=== PATIENT | male | born 1965 | race Caucasian/White ===

== ENCOUNTER 2024-02-23 05:35 | Emergency (ER) | payer BC, SELFPAY ==
[2024-02-23 05:39] VITALS: BP 126/89; PULSE 88; RESP 18; TEMP 36.3; O2SAT 97
[2024-02-23 05:46] VITALS: BP 126/89; PULSE 95; RESP 18; TEMP 36.8; O2SAT 96
[2024-02-23] MEDS: HYDROcodone/acetaminophen (*CRX) 7.5-325 MG TABLET 1 TAB PO (06:24)
--- NOTE | 2024-02-23 06:25 | ED.GENADULT ---
HPI - General Adult General Chief complaint: Extremity Injury, Lower Stated complaint: R knee and lutz pain Time Seen by Provider: 02/23/24 06:17 History of Present Illness HPI narrative: Patient is a 58-year-old male who presents the emergency department this morning complaining of right knee pain. Patient states that the pain has been bothered him for the past few weeks, and cannot remember any trauma or injuries to the right knee. Patient states that he has followed up with And has an outpatient MRI scheduled but not for a while. Patient states that he has been prescribed tramadol which has not touched his pain. He has had x-rays done which revealed no fractures. Patient was told that his x-rays are completely normal. He denies any additional symptoms or concerns at this time. Related Data Allergies Allergy/AdvReac Type Severity Reaction Status Date / Time No Known Allergies Allergy Verified 02/23/24 05:44 Review of Systems Review of Systems: All systems are reviewed and are negative unless stated otherwise in the HPI. Exam Narrative: General: Alert, awake, afebrile, in no acute distress. Cardiovascular: Regular rate and rhythm, no murmurs, rubs or gallops, no peripheral edema. Respiratory: Clear to auscultation bilaterally, no tachypnea, no wheezing, no rhonchi, no rubs, no respiratory distress. Abdomen: Soft, nontender, nondistended, no rebound, no guarding, no peritoneal signs. Musculoskeletal: No joint swelling or deformity, normal muscle tone, no right knee effusion, tenderness to palpation over the medial aspect of the right knee, intact right knee flexion and extension. Skin: No rashes or petechia, no signs of infection. Neurological: Alert and oriented to person, place, and time. Follows all commands. No focal deficits, speech is clear and fluent. Course Vital Signs Vital signs: Vital Signs Temperature 97.4 F L 02/23/24 05:39 Pulse Rate 88 02/23/24 05:39 Respiratory Rate 18 02/23/24 05:39 Blood Pressure 126/89 02/23/24 05:39 Pulse Oximetry 97 02/23/24 05:39 Oxygen Delivery Room Air 02/23/24 05:39 Temperature 98.2 F 02/23/24 05:46 Pulse Rate 86 02/23/24 06:31 Respiratory Rate 18 05/23/24 06:31 Blood Pressure 126/89 02/23/24 06:31 Pulse Oximetry 98 02/23/24 06:31 Oxygen Delivery Room Air 02/23/24 05:39 Medical Decision Making MDM Narrative Medical decision making narrative: The patient was evaluated by myself in the emergency department. History is obtained from patient who is an independent historian and physical exam was performed. External medical records were reviewed at this time. I did offer to obtain imaging, however, informed patient that I cannot obtain an MRI at this time which is what he wanted. Patient was administered 7.5-325 mg of oral [place] for pain and was informed that a script for a few [place] was will be sent to his pharmacy to use as needed for pain until he can follow-up with orthopedics and obtain his MRI and patient is agreeable. Differential diagnosis considerations include meniscal injury, ACL/PCL injury. Comorbidities impacting this visit include none. I have evaluated and discussed social determinants of health with the patient that could potentially impact subsequent diagnosis and treatment plans. On repeat assessment of the patient, reevaluation revealed that the patient is doing well and is in no acute distress. Patient symptoms have improved since he arrived to our emergency department. Repeat vital signs were all reviewed and noted to be stable. Differential diagnosis and treatment plan were discussed with the patient at bedside. Patient agrees with discussion and after shared medical decision making agrees with discharge. All questions were answered to the patient's satisfaction. Patient will follow up with Dr. Cabrera with orthopedics in 3-5 days. Patient was provided with strict return precautions and instructed
[2024-02-23 06:31] VITALS: BP 126/89; PULSE 86; RESP 18; O2SAT 98
== END 2024-02-23 06:30 | disposition home or self-care (01) ==
PROVIDERS: Emergency Provider Emergency Medicine; PCP Internal Medicine
DX: M23.91 Unspecified internal derangement of right knee (principal)
CPT/HCPCS: 99283; A9270

== ENCOUNTER 2024-03-02 16:09 | Outpatient (CLI) | payer BC, SELFPAY ==
--- NOTE | ~2024-03-02 | XR_ITS ---
EXAM: XR lumbar spine min 4V DATE: 03/02/2024 16:37 HISTORY: LUMBAR RADICULOPATHY, R LEG PAIN . COMPARISON: None available. FINDINGS: 5 nonrib-bearing lumbar-type vertebral bodies. Pedicles intact. Minimal retrolisthesis at L2-3 and L3-4 that remain stable in flexion and extension. Vertebral body heights preserved. Moderate disc space narrowing and marginal osteophytosis with vacuum phenomenon at L5-S1. Moderate lower lumb ar facet hypertrophy and sclerosis with interspinous narrowing. No fracture or dislocation. IMPRESSION: Stable grade 1 retrolisthesis at L2-3 and L3-4. Severe degenerative disc disease at L5-S1 . Moderate lower lumbar facet arthropathy Reviewed, dictated and finalized at location K. IMPRESSION: Stable grade 1 retrolisthesis at L2-3 and L3-4. Severe degenerative disc disease at L5-S1. Moderate lower lumbar facet arthropathy
--- NOTE | ~2024-03-02 | XR_ITS ---
EXAM: XR sacrum coccyx min 2V DATE: 03/02/2024 16:38 HISTORY: LUMBAR RADICULOPATHY, R LEG PAIN . COMPARISON: X-ray L-spine same date. FINDINGS: Lumbar degenerative disc disease. Normal SI joints. Mild degenerative change in the bilate ral hips. No fracture or dislocation. IMPRESSION: Unremarkable sacrum and coccyx radiograph findings. Reviewed, dictated and finalized at location K.
== END 2024-03-02 16:10 ==
PROVIDERS: PCP Internal Medicine; Visit Provider Nurse Practitioner
DX: M43.16 Spondylolisthesis, lumbar region (principal); M51.37 Other intervertebral disc degeneration, lumbosacral region; M47.896 Other spondylosis, lumbar region
CPT/HCPCS: 72110; 72220

== ENCOUNTER 2024-12-30 15:12 | Emergency (ER) | payer BC, SELFPAY ==
[2024-12-30] VITALS (7 sets, daily range): BP systolic 138–159; BP diastolic 85–91; PULSE 92–102; RESP 10–16; O2SAT 99
--- NOTE | ~2024-12-30 | XR_ITS ---
EXAMINATION: XR chest 2V Exam Date/Time: 12/30/2024 15:20 CDT HISTORY: dizziness Comparison: None. RESULT: Lines, tubes, and devices: None. Lungs and pleura: Likely pulmonary bullae in the left apex. Ill-defined patchy subsegmental airspace disease in the lung bases, greater on the right. Left hemidiaphragm elevation. Cardiomediastinal silhouette: Left hilar retraction, ill-defined left hilar opacities. Normal heart size. Other: Prominent gastric bubble. No acute osseous finding. IMPRESSION: Subsegmental bibasilar and left hilar atelectasis/consolidation. Left apical bullae, possible emphysematous change. Prominent gastric bubble with left hemidiaphragm elevation, may be secondary to gastric distention. C orrelate for symptoms of abdominal pain. Reviewed, dictated and finalized at location K. IMPRESSION: Subsegmental bibasilar and left hilar atelectasis/consolidation. Left apical bullae, possible emphysematous change. Prominent gastric bubble with left hemidiaphragm elevation, may be secondary to gastric distention. Correlate for symptoms of abdominal pain.
--- NOTE | ~2024-12-30 | CT_ITS ---
EXAMINATION: CT brain wo con DATE: 12/30/2024 15:35 INDICATION: fall, injury . TECHNIQUE: Computed tomography (CT) of the head was performed without intravenous contrast. The mA wa s adjusted according to patient size. Iterative reconstruction technique was employed. The dose-lengt h product was 605.33 mGy-cm. COMPARISON: None. FINDINGS: Small foci of acute hemorrhage in the right sylvian fissure and also inferior sulci in the right midd le cranial fossa. Small focus of extra-axial hyperdensity in the medial aspect of the right middle cr anial fossa, 3 mm thick, may represent subarachnoid or subdural blood. 4 mm peripheral hyperdense foc i in the inferior right frontal lobe (coronal images 22 and 21) may represent subarachnoid or intrapa renchymal blood. No hydrocephalus, mass, or herniation. No acute ischemic infarct. Unremarkable dural venous sinus attenuation. No acute osseous abnormality. Posterior scalp contusion near the vertex. The aerated spaces are clear. IMPRESSION: Subarachnoid hemorrhage noted primarily within the right sylvian fissure. Additional sites of hemorrhage are present in the middle cranial fossa and inferior right frontal lob e which may represent subarachnoid, subdural and/or intraparenchymal blood indicating the possibility of multicompartment hemorrhage. Posterior scalp contusion near the vertex, without underlying fracture. Results reported telephonically to Dr. Alex by Dr. Wild at 3:58 PM on 12/30/2024. Reviewed, dictated and finalized at location K. IMPRESSION: Subarachnoid hemorrhage noted primarily within the right sylvian fissure. Additional sites of hemorrhage are present in the middle cranial fossa and infe rior right frontal lobe which may represent subarachnoid, subdural and/or intra parenchymal blood indicating the possibility of multicompartment hemorrhage. Posterior scalp contusion near the vertex, without underlying fracture. Results reported telephonically to Dr. Alex by Dr. Wild at 3:58 PM on .
--- NOTE | ~2024-12-30 | CT_ITS ---
EXAMINATION: CT cervical spine wo con DATE: 12/30/2024 15:36 INDICATION: fall TECHNIQUE: Computed tomography (CT) of the cervical spine was performed without intravenous contrast. Automated exposure control and iterative reconstruction technique were employed. The dose-length pro duct was 367.44 mGy-cm. COMPARISON: None. FINDINGS: Vertebral Body Alignment: 2 mm anterolisthesis at C5-6, presumably secondary to degenerative changes. Craniocervical and atlantoaxial alignment: Moderate degenerative change. Alignment intact. Transverse ligament calcification. Osseous structures/fracture: No evidence of a lytic or blastic process in the visualized spine. No e vidence of acute fracture. Cervical soft tissues: The paraspinal soft tissues planes are maintained. Degenerative changes: Degenerative changes, without severe or central canal narrowing. Moderate-sever e bilateral neural foraminal narrowing at C6-7 secondary to degenerative changes. IMPRESSION: No acute fracture or traumatic malalignment in the cervical spine. Reviewed, dictated and finalized at location K.
--- NOTE | 2024-12-30 15:22 | ECG_ITS ---
Test Date: 2024-12-30 15:16:45 Measurements Intervals [place] Rate: 89 P: 72 NE: 146 QRS: 67 QRSD: 93 T: 64 QT: 355 QTc: 434 Interpretive Statements SINUS RHYTHM POSSIBLE LEFT ATRIAL ENLARGEMENT [-0.1mV P WAVE IN V1/V2] INCOMPLETE RIGHT BUNDLE BRANCH BLOCK [90+ ms QRS DURATION, TERMINAL R IN V1/V2, 40+ ms S IN I/aVL/V4/V5/V6] ABNORMAL ECG No previous ECG available for comparison Electronically Signed On 12-31-2024 06:47:35 CDT by Bonilla Pinzon M.D.
--- OUTSIDE RECORDS SUMMARY | 2024-12-30 15:45 | XMS_ITS | Encounter Summary ---
Author Organization [facility] Address [facility] [place] [address] Care Team Providers Care Director Behavioral Health Name Role Phone Winter Terry MD Primary Care Provider [phone] Chalino Palacios MD Unavailable Encounter Details Date Type Department Care Team (Latest Contact Info) Description 03/15/2024 WOWasht [facility] [place] - [place] [address] [address] [place] [address] Winter Terry MD [address] [place] [address] Oncology Referral Social History Tobacco Use Types Packs/Day Years Used Date Smoking Tobacco: Every Day Cigarettes 1 40 Passive Smoke Exposure: Past Smokeless Tobacco: Never Comments:Counseled by DR Stefany car. Alcohol Use Standard Drinks/Week Comments Yes 10 (1 standard drink = 0.6 oz pu re alcohol) PHQ-2 Answer Date Recorded Patient Health Questionnaire-2 Score 0 03/30/2023 Sex and Gender Information Value Date Recorded Sex Assigned at Not on file Legal Sex Male 10:24 AM CDT Gender Identity Not on file Sexual Orientation Not on file documented as of this encounter Plan of Treatment Upcoming Encounters Date Type Department Care Team (Late st Contact Info) Description 01/23/2025 8:40 AM CDT Office Visit [facility] [place] - [address] [place] [address] Winter Terry MD [address] [address] 04/09/2025 11:30 AM CDT Appointment [facility] Radiation Oncology [address] [place] [address] Chalino Palacios MD [address] [place] [address] [address] [place] [address] documented as of this encounter Visit Diagnoses Not on filedocumented in this encounter Additional Health Concerns Assessment Noted Time PHQ-9 Depression Total Score: 0 03/30/20 9:33 AM CDT documented as of this encounter Care Teams Director Behavioral Health Relationship Specialty Start Date End Date Winetr Terry MD [address] [address] PCP - General INTERNAL MEDICINE 03/07/23 Chalino Palacios MD [address] [address] Consulting Physician RADIATION ONCOLOGY 04/02/24 documented as of this encounter
--- OUTSIDE RECORDS SUMMARY | 2024-12-30 15:45 | XMS_ITS ---
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 04/03/2024 Current Treatment and Therapy Plans [facility]: Durvalumab - 14 Day Cycle - Non-Small Cell Lung* Plan Start Date:06/03/2024 Plan Provider:Johanna Roque, WASTEWATER TREATMENT SUPERVISOR, MEAT MARKET MANAGER Linked Problems Primary non-small cell carci noma of upper lobe of left lung (HCC) Treatment Medications Current Day (Day 1 , Cycle 15 - Planned for 01/02/2025) Next Day (Day 1, Cycle 16 - Planned for 01/16/2025) durvalumab (IMFINZI) chemo infusion durvalumab (IMFINZI) 620 mg in sodium chloride 0.9 % 250 mL chemo infusion durvalumab (IMFINZI) 620 mg in sodium chloride 0.9 % 250 mL chemo infusion Past Treatment and Therapy Plans ONCOLOGY TREATMENT Plan Name Start Date Discontinue Date Treatment Medications Discontinue Reason Plan Provider Cycles NON-SMALL CELL LUNG CA - CARBO/TAXO L WEEKLY with rt- [facility]I 04/16/2024 05/28/2024 CARBOplatin (PARAPLATIN) chemo infusion (by AUC)PACLitaxel (TAXOL) chemo infusion Plan Clean Up Pop Waller MD 1 of 1 cycle started Lifetime Dose Tracking * Chemical Lifetime Dose Automatic Entry Manual Entr y Carboplatin 994.514 mg/m2 (1,744 mg) 994.514 mg/m2 (1 ,744 mg) 0 mg/m2 (0 mg)
--- OUTSIDE RECORDS SUMMARY | 2024-12-30 15:45 | XMS_ITS | Encounter Summary ---
Author Organization [facility] Address [facility] [place] [address] Care Team Providers Care Inbound Sales Representative Name Role Phone Winter Terry MD Primary Care Provider [phone] Chalino Palacios MD Unavailable Encounter Details Date Type Department Care Team (Late Contact Info) Description 02/22/2024 [facility]Chart [facility] [address] Winter Terry MD [address] [place] [address] X-Ray Results Social History Tobacco Use Types Packs/Day Years [...] Description 01/23/2025 8:40 AM CDT Office Visit [facility]pecialty [address] [place] [address] Winter Terry MD [address] [address] 04/09/2025 11:30 AM CDT Appointment [facility] Radiation Oncology [address] [facility] [address] [place] [address] Chalino Palacios MD [address] [facility] [address] [place] [address] documented as of this encounter Visit Diagnoses Not on filedocumented in this encounter Additional Health Concerns Assessment Noted Time PHQ-9 Depression Total Score: 0 03/30/20 23 9:33 AM CDT documented as of this encounter Care Teams Inbound Sales Representative Relationship Specialty Start Date End Date Winter Terry MD [address] [address] PCP - General INTERNAL MEDICINE 03/07/23 Chalino Palacios MD [address] [address] Consulting Physician RADIATION ONCOLOGY 04/02/24 documented as of this encounter
--- OUTSIDE RECORDS SUMMARY | 2024-12-30 15:45 | XMS_ITS | Encounter Summary ---
Author Organization [facility] Address [facility] [place] [address] Care Team Providers Care Housekeeping Assistant Name Role Phone Winter Terry MD Primary Care Provider [phone] Chalino Palacios MD Unavailable Encounter Details Date Type Department Care Team (Latest Contact Info) Description 04/11/2024 Snoobet [facility] [address] [address] Winter Terry MD [address] [place] [address] Update for chemotherapy treatment Social History Tobacco Use Types Packs/Day Years Used Date Smoking Tobacco: Former Cigarettes 1 40 Passive Smoke Exposure: Past [...] Description 01/23/2025 8:40 AM CDT Office Visit [facility] Multispecialty [address] [place] [address] Winter Terry MD [address] [address] 04/09/2025 11:30 AM CDT Appointment [facility] Radiation Oncology [address] [place] [address] Chalino Palacios MD [address] [facility] [address] [place] [address] documented as of this encounter Visit Diagnoses Not on filedocumented in this encounter Additional Health Concerns Assessment Noted Time PHQ-9 Depression Total Score: 0 03/30/20 23 9:33 AM CDT documented as of this encounter Care Teams Housekeeping Assistant Relationship Specialty Start Date End Date Winter Terry MD [address] [address] PCP - General INTERNAL MEDICINE 03/07/23 Chalino Palacios MD [address] [address] Consulting Physician RADIATION ONCOLOGY 04/02/24 documented as of this encounter
--- OUTSIDE RECORDS SUMMARY | 2024-12-30 15:45 | XMS_ITS | Clinical Summary ---
Author Organization [facility] Address [facility] [place] [address] Care Team Providers Care Hat Trimmer Name Role Phone Winter Terry MD Primary Care Provider [phone] Chalino Palacios MD Unavailable Medications Lancets MiscIndications:U ncontrolled type 2 diabetes mellitus with hyperglycemia ([facility] HHS/HCC) 1 Device by Does not apply route 3 (three) times daily before meals. 100 each 2 3 Active Alcohol Swabs (ALCOHOL PREP) PadsIndications:U ncontrolled type 2 diabetes mellitus with hyperglycemia ([facility]/HCC HHS/HCC) 1 Bag by Does not apply route 3 (three) times daily before meals. 100 each 2 3 Active Blood Glucose Monitoring Suppl (FREESTYLE LITE) w/Device KitIndications:He moglobin A1C greater than 9%, indicating poor diabetic control,Uncontrol led type 2 diabetes mellitus with hyperglycemia ([facility]/HCC HHS/HCC) 1 each by Does not apply route 3 (three) times daily. 1 kit 3 Active Glucose Blood (FREESTYLE LITE) test stripIndications: Hemoglobin A1C greater than 9%, indicating poor diabetic control,Uncontrol led type 2 diabetes mellitus with hyperglycemia ([facility] HHS/HCC) Use 3 times daily before meals to check blood sugar 300 strip 3 Active Lancets (FREESTYLE) lancetsIndication s:Hemoglobin A1C greater than 9%, indicating poor diabetic control,Uncontrol led type 2 diabetes mellitus with hyperglycemia (CMS/HCC HHS/HCC) Use 3 times daily before meals to check blood sugar 300 each 3 Active buPROPion SR (WELLBUTRIN SR) 150 MG 12 hr tabletIndications :Smoker,Moderate episode of recurrent major depressive disorder ([facility]) Take 1 tablet (150 mg total) by mouth 2 (two) times daily. 180 tablet 3 Active varenicline, starter pack, (CHANTIX) 0.5 MG X 11 & 1 MG X 42 tabletIndications :Tobacco use disorder Take one 0.5 mg tab by mouth once a day for 3 days, then take one 0.5 mg tab twice a day for 4 days, then take one 1 mg tab twice a day. 53 each 4 Active Additional Information Patient not taking.Reported on 06/12/2024 traMADol (ULTRAM) 50 MG tabletIndications :Chronic Pain Take 1 tablet (50 mg total) by mouth nightly as needed for Pain. Indications: Chronic Pain 30 tablet 4 Active gabapentin (NEURONTIN) 300 MG capsuleIndication s:Lumbar radiculopathy,Rig ht leg pain TAKE 1 CAPSULE BY MOUTH AT BEDTIME FOR 3 DAYS, THEN INCREASE TO TWICE DAILY. MAY TAKE UP TO THREE TIMES DAILY NEEDED FOR PAIN. 90 capsule 2 4 Active celecoxib (CELEBREX) 200 MG capsuleIndication s:Chronic pain of right knee take 1 capsule by mouth twice a day 60 capsule 4 Active albuterol sulfate HFA 108 (90 Base) MCG/ACT inhalerIndication s:COVID-19 virus infection INHALE 2 PUFFS INTO THE LUNGS EVERY 6 HOURS NEEDED FOR WHEEZE 18 g 1 4 Active atorvastatin (LIPITOR) 10 MG tabletIndications :Type 2 diabetes mellitus with hyperglycemia, without long-term current use of insulin ([facility]),Dyslipid emia TAKE 1 TABLET BY MOUTH NIGHTLY AT BEDTIME 90 tablet 4 Active metFORMIN (GLUCOPHAGE) 500 MG tabletIndications :Type 2 diabetes mellitus with hyperglycemia, without long-term current use of insulin ([facility]) TAKE 2 TABLETS BY MOUTH TWICE A DAY WITH MEALS 360 tablet 4 Active Active Problems Problem Noted Date Diagnosed Date Adenocarcinoma, lung, left ([facility]) Chronic bilateral low back pain without sciatica 04/28/2024 Hyperlipidemia due to type 2 diabetes mellitus ([facility]) 04/28/2024 Left shoulder pain, unspecified chronicity 02/21 Right knee pain, unspecified chronicity 02/22/20 24 Moderate episode of recurrent major depressive d isorder 02/03/2023 Encounter for smoking cessation counseling 02/03 Smoker 02/03/2023 Callus of heel 02/03/2023 Mixed hyperlipidemia 02/03/2023 Hemoglobin A1C greater than 9%, indicating poor diabetic control 01/03/2023 Uncontrolled type 2 diabetes mellitus with hyperglycemia ([facility]) 01/03/2023 Encounters Date Type Department Care Team Description 12/20/2024 10:35 AM CDT - 12/20/2024 11:59 PM CDT Hospital Encounter [facility] Radiation Oncology [address] [facility] [address] [place] [address] Chalino Palacios MD Follow Up Discharge Disposition: Home or Self Care (Routine Discharge) 12/20/2024 Telephone [facility] Medical [facility] Multispecialty Care - [place] [address] [facility] [address] [place] [address] Winter Terry MD Referral 12/20/2024 Telephone [facility] Medical [facility] Care - [place] [address] [place] [address] Wniter Terry MD Follow Up Call 12/20/2024 Travel 12/19/2024 Scan [facility] Scanned, [facility] 12/05/2024 Scan [facility] Scanned, [facility] 11/21/2024 Scan [facility] Scanned, [facility] 11/07/2024 Scan [facility] Scanned, [facility] 10/24/2024 Scan [facility] Scanned, [facility] 10/10/2024 Scan [facility] Scanned, [facility] from Last 3 Months Immunizations Name Administration Dates Next Due Fluzone 6 Months+ Quad (0.5 mL Prefilled Syringe) 07/27/2023 Influenza Adult (Generic) 08/03/2022,07/21/2021, 08/21/2018 Pneumococcal (Pneumovax 23) 03/30/2023 Tdap (Generic) 08/21/2018 Family History Medical History Relation Comments COPD Father Heart Disease Father Cancer Mother Diabetes Mother Hyperlipidemia Mother Hypertension Mother Relation Status Comments Father Mother Social History Tobacco Use Types Packs/Day Years Used Date Smoking Tobacco: Former Cigarettes 1 40 Passive Smoke Exposure: Past Smokeless Tobacco: Never Tobacco Cessation:Counseling Given: Not Answered Comments:Counseled by DR Terry. Alcohol Use Standard Drinks/Week Comments Yes 10 (1 standard drink = 0.6 oz pu re alcohol) PHQ-2 Answer Date Recorded Patient Health Questionnaire-2 Score 0 03/30/2023 Sex and Gender Information Value Date Recorded Sex Assigned at Not on file Legal Sex Male 10:24 AM CDT Gender Identity Not on file Sexual Orientation Not on file Last Filed Vital Signs Vital Sign Reading Time Taken Comments Blood Pressure 122/78 12/20/2024 12:01 PM CDT Pulse 84 12/20/2024 12:01 PM CDT Temperature 36.1 C (97 F) 04/03/2024 8:20 AM CDT Respiratory Rate 20 04/03/2024 8:20 AM CDT Oxygen Saturation 100% 12/20/2024 12:01 PM CDT Inhaled Oxygen Concentration - - Weight 67 kg (147 lb 9.6 oz) 12/20/2024 12:01 PM CDT Height 170.2 cm (5' 7 ) 06/12/2024 2:30 PM CDT Body Mass Index 23.12 06/12/2024 2:30 PM CDT Plan of Treatment Upcoming Encounters Date Type Department Care Team (Late st Contact Info) Description 01/23/2025 8:40 AM CDT Office Visit [facility] Medical Group Multispecialty Care [place] [address] [address] [place] [address] [place] [address] [place] [address] [address] [place] [address] 04/09/2025 11:30 AM CDT Appointment [facility] Radiation Oncology [address] [place] [address] Dr Josef [place], [facility] Chalino Palacios MD [address] [facility] [address] [place] [address] Health Maintenance Due Date Last Done Comments Colorectal Cancer Screening Colonoscopy (10 Years) 1966 Kidney Health Evaluation 1966 Diabetes: Retinopathy Eye Exam 1984 Hepatitis B Vaccines (1 of 3 - 19+ 3-dose series) 1985 Zoster Vaccines (1 of 2) 2016 Hemoglobin A1C 10/07/2023 2023, 12/03, 12/31/2022 Annual Physical 03/30/2024 03/30/2023 Pneumococcal Vaccine: Pediatrics (0 to 5 Years) and At-Risk Patients (6 to 64 Years) (2 of 2 - PCV) 03/30/2024 03/30/2023 Lipid Panel 2024 2023, 12/31/2022 COVID-19 Vaccine ( - season) 2024 02/19/2022, 07/21/2021, 12/16/2020, Additional history exists PHQ-2 (Physician [place]) 10/03/2024 03/30/2023 DTaP, Tdap and Td Vaccines (2 - Td or Tdap) 08/21/2028 08/21/2018 Hepatitis C Completed 12/31/2022 Meningococcal B Vaccine Aged Out No l onger eligible based on patient's age to complete this topic Meningococcal Vaccine Aged Out No chacha jennifer eligible based on patient's age to complete this topic RSV Immunizations Under 20 Months Aged Out No longer eligible based on patient's age to complete this topic Procedures Procedure Name Priority Date/Time Associated Diagnosis Comments LIPID PANEL Routine 2023 8:40 AM CDT Annual physical exam Routine general medical examination at a health care facility Hyperlipidemia due to type 2 diabetes mellitus HEMOGLOBIN, GLYCOSYLATED Routine 2023 8:40 AM CDT Annual physical exam Routine general medical examination at a health care facility Uncontrolled type 2 diabetes mellitus with hyperglycemia HEPATITIS C ANTIBODY Routine 12/31/2022 9:56 AM CDT Unintentional weight loss from Last 3 Months or Most Recently Relevant to Health Maintenance Results * (ABNORMAL) HEMOGLOBIN, GLYCOSYLATED (2023 8:40 AM CDT) HGB A1C 6.5(H) 4.5 - 6.2 % 2023 4:07 PM CDT [facility] ESTIMATED AVG GLUCOSE 140(H) 74 - 106 MG/DL 2023 4:07 PM CDT [facility] 2023 8:40 AM CDT Winter Terry MD LABORATORY Final Result [facility] [address] [place] [address], * LIPID PANEL (2023 8:40 AM CDT) CHOLESTEROL 113 <200 MG/DL 2023 3:12 PM CDT [facility] TRIGLYCERIDES 30 <150 MG/DL 2023 3:12 PM CDT [facility] HDL 52 >40 MG/DL 2023 3:12 PM CDT [facility] LDL-C 55 <100 MG/DL 2023 3:12 PM CDT [facility] VLDL CALCULATION 6 5 - 28 MG/DL 2023 3:12 PM CDT [facility] CHOL/HDL RATIO 2.2 0.0 - 4.0 2023 3:12 PM CDT [facility] LDL/HDL 1.1 0.41 - 2.13 2023 3:12 PM CDT [facility] NON HDL CHOLESTEROL 61 <140 MG/DL 2023 3:12 PM CDT [facility] 2023 8:40 AM CDT Winter Terry MD LABORATORY Final Result Performing Organization Address City/[facility]/ZIP Co de Phone Number [facility] [address] [place] [address], * HEPATITIS C ANTIBODY (12/31/2022 9:56 AM CDT) HEPATITIS C AB NON-REACTI VE NON-REACT KURTIS 12/31/2022 7:56 PM CDT [facility] Comment: ANTIBODIES TO HCV NOT DETECTED. DOES NOT EXCLUDE THE POSSIBILITY OF EXPOSURE TO HCV. 12/31/2022 9:56 AM CDT Suresh Lynn MD LABORATORY Final Result Performing Organization Address City/[facility] Co de Phone Number [facility] [address] [place] [address], [place] [phone] from Last 3 Months or Most Recently Relevant to Health Maintenance Insurance [facility] Care Teams Hat Trimmer Relationship Specialty Start Date End Date Winter Terry MD [address] [address] PCP - General INTERNAL MEDICINE 03/07/23 Chalino Palacios MD [address] [address] Consulting Physician RADIATION ONCOLOGY 04/02/24
--- OUTSIDE RECORDS SUMMARY | 2024-12-30 15:45 | XMS_ITS | Encounter Summary ---
Author Organization [facility] Address [facility] [place] [address] Care Team Providers Care Rheumatologist Name Role Phone Winter Terry MD Primary Care Provider [phone] Chalino Palacios MD Unavailable Encounter Details Date Type Department Care Team (Late Contact Info) Description 02/29/2024 Analyze [facility] [place] [address] [place] [address] Radha Carroll, THERAPY ADMINISTRATIVE ASSISTANT [address] [place] [address] MRI Results Social History Tobacco Use Types Packs/Day [...] Description 01/23/2025 8:40 AM CDT Office Visit [facility] [place] [address] [place] [address] Winter Terry MD [address] [address] 04/09/2025 11:30 AM CDT Appointment [facility] Radiation Oncology [address] [facility] [address] [place] [address] Chalino Palacios MD [address] [facility] [address] [place] [address] documented as of this encounter Visit Diagnoses Not on filedocumented in this encounter Additional Health Concerns Assessment Noted Time PHQ-9 Depression Total Score: 0 03/30/20 23 9:33 AM CDT documented as of this encounter Care Teams Rheumatologist Relationship Specialty Start Date End Date Winter Terry MD [address] [place] [id number] PCP - General INTERNAL MEDICINE 03/07/23 Chalino Palacios MD [address] [address] Consulting Physician RADIATION ONCOLOGY 04/02/24 documented as of this encounter
--- OUTSIDE RECORDS SUMMARY | 2024-12-30 15:45 | XMS_ITS | Encounter Summary ---
Author Organization [facility] Address [facility] [place] [address] Care Team Providers Care Associate Professor Of Surgery Name Role Phone Suresh Lynn MD Primary Care Pr ovider Unavailable Winter Terry MD Primary Care Provider [phone] Chalino Palacios MD Unavailable Encounter Details Date Type Department Care Team (Late Contact Info) Description 12/31/2022 MyChart Message Enc [facility] [address] [place] [address] Suresh Lynn MD Lab results Social History Tobacco Use Types Packs/Day Years Used Date Smoking Tobacco: Every Day Cigarettes 1.5 40 Smokeless Tobacco: Never Alcohol Use Standard Drinks/Week Comments Yes 10 (1 standard drink = 0.6 oz pu re alcohol) PHQ-2 Answer Date Recorded Patient Health Questionnaire-2 Score 2 12/31/2022 Sex and Gender Information Value Date Recorded Sex Assigned at Not on file Legal Sex Male 10:24 AM CDT Gender Identity Not on file Sexual Orientation Not on file COVID-19 Exposure Response Date Recorded In the last 10 days, have yo u been in contact with someone who was confirmed or suspected to have Coronavirus/COVID-19? No / Unsure 12/31/2022 8:22 AM CDT documented as of this encounter Plan of Treatment Upcoming Encounters Date Type Department Care Team (Late st Contact Info) Description 01/23/2025 8:40 AM CDT Office Visit [facility] [place] [address] [address] [place] [address] Winter Terry MD [address] [place] [id number] 04/09/2025 11:30 AM CDT Appointment [facility] Radiation Oncology [address] [place] [address] [place] [address] Chalino Palacios MD [address] [facility] [address] [place] [address] documented as of this encounter Visit Diagnoses Not on filedocumented in this encounter Additional Health Concerns Assessment Noted Time PHQ-9 Depression Total Score: 12 023 5:43 PM CDT documented as of this encounter Care Teams Associate Professor Of Surgery Relationship Specialty Start Date End Date Suresh Lynn MD PCP - General FAMILY PRACTICE 12/31/22 03/06/23 Winter Terry MD [address] [place] [id number] PCP - General INTERNAL MEDICINE 03/07/23 Chalino Palacios MD [address] [place] [id number] Consulting Physician RADIATION ONCOLOGY 04/02/24 documented as of this encounter
--- OUTSIDE RECORDS SUMMARY | 2024-12-30 15:45 | XMS_ITS | Clinical Summary ---
Author Organization [facility] Address [address], [address] [place] [address] Phone Care Team Providers Care Property And Casualty Insurance Agent Name Role Phone Winter Terry MD Primary Care Provider [phone] Haroldo Burt MD Unavailable Unavailable Pop Waller MD Unavailable [phone] Allergies Active Allergy Reactions Criticality Noted Date Comments Iodinated Contrast Media Nausea,Vomiting High 2023 Immediate n/v upon admin of IVCM even with premedication. Medications celecoxib (CeleBREX) 200 MG Capsule Take 1 Capsule by mouth 2 times daily. 4 Active atorvastatin (LIPITOR) 10 MG Tablet Take 10 mg by mouth. 4 Active metFORMIN (GLUCOPHAGE) 500 MG Tablet Take 1,000 mg by mouth. 4 Active Blood Glucose Monitoring Suppl (FreeStyle Lite) w/Device Kit 1 Each by Does not apply route. 3 Active Glucose Blood (FREESTYLE LITE) Strip Use 3 times daily before meals to check blood sugar 3 Active FreeStyle Lancets Misc Use 3 times daily before meals to check blood sugar 3 Active ferrous sulfate 325 (65 Fe) MG Tablet Take 325 mg by mouth daily. Active magnesium oxide (MAG-OX) 400 MG Tablet Take 400 mg by mouth daily. Active gabapentin (NEURONTIN) 300 MG Capsule Take 1 capsule by mouth at bedtime x 3 days then increase to twice daily. May take up to three times daily as needed for pain. 4 12/06/19 25 Discontinu ed(Med List Clean Up) Active Problems Problem Noted Date Diagnosed Date Elevated blood pressure reading 08/29/2024 Primary non-small cell carcinoma of upper lobe o f left lung 04/03/2024 Encounters Date Type Department Care Team Description 12/20/2024 11:00 AM CDT Ancillary Procedure [facility] [address] [phone] 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); NSCLC of left lung (HCC) 12/20/2024 Telephone [facility] [address] [address] Chalino Palacios MD 12/19/2024 11:00 AM CDT Office Visit [facility] [address] [phone] Johanna Roque, RUG RECEIVING CLERK, [employer] [place] 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) (Primary Dx); Fatigue, unspecified type 12/19/2024 10:45 AM CDT Clinical Support [facility] [address] [phone] 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) (Primary Dx); Encounter for immunotherapy; Hypomagnesemia 12/19/2024 Travel 12/05/2024 10:30 AM NATUROPATHIC ONCOLOGY PROVIDER Office Visit [facility] [address] [phone] Shannon Seymour APRN, [employer] [place] 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) (Primary Dx); Encounter for immunotherapy; Hypomagnesemia 12/05/2024 10:15 AM NATUROPATHIC ONCOLOGY PROVIDER Clinical Support [facility] [address] [phone] 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) (Primary Dx); Encounter for immunotherapy; Hypomagnesemia 12/05/2024 Travel 11/21/2024 10:15 AM NATUROPATHIC ONCOLOGY PROVIDER Office Visit [facility] [address] [phone] Wen Alvarez APRN, [employer] [place] 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) (Primary Dx); Encounter for immunotherapy; Hypomagnesemia 11/21/2024 10:00 AM NATUROPATHIC ONCOLOGY PROVIDER Clinical Support [facility] [address] [phone] 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) (Primary Dx) 11/21/2024 Travel 11/07/2024 10:00 AM NATUROPATHIC ONCOLOGY PROVIDER Office Visit [facility] [address] [phone] Johanna Roque APRN, [employer] [place] 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) (Primary Dx) 11/07/2024 9:45 AM NATUROPATHIC ONCOLOGY PROVIDER Clinical Support [facility] [address] [phone] 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) (Primary Dx); Encounter for immunotherapy; Hypomagnesemia 11/07/2024 Travel 10/24/2024 10:00 AM NATUROPATHIC ONCOLOGY PROVIDER Office Visit [facility] [address] [phone] Shannon Seymour APRN, [employer] [place] 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) (Primary Dx); Encounter for immunotherapy; Hypomagnesemia 10/24/2024 9:45 AM NATUROPATHIC ONCOLOGY PROVIDER Clinical Support [facility] [address] [address] 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) (Primary Dx) 10/24/2024 Travel 10/10/2024 10:15 AM NATUROPATHIC ONCOLOGY PROVIDER Office Visit [facility] [address] [phone] Wen Alvarez APRN, [employer] [place] 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) (Primary Dx) 10/10/2024 10:00 AM NATUROPATHIC ONCOLOGY PROVIDER Clinical Support [facility] [address] [phone] 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) (Primary Dx); Elevated blood pressure reading 10/10/2024 Travel 10/01/2024 Telephone [facility] [address] [phone] Chalino Palacios MD from Last 3 Months Family History Medical History Relation Name Comments Congestive Heart Failure Father Congestive Heart Failure Mother Relation Name Status Comments Brother 1 Alive Brother 2 Alive Child 1 Alive Child 2 Alive Father Mother Social History Tobacco Use Types Packs/Day Years Used Date Smoking Tobacco: Former Cigarettes Smokeless Tobacco: Never Tobacco Cessation:Counseling Given: Not Answered Alcohol Use Standard Drinks/Week Comments Yes 6 (1 standard drink = 0.6 oz pur e alcohol) Sex and Gender Information Value Date Recorded Sex Assigned at Not on file Legal Sex Male 10:56 AM CDT Gender Identity Not on file Sexual Orientation Not on file Last Filed Vital Signs Vital Sign Reading Time Taken Comments Blood Pressure 112/74 12/19/2024 10:47 AM CDT Pulse 84 12/19/2024 10:47 AM CDT Temperature 36.9 C (98.4 F) 12/19/2024 10:47 AM CDT Respiratory Rate 18 12/19/2024 10:47 AM CDT Oxygen Saturation 96% 12/19/2024 10:47 AM CDT Inhaled Oxygen Concentration - - Weight 67.6 kg (149 lb 1.6 oz) 12/19/2024 10:47 AM CDT Height 170.2 cm (5' 7 ) 12/19/2024 10:47 AM CDT Body Mass Index 23.35 12/19/2024 10:47 AM CDT Plan of Treatment Upcoming Encounters Date Type Department Care Team (Late st Contact Info) Description 01/02/2025 10:45 AM CDT Clinical Support [facility] [address] [phone] 01/02/2025 11:00 AM CDT Office Visit [facility] [address] [phone] Pop Waller MD [address] [place] [address] 04/09/2025 10:30 AM CDT Ancillary Procedure [facility] [address] [phone] Health Maintenance Due Date Last Done Comments Hepatitis B Immunization (1 of 3 - 19+ 3-dose series) 1985 Zoster Immunization (1 of 2) 1985 Colonoscopy 2011 Colorectal Cancer Screening 2011 Cologuard 2016 Immunochemical Fecal Occult Blood 2016 PSA Discussion 2021 Pneumococcal Immunization (50+ years) (2 of 2 - PCV) 03/30/2024 03/30/2023 Influenza Immunization (#1) 06/03/202407/04, 08/03/2022, 07/21/2021, Additional history exists SARS-COV-2 Immunization ( season) 2024 02/19/2022, 07/21/2021, 12/16/2020, Additional history exists Respiratory Syncytial Virus (RSV) Immunization (Adult) (1 - 1-dose 75+ series) 2041 TdaP Immunization Completed 08/21/2018 Hepatitis C Virus (HCV) Screening Completed 12/31/2022 Pneumococcal Immunization Combined Discontinued 03/30/2023 Meningococcal Immunization (ACWY) Aged Out No longer eligible based on patient's age to complete this topic Rotavirus Immunization Aged Out No lo nger eligible based on patient's age to complete this topic Procedures Procedure Name Priority Date/Time Associated Diagnosis Comments CT CHEST W/O CONTRAST Routine 12/20/2024 10:49 AM CDT 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) NSCLC of left lung (HCC) CMP (COMPREHENSIVE METABOLIC PANEL) Routine 12/19/2024 10:32 AM CDT 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) Encounter for immunotherapy Hypomagnesemia COMPLETE BLOOD COUNT (CBC) WITH DIFF Routine 12/19/2024 10:32 AM CDT 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) Encounter for immunotherapy Hypomagnesemia LACTATE DEHYDROGENASE (LD) Routine 12/19/2024 10:32 AM CDT 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) Encounter for immunotherapy Hypomagnesemia MAGNESIUM (MG) Routine 12/19/2024 10:32 AM CDT 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) Encounter for immunotherapy Hypomagnesemia CBC WITH AUTO DIFF OH Routine 12/05/2024 10:03 AM NATUROPATHIC ONCOLOGY PROVIDER 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) CMP (COMPREHENSIVE METABOLIC PANEL) Routine 12/05/2024 10:03 AM NATUROPATHIC ONCOLOGY PROVIDER 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) Encounter for immunotherapy Hypomagnesemia LACTATE DEHYDROGENASE (LD) Routine 12/05/2024 10:03 AM NATUROPATHIC ONCOLOGY PROVIDER 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) Encounter for immunotherapy Hypomagnesemia MAGNESIUM (MG) Routine 12/05/2024 10:03 AM NATUROPATHIC ONCOLOGY PROVIDER 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) Encounter for immunotherapy Hypomagnesemia CBC WITH AUTO DIFF OH Routine 11/21/2024 9:37 AM NATUROPATHIC ONCOLOGY PROVIDER 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) CMP (COMPREHENSIVE METABOLIC PANEL) Routine 11/21/2024 9:37 AM NATUROPATHIC ONCOLOGY PROVIDER 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) LACTATE DEHYDROGENASE (LD) Routine 11/21/2024 9:37 AM NATUROPATHIC ONCOLOGY PROVIDER 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) MAGNESIUM (MG) Routine 11/21/2024 9:37 AM NATUROPATHIC ONCOLOGY PROVIDER 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) CBC WITH AUTO DIFF OH Routine 11/07/2024 9:43 AM NATUROPATHIC ONCOLOGY PROVIDER 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) CMP (COMPREHENSIVE METABOLIC PANEL) Routine 11/07/2024 9:43 AM NATUROPATHIC ONCOLOGY PROVIDER 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) Encounter for immunotherapy Hypomagnesemia THYROXINE (T4) FREE Routine 11/07/2024 9 :43 AM NATUROPATHIC ONCOLOGY PROVIDER 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) Encounter for immunotherapy Hypomagnesemia THYROID STIMULATING HORMONE (TSH) Routine 11/07/2024 9:43 AM NATUROPATHIC ONCOLOGY PROVIDER 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) Encounter for immunotherapy Hypomagnesemia MAGNESIUM (MG) Routine 11/07/2024 9:43 AM NATUROPATHIC ONCOLOGY PROVIDER 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) Encounter for immunotherapy Hypomagnesemia IRON W/ IRON BINDING CAPACITY OH Routine 11/07/2024 9:43 AM NATUROPATHIC ONCOLOGY PROVIDER 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) Encounter for immunotherapy Hypomagnesemia FERRITIN Routine 11/07/2024 9:43 AM NATUROPATHIC ONCOLOGY PROVIDER 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) Encounter for immunotherapy Hypomagnesemia MAGNESIUM (MG) Routine 10/24/2024 9:41 AM NATUROPATHIC ONCOLOGY PROVIDER 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) CBC WITH AUTO DIFF OH Routine 10/24/2024 9:41 AM NATUROPATHIC ONCOLOGY PROVIDER 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) CMP (COMPREHENSIVE METABOLIC PANEL) Routine 10/24/2024 9:41 AM NATUROPATHIC ONCOLOGY PROVIDER 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) LACTATE DEHYDROGENASE (LD) Routine 10/24/2024 9:41 AM NATUROPATHIC ONCOLOGY PROVIDER 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) CBC WITH AUTO DIFF OH Routine 10/10/2024 9:55 AM NATUROPATHIC ONCOLOGY PROVIDER 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) CMP (COMPREHENSIVE METABOLIC PANEL) Routine 10/10/2024 9:55 AM NATUROPATHIC ONCOLOGY PROVIDER 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) Elevated blood pressure reading LACTATE DEHYDROGENASE (LD) Routine 10/10/2024 9:55 AM NATUROPATHIC ONCOLOGY PROVIDER 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) Elevated blood pressure reading from Last 3 Months Results * CT CHEST W/O CONTRAST (12/20/2024 10:49 AM CDT) Anatomical Region Laterality Modality Chest N/A Computed Tomogra phy Narrative 12/20/2024 10:57 AM CDT EXAMINATION: CT CHEST W/O CONTRAST N/A HPI: 59-year-old male primary malignancy of the left upper lobe. 59-year-old male with left upper lobe lung carcinoma with mediastinal invasion. The patient is status post radiation therapy and chemotherapy. Follow-up COMPARISON: Pertinent prior examinations TECHNIQUE: Helical imaging of the chest obtained without the intravenous administration of contrast. A dose lowering technique was used for this procedure, which may include, but is not limited to, dose reduction technique(s), automated exposure control techniques, use of iterative reconstruction techniques, and ALARA (as low as reasonably achievable) or ALARA/IMAGE Gently techniques. FINDINGS: CARDIOVASCULAR: Cardia is unchanged in size. A trace of pericardial fluid is seen. The aorta is intact without aneurysm. Central pulmonary vasculature is intact Coronary calcification:Severe LYMPHATICS: Scattered small mediastinal nodes are demonstrated. No axillary or supraclavicular adenopathy is seen. PULMONARY:The treated primary malignancy of the medial aspect of the left upper lobe is again demonstrated. It has decreased in size. It is presently 3.6 x 1.4 cm. Previously 4.6 x 3.2 cm. Rachel tumoral cicatricial bronchiectasis and atelectasis is present compatible with developing pulmonary fibrosis. Atelectatic changes and scarring in the left upper lobe are demonstrated. No developing pulmonary nodules are appreciated. No pleural fluid is seen. No consolidation or collapse is appreciated MUSCULOSKELETAL: Degenerative changes of the spine are present. No lytic or blastic lesions are seen UPPER ABDOMEN: Intact IMPRESSION Primary malignancy of the left upper lobe with mediastinal invasion has decreased in size compatible with regression of disease. Post treatment changes are seen Electronically signed by: VÍCTOR CARRERO MD Date of Signature: 12/20/2024 10:57:32 Procedure Note Víctor Carrero MD - 12/20/2024 EXAMINATION: CT CHEST W/O CONTRAST N/A HPI: 59-year-old male primary malignancy of the left upper lobe. [id number] with left upper lobe lung carcinoma with mediastinal invasion. Thepatient is status post radiation therapy and chemotherapy. Follow-up COMPARISON: Pertinent prior examinations TECHNIQUE: Helical imaging of the chest obtained without the intravenousadministration of contrast. A dose lowering technique was used for this procedure, which may include,but is not limited to, dose reduction technique(s), automated exposurecontrol techniques, use of iterative reconstruction techniques, and ALARA(as low as reasonably achievable) or ALARA/IMAGE Gently techniques. FINDINGS: CARDIOVASCULAR: Cardia is unchanged in size. A trace of pericardial fluidis seen. The aorta is intact without aneurysm. Central pulmonaryvasculature is intact Coronary calcification:Severe LYMPHATICS: Scattered small mediastinal nodes are demonstrated. Noaxillary or supraclavicular adenopathy is seen. PULMONARY:The treated primary malignancy of the medial aspect of the leftupper lobe is again demonstrated. It has decreased in size. It ispresently 3.6 x 1.4 cm. Previously 4.6 x 3.2 cm. Rachel tumoralcicatricial bronchiectasis and atelectasis is present compatible withdeveloping pulmonary fibrosis. Atelectatic changes and scarring in theleft upper lobe are demonstrated. No developing pulmonary nodules are appreciated. No pleural fluid isseen. No consolidation or collapse is appreciated MUSCULOSKELETAL: Degenerative changes of the spine are present. No lyticor blastic lesions are seen UPPER ABDOMEN: Intact IMPRESSION Primary malignancy of the left upper lobe with mediastinal invasion hasdecreased in size compatible with regression of disease. Post treatmentchanges are seen Electronically signed by: VÍCTOR CARRERO MD Date of Signature: 12/20/2024 10:57:32 Chalino Palacios MD IMG CT ORDERABLES Final Result * (ABNORMAL) MAGNESIUM (MG) (12/19/2024 10:32 AM CDT) Only the most recent of5 resultswithin the time period is included. Magnesium 1.8(L) 1.9 - 2.7 mg/dL [facility] Blood 12/19/2024 10:3 2 AM CDT [facility] - 12/19/2024 11:17 AM CDT Release to patient->Immediate Shannon Seymour APRN, [employer] [place] CHEMISTRY ORDERABLES Final Result Performing Organization Address City/[facility] Co de Phone Number [facility] [place] [address], * (ABNORMAL) LACTATE DEHYDROGENASE (LD) (12/19/2024 10:32 AM CDT) Only the most recent of5 resultswithin the time period is included. LDH 82(L) 140 - 271 U/L [facility] Blood 12/19/2024 10:3 2 AM CDT [facility] - 12/19/2024 11:17 AM CDT Release to patient->Immediate Shannon Seymour APRN, [employer] [place] CHEMISTRY ORDERABLES Final Result Performing Organization Address City/[facility] Co de Phone Number [facility] [place] [address], * (ABNORMAL) CMP (COMPREHENSIVE METABOLIC PANEL) (12/19/2024 10:32 AM CDT) Only the most recent of6 resultswithin the time period is included. Glucose 108(H) 70 - 105 mg/dL [facility] Blood Urea Nitrogen 17 7 - 25 mg/dL [facility] Creatinine 0.6(L) 0.7 - 1.3 mg/dL [facility] Sodium 137 136 - 145 mEq/L [facility] Potassium 4.6 3.5 - 5.1 mEq/L [facility] Chloride 103 98 - 107 mEq/L [facility] Bicarbonate 24 21 - 31 mEq/L [facility] Total Bilirubin 0.5 0.3 - 1.0 mg/dL [facility] Alk. Phosphatase 60 34 - 104 U/L [facility] Aspartate Aminotransferase 13 13 - 39 U/L [facility] Alanine Aminotransferase 12 7 - 52 U/L [facility] Total Protein 6.8 6.4 - 8.9 g/dL [facility] Albumin 4.5 3.5 - 5.7 g/dL [facility] Calcium 9.8 8.6 - 10.3 mg/dL [facility] Anion Gap 14.6 7.0 - 15.0 mEq/L [facility] Globulin 2.3 2.0 - 3.5 g/dL [facility] EGFR 111 >60 ml/min/1. 73m2 [facility] Comment: This eGFR is calculated using 2020 CKD-EPI Creatinine equation without race modifier based on the NKF-ASN task force recommendations Equation: rRYW=915*min(SCr/k,1)a*max(SCr/k,1)-1.200*0.9938Age*1.012 (if female), where SCr is serum creatinine, k is 0.7 for females and 0.9 for males, and a is -0.241 for females and -0.302 for males Blood 12/19/2024 10:3 2 AM CDT Narrative [facility] - 12/19/2024 11:17 AM CDT Release to patient->Immediate IS THE PATIENT REQUIRED TO BE FASTING FOR 8 HOURS?->No Shannon Seymour RUG RECEIVING CLERK, [employer] [place] CHEMISTRY ORDERABLES Final Result [facility] [place] [address], * (ABNORMAL) COMPLETE BLOOD COUNT (CBC) WITH DIFF (12/19/2024 10:32 AM CDT) WBC 6.7 4.0 - 10.0 10*3/uL [facility] HGB 14.3 13.7 - 17.5 g/dL [facility] HCT 42.0 40.1 - 51.0 % [facility] PLT 221 163 - 369 10*3/uL [facility] MPV 9.6 9.4 - 12.4 fL [facility] RBC 4.48(L) 4.63 - 6.08 10*6/uL [facility] MCV 94 79 - 95 fL [facility] MCH 31.9 25.6 - 32.2 pg [facility] MCHC 34.0 32.2 - 36.5 g/dL [facility] RDW 12.5 11.6 - 14.4 % [facility] Absolute Neutrophil Count 5,128 cells/uL [facility] Absolute Seg Count 5,128 1,440 - 6,600 cells/uL [facility] Absolute Lymph Count 932 760 - 4,000 cells/uL [facility] Absolute [place] Count 599 160 - 1,200 cells/uL [facility] Segmented Neutrophils 77(H) 36 - 66 % [facility] Lymphocytes 14(L) 19 - 40 % [facility] Monocytes 9 4 - 12 % [facility] WBC Estimate Normal [facility] Platelet Estimate Normal [facility] RBC Morphology Normal CANCE R [facility] [facility] Blood 12/19/2024 10:3 2 AM CDT Narrative [facility] - 12/19/2024 11:24 AM CDT Release to patient->Immediate us Shannon Seymour RUG RECEIVING CLERK, [place] [place] HEMATOLOGY ORDERABLES Final Result [facility] [place] [address], [place] [phone] * (ABNORMAL) CBC WITH AUTO DIFF [place] (12/05/2024 10:03 AM NATUROPATHIC ONCOLOGY PROVIDER) Only the most recent of5 resultswithin the time period is included. WBC 5.5 4.0 - 10.0 10*3/uL [facility] HGB 14.1 13.7 - 17.5 g/dL [facility] HCT 41.8 40.1 - 51.0 % [facility] [facility] PLT 246 163 - 369 10*3/uL [facility] MPV 9.4 9.4 - 12.4 fL [facility] RBC 4.44(L) 4.63 - 6.08 10*6/uL [facility] MCV 94 79 - 95 fL [facility] MCH 31.8 25.6 - 32.2 pg [facility] MCHC 33.7 32.2 - 36.5 g/dL [facility] RDW 12.4 11.6 - 14.4 % [facility] Neutrophils % 69.4(H) 36.0 - 66.0 % [facility] Lymphocytes % 19.3 19.0 - 40.0 % [facility] Monocytes % 9.7 4.1 - 12.1 % [facility] Eosinophils % 0.7 0.0 - 3.5 % [facility] Basophils % 0.5 0.0 - 1.0 % [facility] Absolute Neutrophils 3.8 1.4 - 6.6 10*3/uL [facility] Absolute Lymphocytes 1.1 0.8 - 4.0 10*3/uL [facility] Absolute Monocytes 0.5 0.2 - 1.2 10*3/uL [facility] Absolute Eosinophils 0.0 0.0 - 0.4 10*3/uL [facility] [facility] Absolute Basophils 0.0 0.0 - 0.1 10*3/uL [facility] 12/05/2024 10:0 3 AM NATUROPATHIC ONCOLOGY PROVIDER Wen Alvarez APRN, WEATH[facility] SEND OUTS Fin al Result Performing Organization Address [facility]/ZIP Co de Phone Number [facility] [place] [address], * IRON W/ IRON BINDING CAPACITY [place] (11/07/2024 9:43 AM NATUROPATHIC ONCOLOGY PROVIDER) IRON 146 50 - 212 ug/dL [facility] UIBC 203 155 - 355 ug/dL [facility] TIBC 349 261 - 478 ug/dl [facility] % Saturation 42 20 - 50 % [facility] 11/07/2024 9:43 AM NATUROPATHIC ONCOLOGY PROVIDER Narrative [facility] - 11/07/2024 10:22 AM NATUROPATHIC ONCOLOGY PROVIDER Release to patient->Immediate Shannon Seymour APRN, WEATHER [facility] LAB SEND OUTS Final Result Performing Organization Address [facility] Co de Phone Number [facility] [place] [address], * THYROXINE (T4) FREE (11/07/2024 9:43 AM NATUROPATHIC ONCOLOGY PROVIDER) THYROXINE (T4), FREE, 0.92 0.61 - 1.12 ng/dL [facility] Comment: Specimens that contain high levels of Biotin >10 ng/mL may cause false high results for this method. Interpret results in light of the total clinical presentation of the patient. To minimize the interference of high levels of Biotin, it is recommended that patients discontinue taking Biotin 72 hours prior to testing. Blood 11/07/2024 9:43 AM NATUROPATHIC ONCOLOGY PROVIDER Narrative [facility] - 11/08/2024 2:47 PM NATUROPATHIC ONCOLOGY PROVIDER Is the patient taking Biotin supplement? Not sure Release to patient->Immediate Shannon Seymour RUG RECEIVING CLERK, WEATHER FORECASTER CHEMISTRY ORDERABLES Final Result [facility] [facility] [address] [place] [address], [place] [phone] * THYROID STIMULATING HORMONE (TSH) (11/07/2024 9:43 AM NATUROPATHIC ONCOLOGY PROVIDER) TSH 1.12 0.45 - 5.33 uIU/mL [facility] [employer] [facility] Blood 11/07/2024 9:43 AM NATUROPATHIC ONCOLOGY PROVIDER Narrative [facility] - 11/08/2024 2:47 PM NATUROPATHIC ONCOLOGY PROVIDER Release to patient->Immediate Shannon Seymour RUG RECEIVING CLERK, WEATHER FORECASTER CHEMISTRY ORDERABLES Final Result Performing Organization Address City/[facility]/ZIP Co de Phone Number CANCER AUTOMOT[employer]CH[facility] [address] [address], [place] [phone] * FERRITIN (11/07/2024 9:43 AM NATUROPATHIC ONCOLOGY PROVIDER) Ferritin 103 24 - 336 ng/mL [facility] Blood 11/07/2024 9:43 AM NATUROPATHIC ONCOLOGY PROVIDER Narrative [facility] - 11/08/2024 2:47 PM NATUROPATHIC ONCOLOGY PROVIDER Release to patient->Immediate Shannon Seymour RUG RECEIVING CLERK, WEATHER FORECASTER CHEMISTRY ORDERABLES Final Result Performing Organization Address City/[facility]/ZIP Co de Phone Number CANCER AUTOMOTIVE [employer]ASS MECHANIC [facility] [address] [place] [address], [place] [phone] from Last 3 Months Insurance [employer] Care Teams Property And Casualty Insurance Agent Relationship Specialty Start Date End Date Winter Terry MD [address] [address] PCP - General Internal Medicine 03/19/24 Haroldo Burt MD [address] [address] Internal Medicine 03/19/24 Pop Waller MD [address] [place] [phone] Consulting Physician Oncology 03/26/24
--- OUTSIDE RECORDS SUMMARY | 2024-12-30 15:45 | XMS_ITS | Continuity of Care Document ---
Author Name [facility] Organization [facility] Care Team Providers Care Trapeze Artist Name Role Phone [facility] Unavailable Unavailable Encounters Combined list of: 1) Encounters from Department of Veterans Affairs facilities going backup to the last 18 months, not all VA inpatient encounters are included; 2) Encounters from the Department of Defense facilities going backup to 280 months. Location Location Details Encounter Type Encounter Number Reason For Visit Attending Provider ADM Date DC Date Status Disposition Source [facility] Outpatient Encounter [id number] [facility]
--- OUTSIDE RECORDS SUMMARY | 2024-12-30 15:45 | XMS_ITS | Encounter Summary ---
Author Organization [facility] Address Critical access hospital[address] [place] [address] Care Team Providers Care Stationary Engineer Apprentice Name Role Phone Winter Terry MD Primary Care Provider [phone] Chalino Palacios MD Unavailable Encounter Details Date Type Department Care Team (Latest Contact Info) Description 03/02/2024 [employer] Message Enc [facility] Multispecialty Care - [address] [place] [address] [place] [address] [place] [address] [address] [place] [address] Knee and hip pain Social History Tobacco Use Types Packs/Day Years [...] on file documented as of this encounter Progress Notes * Michele Polanco - 03/02/2024 1:16 PM CDT Patient has appt on 03/02/24 at 3:00 pm. documented in this encounter Plan of Treatment Upcoming Encounters Date Type Department Care Team (Late st Contact Info) Description 01/23/2025 8:40 AM CDT Office Visit [facility] Mult[facility]pecialty Care - [address] [address] [address] [place] [address] Winter Terry MD [address] [place] [address] 04/09/2025 11:30 AM CDT Appointment [facility] Radiation Oncology [address] [place] [address] Chalino Palacios MD [address] [facility] [address] [place] [address] documented as of this encounter Visit Diagnoses Not on filedocumented in this encounter Additional Health Concerns Assessment Noted Time PHQ-9 Depression Total Score: 0 03/30/20 9:33 AM CDT documented as of this encounter Care Teams Stationary Engineer Apprentice Relationship Specialty Start Date End Date Winter Terry MD [address] [place] [address] PCP - General INTERNAL MEDICINE 03/07/23 Chalino Palacios MD [address] [place] [address] Consulting Physician RADIATION ONCOLOGY 04/02/24 documented as of this encounter
--- OUTSIDE RECORDS SUMMARY | 2024-12-30 15:45 | XMS_ITS | Encounter Summary ---
Author Organization [facility] Address [address] [place] [address] Phone Care Team Providers Care Cherry Sorter Name Role Phone Winter Terry MD Primary Care Provider Haroldo Burt MD Unavailable Unavailable Pop Waller MD Unavailable [phone] Encounter Details Date Type Department Care Team (Late st Contact Info) Description 06/12/2024 Telephone [facility] [address] [phone] Pop Waller MD [address] [place] [phone] Social History Tobacco Use Types Packs/Day Years Used Date Smoking Tobacco: Former Cigarettes Smokeless Tobacco: Never Alcohol Use Standard Drinks/Week Comments Yes 6 [...] AM CDT Clinical Support [facility] [address] [phone] 01/02/2025 11:00 AM CDT Office Visit [facility] [address] [phone] Pop Waller MD [address] [place] [phone] 04/09/2025 10:30 AM CDT Ancillary Procedure [facility] [address] [phone] documented as of this encounter Visit Diagnoses Not on filedocumented in this encounter Care Teams Cherry Sorter Relationship Specialty Start Date End Date Winter Terry MD [address] [address] PCP - General Internal Medicine 03/19/24 Haroldo Burt MD [address] [address] Internal Medicine 03/19/24 Pop Waller MD [address] [place] [phone] Consulting Physician Oncology 03/26/24 documented as of this encounter
--- OUTSIDE RECORDS SUMMARY | 2024-12-30 15:45 | XMS_ITS | Encounter Summary ---
Author Organization [facility] Address [facility] [place] [address] Care Team Providers Care Lump Room Supervisor Name Role Phone Winter Terry MD Primary Care Provider [phone] Chalino Palacios MD Unavailable Encounter Details Date Type Department Care Team (Late Contact Info) Description 03/19/2024 MyChart [facility] [place] [place] [phone] Winter Terry MD [address] [place] [address] Pain Management Social History Tobacco Use Types Packs/Day Years [...] Encounters Date Type Department Care Team (Late Contact Info) Description 01/23/2025 8:40 AM CDT Office Visit [facility] Multispecialty [facility] - [address] [place], [place] [phone] Winter Terry MD [address] [address] 04/09/2025 11:30 AM CDT Appointment [facility] Radiation Oncology [address] [facility] [place] [address] Chalino Palacios MD [address] [facility] [address] [place] [address] documented as of this encounter Visit Diagnoses Not on filedocumented in this encounter Additional Health Concerns Assessment Noted Time PHQ-9 Depression Total Score: 0 03/30/20 23 9:33 AM CDT documented as of this encounter Care Teams Lump Room Supervisor Relationship Specialty Start Date End Date Winter Terry MD [address] [address] PCP - General INTERNAL MEDICINE 03/07/23 Chalino Palacios MD [address] [address] Consulting Physician RADIATION ONCOLOGY 04/02/24 documented as of this encounter
--- OUTSIDE RECORDS SUMMARY | 2024-12-30 15:45 | XMS_ITS | Encounter Summary ---
Author Organization [facility] Address [facility] [place] [address] Care Team Providers Care Servicer Name Role Phone Suresh Lynn MD Primary Care Pr ovider Unavailable Winter Terry MD Primary Care Provider [phone] Chalino Palacios MD Unavailable Encounter Details Date Type Department Care Team (Late Contact Info) Description 12/31/2022 MyChart Message Enc [facility] [address] [address] [place] [address] Suresh Lynn MD Lab results [...] Visit [facility]pecialty Care - [place] [address] [address] [address] [place] [address] Winter Terry MD [address] [place] [address] 04/09/2025 11:30 AM CDT Appointment [facility] Radiation Oncology [address] [place] [address] [place] [address] Chalino Palacios MD [address] [facility] [address] [place] [address] documented as of this encounter Visit Diagnoses Not on filedocumented in this encounter Additional Health Concerns Assessment Noted Time PHQ-9 Depression Total Score: 12 023 5:43 PM CDT documented as of this encounter Care Teams Servicer Relationship Specialty Start Date End Date Suresh Lynn MD PCP - General FAMILY PRACTICE 12/31/22 03/06/23 Winter Terry MD [address] [place] [address] PCP - General INTERNAL MEDICINE 03/07/23 Chalino Palacios MD [address] [place] [address] Consulting Physician RADIATION ONCOLOGY 04/02/24 documented as of this encounter
--- OUTSIDE RECORDS SUMMARY | 2024-12-30 15:45 | XMS_ITS | Encounter Summary ---
Author Organization [facility] Address [facility] [place] [address] Care Team Providers Care Dicer Machine Operator Name Role Phone Winter Terry MD Primary Care Provider [phone] Chalino Palacios MD Unavailable Encounter Details Date Type Department Care Team (Latest Contact Info) Description 06/01/2024 [facility] [address] [address] Winter Terry MD [address] [place] [address] Overdue for physical Social History Tobacco Use Types Packs/Day Years [...] 8:40 AM CDT Office Visit [facility]ty [address] [place] [address] Winter Terry MD [address] [address] 04/09/2025 11:30 AM CDT Appointment [facility] Radiation Oncology [address] [facility] [place] [address] Chalino Palacios MD [address] [facility] [address] [place] [address] documented as of this encounter Visit Diagnoses Not on filedocumented in this encounter Additional Health Concerns Assessment Noted Time PHQ-9 Depression Total Score: 0 03/30/20 23 9:33 AM CDT documented as of this encounter Care Teams Dicer Machine Operator Relationship Specialty Start Date End Date Winter Terry MD [address] [address] PCP - General INTERNAL MEDICINE 03/07/23 Chalino Palacios MD [address] [address] Consulting Physician RADIATION ONCOLOGY 04/02/24 documented as of this encounter
--- OUTSIDE RECORDS SUMMARY | 2024-12-30 15:45 | XMS_ITS | Referral Summary ---
Author Organization [address] Address [address] [place] [address] Care Team Providers Care Infant Babysitter Name Role Phone No, Physician Primary Care Provider [phone] Allergies No known active allergies Medications No known medications Active Problems No known active problems Social History Tobacco Use Types Packs/Day Years Used Date Smoking Tobacco: Every Day Smokeless Tobacco: Never Tobacco Cessation:Ready to Q uit: Not Asked; Counseling Given: Not Answered Personal Safety Answer Date Recorded Getting School Help Needed Not on file 12/03 Sex and Gender Information Value Date Recorded Sex Assigned at Not on file Legal Sex Male 9:16 AM CDT Gender Identity Not on file Sexual Orientation Not on file Last Filed Vital Signs Vital Sign Reading Time Taken Comments Blood Pressure 112/70 12/30/2022 9:03 AM CDT Pulse 115 12/30/2022 9:03 AM CDT Temperature 37.2 C (99 F) 12/30/2022 9:03 AM CDT Respiratory Rate 18 12/30/2022 9:03 AM CDT Oxygen Saturation 98% 12/30/2022 9:03 AM CDT Inhaled Oxygen Concentration - - Weight 68.9 kg (152 lb) 12/30/2022 9:03 AM CDT Height 171.5 cm (5' 7.5 ) 12/30/2022 9:03 AM CDT Body Mass Index 23.46 12/30/2022 9:03 AM CDT Plan of Treatment Not on file Insurance [employer] Address: [facility] [id number] [place] [address] Care Teams Infant Babysitter Relationship Specialty Start Date End Date No, Physician PCP - General 05/02/22
--- OUTSIDE RECORDS SUMMARY | 2024-12-30 15:45 | XMS_ITS | Encounter Summary ---
Author Organization [facility] Address [facility] [place] [address] Care Team Providers Care Plasma Center Nurse Name Role Phone Winter Terry MD Primary Care Provider [phone] Chalino Palacios MD Unavailable Encounter Details Date Type Department Care Team (Latest Contact Info) Description 03/05/2024 Dan[place]ant Message Enc [facility] [address] [place] [address] Radha Carroll, PRODUCTION STATISTICAL CLERK [address] [place] [address] X ray results for hip, CT lung scan Social History Tobacco Use Types Packs/Day Years [...] 8:40 AM CDT [facility] [address] [place] [address] Winter Terry MD [address] [facility] [address] [place] [address] 04/09/2025 11:30 AM CDT Appointment [facility] Radiation Oncology [address] [facility] [place] [address] Chalino Palacios MD 210 [facility] [address] [place] [address] documented as of this encounter Visit Diagnoses Not on filedocumented in this encounter Additional Health Concerns Assessment Noted Time PHQ-9 Depression Total Score: 0 03/30/20 23 9:33 AM CDT documented as of this encounter Care Teams Plasma Center Nurse Relationship Specialty Start Date End Date Winter Terry MD [address] [address] PCP - General INTERNAL MEDICINE 03/07/23 Chalino Palacios MD [address] [facility] [address] [place] [address] Consulting Physician RADIATION ONCOLOGY 04/02/24 documented as of this encounter
--- OUTSIDE RECORDS SUMMARY | 2024-12-30 15:45 | XMS_ITS ---
Author Organization [facility] Address Formerly [facility] [place] [address] Care Team Providers Care Reducing Machine Operator Name Role Phone Winter Terry MD Primary Care Provider Chalino Palacios MD Unavailable Active Problems Problem Noted Date Diagnosed Date Adenocarcinoma, lung, left ([facility]) Chronic bilateral low back pain without sciatica 04/28/2024 Hyperlipidemia due to type 2 diabetes mellitus ([facility]) 04/28/2024 Left shoulder pain, unspecified chronicity 02/21 Right knee pain, unspecified chronicity 02/22/20 24 Moderate episode of recurrent major depressive d isorder 02/03/2023 Encounter for smoking cessation counseling 02/03 Smoker 02/03/2023 Callus of heel 02/03/2023 Mixed hyperlipidemia 02/03/2023 Hemoglobin A1C greater than 9%, indicating poor diabetic control 01/03/2023 Uncontrolled type 2 diabetes mellitus with hyperglycemia ([facility]) 01/03/2023 Current Oncology Plans No current plan information found. Past Plans No past plan information found. Radiation Treatments * Plan Last Treated On Elapsed Days Fractions Treated Prescribed Fraction Dose Prescribed Total Dose Replan_LUL 05/25/2024 10 of 10 Lung_LUL 05/11/2024 20 of 30 Reference Point Last Treated On Elapsed Days Session Dose Total Dose Replan_LUL 05/25/2024 20 Lung_LUL 05/11/2024 40 Treatment Summaries Adenocarcinoma, lung, left ([facility])* Images from the original note were not included. Survivorship Care Plan Patient Name Elvis Butcher Date of 1965 Plan Completed By CHIQUITA Nails on 06/21/24 Care Team Medical Oncologist Dr. Waller [phone] Burt [phone] Palacios [phone] Primary Care Physician WINTER TERRY MD [phone] Diagnosis Adenocarcinoma, lung, left (CMS/HCC HHS/HCC) Age at diagnosis 59-year-old Pertinent past medical history Past Medical History: Diagnosis Date Anxiety 1998 Arthritis Depression 1998 DM2 (diabetes mellitus, type 2) (CMS/HCC HHS/HCC) Right leg pain back, right hip and down right leg Tobacco use Diagnostic Procedures Lung Cancer Screening 02/29/2024 Pet 03/13/2024 Surgery Bronchoscopy/Endobronchial Ultrasound (EBUS) 03/16/2024 Family History Family History Problem Relation Name Age of Onset Cancer Mother Dannie Butcher Diabetes Mother Dannie Butcher Hypertension Mother Dannie Butcher Hyperlipidemia Mother Dannie Butcher COPD Father Jessica Butcher Heart Disease Father Jessica Butcher Genetic Testing 1. TMB 10 (87th percentile). 2. All actionable mutations wild type. 3. STK11 4. KEAP1 5. NF1 6. NF1 7. LRP1B 8. JUNIE Chemotherapy and Other Treatments Carboplatin, Taxol 04/16/2024 - 05/21/2024 Immunotherapy - Durvalumab (Imfinzi) - 06/20/2024 - 11/21/2024 Treatment on clinical trial? No Pre-operative chemotherapy administered? No Radiation Treatment Site: Left Upper Lobe Total Dose: 60 Gy in 30 Fractions Treatment Dates: 04/16/2024 - 05/25/2024 Ongoing Toxicities and Side Effects No radiation side effects reported Chemo - Nausea / Fatigue Follow-Up Care Non-small cell lung cancer For a period of time, continue all standard non-cancer related health care with your primary care provider. Your oncology team will monitor your cancer related health and needs even after you have completed treatment. Usually this is done with physical exams and imaging if appropriate. What happens after treatment for non-small cell lung cancer? For some people with lung cancer, treatment may remove or destroy the cancer. Completing treatment can be both stressful and exciting. You may be relieved to finish treatment, but find it hard not toworry about cancer growing or coming back. (When cancer comes back after treatment, it is called recurrence.) This is a very common concern in people who have had cancer. It may take a while before your fears lessen. But it may help to know that many cancer survivors have learned to live with this uncertainty and are living full lives. For some other people, the lung cancer may never go away completely. You may get regular treatments with chemotherapy, radiation therapy, or other therapies to help keep the cancer in check. Learning to live with cancer as more of achronic disease can be difficult and very stressful. It has its own type of uncertainty. Follow-Up Care If you have completed treatment, your doctors will still want to watch you closely. It is very important you go to all of your follow-up appointments. During these visits, your doctors will ask aboutany problems you may have, do physical exams, and may order blood tests or imaging tests such as CTscans or x-rays. In people with no signs of cancer remaining, many doctors recommend follow-up visits and CT scans about every 6 to 12 months for the first 2 years after treatment, and yearly visits and CT scans after this, although doctor visits might be more frequent at first. Follow-up is needed to look for signs of cancer recurrence or spread, as well as possible side effects of certain treatments. This is a good time for you to talk to your cancer care team about any changes or problems you notice and to discuss any questions or concerns you might have. Each type of treatment for lung cancer can have side effects. Some may last for a few weeks to several months, but others can last the rest of your life. Be sure to report any new symptoms right away, and tell your cancer care team about any symptoms or side effects that bother you so they can helpyou manage them. It is important to maintain your health insurance. Tests and doctor visits cost a lot, and even though no one wants to think of their cancer coming back, this could happen. If cancer does recur, treatment will depend on where the cancer is and what treatments you???ve hadbefore. Surgery, radiation therapy, chemotherapy, targeted therapy, or some combination of these might be options. Other types of treatment might also be used to help relieve any symptoms from the cancer. According to the [place] [employer], about 20 percent of cancer diagnoses are due to factors that are within your control such as nutrition, physical activity, smoking and alcohol use. We have made a commitment to your continued wellness as you transition into survivorship! Nutritional health and maintaining a healthy weight are a few of the many important parts of your recovery. You have already received tools to encourage healthy habits from our staff, and we want youto feel confident with your wellness decisions in the future. Body Mass Index or BMI is one way to determine if a person???s weight places them at risk for disease such as diabetes, heart disease and cancer. Below 18.5-underweight 18.5-24.9-normal or healthy weight 25-29.9-overweight 30-39.9-obese 40 and above-morbidly obese Your Body mass index is 22.55 kg/m??. Seeing a new doctor At some point after your cancer diagnosis and treatment, you may find yourself seeing a new doctor who does not know about your medical history. It is important that you be able to give your new doctor the details of your diagnosis and treatment. Gathering these details soon after treatment may be easier than trying to get them at some point in the future. Make sure you have the following information handy: A copy of your pathology report(s) from any biopsies or surgeries If you had surgery, a copy of your operative report(s) If you stayed in the hospital, a copy of the discharge summary that doctors prepare when patients are sent home If you had radiation therapy, a copy of the treatment summary If you had chemotherapy or targeted therapies, a list of the drugs, drug doses, and when you took them Copies of your x-rays, CT scans, and other imaging tests (these can often be stored digitally on a DVD, etc.) Last Medical Review: 07/28/2016 Last Revised: 07/27/2016 Summary of the [place] [employer] Guidelines on Nutrition and Physical Activity Achieve and maintain a healthy weight throughout life. Be as lean as possible throughout life without being underweight. Avoid excess weight gain at all ages. For those who are overweight or obese, losing even a small amount of weight has health benefits and is a good place to start. Get regular physical activity and limit intake of high-calorie foods and drinks as keys to help maintain a healthy weight. Be physically active. Get at least 150 minutes of moderate intensity or 75 minutes of vigorous intensity activity each week (or a combination of these), preferably spread throughout the week. Limit sedentary behavior such as sitting, lying down, watching TV, and other forms of screen-based entertainment. Doing some physical activity above usual activities, no matter what one???s level of activity, can have many health benefits. Eat a healthy diet, with an emphasis on plant foods. Choose foods and drinks in amounts that help you get to and maintain a healthy weight Limit how much processed meat and red meat you eat. Eat at least 2?? cups of vegetables and fruits each day. Choose whole grains instead of refined grain products. If you drink alcohol, limit your intake. Drink no more than 1 drink per day for women or 2 per day for men. Other concerns and resources If you have experienced issues with emotional or mental health, parenting, work/employment, financial issues, and/or insurance, there may be local and national resources available to assist you. Please discuss this with your oncology team and/or primary care provider for additional information. Below is a general list of resources: Other Concerns and Resources If you are experiencing issues with emotional or mental health, parenting, work/employment, finances, and/or insurance, there may be local and national resources available to assist you. Please discuss this with your oncology team and/or primary care provider for additional information. Below is a general list of resources: Cancer Support Resources at [facility] https://www.[facility]/Medical-Services/Cancer-Center [facility] offers services for lifestyle management for mind-body health. Services range from yoga, individual and group smoking cessation counseling to mind/body skills instruction and mindfulness classes. Call , ext. [phone] for more information. Clinical Trials are available for adults through [employer], a national cooperative group. Call for more information. Dietary Services are available from registered dietitians who can perform nutritional assessments and give advice on dietary problems. Call [phone], ext. [phone] for more information. Home Health Services are available after a hospital admission. These individuals can provide comfort in the home setting along with support and education. Call , ext. [phone] for more information. Inpatient State Game Warden & Case Management Services Inpatient oncology social workers can help with home services, placement of patients, transportation, crisis intervention and communityresources. Care coordination for patients is done through this service, especially in outlying areas. Call , ext [phone] for more information. Nurse Navigator This individual helps guide cancer patients during this challenging and difficult time. She identifies needs and coordinates services of care and designs individualized survivorship care plans after treatment is complete. Call for more information. Occupational, Speech and Physical Therapy Therapy services are helpful for cancer patients from theinitial diagnosis, through survivorship or the end stages of care. Cancer and its treatment sometimes improves physical abilities but not functional outcomes. Therapy interventions used are holistic and comprehensive. Varying services are offered at seven [facility] outpatient clinicsin [place]. [facility] and [place]. Call for more information. Palliative Care, Pain Management and Hospice Palliative Care can help patients and their significant others understand health care decisions to help guide a plan of care that is in line with their personal beliefs and values. The team also offers a comprehensive assessment of pain and other symptoms and can work with the patient's primary health care provider to improve quality of life. Call , ext. [phone] for more information. Spiritual Care Chaplains can provide spiritual comfort for the mind, body and spirit. Call , ext. [phone] for more information. Radiation Therapy [facility] Radiation Therapy offers state of the art radiation for cancer patients. [facility] offers an outpatient area for chemotherapy, blood infusions, dressing changes and antibiotics. Call or , ext. [phone] for more information. [facility] W[facility] The Wound Center heals chronic, non-healing wounds. Call for more information. Wound, Ostomy, Continence Services Services range from wound care, ostomy appliance teaching and continence service for any patient needing these services. Call , ext. [phone] for more information. Resources for Cancer Support [facility] provides care for those who cannot afford to pay through its Evita Care Program. More information is available at www.[facility].org/ ana/Evita-Care.aspx. [facility] provides financial assistance, to those who qualify, regardless of whether palomo is insured. More information is available at www. [facility].org/Public/FinancialAssistance.aspx. [place] Department of Public Health protects the state's residents and visitors through the prevention and control of disease and injury. Website: http://www.idph.[facility]. nv.us/home.htm. [place] [employer] is a national nonprofit organization with programs and services provided through local [employer] [place] offices, as well as its Clinical Navigation program based at [facility] Cancer [place] at [facility]. Websites: www.cancer.org and www.[facility]/cancer/navigator. html. Government Assistance Programs There are several federal and state programs that provide financial assistance to individuals and families. This assistance, known as entitlements, are primarily set up for low-income households, theelderly and the disabled. Each entitlement has eligibility requirements. There are also programs administered through state governments that can help with health-care related needs. Government Assistance Programs include: U.S. Department of Health & Human Services Information on public assistance and food stamps. Check phonebook for your local office. www.hhs.gov. U.S. Administration on Aging Benefits for older adults. 577.871.5665 www.eldercare.gov ([employer] Admin finds resources in your community). Social Security Administration 668-207-7284 www.ssa.gov Centers for Medicare & Medicaid Services 083-199-6256 www.cms.gov National Cancer [place] www.cancer.gov Pharmaceutical Patient Assistance Programs Programs and services offered differ among drug manufacturers but may include: Help with insurance reimbursement. Referrals to co pay relief programs Help with the application process Discounted or free medications for patients who do not qualify for other assistance Partnership for Prescription Assistance (PPA) 332-5-MLU-NOW (197-902-9777) www.pparx.org Insurance Coverage www.getcovered[place].org To see if the drug company that makes your medication has a patient assistance program, check its web site, ask your doctor or check with the PPA. [facility] has a list of pharmaceutical programs and other resources for financial assistance. People with cancer often need assistance with expenses like transportation, home care and director of child welfare services. A number of nonprofit organizations have useful programs or referral information that may be able to help. Cancer Organizations CancerCare 704-795-TXVN(4716) www.cancercare.org [place] [employer] 748-LOJ-3434 www.cancer.org Leukemia & Lymphoma Society 183-003-6575 www.lls.org Lung Cancer [place] www.lungcanceralliance.org Lymphoma Research Foundation 479-950-8473 www.lymphoma.org National Marrow Donor Program 108-482-2160 www.marrow.org National Ovarian Cancer Coalition www.ovarian.org Pancreatic Cancer Action Network www.pancan.org Patient Advocate Colorectal Careline 628-041-9785 www.colorectalcareline.org Sarcoma [place] 951-793-9855 www.sarcomaalliance.org General Organizations Rank & Style www.Vistaar.org Community Organizations Check phonebook under social service agencies Diandra-based Organizations Includes [employer], [employer], [employer] and others. Check phonebook for listings. Lazarex Cancer Foundation (Clinical Trial information and support) www.lazarex.org Leukemia Research Foundation www.leukemia-research.org Bladder Cancer Advocacy Network www.bcan.org Support for People with Oral Head and Neck Cancer (SPOHNC) www.spohnc.org [employer] Breast Cancer Organization 597-320-9172 5.komen.org/BreastCancer/1877GOKOMEN.html
--- OUTSIDE RECORDS SUMMARY | 2024-12-30 15:45 | XMS_ITS | Encounter Summary ---
Author Organization [facility] Address Pending sale to [facility] [place] [address] Care Team Providers Care Burner Technician Name Role Phone Winter Terry MD Primary Care Provider [phone] Chalino Palacios MD Unavailable Encounter Details Date Type Department Care Team (Late st Contact Info) Description 06/12/2024 RessQ Technologiest Message [facility] [place] [facility] [place] [address] [place] [address] Radha Carroll, UNDERWRITING CONSULTANT [address] [place] [address] Covid 19 Social History Tobacco Use Types Packs/Day Years [...] Description 01/23/2025 8:40 AM CDT Office Visit [facility] [place] [facility] [place] [address] [place] [address] Winter Terry MD [address] [address] 04/09/2025 11:30 AM CDT Appointment [facility] Radiation Oncology [address] [place] [address] Chalino Palacios MD [address] [facility] [address] [place] [address] documented as of this encounter Visit Diagnoses Not on filedocumented in this encounter Additional Health Concerns Assessment Noted Time PHQ-9 Depression Total Score: 0 03/30/20 23 9:33 AM CDT documented as of this encounter Care Teams Burner Technician Relationship Specialty Start Date End Date Winter Terry MD [address] [place] [id number] PCP - General INTERNAL MEDICINE 03/07/23 Chalino Palacios MD [address] [address] Consulting Physician RADIATION ONCOLOGY 04/02/24 documented as of this encounter
--- OUTSIDE RECORDS SUMMARY | 2024-12-30 15:45 | XMS_ITS | Clinical Summary ---
Author Organization [address] Address [address] [place] [id number] Care Team Providers Care Outsole Compressor Name Role Phone No, Physician Primary Care Provider [phone] Allergies No known active allergies Medications No [...] on file Sexual Orientation Not on file Obstetrics History Last Filed Vital Signs Vital Sign Reading [...] 12/30/2022 9:03 AM CDT Plan of Treatment Health Maintenance Due Date Last Done Comments Colon Cancer Screening-Colonoscopy 1965 Depression Screening 1965 Hepatitis C Screening 1966 Prostate Cancer Screening-PSA 1966 Hepatitis B Screening 1984 Regular Well Visit/Exam 18-64 1984 Pneumococcal vaccine <65 (1 of 2 - PCV) 1985 Zoster Vaccine (1 of 2) 2016 Covid-19 Vaccine (5 2023-2 5 season) 2024 02/19/2022, 07/21/2021, 12/16/2020, Additional history exists Influenza Vaccine (#1) 2024 07/21/2021, 2017 DTaP/Tdap/Td Vaccine (2 - Td or Tdap) 08/21/2028 08/21/2018 Insurance [employer] Address: [facility] [address] [place] [phone] Care Teams Outsole Compressor Relationship Specialty Start Date End Date No, Physician PCP - General 05/02/22
[2024-12-30 16:01] LABS: Basophils Percent Auto 0.3 % (0.2-1.2); Eosinophils Percent Auto 0.3 % (0-4.4); Hematocrit 40.8 % (42.0-52.0); Hemoglobin 13.9 g/dL (14.0-18.0); Immature Granulocyte Absolute 0.03 K/mm3 (0.00-0.031); Immature Granulocyte Percent A 0.3 % (0-0.5); Lymphocytes Absolute Auto 0.77 K/mm3 (0.9-3.2); Lymphocytes Percent Auto 8.1 % (18.3-44.2); Mean Corpuscular HGB Conc 34.1 g/dl (32-36); Mean Corpuscular Hemoglobin 31.7 pg (26-34); Mean Corpuscular Volume 93.2 fl (80-100); Mean Platelet Volume 9.7 fl (7.4-10.4); Monocytes Absolute Auto 0.6 K/mm3 (0.1-0.6); Monocytes Percent Auto 5.8 % (2.6-8.5); Neutrophils Absolute Auto 8.1 K/mm3 (1.3-6.7); Neutrophils Percent Auto 85.2 % (45.5-73.1); Platelet Count Result 183 k/mm3 (150-375); Red Blood Count 4.38 M/mm3 (4.6-6.20); White Blood Count 9.5 K/mm3 (4.5-10.0)
[2024-12-30 16:10] LABS: Alanine Aminotransferase 19 U/L (6-50); Albumin Level 4.6 g/dL (3.5-5.1); Alkaline Phosphatase 68 U/L (38-126); Anion Gap 8 mmol/L (4-12); Aspartate Amino Transferase 24 U/L (17-59); Bilirubin,Total 0.5 mg/dL (0.2-1.3); Blood Urea Nitrogen 19 mg/dL (9-20); Carbon Dioxide 29 mmol/L (22-30); Chloride 101 mmol/L (98-107); Estimated CRCL calculation 78 ml/min; Estimated Glomerular Filt Rate > 60; Glucose 173 mg/dL (65-110); Potassium 3.9 mmol/L (3.4-5.0); Sodium 138 mmol/L (137-145)
[2024-12-30] MEDS: HYDROmorphone HCL INJ (*CRX) 1 MG/ML SYR 0.5 MG IV PUSH (16:30)
[2024-12-30] MEDS: levETIRAcetam 500MG/NACL 100ML 500 MG/100 ML BAG 400 MG IVPB (16:30)
--- NOTE | 2024-12-30 18:25 | ED_ITS ---
HPI - Syncope General Chief Complaint: Dizziness Stated Complaint: dizzy, fall Time Seen by Provider: 12/30/24 15:34 History of Present Illness HPI narrative: 59-year-old male with a history of lung cancer and hypertension. He presents to the emergency department today after a episode of dizziness resulting and fall, posterior head trauma and syncope. Patient states he was otherwise in his normal state of health, felt dizzy at work out of no where and fell backwards striking his head. He woke up after a brief loss consciousness. Denies any nauseousness or vomiting. States he has a headache in the posterior occipital region where he struck the ground. Not on any anticoagulation such as aspirin, Eliquis, Plavix or clopidogrel. Does currently see an oncologist for his lung cancer at [facility]. Denies any prodromal symptoms aside from the dizziness. No chest pain, shortness a breath, abdominal pain, back pain, neuropathy, vision changes. Related Data Allergies Allergy/AdvReac Type Severity Reaction Status Date / Time No Known Allergies Allergy Verified 02/23/24 05:44 Review of Systems 2 Review of Systems: as reviewed above in HPI Exam 2 Narrative: GENERAL: [Well-appearing, well-nourished, and in no acute distress.] HEAD: normal cephalic, posterior scalp hematoma no active bleeding EYES: [PERRLA and EOMI.] ENT: Nares clear, no rhinorrhea or epistaxis. Mucous membranes moist. NECK: Supple. CHEST: [Clear to auscultation. No respiratory distress.] HEART: [Regular rate and rhythm]. No murmur heard. [Normal peripheral pulses.] ABDOMEN: [Soft, nondistended], [nontender], [No rigidity or guarding] EXTREMITIES: Normal range of motion. [No edema.] SKIN: Warm, dry, no rash. NEURO: [No focal deficits]. Alert and oriented [x3.] PSYCH: [Normal mood and affect.] Course Vital Signs Vital signs: Vital Signs Pulse Rate 93 12/30/24 15:12 Respiratory Rate 15 12/30/24 15:12 Blood Pressure 159/87 H 12/30/24 15:12 Pulse Oximetry 99 12/30/24 15:12 Oxygen Delivery Room Air 12/30/24 15:12 Pulse Rate 102 H 12/30/24 16:23 Respiratory Rate 16 12/30/24 16:23 Blood Pressure 138/91 H 12/30/24 16:23 Pulse Oximetry 99 12/30/24 16:23 Oxygen Delivery Room Air 12/30/24 15:12 MDM - Syncope MDM Narrative Medical decision making narrative: 59-year-old male with a history of lung cancer and hypertension. today patient presents to the emergency department for evaluation of a syncopal episode with head trauma. He is not on any anticoagulation medications. He does have evidence of recent trauma to his scalp with the posterior occipital hematoma with no active bleeding. He states he had prodromal symptoms including lightheadedness and dizziness and fell backwards at work. Did have a syncopal event. Reports no chest pain shortness a breath. No nausea vomiting, vision changes. No weakness or fatigue, no neurological complaints at this time aside from a headache. He does have some slight tachycardia but otherwise his vital signs are reassuring. No significant hypertension, low blood pressure, hypoxia or fever. He is not tachypneic. He has an NIH stroke scale 0, unremarkable neurological examination. Given his history and risk factors CT scan of the head was ordered addition to laboratory studies, chest x-ray and EKG. I was called by the sound technician supervisor that wall patient was getting his noncontrast CT the initial images appear to have a subarachnoid hemorrhage. I went and re- evaluated the patient who is complaining of a headache and provided Dilaudid at this time. Independent looked at the images and do appreciate subarachnoid hemorrhage with potential small foci of intraparenchymal bleeding. Called by the radiologist Dr. Wild confirms the patient has a subarachnoid hemorrhage of moderate size, intraparenchymal hemorrhage with foci of microhemorrhages potentially subdural as well. I discussed this with the patient at bedside. He has a GCS 15 and neurologically intact but does need to be transferred to higher level of care trauma center for further evaluation. Unclear if he has suffered a subarachnoid hemorrhage that led to his syncopal event and fall and then trauma or the other way around. patient's EKG shows no ectopy or ischemia. [facility] was contacted for transfer purposes. I was connected with the emergency department and connected with the ED attending Dr. Corley. We went over patient's clinical exam and imaging studies. She recommended I started him on empiric Keppra and maintain good blood pressure control. There is currently a significant delay in ground transfer at this time from our facility and given his significant traumatic injury with multifocal bleeding there is suspicion for prompt decompensation if not rapidly addressed and transferred to appropriate center. Air ambulance was arranged and patient was transferred within the next 10 minutes. Patient was made aware of this and agreeable to this transfer method. Patient remained hemodynamically stable. I gave report to the air paramedics and my blood pressure parameters of systolic under 160 with nicardipine as needed. Patient was stable for transfer at this time. Medical Records Attestation: I reviewed the patient's medical records. Lab Data Attestation: I reviewed the patient's lab results. 12/30/24 15:55 12/30/24 15:55 Labs: Lab Results 12/30/24 Range/Units 15:55 WBC 9.5 (4.5-10.0) K/mm3 RBC 4.38 L (4.6-6.20) M/mm3 Hgb 13.9 L (14.0-18.0) g/dL Hct 40.8 L (42.0-52.0) % MCV 93.2 (80-100) fl MCH 31.7 (26-34) pg MCHC 34.1 (32-36) g/dl RDW 12.0 (11.5-14.5) % Plt Count 183 (150-375) k/mm3 MPV 9.7 (7.4-10.4) fl Immature Gran % (Auto) 0.3 (0-0.5) % Neut % (Auto) 85.2 H (45.5-73.1) % Lymph % (Auto) 8.1 L (18.3-44.2) % [place] % (Auto) 5.8 (2.6-8.5) % Eos % (Auto) 0.3 (0-4.4) % Baso % (Auto) 0.3 (0.2-1.2) % Lymph # (Auto) 0.77 L (0.9-3.2) K/mm3 [place] # (Auto) 0.6 (0.1-0.6) K/mm3 Eos # (Auto) 0.0 (0-0.3) K/mm3 Baso # (Auto) 0.0 (0.0-0.1) K/mm3 Abs Immat Gran (auto) 0.03 (0.00-0.031) K/mm3 Absolute Neuts (auto) 8.1 H (1.3-6.7) K/mm3 Absolute Nucleated RBC 0.000 (0.0-0.012) K/mm3 Nucleated RBC % 0.0 (0.0-0.2) % Sodium 138 (137-145) mmol/L Potassium 3.9 (3.4-5.0) mmol/L Chloride 101 (98-107) mmol/L Carbon Dioxide 29 (22-30) mmol/L Anion Gap 8 (4-12) mmol/L BUN 19 (9-20) mg/dL Creatinine 0.87 (0.7-1.3) mg/dL Estim Creat Clear Calc 78 ml/min Estimated GFR > 60 (59 - ) Glucose 173 H (65-110) mg/dL Calcium 10.0 (8.4-10.2) mg/dL Total Bilirubin 0.5 (0.2-1.3) mg/dL AST 24 (17-59) U/L ALT 19 (6-50) U/L Alkaline Phosphatase 68 (38-126) U/L Total Protein 7.0 (6.3-8.2) g/dL Albumin 4.6 (3.5-5.1) g/dL Imaging Data Attestation: I personally reviewed and interpreted this imaging study as follows: My impression: Impressions Head CT 12/30/24 15:53 IMPRESSION: Subarachnoid hemorrhage noted primarily within the right sylvian fissure. Additional sites of hemorrhage are present in the middle cranial fossa and inferior right frontal lobe which may represent subarachnoid, subdural and/or intraparenchymal blood indicating the possibility of multicompartment hemorrhage. Posterior scalp contusion near the vertex, without underlying fracture. Results reported telephonically to Dr. Alex by Dr. Wild at 3:58 PM on 12/30/2024. Cervical Spine CT 12/30/24 16:06 IMPRESSION: No acute fracture or traumatic malalignment in the cervical spine. Chest X-Ray 12/30/24 16:18 IMPRESSION: Subsegmental bibasilar and left hilar atelectasis/consolidation. Left apical bullae, possible emphysematous change. Prominent gastric bubble with left hemidiaphragm elevation, may be secondary to gastric distention. Correlate for symptoms of abdominal pain. Critical Care Time Critical Care Time Critical Care Time: Yes Total Critical Care Time: 35 Discharge Plan Discharge Clinical Impression: Traumatic subarachnoid hemorrhage, Traumatic subdural hematoma (SDH), Traumatic intraparenchymal hemorrhage, Syncope and collapse Patient Disposition: Acute Care Hospital Condition: Guarded Prognosis Patient Language: Grenadian Prescriptions: No Action hydrocodone-acetaminophen 5-325 mg tablet 1 tablet PO Q8H PRN (Reason: pain) Qty: 12 0RF Follow-up/Referrals: Harrison,MD Winter [Primary Care Provider] - Time of Disposition: 16:45
== END 2024-12-30 16:50 | disposition short-term general hospital (02) ==
PROVIDERS: Emergency Provider Student in an Organized Health Care Education/Training Program; PCP Internal Medicine
DX: S06.6X1A Traumatic subarachnoid hemorrhage with loss of consciousness of 30 minutes or less, initial encounter (principal); S06.5X1A Traumatic subdural hemorrhage with loss of consciousness of 30 minutes or less, initial encounter; R55 Syncope and collapse; C34.90 Malignant neoplasm of unspecified part of unspecified bronchus or lung; I10 Essential (primary) hypertension; W18.39XA Other fall on same level, initial encounter
CPT/HCPCS: 36415; 70450; 71046; 72125; 80053; 85025; 93005; 96365; 96375; 99291; J1171; J1953

== ENCOUNTER 2025-01-04 10:48 | Emergency (ER) | payer BC, SELFPAY ==
[2025-01-04] VITALS (11 sets, daily range): BP systolic 132–153; BP diastolic 89–101; PULSE 82–105; RESP 12–20; TEMP 36.6; O2SAT 96–99
--- NOTE | ~2025-01-04 | CT_ITS ---
EXAMINATION: CT BRAIN W/O DATE: 01/04/2025 11:07 INDICATION: Worsening headache. Status post recent fall. Subarachnoid hemorrhage identified on CT edwin ed 12/30/2024 TECHNIQUE: Computed tomography (CT) of the head was performed without intravenous contrast. The dose- length product was 605.33 mGy-cm. COMPARISON: No prior studies for comparison. FINDINGS: Normal brain parenchymal volume for age. Normal davis-white differentiation. There is a smal l parenchymal hemorrhage in the right frontal lobe, axial image 17 and sagittal image 26. There is a second focus of parenchymal hemorrhage in the right frontal lobe inferiorly adjacent to the falx. No ventriculomegaly or midline shift. Midline sagittal images demonstrate a normal corpus callosum, c raniovertebral junction and sella turcica. Basilar cisterns are patent. Paranasal sinuses and mastoids are pneumatized. No depressed skull fractures. IMPRESSION: 1. Small residual right frontal parenchymal hemorrhage. There is an additional foci of parenchymal he morrhage in the right frontal lobe along the margin of the falx. Reviewed, dictated and finalized at location A. IMPRESSION: 1. Small residual right frontal parenchymal hemorrhage. There is an additional foci of parenchymal hemorrhage in the right frontal lobe along the margin of th e falx.
--- OUTSIDE RECORDS SUMMARY | 2025-01-04 11:29 | XMS_ITS | Encounter Summary ---
Author Organization [facility] Address [facility] [place] [address] Care Team Providers Care Bed Laster Name Role Phone Winter Terry MD Primary Care Provider [phone] Chalino Palacios MD Unavailable Encounter Details Date Type Department Care Team (Latest Contact Info) Description 03/05/2024 Topict Message Enc [facility] [address] [place] [address] Radha Carroll, LEADERSHIP PROGRAM ASSOCIATE [address] [place] [address] X ray results for hip, [...] Description 01/23/2025 8:40 AM CDT [facility] [address] [place] [address] Winter Terry MD [address] [facility] [address] [place] [address] 04/09/2025 11:30 AM CDT Appointment [facility] Radiation Oncology [address] [facility] [place] [address] Chalino Palacios MD [address] [facility] [address] [place] [address] documented as of this encounter Visit Diagnoses Not on filedocumented in this encounter Additional Health Concerns Assessment Noted Time PHQ-9 Depression Total Score: 0 03/30/20 23 9:33 AM CDT documented as of this encounter Care Teams Bed Laster Relationship Specialty Start Date End Date Winter Terry MD [address] [address] PCP - General INTERNAL MEDICINE 03/07/23 Chalino Palacios MD [address] [facility] [address] [place] [address] Consulting Physician RADIATION ONCOLOGY 04/02/24 documented as of this encounter
--- OUTSIDE RECORDS SUMMARY | 2025-01-04 11:29 | XMS_ITS | Encounter Summary ---
Author Organization [facility] Address [address] [place] [address] Care Team Providers Care Solid Glass Rod Dowel Machine Operator Name Role Phone Winter Terry MD Primary Care Provider [phone] Chalino Palacios MD Unavailable Reason for Visit * Reason Comments Lab (SCAN) CT (SCAN) Image (SCAN) Encounter Details Date Type Department Care Team (Late Contact Info) Description 12/30/2024 Scan HEALTH INFO SR[facility] Scanned, [facility] Lab (SCAN); CT (SCAN); Image (SCAN) Social History Tobacco Use Types Packs/Day Years [...] Description 01/23/2025 8:40 AM CDT Office Visit [facility] Multis[facility]ialty [facility] - [place] [address] [address] [place] [address] Winter Terry MD [address] [place] [address] [address] [place], [place] [id number] 04/09/2025 11:30 AM CDT Appointment [facility] Radiation Oncology [address] [place] [address] Chalino Palacios MD [address] [facility] [address] [place] [address] documented as of this encounter Procedures Procedure Name Priority Date/Time Associated Diagnosis Comments CT GENERIC 12/30/2024 CT GENERIC 12/30/2024 OUTSIDE LAB (SCAN ORDER) 12/30/2024 OUTSIDE LAB (SCAN ORDER) 12/30/2024 IMAGE GENERIC 12/30/2024 documented in this encounter Results * OUTSIDE LAB (SCAN ORDER) (12/30/2024) 12/30/2024 [facility] Scanned SCANNING Final Resu lt * OUTSIDE LAB (SCAN ORDER) (12/30/2024) 12/30/2024 [facility] Scanned SCANNING Final Resu lt * CT GENERIC (12/30/2024) Anatomical Region Laterality Modality Other 12/30/2024 [facility] Scanned SCANNING Final Resu lt * CT GENERIC (12/30/2024) Anatomical Region Laterality Modality Other 12/30/2024 [facility] Scanned SCANNING Final Resu lt * IMAGE GENERIC (12/30/2024) Anatomical Region Laterality Modality Other 12/30/2024 [facility] Scanned SCANNING Final Resu lt documented in this encounter Visit Diagnoses Not on filedocumented in this encounter Additional Health Concerns Assessment Noted Time PHQ-9 Depression Total Score: 0 03/30/20 23 9:33 AM CDT documented as of this encounter Care Teams Solid Glass Rod Dowel Machine Operator Relationship Specialty Start Date End Date Winter Terry MD [address] [address] PCP - General INTERNAL MEDICINE 03/07/23 Chalino Palacios MD [address] [address] Consulting Physician RADIATION ONCOLOGY 04/02/24 documented as of this encounter
--- OUTSIDE RECORDS SUMMARY | 2025-01-04 11:29 | XMS_ITS | Encounter Summary ---
Author Organization [facility] Address [facility] [place] [address] Care Team Providers Care Batching Operator Name Role Phone Suresh Lynn MD Primary Care Pr ovider Unavailable Winter Terry MD Primary Care Provider [phone] Chalino Palacios MD Unavailable Encounter Details Date Type Department Care Team (Late Contact Info) Description 12/31/2022 MyChart Message Enc [facility] [address] [facility] [address] [place] [address] Suresh Lynn MD Lab results [...] Visit [facility] - [place] [address] [address] [place] [address] Winter Terry MD [address] [place] [address] 04/09/2025 11:30 AM CDT Appointment [facility] Radiation Oncology [address] [place] [address] [place] [address] Chalino Palacios MD [address] [facility] [address] [place] [address] documented as of this encounter Visit Diagnoses Not on filedocumented in this encounter Additional Health Concerns Assessment Noted Time PHQ-9 Depression Total Score: 12 023 5:43 PM CDT documented as of this encounter Care Teams Batching Operator Relationship Specialty Start Date End Date Suresh Lynn MD PCP - General FAMILY PRACTICE 12/31/22 03/06/23 Winter Terry MD [address] [place] [address] PCP - General INTERNAL MEDICINE 03/07/23 Chalino Palacios MD [address] [place] [address] Consulting Physician RADIATION ONCOLOGY 04/02/24 documented as of this encounter
--- OUTSIDE RECORDS SUMMARY | 2025-01-04 11:29 | XMS_ITS | Encounter Summary ---
Author Organization [facility] Address [facility] [place] [address] Care Team Providers Care Clockmaker Name Role Phone Winter Terry MD Primary Care Provider [phone] Chalino Palacios MD Unavailable Reason for Visit * Reason Onset Date Comments Question 01/03/2025 Encounter Details Date Type Department Care Team (Late st Contact Info) Description 01/03/2025 Telephone [facility] Medical Group Mult[facility]pecialty Care - [place] [address] [place] [address] [address] [place] [address] Winter Terry MD 118[address] [facility] [address] [place] [address] Question Social History Tobacco Use Types Packs/Day Years [...] as of this encounter Progress Notes * Phoebe Alvarado - 01/04/2025 6:52 AM CDT Please see message below from Dr. Terry * Phoebe Alvarado - 01/03/2025 11:57 AM CDT Questions about CT scan results. Please return call when available. documented in this encounter Plan of Treatment Upcoming Encounters Date Type Department Care Team (Late st Contact Info) Description 01/23/2025 8:40 AM CDT Office Visit [facility] Mult[facility]pecialty Care - [place] [address] [address] [place] [address] Winter Terry MD [address] [place] [address] 04/09/2025 11:30 AM CDT Appointment [facility] Radiation Oncology [address] [place] [address] [place] [address] Chalino Palacios MD [address] [facility] [address] [place] [address] documented as of this encounter Visit Diagnoses Not on filedocumented in this encounter Additional Health Concerns Assessment Noted Time PHQ-9 Depression Total Score: 0 03/30/20 9:33 AM CDT documented as of this encounter Care Teams Clockmaker Relationship Specialty Start Date End Date Winter Terry MD [address] [place] [address] PCP - General INTERNAL MEDICINE 03/07/23 Chalino Palacios MD [address] [place] [id number] Consulting Physician RADIATION ONCOLOGY 04/02/24 documented as of this encounter
--- OUTSIDE RECORDS SUMMARY | 2025-01-04 11:29 | XMS_ITS | Encounter Summary ---
Author Organization [facility] Address [facility], [facility] [place] [address] Care Team Providers Care Early Childhood Educator Aide Name Role Phone Winter Terry MD Primary Care Provider [phone] Chalino Palacios MD Unavailable Encounter Details Date Type Department Care Team (Late st Contact Info) Description 06/12/2024 wishkickert Message [facility] [place] [address] [place] [address] Radha Carroll, INFORMATICS SPECIALIST [address] [place] [address] Covid 19 Social History Tobacco [...] Description 01/23/2025 8:40 AM CDT Office Visit [facility] Multispecialty [facility] - [place] [address] [place] [address] Winter Terry MD [address] [address] 04/09/2025 11:30 AM CDT Appointment [facility] Radiation Oncology [address] [address] [place] [address] Chalino Palacios MD [address] [facility] [address] [place] [address] documented as of this encounter Visit Diagnoses Not on filedocumented in this encounter Additional Health Concerns Assessment Noted Time PHQ-9 Depression Total Score: 0 03/30/20 23 9:33 AM CDT documented as of this encounter Care Teams Early Childhood Educator Aide Relationship Specialty Start Date End Date Winter Terry MD [address] [place] [address] PCP - General INTERNAL MEDICINE 03/07/23 Chalino Palacios MD [address] [address] Consulting Physician RADIATION ONCOLOGY 04/02/24 documented as of this encounter
--- OUTSIDE RECORDS SUMMARY | 2025-01-04 11:29 | XMS_ITS | Encounter Summary ---
Author Organization [facility] Address [facility] [place] [address] Care Team Providers Care Supervisor Blast Furnace Name Role Phone Suresh Lynn MD Primary Care Pr ovider Unavailable Winter Terry MD Primary Care Provider Chalino Palacios MD Unavailable Encounter Details Date Type Department Care Team (Late Contact Info) Description 12/31/2022 MyChart Message Enc [facility] [address] [address] [place] [address] Suresh Lynn MD Lab results [...] Visit [facility] [place] [address] [address] [place] [address] Winter Terry MD [address] [place] [address] 04/09/2025 11:30 AM CDT Appointment [facility] Radiation Oncology [address] [place] [address] [place] [address] Chalino Palacios MD [address] [facility] [address] [place] [address] documented as of this encounter Visit Diagnoses Not on filedocumented in this encounter Additional Health Concerns Assessment Noted Time PHQ-9 Depression Total Score: 12 023 5:43 PM CDT documented as of this encounter Care Teams Supervisor Blast Furnace Relationship Specialty Start Date End Date Suresh Lynn MD PCP - General FAMILY PRACTICE 12/31/22 03/06/23 Winter Terry MD [address] [place] [address] PCP - General INTERNAL MEDICINE 03/07/23 Chalino Palacios MD [address] [place] [address] Consulting Physician RADIATION ONCOLOGY 04/02/24 documented as of this encounter
--- OUTSIDE RECORDS SUMMARY | 2025-01-04 11:29 | XMS_ITS | Clinical Summary ---
Author Organization [facility] [place] [address] Address [address] [place] [id number] Care Team Providers Care Outbound Sales Agent Name Role Phone Winter Terry MD Primary Care Provider [phone] Allergies Active Allergy Reactions Criticality Noted Date Comments Iodinated Contrast Media Vomiting Low 12/30/2024 Pt et report N-V with CT contrast media, but state MRI contrast does not cause N-V Medications alcohol swabs (Alcohol Prep Pads) pads, medicated 1 Bag by Not Applicable route 3 times daily 01/05/20 23 Active buPROPion SR (WELLBUTRIN SR) 150 mg 12 hr tablet Take 1 tablet (150 mg total) by mouth 2 (two) times a day 07/28/20 23 Active magnesium oxide (MAG-OX) 400 mg (241.3 mg elemental magnesium) tablet Take 1 tablet (400 mg total) by mouth daily Active ferrous sulfate 325 mg (65 mg of elemental iron) tablet Take 1 tablet (325 mg total) by mouth daily Active varenicline tartrate (CHANTIX FEDERICO) 0.5 mg (11)- 1 mg (42) tablet Take one 0.5 mg tab by mouth once a day for 3 days, then take one 0.5 mg tab twice a day for 4 days, then take one 1 mg tab twice a day. 02/14/20 24 Active atorvastatin (LIPITOR) 10 mg tablet Take 1 tablet (10 mg total) by mouth 02/14/20 24 Active gabapentin (NEURONTIN) 300 mg capsule TAKE 1 CAPSULE BY MOUTH AT BEDTIME FOR 3 DAYS, THEN INCREASE TO TWICE DAILY. MAY TAKE UP TO THREE TIMES DAILY NEEDED FOR PAIN. 06/25/20 24 Active metFORMIN (GLUCOPHAGE) 500 mg tablet Take 2 tablets (1,000 mg total) by mouth 03/25/20 24 Active celecoxib (CeleBREX) 200 mg capsule Take 1 capsule (200 mg total) by mouth 2 (two) times a day 03/19/20 24 Active traMADoL (ULTRAM) 50 mg tablet Take 1 tablet (50 mg total) by mouth nightly as needed 02/21/20 24 Active acetaminophen 500 mg capsuleIndicat ions:Pain Take 2 capsules (1,000 mg total) by mouth every 6 (six) hours 30 tablet 01/03/20 25 Active levETIRAcetam (KEPPRA) 500 mg tablet Take 1 tablet (500 mg total) by mouth 2 (two) times a day for 9 doses 9 tablet 01/03/20 25 025 Active acetaminophen 500 mg capsuleIndicat ions:Pain Take 2 capsules (1,000 mg total) by mouth every 6 (six) hours 30 tablet 01/03/20 25 025 Discontinued levETIRAcetam (KEPPRA) 500 mg tablet Take 1 tablet (500 mg total) by mouth 2 (two) times a day for 9 doses 9 tablet 01/03/20 25 025 Discontinued Active Problems Problem Noted Date Diagnosed Date Syncopal episodes 01/02/2025 Assessment & Plan (01/02/2025 2:22 PM CDT): Resultant in fall, imaging noted right ICH see work up tab. Echocardiogram 01/02 noted below Normal left ventricular size based on volume index. The Ejection Fraction (Cedeno's) is measured at 53 %. Grade I diastolic dysfunction (normal LA pressure). The average global longitudinal strain is normal. 2. Normal right ventricular size. Normal right ventricular systolic function. 3. The left atrium is normal in size. 4. Mild mitral valve regurgitation. 5. No aortic valve stenosis. 6. Mild tricuspid regurgitation. The Estimated RVSP is : 30-35 mmHg. 7. Physiologic pericardial effusion. 8. Dilation of the aortic root when indexed. The ascending aorta is normal in size when indexed. Fall, initial encounter 12/31/2024 Assessment & Plan (12/31/2024 6:07 AM CDT): L2 presyncopal fall from standing. - syncopal work-up Subdural hematoma 12/31/2024 Assessment & Plan (01/02/2025 2:23 PM CDT): R temporal, bilateral frontal SDH and R frontal cerebral contusion. - NSGY c/s repeat CT 12/31: Stable multi-compartmental intracranial hemorrhage including subdural hematoma along the anterior falx and multifocal subarachnoid hemorrhage along the right and left insula, right and left frontal lobes, and right temporal horn. No midline shift. - Q4h NC - keppra 500mg BID x7 days - SBP <160 - Ok for DVT ppx, hold ASA 12/31 Neurosurgery s/o 01/02 MRI eval for cause of syncopal event noted IMPRESSION: 1. No intracranial metastatic disease. 2. Redemonstrated multi-compartmental hemorrhages appear grossly unchanged from comparison CT head. Scalp hematoma 12/31/2024 Assessment & Plan (12/31/2024 2:20 PM CDT): Cryotherapy Apap for pain Encounter for medication review 12/31/2024 Assessment & Plan (12/31/2024 3:24 PM CDT): [id number] [place], [place] - [address] AT [address] & [employer] [address] [facility] [phone] Patient will use [facility] at discharge. Acute pain 12/31/2024 Assessment & Plan (01/01/2025 10:25 AM CDT): Apap 100 mg Q 6 hrs scheduled Oxycodone 5 mg Q 4 hrs prn Bowel regimen Dulcolax supp prn Senna miralax DM (diabetes mellitus) 12/31/2024 Assessment & Plan (12/31/2024 3:32 PM CDT): Home Metformin 1000 mg bid POCT Glucose SSI low dose Adenocarcinoma, lung, left 04/28/2024 Assessment & Plan (01/01/2025 10:27 AM CDT): Last immune therapy 2 weeks ago next due this coming 01/02 Durvalumab States oncologist want to have MRI while admitted will discuss with team Dr. Waller oncologist [phone] 01/01 Ordered MRI with and without Brain while pt await for echocardiogram to be completed, Plan if not completed/scheduled with in time frame for ECHO will have to follow up out pt for MRI study Hyperlipidemia due to type 2 diabetes mellitus 0 04/28/2024 Assessment & Plan (01/01/2025 10:31 AM CDT): Atorvastatin 10 mg daily Mixed hyperlipidemia 02/03/2023 Assessment & Plan (12/31/2024 3:27 PM CDT): Atorvastatin 10 mg daily Moderate episode of recurrent major depressive d isorder 02/03/2023 Assessment & Plan (12/31/2024 3:27 PM CDT): Continue home Wellbutrin 150 mg bid Encounters Date Type Department Care Team Description 01/03/[address] [phone] Shyanne Silva 12/30/2024 5:10 PM CDT - 01/02/2025 3:45 PM CDT Hospital Encounter [address] [phone] Alex Mccullough MD Aubin, Chandra D., MD Odom, MD Nadege Daly, Flo Small MD SAH (subarachnoid hemorrhage) (HCC) (Primary Dx); Fall, initial encounter; Intraparenchymal hematoma of brain without loss of consciousness, unspecified laterality, initial encounter (HCC) Discharge Disposition: Discharge to home or self care from Last 3 Months Social History Tobacco Use Types Packs/Day Years Used Date Smoking Tobacco: Every Day Smokeless Tobacco: Never Tobacco Cessation:Ready to Q uit: Not Asked; Counseling Given: Not Answered Personal Safety Answer Date Recorded Have you ever been in or are you currently in a harmful physical or emotional relationship or is someone making you feel afraid or unsafe? Denies 12/31/2024 Sex and Gender Information Value Date Recorded Sex Assigned at Not on file Legal Sex Male 9:16 AM CDT Gender Identity Not on file Sexual Orientation Not on file Obstetrics History Last Filed Vital Signs Vital Sign Reading Time Taken Comments Blood Pressure 122/76 01/02/2025 12:02 PM CDT Pulse 73 01/02/2025 12:02 PM CDT Temperature 36.4 C (97.5 F) 01/02/2025 12:02 PM CDT Respiratory Rate 18 01/02/2025 12:0 2 PM CDT Oxygen Saturation 98% 01/02/2025 12: 02 PM CDT Inhaled Oxygen Concentration - - Weight 65.6 kg (144 lb 11.2 oz) 01/01/2025 6:05 PM CDT Height 170.2 cm (5' 7 ) 01/01/2025 6:05 PM CDT Body Mass Index 22.66 01/01/2025 6:05 PM CDT Plan of Treatment Health Maintenance Due Date Last Done Comments Albumin Creatinine Ratio, Urine 1965 Colon Cancer Screening-Colonoscopy 1965 Depression Screening 1965 Hemoglobin A1C 1966 Hepatitis C Screening 1966 Prostate Cancer Screening-PSA 1966 Dilated Eye Exam 1966 Foot Exam 1966 Hepatitis B Screening 1984 Regular Well Visit/Exam 18-64 1984 Zoster Vaccine (1 of 2) 2016 Pneumococcal vaccine <65 (2 of 2 - PCV) 03/30/2024 03/30/2023 Lipid Panel 2024 2023 Covid-19 Vaccine ( - 2023-2 5 season) 2024 02/19/2022, 07/21/2021, 12/16/2020, Additional history exists Influenza Vaccine (Season Ended) 2025 07/27/2023, 08/03/2022, 07/21/2021, Additional history exists eGFR 12/31/2025 12/31/2024, 12/30/2024 DTaP/Tdap/Td Vaccine (2 - Td or Tdap) 08/21/2028 08/21/2018 Procedures Procedure Name Priority Date/Time Associated Diagnosis Comments POCT GLUCOSE DEVICE Routine 01/02/2025 1 2:01 PM CDT TRANSTHORACIC ECHO (TTE) COMPLETE W DOPPLER/CF W CONTRAST Routine 01/02/2025 11:04 AM CDT POCT GLUCOSE DEVICE Routine 01/02/2025 8 :09 AM CDT MRI BRAIN W WO CONTRAST IP Routine 01/01/2025 9:17 PM CDT POCT GLUCOSE DEVICE Routine 01/01/2025 7 :47 PM CDT POCT GLUCOSE DEVICE Routine 01/01/2025 5 :04 PM CDT POCT GLUCOSE DEVICE Routine 01/01/2025 1 2:31 PM CDT POCT GLUCOSE DEVICE Routine 01/01/2025 8 :24 AM CDT EGFR Timed 12/31/2024 9:36 PM CDT BASIC METABOLIC PANEL Timed 12/31/2024 9:36 PM CDT CBC WITHOUT DIFFERENTIAL Timed 12/31/2024 9:36 PM CDT MAGNESIUM Timed 12/31/2024 9:36 PM CDT PHOSPHORUS Timed 12/31/2024 9:36 PM CDT POCT GLUCOSE DEVICE Routine 12/31/2024 9 :13 PM CDT POCT GLUCOSE DEVICE Routine 12/31/2024 4 :13 PM CDT POCT GLUCOSE DEVICE Routine 12/31/2024 2 :21 AM CDT CTA HEAD NECK W WO CONTRAST ED Urgent/IP Urgent 12/31/2024 12:41 AM CDT POCT GLUCOSE DEVICE Routine 12/30/2024 8 :43 PM CDT ME CRITICAL CARE ILL/INJURED PATIENT INIT 30-74 MIN Routine 12/30/2024 8:[address] HEAD WO CONTRAST Timed 12/30/2024 8 :34 PM CDT B CHECK SAMPLE STAT 12/30/2024 8:24 PM CDT TROPONIN I HIGH-SENSITIVITY 2-HOUR Timed 12/30/2024 8:[address] OUTSIDE CONSULT Routine 12/30/2024 6:[address] OUTSIDE CONSULT Routine 12/30/2024 6:52 PM CDT XR TRANSFER OF OUTSIDE FILMS Routine 12/30/2024 6:49 PM CDT XR PELVIS 1 OR 2 VIEWS ED 12/30/2024 6:15 PM CDT XR CHEST 1 VIEW ED 12/30/2024 6:15 PM CDT POCT GLUCOSE DEVICE Routine 12/30/2024 6 :03 PM CDT EGFR STAT 12/30/2024 5:50 PM CDT DIFFERENTIAL AUTO STAT 12/30/2024 5:5 0 PM CDT TROPONIN I HIGH-SENSITIVITY SERIES (BASELINE, 2HR, 4HR, 6HR) STAT 12/30/2024 5:50 PM CDT CBC WITH AUTO DIFFERENTIAL STAT 12/30/2024 5:50 PM CDT COMPREHENSIVE METABOLIC PANEL STAT 12/30/2024 5:50 PM CDT TYPE AND SCREEN STAT 12/30/2024 5:50 PM CDT PROTIME-INR STAT 12/30/2024 5:50 PM CDT APTT STAT 12/30/2024 5:50 PM CDT from Last 3 Months Results * POCT glucose (01/02/2025 12:01 PM CDT) [facility] Signature Glucose, POC 127 70 - 199 mg/dL Blood 01/02/2025 12:0 1 PM CDT 01/02/2025 12:01 PM CDT us Flo Light MD LAB POCT ORDERABLES - DEV ICE Final Result [facility] [place] [address] * TRANSTHORACIC ECHO (TTE) COMPLETE W DOPPLER/CF W CONTRAST (01/02/2025 11:04 AM CDT) Anatomical Region Laterality Modality Ultrasound 01/02/2025 10:1 7 AM CDT Narrative 01/02/2025 11:21 AM CDT [facility] [place] [address] Transthoracic Echocardiographic Report Patient Name: KEMAR RAIN WESLEY : 1965 (59y 8m) Gender: M Study Date: 01/02/2025 10:17:54 AM Ht(Inch): 67 Wt(Lb): 143.96 BSA: 1.76 Pump Service Supervisor: Chon Car RDCS Location: [id number] Order Provider: ADRIANA BARBA Heart Rate: 76 BMI: 22.54 BP: 117 / 89 Ref Provider: ADRIANA BARBA PROCEDURES: Echocardiographic Report: Transthoracic complete echo with strain imaging and contrast, 2D, spectral and tissue Doppler, color flow Doppler, M-mode. Additional Procedures: Myocardial strain imaging was performed. Contrast: Contrast Enhancement was Employed: After initial imaging due to sub- optimal quality related to co-morbidity defined by patient's body habitus. 0.8 ml Optison Administered, (2.2 ml wasted). INDICATIONS: Syncope. CONCLUSIONS: 1. Normal left ventricular size based on volume index. The Ejection Fraction (Cedeno's) is measured at 53 %. Grade I diastolic dysfunction (normal LA pressure). The average global longitudinal strain is normal. 2. Normal right ventricular size. Normal right ventricular systolic function. 3. The left atrium is normal in size. 4. Mild mitral valve regurgitation. 5. No aortic valve stenosis. 6. Mild tricuspid regurgitation. The Estimated RVSP is : 30-35 mmHg. 7. Physiologic pericardial effusion. 8. Dilation of the aortic root when indexed. The ascending aorta is normal in size when indexed. ATTESTATION: I have personally reviewed and interpreted this study without fellow or resident. - DISCLAIMER: The study images and the final report will be retained in the patient chart by the Echo Laboratory for the legally required time period. This chart constitutes the legal record of any testing performed. FINDINGS: Left Ventricle: Normal left ventricular size based on volume index. Normal LV wall thickness. Normal left ventricular systolic function. The Ejection Fraction (Cedeno's) is measured at 53 %. Grade I diastolic dysfunction (normal LA pressure). The average global longitudinal strain is normal. The LV global strain is: -21.1 %. Right Ventricle: Normal right ventricular size. Normal right ventricular systolic function. Left Atrium: The left atrium is normal in size. Right Atrium: The right atrium is normal in size. Mitral Valve: Mitral valve leaflets appear mildly thickened. Mild mitral valve regurgitation. Aortic Valve: Mildly thickened aortic valve leaflets. No aortic valve stenosis. The mean transaortic gradient is 2 mmHg. The aortic valve area by the continuity equation (using VTI) is 3.46 cm2. Aortic valve dimensionless index is 0.88. Tricuspid Valve: Normal tricuspid valve structure. Mild tricuspid regurgitation. The Estimated RVSP is : 30-35 mmHg. Pulmonic Valve: Mild pulmonic regurgitation. Pericardium: Physiologic pericardial effusion. Aorta: Normal aortic root size at sinuses of Valsalva. Dilation of the aortic root when indexed. The ascending aorta is normal in size when indexed. MEASUREMENTS: 2D/MM Value Range Doppler Value Range LVIDd 2D 4.74 cm [ 4.20 - 5.80 ] AV Peak Anshu 1.0 m/s [ 1.0 - 1.7 ] LVIDs 2D 3.02 cm [ 2.50 - 4.00 ] AV Peak PG 4.00 mmHg IVSd 2D 0.74 cm [ 0.60 - 1.00 ] AV Mean PG 2 mmHg LVPWd 2D 0.70 cm [ 0.60 - 1.00 ] AV VTI 16.6 cm LV Thickness Ratio 1.1 LVOT Peak Anshu 0.8 m/s [ 0.7 - 1.1 ] LV FS 2D 36.43 % [ 25.00 - 43.00 ] LVOT Peak PG 2.56 mmHg LV Mass 2D 111.78 g LVOT Mean PG 1 mmHg LV Mass Index 2D 63.51 g/m2 LVOT VTI 14.6 cm RWT 0.30 LVOT Diam 2.24 cm EDV Mod BP 91.20 ml [ 62.00 - 150.00 ] ELANA VTI 3.46 cm2 LV EDV Index 51.82 ml/m2 LVOT/AV VTI 0.88 - Dimensionless index (DVI) ESV Mod BP 42.79 ml [ 21.00 - 61.00 ] MV E Peak Anshu 0.4 m/s [ 0.6 - 1.3 ] EF Mod BP 53 % [ 52 - 72 ] MV A Peak Anshu 0.5 m/s [ 1.0 - 1.2 ] LV GLS -21.1 % [ -25.0 - -18.0 ] MV E/A 0.9 ratio [ 0.8 - 1.5 ] LA Length 4C 4.46 cm MV Decel Time 191.40 msec [ 104.00 - 258.00 ] LA Length 2C 4.57 cm Med E` Anshu 8.8 cm/sec [ 8.0 - 25.0 ] LA Volume BP 34.80 ml Lat E` Anshu 11.8 cm/sec [ 10.0 - 25.0 ] LA Volume Index 19.77 ml/m2 [ 16.00 - 34.00 ] Average E/E` 3.88 RV Base Dimen 2D 3.5 cm [ 2.5 - 4.2 ] RV S` 12.87 cm/sec TAPSE 1.65 cm [ 1.71 - 5.00 ] PV Peak Anshu 0.9 m/s [ 0.4 - 0.8 ] RA Volume 27.01 ml PV Peak PG 3.24 mmHg RA Volume Index 15.35 ml/m2 IVC Diam 1.13 cm AoR Diam 2D 3.67 cm [ 3.10 - 3.70 ] Ao Root Index 2.09 cm/m2 [ 1.00 - 2.00 ] Asc Ao Diam 2D 2.81 cm Asc Ao Index 1.60 cm/m2 Electronically Signed By: Manuel Lomax M.D. 01/02/2025 11:21:38 AM CDT Procedure Note Manuel Lomax MD PhD - 01/02/2025 [facility] [place] [address] Transthoracic Echocardiographic Report Patient Name: KEMAR RAIN WESLEY : 1965 (59y 8m) Gender: M Study Date: 01/02/2025 10:17:54 AM Ht(Inch): 67 Wt(Lb): 143.96 BSA: 1.76 Pump Service Supervisor: Chon Car RDCS Location: [id number] Order Provider: ADRIANA BARBA Heart Rate: 76 BMI: 22.54 BP: 117 / 89 Ref Provider:ADRIANA BARBA PROCEDURES: Echocardiographic Report: Transthoracic complete echo with strain imagingand contrast, 2D, spectral and tissue Doppler, color flow Doppler, M-mode. Additional Procedures: Myocardial strain imaging was performed. Contrast: Contrast Enhancement was Employed: After initial imaging due tosub- optimal quality related to co-morbidity defined by patient's body habitus. 0.8 mlOptison Administered, (2.2 ml wasted). INDICATIONS: Syncope. CONCLUSIONS: 1. Normal left ventricular size based on volume index. The EjectionFraction (Cedeno's) is measured at 53 %. Grade I diastolic dysfunction (normal LA pressure).The average global longitudinal strain is normal. 2. Normal right ventricular size. Normal right ventricular systolicfunction. 3. The left atrium is normal in size. 4. Mild mitral valve regurgitation. 5. No aortic valve stenosis. 6. Mild tricuspid regurgitation. The Estimated RVSP is : 30-35 mmHg. 7. Physiologic pericardial effusion. 8. Dilation of the aortic root when indexed. The ascending aorta is normalin size when indexed. ATTESTATION: I have personally reviewed and interpreted this study without fellow orresident. - DISCLAIMER: The study images and the final report will be retained in the patientchart by the Echo Laboratory for the legally required time period. This chart constitutesthe legal record of any testing performed. FINDINGS: Left Ventricle: Normal left ventricular size based on volume index. NormalLV wall thickness. Normal left ventricular systolic function. The EjectionFraction (Cedeno's) is measured at 53 %. Grade I diastolic dysfunction (normal LA pressure).The average global longitudinal strain is normal. The LV global strain is: -21.1 %. Right Ventricle: Normal right ventricular size. Normal right ventricularsystolic function. Left Atrium: The left atrium is normal in size. Right Atrium: The right atrium is normal in size. Mitral Valve: Mitral valve leaflets appear mildly thickened. Mild mitralvalve regurgitation. Aortic Valve: Mildly thickened aortic valve leaflets. No aortic valvestenosis. The mean transaortic gradient is 2 mmHg. The aortic valve area by the continuityequation (using VTI) is 3.46 cm2. Aortic valve dimensionless index is 0.88. Tricuspid Valve: Normal tricuspid valve structure. Mild tricuspidregurgitation. The Estimated RVSP is : 30-35 mmHg. Pulmonic Valve: Mild pulmonic regurgitation. Pericardium: Physiologic pericardial effusion. Aorta: Normal aortic root size at sinuses of Valsalva. Dilation of theaortic root when indexed. The ascending aorta is normal in size when indexed. MEASUREMENTS: 2D/MM Value Range DopplerValue Range LVIDd 2D 4.74 cm [ 4.20 - 5.80 ] AV Peak Vel1.0 m/s [ 1.0 - 1.7 ] LVIDs 2D 3.02 cm [ 2.50 - 4.00 ] AV Peak PG4.00 mmHg IVSd 2D 0.74 cm [ 0.60 - 1.00 ] AV Mean PG2 mmHg LVPWd 2D 0.70 cm [ 0.60 - 1.00 ] AV VTI16.6 cm LV Thickness Ratio 1.1 LVOT Peak Vel0.8 m/s [ 0.7 - 1.1 ] LV FS 2D 36.43 % [ 25.00 - 43.00 ] LVOT Peak PG2.56 mmHg LV Mass 2D 111.78 g LVOT Mean PG1 mmHg LV Mass Index 2D 63.51 g/m2 LVOT VTI14.6 cm RWT 0.30 LVOT Diam2.24 cm EDV Mod BP 91.20 ml [ 62.00 - 150.00 ] ELANA VTI3.46 cm2 LV EDV Index 51.82 ml/m2 LVOT/AV VTI0.88 - Dimensionless index (DVI) ESV Mod BP 42.79 ml [ 21.00 - 61.00 ] MV E Peak Vel0.4 m/s [ 0.6 - 1.3 ] EF Mod BP 53 % [ 52 - 72 ] MV A Peak Vel0.5 m/s [ 1.0 - 1.2 ] LV GLS -21.1 % [ -25.0 - -18.0 ] MV E/A0.9 ratio [ 0.8 - 1.5 ] LA Length 4C 4.46 cm MV Decel Vxgn729.40 msec [ 104.00 - 258.00 ] LA Length 2C 4.57 cm Med E` Vel8.8 cm/sec [ 8.0 - 25.0 ] LA Volume BP 34.80 ml Lat E` Vel11.8 cm/sec [ 10.0 - 25.0 ] LA Volume Index 19.77 ml/m2 [ 16.00 - 34.00 ] Average E/E`3.88 RV Base Dimen 2D 3.5 cm [ 2.5 - 4.2 ] RV S`12.87 cm/sec TAPSE 1.65 cm [ 1.71 - 5.00 ] PV Peak Vel0.9 m/s [ 0.4 - 0.8 ] RA Volume 27.01 ml PV Peak PG3.24 mmHg RA Volume Index15.35 ml/m2 IVC Diam1.13 cm AoR Diam 2D 3.67 cm [ 3.10 - 3.70 ] Ao Root Index 2.09 cm/m2 [ 1.00 - 2.00 ] Asc Ao Diam 2D2.81 cm Asc Ao Index1.60 cm/m2 Electronically Signed By: Manuel Lomax M.D. 01/02/2025 11:21:38 AM CDT Adriana Barba NP CV ECHO PROCEDURES F inal Result * POCT glucose (01/02/2025 8:09 AM CDT) Glucose, POC 135 70 - 199 mg/dL Blood 01/02/2025 8:09 AM CDT 01/02/2025 8:09 AM CDT us Flo Light MD LAB POCT ORDERABLES - DEV ICE Final Result [facility] [place] [address] * MRI Brain W WO Contrast (01/01/2025 9:17 PM CDT) Anatomical Region Laterality Modality Head and Neck N/A Magnetic Resonan ce 01/02/2025 11:2 6 AM CDT Impressions 01/02/2025 4:52 PM CDT 1. No evidence of intracranial metastatic disease. 2. Redemonstrated multi-compartmental hemorrhages appear grossly unchanged from comparison CT head. Dictated by: Mario Hirsch D.O. The radiology attending physician has personally reviewed this study, and had reviewed and/or edited this written report and agrees with it. Electronically signed by: Geovanny Salazar M.D. Narrative 01/02/2025 4:52 PM CDT EXAMINATION: Magnetic resonance imaging (MRI) of the brain and brainstem without and with contrast HISTORY: Non-small cell lung cancer. Metastatic disease evaluation. TECHNIQUE: Multiplanar multi-weighted MRI of the brain and brainstem was performed without and with intravenous contrast using the general brain protocol. Contrast information: 13 mL Gadoterate Meglumine IV COMPARISON: CT of the head 12/31/2024. FINDINGS: Redemonstrated multi-compartmental intracranial hemorrhage involving the bifrontal lobes with multifocal subarachnoid hemorrhage in the bilateral frontal, parietal, and temporal lobes appears similar to the prior CT. Thin bilateral subdural hematomas along the frontal convexities are unchanged. The scalp and calvarium are normal. The superior sagittal sinus demonstrates normal venous flow. The posterior fossa is unremarkable. The pituitary and sella are normal. The brainstem and craniocervical junction are unremarkable. Diffusion weighted images reveal no hyperintensities to suggest acute cerebral infarction. Susceptibility artifact corresponding to multifocal intraparenchymal hemorrhage. The ventricles are normal in size and position without evidence of hydrocephalus. Minimal scattered paranasal sinus mucous thickening. Small amount of right and trace left mastoid fluid. The orbits appear normal. Normal flow voids are demonstrated in the carotid arteries and basilar artery. There is no abnormal contrast enhancement. Procedure Note Geovanny Salazar MD - 01/02/2025 EXAMINATION: Magnetic resonance imaging (MRI) of the brain and brainstem without and with contrast HISTORY: Non-small cell lung cancer. Metastatic disease evaluation. TECHNIQUE: Multiplanar multi-weighted MRI of the brain and brainstem was performed without and with intravenous contrast using the general brain protocol. Contrast information: 13 mL Gadoterate Meglumine IV COMPARISON: CT of the head 12/31/2024. FINDINGS: Redemonstrated multi-compartmental intracranial hemorrhage involving the bifrontal lobes with multifocal subarachnoid hemorrhage in the bilateral frontal, parietal, and temporal lobes appears similar to the prior CT. Thin bilateral subdural hematomas along the frontal convexities are unchanged. The scalp and calvarium are normal. The superior sagittal sinus demonstrates normal venous flow. The posterior fossa is unremarkable. The pituitary and sella are normal. The brainstem and craniocervical junction are unremarkable. Diffusion weighted images reveal no hyperintensities to suggest acute cerebral infarction. Susceptibility artifact corresponding to multifocal intraparenchymal hemorrhage. The ventricles are normal in size and position without evidence of hydrocephalus. Minimal scattered paranasal sinus mucous thickening. Small amount of right and trace left mastoid fluid. The orbits appear normal. Normal flow voids are demonstrated in the carotid arteries and basilar artery. There is no abnormal contrast enhancement. IMPRESSION: 1. No evidence of intracranial metastatic disease. 2. Redemonstrated multi-compartmental hemorrhages appear grossly unchanged from comparison CT head. Dictated by: Mario Hirsch D.O. The radiology attending physician has personally reviewed this study, and had reviewed and/or edited this written report and agrees with it. Electronically signed by: Geovanny Salazar M.D. Adriana Barba TYPIST IMG MRI PROCEDURES F inal Result * (ABNORMAL) POCT glucose (01/01/2025 7:47 PM CDT) Glucose, POC 228(H) 70 - 199 mg/dL Blood 01/01/2025 7:47 PM CDT 01/01/2025 7:47 PM CDT Flo Light MD LAB POCT ORDERABLES - DEV ICE Final Result [facility] [place] [address] * POCT glucose (01/01/2025 5:04 PM CDT) Glucose, POC 142 70 - 199 mg/dL Blood 01/01/2025 5:04 PM CDT 01/01/2025 5:04 PM CDT Flo Light MD LAB POCT ORDERABLES - DEV ICE Final Result Performing Organization Address [facility] Co de Phone Number [facility] [place] [address] * (ABNORMAL) POCT glucose (01/01/2025 12:31 PM CDT) Glucose, POC 231(H) 70 - 199 mg/dL Blood 01/01/2025 12:3 1 PM CDT 01/01/2025 12:31 PM CDT Flo Light MD LAB POCT ORDERABLES - DEV ICE Final Result Performing Organization Address [facility] de Phone Number [facility] [place] [address] * POCT glucose (01/01/2025 8:24 AM CDT) Glucose, POC 134 70 - 199 mg/dL Blood 01/01/2025 8:24 AM CDT 01/01/2025 8:24 AM CDT Flo Light MD LAB POCT ORDERABLES - DEV ICE Final Result Performing Organization Address [facility] de Phone Number [facility] [place] [address] * eGFR (12/31/2024 9:36 PM CDT) eGFR >90 >=60 mL/min/1. 73 m2 Comment: Interpretive Data Reference Interval Normal >/= 90 mL/min/1.73m2 Mildly decreased* 60 - 89 mL/min/1.73m2 Mildly to moderately decreased 45 - 59 mL/min/1.73m2 Moderately to severely decreased 30 - 44 mL/min/1.73m2 Severely decreased 15 - 29 mL/min/1.73m2 Kidney Failure < 15 mL/min/1.73m2 *Relative to young adult level Estimated glomerular filtration rate is determined by the 2020 CKD-EPI equation recommended by the National Kidney [employer] (A Unifying Approach to GFR Estimation: Recommendations of the NKF-ASK Task Force on Reassessing the Inclusion of Race in Diagnosing Kidney Disease, JASN 2020). The CKD-EPI equation should not be used for patients with unstable renal function and has not been validated in children and those over 70. Current interpretive data was last reviewed 2021. Blood 12/31/2024 9:36 PM CDT 12/31/2024 10:20 PM CDT Flo Light MD LAB BLOOD ORDERABLES Layla aldana Result [facility] [place] [address] * CBC without differential (12/31/2024 9:36 PM CDT) WBC 6.3 3.8 - 9.9 K/cumm Hgb 13.9 13.0 - 17.5 g/dL [facility] Hct 40.2 38.9 - 50.3 % [facility] Plt 194 150 - 400 K/cumm [facility] MPV 10.2 9.1 - 12.3 fL [facility] RBC 4.41 4.30 - 5.80 M/cumm [facility] MCV 91.2 81.3 - 96.4 fL [facility] MCH 31.5 27.1 - 33.3 pg [facility] MCHC 34.6 32.3 - 35.7 g/dL [facility] RDW CV 12.4 11.1 - 14.9 % [facility] RDW SD 41.6 35.7 - 48.1 fL [facility] NRBC abs 0.00 0.00 - 0.01 K/cumm [facility] Blood 12/31/2024 9:36 PM CDT 12/31/2024 10:23 PM CDT Flo Light MD LAB BLOOD ORDERABLES Layla l Result Performing Organization Address City/[facility]/ZIP Co de Phone Number [facility] [place] [address] * Phosphorus (12/31/2024 9:36 PM CDT) Pathologist [facility] Phosphorus, pl 3.4 2.3 - 4.5 mg/dL Blood 12/31/2024 9:36 PM CDT 12/31/2024 10:20 PM CDT Flo Light MD LAB BLOOD ORDERABLES Layla l Result Performing Organization Address [facility] Co de Phone Number [facility] [place] [address] * Magnesium (12/31/2024 9:36 PM CDT) [facility] Magnesium 2.0 1.4 - 2.5 mg/dL Blood 12/31/2024 9:36 PM CDT 12/31/2024 10:20 PM CDT Flo Light MD LAB BLOOD ORDERABLES Layla l Result [facility] [place] [address] * Basic metabolic panel (12/31/2024 9:36 PM CDT) Pathologist [facility] Sodium 137 135 - 145 mmol/L Potassium, pl 4.3 3.3 - 4.9 mmol/L [facility] Chloride 98 97 - 110 mmol/L [facility] CO2 29 22 - 32 mmol/L [facility] Anion gap 10 2 - 15 mmol/L [facility] BUN 13 6 - 25 mg/dL [facility] Creatinine 0.93 0.80 - 1.30 mg/dL [facility] Glucose 197 70 - 199 mg/dL [facility] Comment: Interpretive Data Fasting glucose >/= 126 mg/dl is diagnostic for diabetes. Fasting is defined as no caloric intake for at least 8 hours. Fasting glucose between 100 mg/dl to 125 mg/dl is diagnostic of prediabetes. In a patient with classic symptoms of hyperglycemia or hyperglycemic crisis, a random glucose >/= 200 mg/dl is diagnostic for diabetes. In the absence of unequivocal hyperglycemia, results should be confirmed by repeat testing. The classification and Diagnosis of Diabetes Diabetes Care 2021; 46: S19-S40. Current interpretive data was last revised 2022. Calcium 10.0 8.5 - 10.3 mg/dL [facility] Blood 12/31/2024 9:36 PM CDT 12/31/2024 10:20 PM CDT Flo Light MD LAB BLOOD ORDERABLES Layla l Result Performing Organization Address City/[facility]/ZIP Co de Phone Number [facility] [place] [address] * POCT glucose (12/31/2024 9:13 PM CDT) Glucose, POC 182 70 - 199 mg/dL Blood 12/31/2024 9:13 PM CDT 12/31/2024 9:13 PM CDT Fol Light MD LAB POCT ORDERABLES - DEV ICE Final Result Performing Organization Address [facility]/ZIP Co de Phone Number [facility] [place] [address] * POCT glucose (12/31/2024 4:13 PM CDT) Glucose, POC 141 70 - 199 mg/dL Blood 12/31/2024 4:13 PM CDT 12/31/2024 4:13 PM CDT Flo Light MD LAB POCT ORDERABLES - DEV ICE Final Result Performing Organization Address [facility] Co de Phone Number [facility] [place] [address] * POCT glucose (12/31/2024 2:21 AM CDT) Glucose, POC 188 70 - 199 mg/dL Blood 12/31/2024 2:21 AM CDT 12/31/2024 2:21 AM CDT Flo Light MD LAB POCT ORDERABLES - DEV ICE Final Result Performing Organization Address [facility] de Phone Number [facility] [place] [address] * CTA Head Neck W WO Contrast (12/31/2024 12:41 AM CDT) Anatomical Region Laterality Modality Head and Neck N/A Computed Tomogra phy 12/31/2024 1:28 AM CDT Impressions 12/31/2024 8:37 AM CDT 1. Stable multi-compartmental intracranial hemorrhage including subdural hematoma along the anterior falx and multifocal subarachnoid hemorrhage along the right and left insula, right and left frontal lobes, and right temporal horn. No midline shift. 2. No evidence of aneurysm or vascular formation identified. 3. Left upper lobe atelectasis and/or scarring with severe emphysematous changes. Dictated by: Adolfo Urena MD The radiology attending physician has personally reviewed this study, and had reviewed and/or edited this written report and agrees with it. Electronically signed by: Meron Snyder M.D. Narrative 12/31/2024 8:37 AM CDT EXAMINATION: 1. Computed tomography angiography (CTA) of the head without and with contrast 2. Computed tomography angiography (CTA) of the neck with contrast HISTORY: Lung adenocarcinoma presenting after syncopal fall at work TECHNIQUE: CT of the head was performed with images acquired from skull base to vertex without intravenous contrast. Computed tomographic angiography was obtained from the aortic arch to the vertex following the uneventful administration of intravenous contrast. 3D images of the CTA were generated on a dedicated workstation/sql server bi developer. Contrast information: 75 mL Optiray-350 IV COMPARISON: CT head 12/30/2024 at 8:28 PM 3:33 PM.. FINDINGS: HEAD: Posterior scalp hematoma. No significant change in size of subdural hemorrhage along the anterior falx (series 6, image 13). No significant change in subarachnoid hemorrhage along the right insula, right and left frontal lobes, and right temporal horn. There is posterior scalp hematoma, similar to prior. Ventricles are of normal size and morphology. No mass effect or midline shift is present. The davis-white matter differentiation is normal. The visualized portions of the orbits are normal. Trace fluid in the mastoids. The visualized portions of the paranasal sinuses are normal. No fractures are identified. NECK: Scattered subcentimeter lymph nodes are seen in the neck. None are pathologically enlarged. The muscles of the neck are normal. Fascial planes are preserved and the deep spaces of the neck are normal. The visualized airway is widely patent. The base of the skull and the temporal bones are normal. The spinal canal is normal in caliber. Intervertebral disk heights are normal. No high-grade neuroforaminal stenosis Limited examination of the superior thorax shows left upper lobe atelectasis and/or scarring with severe emphysematous changes. CTA: The visualized aortic arch appears normal with normal configuration of the great vessels. The innominate artery and both subclavian arteries are normal in course and caliber. The common carotid arteries are normal in course and caliber with normal carotid bifurcations bilaterally. The course and caliber of the internal carotid arteries in the neck are normal. No areas of atherosclerotic narrowing or filling defects are identified. The visualized course and caliber of the internal carotid arteries in the head are normal. Mild atherosclerosis of the intracranial internal carotid arteries. No filling defects identified.. The [id number] is complete. The anterior and middle cerebral arteries are normal. The left vertebral arteries dominant The basilar artery is normal. The posterior cerebral arteries are normal. There is no aneurysm or vascular malformation identified. Procedure Note Meron Snyder MD - 12/31/2024 EXAMINATION: 1. Computed tomography angiography (CTA) of the head without and with contrast 2. Computed tomography angiography (CTA) of the neck with contrast HISTORY: Lung adenocarcinoma presenting after syncopal fall at work TECHNIQUE: CT of the head was performed with images acquired from skull base to vertex without intravenous contrast. Computed tomographic angiography was obtained from the aortic arch to the vertex following the uneventful administration of intravenous contrast. 3D images of the CTA were generated on a dedicated workstation/sql server bi developer. Contrast information: 75 mL Optiray-350 IV COMPARISON: CT head 12/30/2024 at 8:28 PM 3:33 PM.. FINDINGS: HEAD: Posterior scalp hematoma. No significant change in size of subdural hemorrhage along the anterior falx (series 6, image 13). No significant change in subarachnoid hemorrhage along the right insula, right and left frontal lobes, and right temporal horn. There is posterior scalp hematoma, similar to prior. Ventricles are of normal size and morphology. No mass effect or midline shift is present. The davis-white matter differentiation is normal. The visualized portions of the orbits are normal. Trace fluid in the mastoids. The visualized portions of the paranasal sinuses are normal. No fractures are identified. NECK: Scattered subcentimeter lymph nodes are seen in the neck. None are pathologically enlarged. The muscles of the neck are normal. Fascial planes are preserved and the deep spaces of the neck are normal. The visualized airway is widely patent. The base of the skull and the temporal bones are normal. The spinal canal is normal in caliber. Intervertebral disk heights are normal. No high-grade neuroforaminal stenosis Limited examination of the superior thorax shows left upper lobe atelectasis and/or scarring with severe emphysematous changes. CTA: The visualized aortic arch appears normal with normal configuration of the great vessels. The innominate artery and both subclavian arteries are normal in course and caliber. The common carotid arteries are normal in course and caliber with normal carotid bifurcations bilaterally. The course and caliber of the internal carotid arteries in the neck are normal. No areas of atherosclerotic narrowing or filling defects are identified. The visualized course and caliber of the internal carotid arteries in the head are normal. Mild atherosclerosis of the intracranial internal carotid arteries. No filling defects identified.. The [id number] is complete. The anterior and middle cerebral arteries are normal. The left vertebral arteries dominant The basilar artery is normal. The posterior cerebral arteries are normal. There is no aneurysm or vascular malformation identified. IMPRESSION: 1. Stable multi-compartmental intracranial hemorrhage including subdural hematoma along the anterior falx and multifocal subarachnoid hemorrhage along the right and left insula, right and left frontal lobes, and right temporal horn. No midline shift. 2. No evidence of aneurysm or vascular formation identified. 3. Left upper lobe atelectasis and/or scarring with severe emphysematous changes. Dictated by: Adolfo Urena MD The radiology attending physician has personally reviewed this study, and had reviewed and/or edited this written report and agrees with it. Electronically signed by: Meron Snyder M.D. Mike Zarco MD IMG CT PROCEDURES F inal Result * POCT glucose (12/30/2024 8:43 PM CDT) [facility] Signature Glucose, POC 155 70 - 199 mg/dL Blood 12/30/2024 8:43 PM CDT 12/30/2024 8:43 PM CDT Darin Moran MD LAB POCT ORDERABLES - DEVICE Final Result Performing Organization Address City/State/[facility] Co de Phone Number [facility] [place] [address] * ME CRITICAL CARE ILL/INJURED PATIENT INIT 30-74 MIN (12/30/2024 8:40 PM CDT) Narrative Darin Moran MD - 12/30/2024 8:40 PM CDT Darin Moran MD 12/30/2024 8:41 PM Critical Care Performed by: Darin Moran MD Authorized by: Darin Moran MD Critical care provider statement: As reflected in the history, physical exam, orders, notes, and/or MDM, I was personally present while the patient was critically ill and provided critical care services for 35 minutes, excluding time involved in separately billable procedures. Critical care was necessary to treat or prevent imminent or life-threatening deterioration of the following condition(s): acute intracranial hemorrhage Traumatic SAH, IPH, after syncope/fall Critical care was time spent by me providing the following: continuous telemetry, continuous pulse oximetry and continuous capnography frequent neurologic exams and initiation of anti-epileptic therapy I provided emergent necessary critical care medicine services to this patient. I ordered and reviewed test results and/or imaging studies. I spent time discussing the management of this critically ill patient with consultants and the medical staff. I spent time discussing the management and therapeutic options for this critically ill patient with the patient themselves or with the appropriate designated surrogate decision-maker. I spent time documenting in the medical record. I admitted this patient to an Intensive Care unit (ICU) and discussed management with the admitting team. us Darin Moran MD IN CLINIC/BEDSIDE ORDERABLES Final Result * CT Head WO Contrast (12/30/2024 8:34 PM CDT) Anatomical Region Laterality Modality Head and Neck N/A Computed Tomogra phy 12/30/2024 8:48 PM CDT Impressions 12/30/2024 11:02 PM CDT 1. Multifocal subdural and subarachnoid hemorrhage with possible right frontal lobe contusion described above. There is now subarachnoid hemorrhage seen along the left insula and temporal lobe with slightly more focal hemorrhage along the anterior falx that could represent redistribution or minimally increased hemorrhage. 2. Mildly increased size of parieto-occipital scalp hematoma. Dictated by: Deann Marroquin MD The radiology attending physician has personally reviewed this study, and had reviewed and/or edited this written report and agrees with it. Electronically signed by: Geovanny Salazar M.D. Narrative 12/30/2024 11:02 PM CDT EXAMINATION: CT head without contrast HISTORY: 59-year-old man with fall and subarachnoid hemorrhage, follow-up. TECHNIQUE: CT of the head was performed with images acquired from skull base to vertex without intravenous contrast. COMPARISON: Head CT 12/30/2024 3:25 PM FINDINGS: No significant change in the scattered areas of subdural and subarachnoid hemorrhage along the right insula, right temporal horn and bilateral anterior frontal lobes with possible small cerebral contusion in the anterior right frontal lobe. There is now subarachnoid hemorrhage seen along the left insula and temporal lobe with slightly more focal hemorrhage along the anterior falx. Midline posterior parieto-occipital scalp hematoma has mildly increased in size. Ventricles are of normal size and morphology. No mass effect or midline shift is present. The davis-white matter differentiation is normal. The visualized portions of the orbits are normal. Trace bilateral mastoid air cell fluid. The visualized portions of the paranasal sinuses are normal. No acute fractures are identified. Procedure Note Geovanny Salazar MD - 12/30/2024 EXAMINATION: CT head without contrast HISTORY: 59-year-old man with fall and subarachnoid hemorrhage, follow-up. TECHNIQUE: CT of the head was performed with images acquired from skull base to vertex without intravenous contrast. COMPARISON: Head CT 12/30/2024 3:25 PM FINDINGS: No significant change in the scattered areas of subdural and subarachnoid hemorrhage along the right insula, right temporal horn and bilateral anterior frontal lobes with possible small cerebral contusion in the anterior right frontal lobe. There is now subarachnoid hemorrhage seen along the left insula and temporal lobe with slightly more focal hemorrhage along the anterior falx. Midline posterior parieto-occipital scalp hematoma has mildly increased in size. Ventricles are of normal size and morphology. No mass effect or midline shift is present. The davis-white matter differentiation is normal. The visualized portions of the orbits are normal. Trace bilateral mastoid air cell fluid. The visualized portions of the paranasal sinuses are normal. No acute fractures are identified. IMPRESSION: 1. Multifocal subdural and subarachnoid hemorrhage with possible right frontal lobe contusion described above. There is now subarachnoid hemorrhage seen along the left insula and temporal lobe with slightly more focal hemorrhage along the anterior falx that could represent redistribution or minimally increased hemorrhage. 2. Mildly increased size of parieto-occipital scalp hematoma. Dictated by: Deann Marroquin MD The radiology attending physician has personally reviewed this study, and had reviewed and/or edited this written report and agrees with it. Electronically signed by: Geovanny Salazar M.D. Leno Vargas MD IM CT PROCEDURES Final Result * Troponin I high-sensitivity 2-hour (12/30/2024 8:24 PM CDT) Trop I hs <4 <=35 ng/L Comment: Interpretive Data For further hscTnI resources including the diagnostic algorithm and an aid in interpretation, copy and paste this link: [email or web address].testcatalog.org/show/[email or web address] Current Interpretive Data last revised 2020. Trop I hs delta 0 ng/L [facility] Trop I hs interp Insignificant [facility] Blood 12/30/2024 8:24 PM CDT 12/30/2024 8:31 PM CDT us Leno Vargas MD LAB BLOOD ORDERABLES Fin al Result Performing Organization Address City/[facility]/ZIP Co de Phone Number [facility] [place] [address] * Check Sample (12/30/2024 8:24 PM CDT) Pathologist [facility] ABO Rh O Positive [facility] OTHER 12/30/2024 8:24 PM CDT 12/30/2024 8:33 PM CDT Darin Moran MD LAB BLOOD ORDERABLES Final R esult Performing Organization Address [facility] Co de Phone Number [facility] [place] [address] [facility] * Neuro CT Outside Consult (12/30/2024 6:52 PM CDT) Anatomical Region Laterality Modality N/A Computed Tomogra phy 12/30/2024 8:33 PM CDT Impressions 12/30/2024 10:48 PM CDT 1. Multifocal acute subdural and subarachnoid hemorrhage described above. 2. Parieto-occipital scalp hematoma without underlying fracture. 3. No evidence of acute fracture in the cervical spine. The findings, conclusions and recommendations within this report do not replace the initial findings, conclusions and recommendations made at the facility where the study was performed based upon the imaging and clinical condition at that time. Comparison with the prior report and clinical history is necessary. The provided images may or may not represent the [place] source data set and thus may contain changes that may lower the accuracy of this second-opinion interpretation. Dictated by: Deann Marroquin MD The radiology attending physician has personally reviewed this study, and had reviewed and/or edited this written report and agrees with it. Electronically signed by: Geovanny Salazar M.D. Narrative 12/30/2024 10:48 PM CDT EXAMINATION: RADIOLOGY CONSULTATION ON OUTSIDE IMAGING STUDY STUDY INITIALLY PERFORMED: 12/30/2024 at [facility]. TYPE OF STUDY: Multiple CT images of the head and cervical spine without contrast are provided at the time of this interpretation. CONTRAST ROUTE: No contrast was administered. The protocol was adequate to address the clinical question. The outside final report was not available at the time of this second opinion interpretation. TYPE OF CONSULTATION: Consult on outside imaging study with images submitted through [employer] DATE OF CONSULTATION: 12/30/2024 8:15 PM HISTORY: 59-year-old man with lung cancer status post radiation therapy and immunotherapy presenting with fall and posterior head trauma. COMPARISON: None available. FINDINGS: HEAD: Scattered acute subdural and subarachnoid hemorrhage along the right insula, right temporal horn and bilateral anterior frontal lobes with possible subtle focus of low attenuation in the anterior right frontal lobe that could represent a contusion. The right temporal subdural hemorrhage measures up to 3 mm in width. Midline posterior parieto-occipital scalp hematoma. Ventricles are of normal size and morphology. No mass effect or midline shift is present. The davis-white matter differentiation is normal. The visualized portions of the orbits are normal. Trace bilateral mastoid air cell fluid. The visualized portions of the paranasal sinuses are normal. No acute fractures are identified. CERVICAL SPINE: Levocurvature straightening of the cervical lordosis and mild anterolisthesis of C5 on C6. Trace anterolisthesis of C4 on C5 and trace retrolisthesis of C3 on C4. No acute fracture identified. There is a small focus of ossification along the anterior superior C6 vertebral body that appears well-corticated and is favored to be chronic. Vertebral bodies are normal in height without compression fractures. Multilevel degenerative disc disease and facet arthropathy, greatest and moderate at C6-C7. Degenerative changes of the craniocervical junction. Severe apical emphysema with partially imaged medial left upper lobe soft tissue thickening and volume loss favoring scarring but incompletely evaluated on this study. Procedure Note Geovanny Salazar MD - 12/30/2024 EXAMINATION: RADIOLOGY CONSULTATION ON OUTSIDE IMAGING STUDY STUDY INITIALLY PERFORMED: 12/30/2024 at [facility]. TYPE OF STUDY: Multiple CT images of the head and cervical spine without contrast are provided at the time of this interpretation. CONTRAST ROUTE: No contrast was administered. The protocol was adequate to address the clinical question. The outside final report was not available at the time of this second opinion interpretation. TYPE OF CONSULTATION: Consult on outside imaging study with images submitted through Outside Image Sharing Service DATE OF CONSULTATION: 12/30/2024 8:15 PM HISTORY: 59-year-old man with lung cancer status post radiation therapy and immunotherapy presenting with fall and posterior head trauma. COMPARISON: None available. FINDINGS: HEAD: Scattered acute subdural and subarachnoid hemorrhage along the right insula, right temporal horn and bilateral anterior frontal lobes with possible subtle focus of low attenuation in the anterior right frontal lobe that could represent a contusion. The right temporal subdural hemorrhage measures up to 3 mm in width. Midline posterior parieto-occipital scalp hematoma. Ventricles are of normal size and morphology. No mass effect or midline shift is present. The davis-white matter differentiation is normal. The visualized portions of the orbits are normal. Trace bilateral mastoid air cell fluid. The visualized portions of the paranasal sinuses are normal. No acute fractures are identified. CERVICAL SPINE: Levocurvature straightening of the cervical lordosis and mild anterolisthesis of C5 on C6. Trace anterolisthesis of C4 on C5 and trace retrolisthesis of C3 on C4. No acute fracture identified. There is a small focus of ossification along the anterior superior C6 vertebral body that appears well-corticated and is favored to be chronic. Vertebral bodies are normal in height without compression fractures. Multilevel degenerative disc disease and facet arthropathy, greatest and moderate at C6-C7. Degenerative changes of the craniocervical junction. Severe apical emphysema with partially imaged medial left upper lobe soft tissue thickening and volume loss favoring scarring but incompletely evaluated on this study. IMPRESSION: 1. Multifocal acute subdural and subarachnoid hemorrhage described above. 2. Parieto-occipital scalp hematoma without underlying fracture. 3. No evidence of acute fracture in the cervical spine. The findings, conclusions and recommendations within this report do not replace the initial findings, conclusions and recommendations made at the facility where the study was performed based upon the imaging and clinical condition at that time. Comparison with the prior report and clinical history is necessary. The provided images may or may not represent the [place] source data set and thus may contain changes that may lower the accuracy of this second-opinion interpretation. Dictated by: Deann Marroquin MD The radiology attending physician has personally reviewed this study, and had reviewed and/or edited this written report and agrees with it. Electronically signed by: Geovanny Salazar M.D. Leno Vargas MD IMG CT PROCEDURES Final Result * Neuro CT Outside Consult (12/30/2024 6:52 PM CDT) Anatomical Region Laterality Modality N/A Computed Tomogra phy 12/30/2024 8:33 PM CDT Impressions 12/30/2024 10:48 PM CDT 1. Multifocal acute subdural and subarachnoid hemorrhage described above. 2. Parieto-occipital scalp hematoma without underlying fracture. 3. No evidence of acute fracture in the cervical spine. The findings, conclusions and recommendations within this report do not replace the initial findings, conclusions and recommendations made at the facility where the study was performed based upon the imaging and clinical condition at that time. Comparison with the prior report and clinical history is necessary. The provided images may or may not represent the [place] source data set and thus may contain changes that may lower the accuracy of this second-opinion interpretation. Dictated by: Deann Marroquin MD The radiology attending physician has personally reviewed this study, and had reviewed and/or edited this written report and agrees with it. Electronically signed by: Geovanny Salazar M.D. Narrative 12/30/2024 10:48 PM CDT EXAMINATION: RADIOLOGY CONSULTATION ON OUTSIDE IMAGING STUDY STUDY INITIALLY PERFORMED: 12/30/2024 at [facility]. TYPE OF STUDY: Multiple CT images of the head and cervical spine without contrast are provided at the time of this interpretation. CONTRAST ROUTE: No contrast was administered. The protocol was adequate to address the clinical question. The outside final report was not available at the time of this second opinion interpretation. TYPE OF CONSULTATION: Consult on outside imaging study with images submitted through Outside Image Sharing Service DATE OF CONSULTATION: 12/30/2024 8:15 PM HISTORY: 59-year-old man with lung cancer status post radiation therapy and immunotherapy presenting with fall and posterior head trauma. COMPARISON: None available. FINDINGS: HEAD: Scattered acute subdural and subarachnoid hemorrhage along the right insula, right temporal horn and bilateral anterior frontal lobes with possible subtle focus of low attenuation in the anterior right frontal lobe that could represent a contusion. The right temporal subdural hemorrhage measures up to 3 mm in width. Midline posterior parieto-occipital scalp hematoma. Ventricles are of normal size and morphology. No mass effect or midline shift is present. The davis-white matter differentiation is normal. The visualized portions of the orbits are normal. Trace bilateral mastoid air cell fluid. The visualized portions of the paranasal sinuses are normal. No acute fractures are identified. CERVICAL SPINE: Levocurvature straightening of the cervical lordosis and mild anterolisthesis of C5 on C6. Trace anterolisthesis of C4 on C5 and trace retrolisthesis of C3 on C4. No acute fracture identified. There is a small focus of ossification along the anterior superior C6 vertebral body that appears well-corticated and is favored to be chronic. Vertebral bodies are normal in height without compression fractures. Multilevel degenerative disc disease and facet arthropathy, greatest and moderate at C6-C7. Degenerative changes of the craniocervical junction. Severe apical emphysema with partially imaged medial left upper lobe soft tissue thickening and volume loss favoring scarring but incompletely evaluated on this study. Procedure Note Geovanny Salazar MD - 12/30/2024 EXAMINATION: RADIOLOGY CONSULTATION ON OUTSIDE IMAGING STUDY STUDY INITIALLY PERFORMED: 12/30/2024 at [facility]. TYPE OF STUDY: Multiple CT images of the head and cervical spine without contrast are provided at the time of this interpretation. CONTRAST ROUTE: No contrast was administered. The protocol was adequate to address the clinical question. The outside final report was not available at the time of this second opinion interpretation. TYPE OF CONSULTATION: Consult on outside imaging study with images submitted through Outside Image Sharing Service DATE OF CONSULTATION: 12/30/2024 8:15 PM HISTORY: 59-year-old man with lung cancer status post radiation therapy and immunotherapy presenting with fall and posterior head trauma. COMPARISON: None available. FINDINGS: HEAD: Scattered acute subdural and subarachnoid hemorrhage along the right insula, right temporal horn and bilateral anterior frontal lobes with possible subtle focus of low attenuation in the anterior right frontal lobe that could represent a contusion. The right temporal subdural hemorrhage measures up to 3 mm in width. Midline posterior parieto-occipital scalp hematoma. Ventricles are of normal size and morphology. No mass effect or midline shift is present. The davis-white matter differentiation is normal. The visualized portions of the orbits are normal. Trace bilateral mastoid air cell fluid. The visualized portions of the paranasal sinuses are normal. No acute fractures are identified. CERVICAL SPINE: Levocurvature straightening of the cervical lordosis and mild anterolisthesis of C5 on C6. Trace anterolisthesis of C4 on C5 and trace retrolisthesis of C3 on C4. No acute fracture identified. There is a small focus of ossification along the anterior superior C6 vertebral body that appears well-corticated and is favored to be chronic. Vertebral bodies are normal in height without compression fractures. Multilevel degenerative disc disease and facet arthropathy, greatest and moderate at C6-C7. Degenerative changes of the craniocervical junction. Severe apical emphysema with partially imaged medial left upper lobe soft tissue thickening and volume loss favoring scarring but incompletely evaluated on this study. IMPRESSION: 1. Multifocal acute subdural and subarachnoid hemorrhage described above. 2. Parieto-occipital scalp hematoma without underlying fracture. 3. No evidence of acute fracture in the cervical spine. The findings, conclusions and recommendations within this report do not replace the initial findings, conclusions and recommendations made at the facility where the study was performed based upon the imaging and clinical condition at that time. Comparison with the prior report and clinical history is necessary. The provided images may or may not represent the [place] source data set and thus may contain changes that may lower the accuracy of this second-opinion interpretation. Dictated by: Deann Marroquin MD The radiology attending physician has personally reviewed this study, and had reviewed and/or edited this written report and agrees with it. Electronically signed by: Geovanny Salazar M.D. Leno Vargas MD IMG CT PROCEDURES Final Result * XR Outside Reference (12/30/2024 6:49 PM CDT) Impressions RAD_PACS_[facility] - 12/30/2024 6:49 PM CDT These images are for Reference purposes only and have not been reviewed by [facility] Radiology. There will be no report generated by a [facility] Radiologist. Narrative RAD_PACS_[facility] - 12/30/2024 6:49 PM CDT EXAMINATION: Images For Reference Purposes Only Leno Vargas MD IMG XR PROCEDURES Final Result RAD_PACS_[facility] * XR Pelvis 1 or 2 Views (12/30/2024 6:15 PM CDT) Anatomical Region Laterality Modality Body, Pelvis N/A Computed Radiogr aphy 12/30/2024 6:25 PM CDT Impressions 12/30/2024 6:32 PM CDT FINDINGS/IMPRESSION: Joint spaces are preserved. Alignment is normal. No acute fracture or dislocation. Dictated by: Deann Marroquin MD The radiology attending physician has personally reviewed this study, and had reviewed and/or edited this written report and agrees with it. Electronically signed by: Hermilo Ho MD, PHD Narrative 12/30/2024 6:32 PM CDT EXAMINATION: XR PELVIS 1 OR 2 VIEWS HISTORY: Fall COMPARISON: None available. Procedure Note Hermilo Ho MD PhD - 12/30/2024 EXAMINATION: XR PELVIS 1 OR 2 VIEWS HISTORY: Fall COMPARISON: None available. IMPRESSION: FINDINGS/IMPRESSION: Joint spaces are preserved. Alignment is normal. No acute fracture or dislocation. Dictated by: Deann Marroquin MD The radiology attending physician has personally reviewed this study, and had reviewed and/or edited this written report and agrees with it. Electronically signed by: Hermilo Ho MD, PHD Leno Vargas MD IMG XR PROCEDURES Final Result * XR Chest 1 View (12/30/2024 6:15 PM CDT) Anatomical Region Laterality Modality Body, Chest N/A Computed Radiogr aphy 12/30/2024 6:23 PM CDT Impressions 12/30/2024 6:32 PM CDT No comparison available. Left apical interstitial opacities likely in keeping with postradiation changes. No pulmonary consolidation. No pleural effusion or pneumothorax. Normal cardiomediastinal silhouette. Dictated by: Deann Marroquin MD The radiology attending physician has personally reviewed this study, and had reviewed and/or edited this written report and agrees with it. Electronically signed by: Hermilo Ho MD, PHD Narrative 12/30/2024 6:32 PM CDT EXAMINATION: 1 view chest radiograph Procedure Note Hermilo Ho MD PhD - 12/30/2024 EXAMINATION: 1 view chest radiograph IMPRESSION: No comparison available. Left apical interstitial opacities likely in keeping with postradiation changes. No pulmonary consolidation. No pleural effusion or pneumothorax. Normal cardiomediastinal silhouette. Dictated by: Deann Marroquin MD The radiology attending physician has personally reviewed this study, and had reviewed and/or edited this written report and agrees with it. Electronically signed by: Hermilo Ho MD, PHD Leno Vargas MD IMG XR PROCEDURES Final Result * POCT glucose (12/30/2024 6:03 PM CDT) [facility] Glucose, POC 164 70 - 199 mg/dL Blood 12/30/2024 6:03 PM CDT 12/30/2024 6:03 PM CDT Flo Light MD LAB POCT ORDERABLES - DEV ICE Final Result [facility] [place] [address] * Troponin I high-sensitivity series (baseline, 2hr, 4hr, 6hr) (12/30/2024 5:50 PM CDT) [facility] Trop I hs <4 <=35 ng/L Comment: Interpretive Data For further hscTnI resources including the diagnostic algorithm and an aid in interpretation, copy and paste this link: [email or web address]/[email or web address] Current Interpretive Data last revised 2020. Blood 12/30/2024 5:50 PM CDT 12/30/2024 6:06 PM CDT Leno Vargas MD LAB BLOOD ORDERABLES Fin al Result Performing Organization Address City/[facility]/ZIP Co de Phone Number [facility] [place] [address] * eGFR (12/30/2024 5:50 PM CDT) eGFR >90 >=60 mL/min/1. 73 m2 Comment: Interpretive Data Reference Interval Normal >/= 90 mL/min/1.73m2 Mildly decreased* 60 - 89 mL/min/1.73m2 Mildly to moderately decreased 45 - 59 mL/min/1.73m2 Moderately to severely decreased 30 - 44 mL/min/1.73m2 Severely decreased 15 - 29 mL/min/1.73m2 Kidney Failure < 15 mL/min/1.73m2 *Relative to young adult level Estimated glomerular filtration rate is determined by the 2020 CKD-EPI equation recommended by the National Kidney Foundation (A Unifying Approach to GFR Estimation: Recommendations of the NKF-ASK Task Force on Reassessing the Inclusion of Race in Diagnosing Kidney Disease, JASN 2020). The CKD-EPI equation should not be used for patients with unstable renal function and has not been validated in children and those over 70. Current interpretive data was last reviewed 2021. Blood 12/30/2024 5:50 PM CDT 12/30/2024 6:05 PM CDT Leno Vargas MD LAB BLOOD ORDERABLES Fin al Result [facility] [place] [address] * (ABNORMAL) Differential, auto (12/30/2024 5:50 PM CDT) Neutrophil abs 9.6(H) 1.5 - 6.5 K/cumm Imm gran abs 0.0 0.0 - 0.1 K/cumm [facility] Lymphocyte abs 0.7(L) 0.8 - 3.3 K/cumm [facility] Monocyte abs 0.7 0.2 - 0.8 K/cumm [facility] Eosinophil abs 0.0 0.0 - 0.5 K/cumm [facility] Basophil abs 0.0 0.0 - 0.1 K/cumm [facility] Neutrophil pct 86.6 % [facility] Comment: Interpretive Data Percent cell count reference ranges are not reported, since discordance with absolute values may lead to misinterpretation of CBC data. Current Interpretive Data was last revised on 2018. Imm gran pct 0.3 % [facility] Comment: Interpretive Data Percent cell count reference ranges are not reported, since discordance with absolute values may lead to misinterpretation of CBC data. Current Interpretive Data was last revised on 2018. Lymphocyte pct 6.6 % [facility] Comment: Interpretive Data Percent cell count reference ranges are not reported, since discordance with absolute values may lead to misinterpretation of CBC data. Current Interpretive Data was last revised on 2018. Monocyte pct 6.0 % [facility] Comment: Interpretive Data Percent cell count reference ranges are not reported, since discordance with absolute values may lead to misinterpretation of CBC data. Current Interpretive Data was last revised on 2018. Eosinophil pct 0.2 % [facility] Comment: Interpretive Data Percent cell count reference ranges are not reported, since discordance with absolute values may lead to misinterpretation of CBC data. Current Interpretive Data was last revised on 2018. Basophil pct 0.3 % [facility] Comment: Interpretive Data Percent cell count reference ranges are not reported, since discordance with absolute values may lead to misinterpretation of CBC data. Current Interpretive Data was last revised on 2018. Blood 12/30/2024 5:50 PM CDT 12/30/2024 6:05 PM CDT Leno Vargas MD LAB BLOOD ORDERABLES Fin al Result Performing Organization Address [facility] de Phone Number [facility] [place] [address] * (ABNORMAL) CBC with auto differential (12/30/2024 5:50 PM CDT) [facility] WBC 11.1(H) 3.8 - 9.9 K/cumm Hgb 13.7 13.0 - 17.5 g/dL [facility] Hct 39.4 38.9 - 50.3 % [facility] Plt 187 150 - 400 K/cumm [facility] MPV 9.9 9.1 - 12.3 fL [facility] RBC 4.34 4.30 - 5.80 M/cumm [facility] MCV 90.8 81.3 - 96.4 fL [facility] MCH 31.6 27.1 - 33.3 pg [facility] MCHC 34.8 32.3 - 35.7 g/dL [facility] RDW CV 12.1 11.1 - 14.9 % [facility] RDW SD 40.7 35.7 - 48.1 fL [facility] NRBC abs 0.00 0.00 - 0.01 K/cumm [facility] Blood 12/30/2024 5:50 PM CDT 12/30/2024 6:05 PM CDT Leno Vargas MD LAB BLOOD ORDERABLES Fin al Result Performing Organization Address [facility] de Phone Number [facility] [place] [address] * aPTT (12/30/2024 5:50 PM CDT) Pathologist [facility] aPTT 29 28 - 38 sec Comment: Interpretive Data Heparin therapeutic range: 66.0 - 100.0 seconds. Range based on correlation with therapeutic heparin activity range of 0.3 - 0.7 Units/mL. Current interpretive data was last revised on 2023. Blood 12/30/2024 5:50 PM CDT 12/30/2024 6:19 PM CDT Leno Vargas MD LAB BLOOD ORDERABLES Fin al Result Performing Organization Address [facility] Co de Phone Number [facility] [place] [address] * Protime-INR (12/30/2024 5:50 PM CDT) PT 11.0 9.7 - 13.0 sec INR 1.02 0.90 - 1.20 [facility] Comment: Interpretive data Oral anticoagulant therapeutic ranges: Venous thromboembolism prophylaxis or treatment: 2.0-3.0 CARDIOLOGY Standard range: 2.0-3.0 High-intensity range: 2.5-3.5 Refer to indication-specific guidelines for appropriate target ranges for prosthetic heart valve replacement. Current interpretive data was last revised on 2019. Blood 12/30/2024 5:50 PM CDT 12/30/2024 6:19 PM CDT Leno Vargas MD LAB BLOOD ORDERABLES Fin al Result Performing Organization Address [facility] [place] [address] * Type and screen (12/30/2024 5:50 PM CDT) Mayur, indirect Negative ABO Rh O Positive [facility] Blood 12/30/2024 5:50 PM CDT 12/30/2024 6:32 PM CDT Narrative [facility] - 12/30/2024 7:30 PM CDT Has the patient had Daratumumab or Isatuximab in the past 6 months?->Unknown Leno Vargas MD LAB BLOOD BANK TEST ORDE RABLES Final Result Performing Organization Address City/[facility] [place] [address] * Comprehensive metabolic panel (12/30/2024 5:50 PM CDT) Sodium 141 135 - 145 mmol/L Potassium, pl 4.1 3.3 - 4.9 mmol/L [facility] Chloride 100 97 - 110 mmol/L [facility] CO2 28 22 - 32 mmol/L [facility] Anion gap 13 2 - 15 mmol/L [facility] BUN 18 6 - 25 mg/dL [facility] Creatinine 0.85 0.80 - 1.30 mg/dL [facility] Glucose 160 70 - 199 mg/dL [facility] Comment: Interpretive Data Fasting glucose >/= 126 mg/dl is diagnostic for diabetes. Fasting is defined as no caloric intake for at least 8 hours. Fasting glucose between 100 mg/dl to 125 mg/dl is diagnostic of prediabetes. In a patient with classic symptoms of hyperglycemia or hyperglycemic crisis, a random glucose >/= 200 mg/dl is diagnostic for diabetes. In the absence of unequivocal hyperglycemia, results should be confirmed by repeat testing. The classification and Diagnosis of Diabetes Diabetes Care 202; 46: S19-S40. Current interpretive data was last revised 2022. Calcium 9.9 8.5 - 10.3 mg/dL [facility] Bilirubin, total 0.2 0.1 - 1.2 mg/dL [facility] Protein, pl 7.3 6.5 - 8.5 g/dL [facility] Albumin 4.4 3.5 - 5.0 g/dL [facility] Alk phos 60 40 - 130 Units/L [facility] ALT 16 7 - 55 Units/L [facility] AST 23 10 - 50 Units/L [facility] Blood 12/30/2024 5:50 PM CDT 12/30/2024 6:05 PM CDT us Leno Vargas MD LAB BLOOD ORDERABLES Fin al Result [facility] [place] [address] from Last 3 Months Insurance [employer] Address: [facility] [id number] [place] [address] ANTHEM ACCESS CHOICE ANTHEM ACCESS CHOICE Advance Directives For more information, please contact: [phone] * Full Code (Latest Code Status on File) Date Activated Date Inactivated Comments 12/31/2024 5:03 AM 01/02/2025 8:46 PM Care Teams Outbound Sales Agent Relationship Specialty Start Date End Date Winter Terry MD [address] [place] [id number] PCP - General Internal Medicine 12/30/24
--- OUTSIDE RECORDS SUMMARY | 2025-01-04 11:29 | XMS_ITS | Referral Summary ---
Author Organization [facility] [address] Address [address] [place] [address] Care Team Providers Care Automotive Specialty Technician Name Role Phone Winter Terry MD Primary Care Provider [phone] Encounters Date Type Department Care Team Description 01/03/[address] [id number] Shyanne Silva 12/30/2024 5:10 PM CDT - 01/02/2025 3:45 PM CDT Hospital Encounter [address] [phone] Alex Mccullough MD Aubin, Chandra D., MD Odom, Elizabeth Burkhart, MD Snyder, Jason Andrew, MD SAH (subarachnoid hemorrhage) ([facility]) (Primary Dx); Fall, initial encounter; Intraparenchymal hematoma of brain without loss of consciousness, unspecified laterality, initial encounter ([facility]) Discharge Disposition: Discharge to home or self care from Last 3 Months Allergies Active Allergy Reactions Criticality Noted Date [...] mouth 2 (two) times a day 07/28/20 Active magnesium oxide (MAG-OX) 400 mg (241.3 [...] Assessment & Plan (12/31/2024 3:24 PM CDT): [id number] - [place], [place] - [address] AT [facility] ([place] [address]) & [address] [facility] [address] Patient will use [facility] at discharge. Acute pain 12/31/2024 [...] will discuss with team Dr. Waller oncologist [phone] 01/01 Ordered MRI with and without Brain [...] CDT): Continue home Wellbutrin 150 mg bid Social History Tobacco Use Types Packs/Day Years [...] 01/01/2025 6:05 PM CDT Plan of Treatment Not on file Procedures Procedure Name Priority Date/Time Associated Diagnosis [...] DEVICE Routine 12/30/2024 8 :43 PM CDT DC CRITICAL CARE ILL/INJURED PATIENT INIT 30-74 MIN [...] * POCT glucose (01/02/2025 12:01 PM CDT) [facility] Signature Glucose, POC 127 70 - 199 mg/dL Blood 01/02/2025 12:0 1 PM CDT 01/02/2025 12:01 PM CDT us Flo Light MD LAB POCT ORDERABLES - DEV ICE Final Result [facility] [place] [address] * TRANSTHORACIC ECHO (TTE) COMPLETE W DOPPLER/CF W CONTRAST (01/02/2025 11:04 AM CDT) Anatomical Region Laterality Modality Ultrasound 01/02/2025 10:1 7 AM CDT Narrative 01/02/2025 11:21 AM CDT [facility] [place] [address] Transthoracic Echocardiographic Report Patient Name: KEMAR RAIN WESLEY : 1965 (59y 8m) Gender: M Study Date: 01/02/2025 10:17:54 AM Ht(Inch): 67 Wt(Lb): 143.96 BSA: 1.76 [employer] Bus Driver: Chon Car RDCS Location: [id number] Order Provider: ADRIANA BARBA Heart Rate: 76 [...] Note Manuel Lomax MD PhD - 01/02/2025 [facility] [place] [place] [address] Transthoracic Echocardiographic Report Patient Name: KEMAR RAIN WESLEY : 1965 (59y 8m) Gender: M Study Date: 01/02/2025 10:17:54 AM Ht(Inch): 67 Wt(Lb): 143.96 BSA: 1.76 [employer] Bus Driver: Chon Car RDCS Location: [id number] Order Provider: ADRIANA BARBA Heart Rate: 76 [...] LA Length 4C 4.46 cm MV Decel [id number] msec [ 104.00 - 258.00 ] LA [...] Manuel Lomax M.D. 01/02/2025 11:21:38 AM CDT us Adriana Barba LANGUAGE PATHOLOGIST CV ECHO PROCEDURES F inal Result * POCT glucose (01/02/2025 8:09 AM CDT) Glucose, POC 135 70 - 199 mg/dL Blood 01/02/2025 8:09 AM CDT 01/02/2025 8:09 AM CDT Flo Light MD LAB POCT ORDERABLES - DEV ICE Final Result [facility] [place] [address] * MRI Brain W WO Contrast (01/01/2025 [...] unchanged from comparison CT head. Dictated by: Noor Alnazal, D.O. The radiology attending physician has personally reviewed this study, and had reviewed and/or edited this written report and agrees with it. Electronically signed by: Geovanny Salazar M.D. us Adriana Barba LANGUAGE PATHOLOGIST IMG MRI PROCEDURES F inal Result * (ABNORMAL) POCT glucose (01/01/2025 7:47 PM CDT) Glucose, POC 228(H) 70 - 199 mg/dL Blood 01/01/2025 7:47 PM CDT 01/01/2025 7:47 PM CDT Flo Light MD LAB POCT ORDERABLES - DEV ICE Final Result Performing Organization Address [facility] de Phone Number [facility] Department [place] [address] * POCT glucose (01/01/2025 5:04 PM CDT) Glucose, POC 142 70 - 199 mg/dL Blood 01/01/2025 5:04 PM CDT 01/01/2025 5:04 PM CDT Flo Light MD LAB POCT ORDERABLES - DEV ICE Final Result Performing Organization Address [facility] de Phone Number [facility] Department [place] [address] * (ABNORMAL) POCT glucose (01/01/2025 12:31 PM CDT) Glucose, POC 231(H) 70 - 199 mg/dL Blood 01/01/2025 12:3 1 PM CDT 01/01/2025 12:31 PM CDT Flo Light MD LAB POCT ORDERABLES - DEV ICE Final Result Performing Organization Address [facility]/ZIP Co de Phone Number [facility] [place] [address] * POCT glucose (01/01/2025 8:24 AM CDT) Glucose, POC 134 70 - 199 mg/dL Blood 01/01/2025 8:2 4 AM CDT 01/01/2025 8:24 AM CDT Flo Light MD LAB POCT ORDERABLES - DEV ICE Final Result Performing Organization Address [facility] Co de Phone Number [facility] [place] [address] * eGFR (12/31/2024 9:36 PM CDT) [facility] eGFR >90 >=60 mL/min/1. 73 m2 Comment: [...] 9:36 PM CDT 12/31/2024 10:20 PM CDT lFo Light MD LAB BLOOD ORDERABLES Layla l Result [facility]IB[facility] [place] [address] * CBC without differential (12/31/2024 9:36 PM CDT) [facility] WBC 6.3 3.8 - 9.9 K/cumm Hgb 13.9 13.0 - 17.5 g/dL [facility] Hct 40.2 38.9 - 50.3 % [facility] Plt 194 150 - 400 K/cumm [facility] MPV 10.2 9.1 - 12.3 fL [facility] RBC 4.41 4.30 - 5.80 M/cumm [facility] MCV 91.2 81.3 - 96.4 fL [facility] MCH 31.5 27.1 - 33.3 pg [facility] MCHC 34.6 32.3 - 35.7 g/dL [facility] RDW CV 12.4 11.1 - 14.9 % [facility] RDW SD 41.6 35.7 - 48.1 fL [facility] NRBC abs 0.00 0.00 - 0.01 K/cumm [facility] Blood 12/31/2024 9:36 PM CDT 12/31/2024 10:23 PM CDT Flo Light MD LAB BLOOD ORDERABLES Layla l Result Performing Organization Address City/[facility] Co de Phone Number [facility] Department [place] [address] * Phosphorus (12/31/2024 9:36 PM CDT) [facility] Phosphorus, pl 3.4 2.3 - 4.5 mg/dL Blood 12/31/2024 9:36 PM CDT 12/31/2024 10:20 PM CDT Flo Light MD LAB BLOOD ORDERABLES Layla l Result Performing Organization Address City/[facility] Co de Phone Number [facility] Department [place] [address] * Magnesium (12/31/2024 9:36 PM CDT) Pathologist [facility] Magnesium 2.0 1.4 - 2.5 mg/dL Blood 12/31/2024 9:36 PM CDT 12/31/2024 10:20 PM CDT Flo Light MD LAB BLOOD ORDERABLES Layla l Result [facility] Department [place] [address] * Basic metabolic panel (12/31/2024 9:36 PM CDT) [facility] Sodium 137 135 - 145 mmol/L Potassium, pl 4.3 3.3 - 4.9 mmol/L [facility] Chloride 98 97 - 110 mmol/L [facility] CO2 29 22 - 32 mmol/L [facility] Anion gap 10 2 - 15 mmol/L [facility] BUN 13 6 - 25 mg/dL [facility] Creatinine 0.93 0.80 - 1.30 mg/dL [facility] Glucose 197 70 - 199 mg/dL [facility] Comment: Interpretive Data Fasting glucose >/= 126 [...] 2022. Calcium 10.0 8.5 - 10.3 mg/dL [facility] Blood 12/31/2024 9:36 PM CDT 12/31/2024 10:20 PM CDT Flo Light MD LAB BLOOD ORDERABLES Layla l Result Performing Organization Address City/[facility]/ZIP Co de Phone Number [facility] [place] [address] * POCT glucose (12/31/2024 9:13 PM CDT) Glucose, POC 182 70 - 199 mg/dL Blood 12/31/2024 9:13 PM CDT 12/31/2024 9:13 PM CDT Flo Light MD LAB POCT ORDERABLES - DEV ICE Final Result Performing Organization Address [facility] Co de Phone Number [facility] [place] [address] * POCT glucose (12/31/2024 4:13 PM CDT) Glucose, POC 141 70 - 199 mg/dL Blood 12/31/2024 4:13 PM CDT 12/31/2024 4:13 PM CDT Flo Light MD LAB POCT ORDERABLES - DEV ICE Final Result Performing Organization Address [facility] Co de Phone Number [facility] [place] [address] * POCT glucose (12/31/2024 2:21 AM CDT) Glucose, POC 188 70 - 199 mg/dL Blood 12/31/2024 2:21 AM CDT 12/31/2024 2:21 AM CDT Flo Light MD LAB POCT ORDERABLES - DEV ICE Final Result Performing Organization Address City/[facility]/ZIP Co de Phone Number [facility] [place] [address] * CTA Head Neck W WO Contrast [...] the CTA were generated on a dedicated workstation/bistro server. Contrast information: 75 mL Optiray-350 IV COMPARISON: [...] carotid arteries. No filling defects identified.. The lgtfnn-nc-Ijffje is complete. The anterior and middle cerebral [...] the CTA were generated on a dedicated workstation/bistro server. Contrast information: 75 mL Optiray-350 IV COMPARISON: [...] carotid arteries. No filling defects identified.. The dqqlgb-bt-[place]rup is complete. The anterior and middle cerebral [...] * POCT glucose (12/30/2024 8:43 PM CDT) Glucose, POC 155 70 - 199 mg/dL Blood 12/30/2024 8:43 PM CDT 12/30/2024 8:43 PM CDT us Darin Moran MD LAB POCT ORDERABLES - DEVICE Final Result [facility] [place] [address] * DC CRITICAL CARE ILL/INJURED PATIENT INIT 30-74 MIN [...] MD IMG CT PROCEDURES Final Result * Troponin I high-sensitivity 2-hour (12/30/2024 8:24 PM CDT) Pathologist [facility] Trop I hs <4 <=35 ng/L Comment: Interpretive Data For further hscTnI resources including the diagnostic algorithm and an aid in interpretation, copy and paste this link: https://bjhlab.testcatalog.org/show/hsTrop-1 Current Interpretive Data last revised 2020. Trop I hs delta 0 ng/L MAR[facility]EL H[facility]ISON Trop I hs interp Insignificant [facility] Blood 12/30/2024 8:24 PM CDT 12/30/2024 8:31 PM CDT Leno Vargas MD LAB BLOOD ORDERABLES Fin al Result [facility] Department of Laboratories [place], [place] [id number] * Check Sample (12/30/2024 8:24 PM CDT) Pathologist [facility] ABO Rh O Positive [facility] HCLL OTHER 12/30/2024 8:24 PM CDT 12/30/2024 8:33 PM CDT us Darin Moran MD LAB BLOOD ORDERABLES Final R esult MARIBEL [facility] [place] [address] [facility] * Neuro CT Outside Consult (12/30/2024 6:52 [...] images may or may not represent the habematolel source data set and thus may contain [...] IMAGING STUDY STUDY INITIALLY PERFORMED: 12/30/2024 at [facility]. TYPE OF STUDY: Multiple CT images of [...] IMAGING STUDY STUDY INITIALLY PERFORMED: 12/30/2024 at [facility]. TYPE OF STUDY: Multiple CT images of [...] images may or may not represent the habematolel source data set and thus may contain changes that may lower the accuracy of this second-opinion interpretation. Dictated by: Deann Marroquin MD The radiology attending physician has personally reviewed this study, and had reviewed and/or edited this written report and agrees with it. Electronically signed by: Geovanny Salazar M.D. Leno Vargas MD IM CT PROCEDURES Final Result * Neuro CT [...] images may or may not represent the habematolel source data set and thus may contain [...] IMAGING STUDY STUDY INITIALLY PERFORMED: 12/30/2024 at [facility]. TYPE OF STUDY: Multiple CT images of [...] IMAGING STUDY STUDY INITIALLY PERFORMED: 12/30/2024 at [facility]. TYPE OF STUDY: Multiple CT images of [...] images may or may not represent the habematolel source data set and thus may contain [...] Outside Reference (12/30/2024 6:49 PM CDT) Impressions [facility] - 12/30/2024 6:49 PM CDT These images are for Reference purposes only and have not been reviewed by [facility] Radiology. There will be no report generated by a [facility] Radiologist. Narrative [facility] - 12/30/2024 6:49 PM [...] * POCT glucose (12/30/2024 6:03 PM CDT) [facility] Glucose, POC 164 70 - 199 mg/dL Blood 12/30/2024 6:03 PM CDT 12/30/2024 6:03 PM CDT Flo Light MD LAB POCT ORDERABLES - DEV ICE Final Result Performing Organization Address [facility] de Phone Number [facility] [place] [address] * Troponin I high-sensitivity series (baseline, 2hr, 4hr, 6hr) (12/30/2024 5:50 PM CDT) [facility] Trop I hs <4 <=35 ng/L Comment: Interpretive Data For further hscTnI resources including the diagnostic algorithm and an aid in interpretation, copy and paste this link: https://bjhlab.testcatalog.org/show/hsTrop-1 Current Interpretive Data last revised 2020. Blood 12/30/2024 5:50 PM CDT 12/30/2024 6:06 PM CDT us Leno Vargas MD LAB BLOOD ORDERABLES Fin al Result Performing Organization Address [facility] de Phone Number [facility] [place] [address] * eGFR (12/30/2024 5:50 PM CDT) [facility] eGFR >90 >=60 mL/min/1. 73 m2 Comment: [...] of Race in Diagnosing Kidney Disease, JASN 202). The CKD-EPI equation should not be used for patients with unstable renal function and has not been validated in children and those over 70. Current interpretive data was last reviewed 2021. Blood 12/30/2024 5:50 PM CDT 12/30/2024 6:05 PM CDT us Leno Vargas MD LAB BLOOD ORDERABLES Fin al Result [facility] [place] [address] * (ABNORMAL) Differential, auto (12/30/2024 5:50 PM CDT) Neutrophil abs 9.6(H) 1.5 - 6.5 K/cumm Imm gran abs 0.0 0.0 - 0.1 K/cumm [facility] Lymphocyte abs 0.7(L) 0.8 - 3.3 K/cumm [facility] Monocyte abs 0.7 0.2 - 0.8 K/cumm [facility] Eosinophil abs 0.0 0.0 - 0.5 K/cumm [facility] Basophil abs 0.0 0.0 - 0.1 K/cumm [facility] Neutrophil pct 86.6 % [facility] Comment: Interpretive Data Percent cell count reference ranges are not reported, since discordance with absolute values may lead to misinterpretation of CBC data. Current Interpretive Data was last revised on 2018. Imm gran pct 0.3 % [facility] Comment: Interpretive Data Percent cell count reference ranges are not reported, since discordance with absolute values may lead to misinterpretation of CBC data. Current Interpretive Data was last revised on 2018. Lymphocyte pct 6.6 % [facility] Comment: Interpretive Data Percent cell count reference ranges are not reported, since discordance with absolute values may lead to misinterpretation of CBC data. Current Interpretive Data was last revised on 2018. Monocyte pct 6.0 % [facility] Comment: Interpretive Data Percent cell count reference ranges are not reported, since discordance with absolute values may lead to misinterpretation of CBC data. Current Interpretive Data was last revised on 2018. Eosinophil pct 0.2 % [facility] Comment: Interpretive Data Percent cell count reference ranges are not reported, since discordance with absolute values may lead to misinterpretation of CBC data. Current Interpretive Data was last revised on 2018. Basophil pct 0.3 % [facility] Comment: Interpretive Data Percent cell count reference ranges are not reported, since discordance with absolute values may lead to misinterpretation of CBC data. Current Interpretive Data was last revised on 2018. Blood 12/30/2024 5:50 PM CDT 12/30/2024 6:05 PM CDT Leno Vargas MD LAB BLOOD ORDERABLES Fin al Result [facility] [place] [address] * (ABNORMAL) CBC with auto differential (12/30/2024 5:50 PM CDT) WBC 11.1(H) 3.8 - 9.9 K/cumm Hgb 13.7 13.0 - 17.5 g/dL [facility] Hct 39.4 38.9 - 50.3 % [facility] Plt 187 150 - 400 K/cumm [facility] MPV 9.9 9.1 - 12.3 fL [facility] RBC 4.34 4.30 - 5.80 M/cumm [facility] MCV 90.8 81.3 - 96.4 fL [facility] MCH 31.6 27.1 - 33.3 pg [facility] MCHC 34.8 32.3 - 35.7 g/dL [facility] RDW CV 12.1 11.1 - 14.9 % [facility] RDW SD 40.7 35.7 - 48.1 fL [facility] NRBC abs 0.00 0.00 - 0.01 K/cumm [facility] Blood 12/30/2024 5:50 PM CDT 12/30/2024 6:05 PM CDT Leno Vargas MD LAB BLOOD ORDERABLES Fin al Result Performing Organization Address [facility] de Phone Number [facility] [place] [address] * aPTT (12/30/2024 5:50 PM CDT) aPTT 29 28 - 38 sec Comment: Interpretive Data Heparin therapeutic range: 66.0 - 100.0 seconds. Range based on correlation with therapeutic heparin activity range of 0.3 - 0.7 Units/mL. Current interpretive data was last revised on 2023. Blood 12/30/2024 5:50 PM CDT 12/30/2024 6:19 PM CDT Result [facility] Leno Vargas MD LAB BLOOD ORDERABLES Fin al Result Performing Organization Address [facility] de Phone Number [facility] [place] [address] * Protime-INR (12/30/2024 5:50 PM CDT) PT 11.0 9.7 - 13.0 sec INR 1.02 0.90 - 1.20 [facility] Comment: Interpretive data Oral anticoagulant therapeutic ranges: Venous thromboembolism prophylaxis or treatment: 2.0-3.0 CARDIOLOGY Standard range: 2.0-3.0 High-intensity range: 2.5-3.5 Refer to indication-specific guidelines for appropriate target ranges for prosthetic heart valve replacement. Current interpretive data was last revised on 2019. Blood 12/30/2024 5:50 PM CDT 12/30/2024 6:19 PM CDT Leno Vargas MD LAB BLOOD ORDERABLES Fin al Result Performing Organization Address City/[facility]/[place] [address] * Type and screen (12/30/2024 5:50 PM CDT) Mayur, indirect Negative ABO Rh O Positive [facility] Blood 12/30/2024 5:50 PM CDT 12/30/2024 6:32 PM CDT Narrative [facility] - 12/30/2024 7:30 PM CDT Has the patient had Daratumumab or Isatuximab in the past 6 months?->Unknown Leno Vargas MD LAB BLOOD BANK TEST ORDE RABLES Final Result Performing Organization Address [facility] Co de Phone Number [facility] [place] [address] * Comprehensive metabolic panel (12/30/2024 5:50 PM CDT) Pathologist [facility] Sodium 141 135 - 145 mmol/L Potassium, pl 4.1 3.3 - 4.9 mmol/L [facility] Chloride 100 97 - 110 mmol/L [facility] CO2 28 22 - 32 mmol/L [facility] Anion gap 13 2 - 15 mmol/L [facility] BUN 18 6 - 25 mg/dL [facility] Creatinine 0.85 0.80 - 1.30 mg/dL [facility] Glucose 160 70 - 199 mg/dL [facility] Comment: Interpretive Data Fasting glucose >/= 126 [...] 2022. Calcium 9.9 8.5 - 10.3 mg/dL [facility] Bilirubin, total 0.2 0.1 - 1.2 mg/dL [facility] Protein, pl 7.3 6.5 - 8.5 g/dL [facility] Albumin 4.4 3.5 - 5.0 g/dL [facility] Alk phos 60 40 - 130 Units/L [facility] ALT 16 7 - 55 Units/L [facility] AST 23 10 - 50 Units/L [facility] Blood 12/30/2024 5:50 PM CDT 12/30/2024 6:05 PM CDT Leno Vargas MD LAB BLOOD ORDERABLES Fin al Result [facility] [place] [address] from Last 3 Months Insurance [facility] [employer] Address: [facility] [id number] [place] [address] ANTHEM ACCESS CHOICE ANTH ACCESS CHOICE Advance Directives For more information, please contact: [phone] * Full Code (Latest Code Status on File) Date Activated Date Inactivated Comments 12/31/2024 5:03 AM 01/02/2025 8:46 PM Care Teams Automotive Specialty Technician Relationship Specialty Start Date End Date Winter Terry MD [address] [place] [address] PCP - General Internal Medicine 12/30/24
--- OUTSIDE RECORDS SUMMARY | 2025-01-04 11:29 | XMS_ITS | Encounter Summary ---
Author Organization [facility] Address [facility] [place] [address] Care Team Providers Care Assistant Professor Of Music Name Role Phone Winter Terry MD Primary Care Provider [phone] Chalino Palacios MD Unavailable Encounter Details Date Type Department Care Team (Latest Contact Info) Description 01/02/2025 Scan HEALTH INFO SRVCS Scanned, Doc Med Group Social History Tobacco Use Types Packs/Day Years [...] Description 01/23/2025 8:40 AM CDT Office Visit [facility] - [address] [place] [address] [address] [place] [address] Winter Terry MD [address] [place] [address] [address] [place] [address] 04/09/2025 11:30 AM CDT Appointment [facility] Radiation Oncology [address] [place] [address] [place] [address] Chalino Palacios MD [address] [facility] [address] [place] [address] documented as of this encounter Visit Diagnoses Not on filedocumented in this encounter Additional Health Concerns Assessment Noted Time PHQ-9 Depression Total Score: 0 03/30/20 23 9:33 AM CDT documented as of this encounter Care Teams Assistant Professor Of Music Relationship Specialty Start Date End Date Winter Terry MD [address] [address] PCP - General INTERNAL MEDICINE 03/07/23 Chalino Palacios MD [address] [facility] [address] [place] [address] Consulting Physician RADIATION ONCOLOGY 04/02/24 documented as of this encounter
--- OUTSIDE RECORDS SUMMARY | 2025-01-04 11:29 | XMS_ITS | Encounter Summary ---
Author Organization [facility] - [facility] Address [facility] [place] [address] Care Team Providers Care Surveillance Systems Analyst Name Role Phone Winter Terry MD Primary Care Provider [phone] Chalino Palacios MD Unavailable Encounter Details Date Type Department Care Team (Latest Contact Info) Description 03/02/2024 Cobaset Message Enc [facility] Medical Group Multispecialty Care - [address] [place] [address] [place] [address] [place] [address] [address] [place] [address] Knee and hip pain Social [...] Description 01/23/2025 8:40 AM CDT Office Visit [facility] Medical Group Multispecialty Care - [address] [address] [address] [place] [address] Winter Terry MD [address] [place] [address] 04/09/2025 11:30 AM CDT Appointment Health system Radiation Oncology [address] [facility] [place] [address] Chalino Palacios MD [address] [facility] [address] [place] [address] documented as of this encounter Visit Diagnoses Not on filedocumented in this encounter Additional Health Concerns Assessment Noted Time PHQ-9 Depression Total Score: 0 03/30/20 9:33 AM CDT documented as of this encounter Care Teams Surveillance Systems Analyst Relationship Specialty Start Date End Date Winter Terry MD [address] [place] [address] PCP - General INTERNAL MEDICINE 03/07/23 Chalino Palacios MD [address] [place] [address] Consulting Physician RADIATION ONCOLOGY 04/02/24 documented as of this encounter
--- OUTSIDE RECORDS SUMMARY | 2025-01-04 11:29 | XMS_ITS | Encounter Summary ---
Author Organization [facility] Address [facility] [place] [address] Care Team Providers Care Performance Makeup Artist Name Role Phone Winter Terry MD Primary Care Provider [phone] Chalino Palacios MD Unavailable Encounter Details Date Type Department Care Team (Latest Contact Info) Description 06/01/2024 Quarter[place]ott [facility] [address] [address] Winter Terry MD [address] [place] [address] Overdue for physical Social History Tobacco [...] Description 01/23/2025 8:40 AM CDT Office Visit [facility] Multispecialty [address] [place] [address] Winter Terry MD [address] [address] 04/09/2025 11:30 AM CDT Appointment [facility] Radiation Oncology [address] [facility] [place] [address] Chalino Palacios MD [address] [facility] [address] [place] [address] documented as of this encounter Visit Diagnoses Not on filedocumented in this encounter Additional Health Concerns Assessment Noted Time PHQ-9 Depression Total Score: 0 03/30/20 23 9:33 AM CDT documented as of this encounter Care Teams Performance Makeup Artist Relationship Specialty Start Date End Date Winter Terry MD [address] [address] PCP - General INTERNAL MEDICINE 03/07/23 Chalino Palacios MD [address] [address] Consulting Physician RADIATION ONCOLOGY 04/02/24 documented as of this encounter
--- OUTSIDE RECORDS SUMMARY | 2025-01-04 11:29 | XMS_ITS | Encounter Summary ---
Author Organization [facility] Address [facility] [place] [address] Care Team Providers Care Resourcing Consultant Name Role Phone Winter Terry MD Primary Care Provider [phone] Chalino Palacios MD Unavailable Encounter Details Date Type Department Care Team (Late Contact Info) Description 02/29/2024 [place] [facility] - [place] [address] [place] [address] Radha Carroll, SALES PRODUCT MANAGER [address] [place] [address] MRI Results Social History Tobacco [...] Description 01/23/2025 8:40 AM CDT Office Visit [facility] Multispecialty [facility] - [place] [address] [place] [address] Winter Terry MD [address] [address] 04/09/2025 11:30 AM CDT Appointment [facility] Radiation Oncology [address] [facility] [place] [address] Chalino Palacios MD [address] [facility] [address] [place] [address] documented as of this encounter Visit Diagnoses Not on filedocumented in this encounter Additional Health Concerns Assessment Noted Time PHQ-9 Depression Total Score: 0 03/30/20 23 9:33 AM CDT documented as of this encounter Care Teams Resourcing Consultant Relationship Specialty Start Date End Date Winter Terry MD [address] [place] [address] PCP - General INTERNAL MEDICINE 03/07/23 Chalino Palacios MD [address] [address] Consulting Physician RADIATION ONCOLOGY 04/02/24 documented as of this encounter
--- OUTSIDE RECORDS SUMMARY | 2025-01-04 11:30 | XMS_ITS | Clinical Summary ---
Author Organization [facility] Address [address] [facility] [place] [address] Care Team Providers Care Licensing Director Name Role Phone Unavailable Primary Care Provider Unavailabl e Source Comments [facility],non-owned Affiliates and Associated Physician Practices is amultiple site organization consisting of ambulatory clinics and hospital sitesin [place], [place], [place] and [place]. This disclosure is being madepursuant to the Care Everywhere program and may not contain all information available regarding this patient. Last updated 18.[facility] Encounters Date Type Department Care Team Description 01/04/2025 Telephone [facility] Medical Group - Internal Medicine [address] [place] [address] Isai Merino MD Follow-up from Last 3 Months Social History Tobacco Use Types Packs/Day Years Used Date Smoking Tobacco: Never Assessed Sex and Gender Information Value Date Recorded Sex Assigned at Not on file Gender Identity Not on file Sexual Orientation Not on file Plan of Treatment Health Maintenance Due Date Last Done Comments COLOGUARD (AGES 45-75) - COL ON CA SCREENING 1966 COLON MONITORING 1966 COLONOSCOPY - COLON CA SCREENING 1966 CT COLONOGRAPHY - COLON CA SCREENING 1966 Colorectal Cancer Screening 1966 FIT - COLON CA SCREENING 1966 FLEX SIG - COLON CA SCREENING 1966 LIPID TESTING 1966 HIV SCREENING 1981 HEPATITIS C SCREENING 04/01/1984 DTAP/TDAP/TD VACCINES (1 - Tdap) 1985 HEPATITIS B VACCINE (1 of 3 - 19+ 3-dose series) 1985 PNEUMOCOCCAL VACCINE 50+ (1 of 1 - PCV) 2016 ZOSTER VACCINE (1 of 2) 2016 COVID-19 VACCINE (2023-2 5 season) 2024 DEPRESSION SCREENING 10/03/2024 INFLUENZA VACCINE (Season Ended) 2025 HIB VACCINE Aged Out No longer eligi ble based on patient's age to complete this topic HPV VACCINE Aged Out No longer eligi ble based on patient's age to complete this topic MENINGOCOCCAL (Group B) VACC INE SHARED DECISION-MAKING Aged Out No longer eligibl e based on patient's age to complete this topic MENINGOCOCCAL GROUPS A/C/Y/W VACCINE Aged Out No longer eligible b ased on patient's age to complete this topic
--- OUTSIDE RECORDS SUMMARY | 2025-01-04 11:30 | XMS_ITS | Encounter Summary ---
Author Organization [facility] Address [facility] [place] [address] Care Team Providers Care Research Pharmacist Name Role Phone Winter Terry MD Primary Care Provider [phone] Chalino Palacios MD Unavailable Encounter Details Date Type Department Care Team (Late Contact Info) Description 02/22/2024 MyChart [facility] [address] Winter Terry MD [address] [place] [address] X-Ray Results Social History Tobacco Use [...] Description 01/23/2025 8:40 AM CDT Office Visit [facility] Multispecialty [address] [place] [address] Winter Terry MD [address] [address] 04/09/2025 11:30 AM CDT Appointment [facility] Radiation Oncology [address] [facility] [place] [address] Chalino Palacios MD [address] [facility] [address] [place] [address] documented as of this encounter Visit Diagnoses Not on filedocumented in this encounter Additional Health Concerns Assessment Noted Time PHQ-9 Depression Total Score: 0 03/30/20 23 9:33 AM CDT documented as of this encounter Care Teams Research Pharmacist Relationship Specialty Start Date End Date Winter Terry MD [address] [address] PCP - General INTERNAL MEDICINE 03/07/23 Chalino Palacios MD [address] [address] Consulting Physician RADIATION ONCOLOGY 04/02/24 documented as of this encounter
--- OUTSIDE RECORDS SUMMARY | 2025-01-04 11:30 | XMS_ITS | Encounter Summary ---
Author Organization [facility] Address [address] [place] [address] Phone Care Team Providers Care Animal Herder Name Role Phone Winter Terry MD Primary Care Provider Haroldo Burt MD Unavailable Unavailable Pop Waller MD Unavailable [phone] Encounter Details Date Type Department Care Team (Late st Contact Info) Description 06/12/2024 Telephone [facility] [address] [phone] Pop Waller MD [address] [place] [phone] Social History Tobacco Use Types Packs/Day [...] Care Team (Late st Contact Info) Description 01/04/2025 12:30 PM CDT Office Visit [facility] [address] [address] Pop Waller MD [address] [place] [phone] 01/04/2025 12:45 PM CDT Clinical Support [facility] [address] [phone] Nurse, [facility] 04/09/2025 10:30 AM CDT Ancillary Procedure [facility] [address] [phone] documented as of this encounter Visit Diagnoses Not on filedocumented in this encounter Care Teams Animal Herder Relationship Specialty Start Date End Date Winter Terry MD [address] [address] PCP - General Internal Medicine 03/19/24 Haroldo Burt MD [address] [address] Internal Medicine 03/19/24 Pop Waller MD [address] [place] [phone] Consulting Physician Oncology 03/26/24 documented as of this encounter
--- OUTSIDE RECORDS SUMMARY | 2025-01-04 11:30 | XMS_ITS | Encounter Summary ---
Author Organization [facility] Address [facility] [place] [address] Care Team Providers Care Nremt Name Role Phone Winter Terry MD Primary Care Provider [phone] Chalino Palacios MD Unavailable Encounter Details Date Type Department Care Team (Latest Contact Info) Description 04/11/2024 [place] [facility] [address] [address] Winter Terry MD [address] [place] [address] Update for chemotherapy treatment Social History [...] Description 01/23/2025 8:40 AM CDT Office Visit [facility] Multispecialty [address] [place] [address] Winter Terry MD [address] [address] 04/09/2025 11:30 AM CDT Appointment [facility] Radiation Oncology [address] [facility] [place] [address] Chalino Palacios MD [address] [facility] [address] [place] [address] documented as of this encounter Visit Diagnoses Not on filedocumented in this encounter Additional Health Concerns Assessment Noted Time PHQ-9 Depression Total Score: 0 03/30/20 23 9:33 AM CDT documented as of this encounter Care Teams Nremt Relationship Specialty Start Date End Date Winter Terry MD [address] [address] PCP - General INTERNAL MEDICINE 03/07/23 Chalino Palacios MD [address] [address] Consulting Physician RADIATION ONCOLOGY 04/02/24 documented as of this encounter
--- OUTSIDE RECORDS SUMMARY | 2025-01-04 11:30 | XMS_ITS | Clinical Summary ---
Author Organization [facility] Address [address], [address] [place] [address] Phone Care Team Providers Care Membership Solicitor Name Role Phone Winter Terry MD Primary Care Provider [phone] Haroldo Burt MD Unavailable Unavailable Pop Waller MD Unavailable [phone] Allergies Active Allergy Reactions Criticality Noted Date Comments Iodinated Contrast Media Nausea,Vomiting High 2023 Immediate n/v upon admin of IVCM even with premedication. Medications celecoxib (CeleBREX) 200 MG Capsule Take 1 Capsule by mouth 2 times daily. 03/19/2024 Active atorvastatin (LIPITOR) 10 MG Tablet Take 10 mg by mouth. 02/14/2024 Active metFORMIN (GLUCOPHAGE) 500 MG Tablet Take 1,000 mg by mouth. 03/25/2024 Active Blood Glucose Monitoring Suppl (FreeStyle Lite) w/Device Kit 1 Each by Does not apply route. 01/05/2023 Active Glucose Blood (FREESTYLE LITE) Strip Use 3 times daily before meals to check blood sugar 01/05/2023 Active FreeStyle Lancets Misc Use 3 times daily before meals to check blood sugar 01/05/2023 Active ferrous sulfate 325 (65 Fe) MG Tablet Take 325 mg by mouth daily. Active magnesium oxide (MAG-OX) 400 MG Tablet Take 400 mg by mouth daily. 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 04/03/2024 Encounters Date Type Department Care Team Description 01/04/2025 Telephone [facility] [address] [address] Pop Waller MD 01/02/2025 Telephone [facility] [address] [address] Pop Waller MD [facility] / [facility] admission 12/31/2024 Telephone [facility] [address] [address] Pop Waller MD 12/20/2024 11:00 AM CDT Ancillary Procedure [facility] [address] [address] 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); NSCLC of left lung (HCC) 12/20/2024 Telephone [facility] [address] [address] Chalino Palacios MD 12/19/2024 11:00 AM CDT Office Visit [facility] [address] [address] Johanna Roque, CONSTRUCTION FLAGGER, RECRUITING ASSISTANT 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) (Primary Dx); Fatigue, unspecified type 12/19/2024 10:45 AM CDT Clinical Support [facility] [address] [address] 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) (Primary Dx); Encounter for immunotherapy; Hypomagnesemia 12/19/2024 Travel 12/05/2024 10:30 AM PROJECT MANAGEMENT ENGINEER Office Visit [facility] [address] [address] Shannon Seymour, CONSTRUCTION FLAGGER, RECRUITING ASSISTANT 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) (Primary Dx); Encounter for immunotherapy; Hypomagnesemia 12/05/2024 10:15 AM PROJECT MANAGEMENT ENGINEER Clinical Support [facility] [address] [address] 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) (Primary Dx); Encounter for immunotherapy; Hypomagnesemia 12/05/2024 Travel 11/21/2024 10:15 AM PROJECT MANAGEMENT ENGINEER Office Visit [facility] [address] [address] Wen Reyes, CONSTRUCTION FLAGGER, RECRUITING ASSISTANT 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) (Primary Dx); Encounter for immunotherapy; Hypomagnesemia 11/21/2024 10:00 AM PROJECT MANAGEMENT ENGINEER Clinical Support [facility] [address] [address] 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) (Primary Dx) 11/21/2024 Travel 11/07/2024 10:00 AM PROJECT MANAGEMENT ENGINEER Office Visit [facility] [address] [address] Johanna Roque, CONSTRUCTION FLAGGER, RECRUITING ASSISTANT 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) (Primary Dx) 11/07/2024 9:45 AM PROJECT MANAGEMENT ENGINEER Clinical Support [facility] [address] [address] 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) (Primary Dx); Encounter for immunotherapy; Hypomagnesemia 11/07/2024 Travel 10/24/2024 10:00 AM PROJECT MANAGEMENT ENGINEER Office Visit [facility] [address] [address] Shannon Seymour, CONSTRUCTION FLAGGER, RECRUITING ASSISTANT 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) (Primary Dx); Encounter for immunotherapy; Hypomagnesemia 10/24/2024 9:45 AM PROJECT MANAGEMENT ENGINEER Clinical Support [facility] [address] [address] 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) (Primary Dx) 10/24/2024 Travel 10/10/2024 10:15 AM PROJECT MANAGEMENT ENGINEER Office Visit [facility] [address] [phone] Wen Reyes APRN, MELANIE 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) (Primary Dx) 10/10/2024 10:00 AM PROJECT MANAGEMENT ENGINEER Clinical Support [facility] [address] [phone] 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) (Primary Dx); Elevated blood pressure reading 10/10/2024 Travel from Last 3 Months Family History Medical [...] PM CDT Office Visit [facility] [address] [phone] Pop Waller MD [address] [place] [phone] 01/04/2025 12:45 PM CDT Clinical Support [facility] [address] [address] Nurse, [facility] 04/09/2025 10:30 AM CDT Ancillary Procedure [facility] [address] [phone] Health Maintenance Due Date Last Done Comments Hepatitis B Immunization (1 of 3 - 19+ 3-dose series) 1985 Zoster Immunization (1 of 2) 1985 Colonoscopy 2011 Colorectal Cancer Screening 2011 Cologuard 2016 Immunochemical Fecal Occult Blood 2016 PSA Discussion 2021 Pneumococcal Immunization (50+ years) (2 of 2 - PCV) 03/30/2024 03/30/2023 SARS-COV-2 Immunization ( season) 2024 02/19/2022, 07/21/2021, 12/16/2020, Additional history exists Influenza Immunization (Season Ended) 2025 07/27/2023, 08/03/2022, 07/21/2021, Additional history exists Respiratory Syncytial Virus (RSV) [...] AUTO DIFF [place] Routine 12/05/2024 10:03 AM PROJECT MANAGEMENT ENGINEER 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) CMP (COMPREHENSIVE METABOLIC PANEL) Routine 12/05/2024 10:03 AM PROJECT MANAGEMENT ENGINEER 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) Encounter for immunotherapy Hypomagnesemia LACTATE DEHYDROGENASE (LD) Routine 12/05/2024 10:03 AM PROJECT MANAGEMENT ENGINEER 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) Encounter for immunotherapy Hypomagnesemia MAGNESIUM (MG) Routine 12/05/2024 10:03 AM PROJECT MANAGEMENT ENGINEER 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) Encounter for immunotherapy Hypomagnesemia CBC WITH AUTO DIFF OH Routine 11/21/2024 9:37 AM PROJECT MANAGEMENT ENGINEER 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) CMP (COMPREHENSIVE METABOLIC PANEL) Routine 11/21/2024 9:37 AM PROJECT MANAGEMENT ENGINEER 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) LACTATE DEHYDROGENASE (LD) Routine 11/21/2024 9:37 AM PROJECT MANAGEMENT ENGINEER 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) MAGNESIUM (MG) Routine 11/21/2024 9:37 AM PROJECT MANAGEMENT ENGINEER 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) CBC WITH AUTO DIFF OH Routine 11/07/2024 9:43 AM PROJECT MANAGEMENT ENGINEER 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) CMP (COMPREHENSIVE METABOLIC PANEL) Routine 11/07/2024 9:43 AM PROJECT MANAGEMENT ENGINEER 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) Encounter for immunotherapy Hypomagnesemia THYROXINE (T4) FREE Routine 11/07/2024 9 :43 AM PROJECT MANAGEMENT ENGINEER 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) Encounter for immunotherapy Hypomagnesemia THYROID STIMULATING HORMONE (TSH) Routine 11/07/2024 9:43 AM PROJECT MANAGEMENT ENGINEER 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) Encounter for immunotherapy Hypomagnesemia MAGNESIUM (MG) Routine 11/07/2024 9:43 AM PROJECT MANAGEMENT ENGINEER 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) Encounter for immunotherapy Hypomagnesemia IRON W/ IRON BINDING CAPACITY OH Routine 11/07/2024 9:43 AM PROJECT MANAGEMENT ENGINEER 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) Encounter for immunotherapy Hypomagnesemia FERRITIN Routine 11/07/2024 9:43 AM PROJECT MANAGEMENT ENGINEER 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) Encounter for immunotherapy Hypomagnesemia MAGNESIUM (MG) Routine 10/24/2024 9:41 AM PROJECT MANAGEMENT ENGINEER 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) CBC WITH AUTO DIFF OH Routine 10/24/2024 9:41 AM PROJECT MANAGEMENT ENGINEER 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) CMP (COMPREHENSIVE METABOLIC PANEL) Routine 10/24/2024 9:41 AM PROJECT MANAGEMENT ENGINEER 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) LACTATE DEHYDROGENASE (LD) Routine 10/24/2024 9:41 AM PROJECT MANAGEMENT ENGINEER 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) CBC WITH AUTO DIFF OH Routine 10/10/2024 9:55 AM PROJECT MANAGEMENT ENGINEER 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) CMP (COMPREHENSIVE METABOLIC PANEL) Routine 10/10/2024 9:55 AM PROJECT MANAGEMENT ENGINEER 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) Elevated blood pressure reading LACTATE DEHYDROGENASE (LD) Routine 10/10/2024 9:55 AM PROJECT MANAGEMENT ENGINEER Primary non-small cell carcinoma of upper lobe [...] primary malignancy of the left upper lobe. [id number] with left upper lobe lung carcinoma with [...] Magnesium 1.8(L) 1.9 - 2.7 mg/dL [facility] Blood 12/19/2024 10:3 2 AM CDT [facility] - 12/19/2024 11:17 AM CDT Release to patient->Immediate Shannon Khan Tomac CONSTRUCTION FLAGGER, RECRUITING ASSISTANT CHEMISTRY ORDERABLES Final Result Performing Organization Address City/[facility]/ZIP Co de Phone Number [facility] [place] [address], [place] [phone] * (ABNORMAL) LACTATE DEHYDROGENASE (LD) (12/19/2024 10:32 AM CDT) Only the most recent of5 resultswithin the time period is included. LDH 82(L) 140 - 271 U/L [facility] Blood 12/19/2024 10:3 2 AM CDT [facility] - 12/19/2024 11:17 AM CDT Release to patient->Immediate Shannon Seymour CONSTRUCTION FLAGGER, RECRUITING ASSISTANT CHEMISTRY ORDERABLES Final Result [facility] [place] [address], [place] [phone] * (ABNORMAL) CMP (COMPREHENSIVE METABOLIC PANEL) (12/19/2024 10:32 AM CDT) Only the most recent of6 resultswithin the time period is included. Glucose 108(H) 70 - 105 mg/dL [facility] Blood Urea Nitrogen 17 7 - 25 mg/dL [facility] Creatinine 0.6(L) 0.7 - 1.3 mg/dL [facility] Sodium 137 136 - 145 mEq/L [facility] Potassium 4.6 3.5 - 5.1 mEq/L [facility] Chloride 103 98 - 107 mEq/L [facility] Bicarbonate 24 21 - 31 mEq/L [facility] Total Bilirubin 0.5 0.3 - 1.0 mg/dL [facility] Alk. Phosphatase 60 34 - 104 U/L [facility] Aspartate Aminotransferase 13 13 - 39 U/L [facility] Alanine Aminotransferase 12 7 - 52 U/L [facility] Total Protein 6.8 6.4 - 8.9 g/dL [facility] Albumin 4.5 3.5 - 5.7 g/dL [facility] Calcium 9.8 8.6 - 10.3 mg/dL [facility] Anion Gap 14.6 7.0 - 15.0 mEq/L [facility] Globulin 2.3 2.0 - 3.5 g/dL [facility] EGFR 111 >60 ml/min/1. 73m2 [facility] Comment: This eGFR is calculated using 2020 CKD-EPI Creatinine equation without race modifier based on the NKF-ASN task force recommendations Equation: rBQS=804*min(SCr/k,1)a*max(SCr/k,1)-1.200*0.9938Age*1.012 (if female), where SCr is serum creatinine, k is 0.7 for females and 0.9 for males, and a is -0.241 for females and -0.302 for males Blood 12/19/2024 10:3 2 AM CDT Narrative [facility] - 12/19/2024 11:17 AM CDT Release to patient->Immediate IS THE PATIENT REQUIRED TO BE FASTING FOR 8 HOURS?->No Shannon Seymour CONSTRUCTION FLAGGER, RECRUITING ASSISTANT CHEMISTRY ORDERABLES Final Result [facility] [place] [address], * (ABNORMAL) COMPLETE BLOOD COUNT (CBC) WITH DIFF (12/19/2024 10:32 AM CDT) WBC 6.7 4.0 - 10.0 10*3/uL [facility] HGB 14.3 13.7 - 17.5 g/dL [facility] HCT 42.0 40.1 - 51.0 % [facility] PLT 221 163 - 369 10*3/uL [facility] MPV 9.6 9.4 - 12.4 fL [facility] RBC 4.48(L) 4.63 - 6.08 10*6/uL [facility] MCV 94 79 - 95 fL [facility] MCH 31.9 25.6 - 32.2 pg [facility] MCHC 34.0 32.2 - 36.5 g/dL [facility] RDW 12.5 11.6 - 14.4 % [facility] Absolute Neutrophil Count 5,128 cells/uL [facility] Absolute Seg Count 5,128 1,440 - 6,600 cells/uL [facility] Absolute Lymph Count 932 760 - 4,000 cells/uL [facility] Absolute [place] Count 599 160 - 1,200 cells/uL [facility] Segmented Neutrophils 77(H) 36 - 66 % [facility] Lymphocytes 14(L) 19 - 40 % [facility] Monocytes 9 4 - 12 % [facility] WBC Estimate Normal [facility] Platelet Estimate Normal [facility] RBC Morphology Normal [facility] Blood 12/19/2024 10:3 2 AM CDT Narrative [facility] - 12/19/2024 11:24 AM CDT Release to patient->Immediate Shannon Seymour APRN, RECRUITING ASSISTANT HEMATOLOGY ORDERABLES Final Result [facility] [place]on[place] [address], * (ABNORMAL) CBC WITH AUTO DIFF [place] (12/05/2024 10:03 AM PROJECT MANAGEMENT ENGINEER) Only the most recent of5 resultswithin the time period is included. WBC 5.5 4.0 - 10.0 10*3/uL [facility] HGB 14.1 13.7 - 17.5 g/dL [facility] HCT 41.8 40.1 - 51.0 % [facility] PLT 246 163 - 369 10*3/uL [facility] MPV 9.4 9.4 - 12.4 fL [facility] RBC 4.44(L) 4.63 - 6.08 10*6/uL [facility] MCV 94 79 - 95 fL [facility] MCH 31.8 25.6 - 32.2 pg [facility] MCHC 33.7 32.2 - 36.5 g/dL [facility] RDW 12.4 11.6 - 14.4 % [facility] Neutrophils % 69.4(H) 36.0 - 66.0 % [facility] Lymphocytes % 19.3 19.0 - 40.0 % [facility] Monocytes % 9.7 4.1 - 12.1 % [facility] Eosinophils % 0.7 0.0 - 3.5 % [facility] Basophils % 0.5 0.0 - 1.0 % [facility] Absolute Neutrophils 3.8 1.4 - 6.6 10*3/uL [facility] Absolute Lymphocytes 1.1 0.8 - 4.0 10*3/uL [facility] Absolute Monocytes 0.5 0.2 - 1.2 10*3/uL [facility] Absolute Eosinophils 0.0 0.0 - 0.4 10*3/uL [facility] Absolute Basophils 0.0 0.0 - 0.1 10*3/uL [facility] 12/05/2024 10:0 3 AM PROJECT MANAGEMENT ENGINEER Wen Reyes CONSTRUCTION FLAGGER, RECRUITING ASSISTANT LAB SEND OUTS Fin al Result Performing Organization Address [facility]/ZIP Co de Phone Number [facility] [place] [address] [place] [address], * IRON W/ IRON BINDING CAPACITY [place] (11/07/2024 9:43 AM PROJECT MANAGEMENT ENGINEER) IRON 146 50 - 212 ug/dL [facility] UIBC 203 155 - 355 ug/dL [facility] TIBC 349 261 - 478 ug/dl [facility] % Saturation 42 20 - 50 % [facility] 11/07/2024 9:43 AM PROJECT MANAGEMENT ENGINEER Narrative [facility] - 11/07/2024 10:22 AM PROJECT MANAGEMENT ENGINEER Release to patient->Immediate Shannon Seymour CONSTRUCTION FLAGGER, RECRUITING ASSISTANT LAB SEND OUTS Final Result Performing Organization Address [facility] de Phone Number [facility] [address] [place] [address], * THYROXINE (T4) FREE (11/07/2024 9:43 AM PROJECT MANAGEMENT ENGINEER) THYROXINE (T4), FREE, 0.92 0.61 - 1.12 ng/dL [facility] Comment: Specimens that contain high levels of Biotin >10 ng/mL may cause false high results for this method. Interpret results in light of the total clinical presentation of the patient. To minimize the interference of high levels of Biotin, it is recommended that patients discontinue taking Biotin 72 hours prior to testing. Blood 11/07/2024 9:43 AM PROJECT MANAGEMENT ENGINEER [facility] - 11/08/2024 2:47 PM PROJECT MANAGEMENT ENGINEER Is the patient taking Biotin supplement? Not sure Release to patient->Immediate Shannon Hernándezac CONSTRUCTION FLAGGER, RECRUITING ASSISTANT CHEMISTRY ORDERABLES Final Result Performing Organization Address City/[facility]/ZIP Co de Phone Number [facility] [place] [address], [place] [phone] * THYROID STIMULATING HORMONE (TSH) (11/07/2024 9:43 AM PROJECT MANAGEMENT ENGINEER) TSH 1.12 0.45 - 5.33 uIU/mL [facility] Blood 11/07/2024 9:43 AM PROJECT MANAGEMENT ENGINEER [facility] - 11/08/2024 2:47 PM PROJECT MANAGEMENT ENGINEER Release to patient->Immediate Shannon Hernándezac CONSTRUCTION FLAGGER, RECRUITING ASSISTANT CHEMISTRY ORDERABLES Final Result Performing Organization Address [facility]/ZIP Co de Phone Number [facility] [place] [address], [place] [phone] * FERRITIN (11/07/2024 9:43 AM PROJECT MANAGEMENT ENGINEER) Ferritin 103 24 - 336 ng/mL [facility] Blood 11/07/2024 9:43 AM PROJECT MANAGEMENT ENGINEER [facility] - 11/08/2024 2:47 PM PROJECT MANAGEMENT ENGINEER Release to patient->Immediate Shannon Hernándezac CONSTRUCTION FLAGGER, RECRUITING ASSISTANT CHEMISTRY ORDERABLES Final Result Performing Organization Address [facility] Co de Phone Number [facility] [place] [address], [place] [phone] from Last 3 Months Insurance [facility] Care Teams Membership Solicitor Relationship Specialty Start Date End Date Winter Terry MD [address] [address] PCP - General Internal Medicine 03/19/24 Haroldo Burt MD [address] [address] Internal Medicine 03/19/24 Pop Waller MD [address] [place] [address] Consulting Physician Oncology 03/26/24
--- OUTSIDE RECORDS SUMMARY | 2025-01-04 11:30 | XMS_ITS | Encounter Summary ---
Author Organization [facility] Address [address] [facility] [place] [address] Care Team Providers Care Mold Polisher Name Role Phone Unavailable Primary Care Provider Unavailabl e Reason for Visit * Reason Onset Date Comments Follow-up 01/04/2025 Encounter Details Date Type Department Care Team (Late st Contact Info) Description 01/04/2025 Telephone [facility] - Internal Medicine [address] [address] Isai Merino MD [address] [place] [phone] Follow-up Social History Tobacco Use Types Packs/Day Years Used Date Smoking Tobacco: Never Assessed Sex and Gender Information Value Date Recorded Sex Assigned at Not on file Gender Identity Not on file Sexual Orientation Not on file documented as of this encounter Miscellaneous Notes * Telephone Encounter - Rosa Elena Herring RN - 01/04/2025 10:03 AM CDT Patient's Leesa danielson. States patient was discharged from [place] on 01/02 (subarachnoid hemorrhage) and AVS summary states he has appointment with Dr. Merino on 01/23 at 0840 am. Unable to find appointment in patient's profile. Patient's reporting that patient is having increased head pain unrelieved with Tylenol. Stateshe has also been clearing his throat. He started doing this yesterday. States he has a flat affect,but has since the fall. She also reports that he seems more unsteady than he did the day of discharge. Patient was up quite frequently last night in pain. Denies confusion, slurred speech, behavior changes. Advised to take patient to nearest ED for imaging as this RN has concerns for increased bleeding. states patient has oncology appointment at noon and they have CT scan capabilities. She will call that office to see if they can do the imaging. When looking in discharge summary from [facility], found patient's appt as being with Dr. Terry. Called Dr. Terry's office and verified that patient has appointment on 01/23 at 840am. Called patient's back to inform that information was entered incorrectly on patient's AVS and patient has appointment with Dr. Terry instead of Dr. Merino. verbalized understanding. documented in this encounter Plan of Treatment Not on file documented as of this encounter Visit Diagnoses Not on filedocumented in this encounter
--- OUTSIDE RECORDS SUMMARY | 2025-01-04 11:30 | XMS_ITS | Encounter Summary ---
Author Organization [facility] Address [facility] [place] [address] Care Team Providers Care Motor Setter Name Role Phone Winter Terry MD Primary Care Provider [phone] Chalino Palacios MD Unavailable Encounter Details Date Type Department Care Team (Latest Contact Info) Description 03/15/2024 Virtual Fairgroundt [facility] - [place] [address] [address] [place] [address] Winter Terry MD [address] [place] [address] Oncology Referral Social History Tobacco Use [...] Description 01/23/2025 8:40 AM CDT Office Visit [facility] Multispecialty [facility] - [address] [place] [address] Winter Terry MD [address] [address] 04/09/2025 11:30 AM CDT Appointment [facility] Radiation Oncology [address] [facility] [place] [address] Chalino Palacios MD [address] [place] [address] [address] [place] [address] documented as of this encounter Visit Diagnoses Not on filedocumented in this encounter Additional Health Concerns Assessment Noted Time PHQ-9 Depression Total Score: 0 03/30/20 9:33 AM CDT documented as of this encounter Care Teams Motor Setter Relationship Specialty Start Date End Date Winter Terry MD [address] [address] PCP - General INTERNAL MEDICINE 03/07/23 Chalino Palacios MD [address] [address] Consulting Physician RADIATION ONCOLOGY 04/02/24 documented as of this encounter
--- OUTSIDE RECORDS SUMMARY | 2025-01-04 11:30 | XMS_ITS ---
Author Organization [facility] [address] [place] Address [address] [place] [address] Care Team Providers Care Primer Boxer Name Role Phone Winter Terry MD Primary Care Provider [phone] Active Problems Problem Noted Date Diagnosed Date [...] Assessment & Plan (12/31/2024 3:24 PM CDT): [id number] [place], [place] - [address] AT [place] [address]) & [address] [address] [facility] [address] Patient will use [facility] at discharge. Acute [...] will discuss with team Dr. Waller oncologist [phone] 01/01 Ordered MRI with and without Brain [...] CDT): Continue home Wellbutrin 150 mg bid Current Treatment and Therapy Plans No current plan information found. Past Treatment and Therapy Plans No past plan information found. Lifetime Dose Tracking * Chemical Lifetime Dose Automatic Entry Manual Entr y DLP 738 mGycm 738 mGycm 0 mGycm
--- OUTSIDE RECORDS SUMMARY | 2025-01-04 11:30 | XMS_ITS | Clinical Summary ---
Author Organization [facility] Address [facility] [place] [address] Care Team Providers Care Behavioral Health Specialist Name Role Phone Winter Terry MD Primary Care Provider [phone] Chalino Palacios MD Unavailable Medications Lancets MiscIndications:U ncontrolled type 2 diabetes mellitus with hyperglycemia ([facility] HHS/HCC) 1 Device by Does not apply route 3 (three) times daily before meals. 100 each 2 3 Active Alcohol Swabs (ALCOHOL PREP) PadsIndications:U ncontrolled type 2 diabetes mellitus with hyperglycemia ([facility]/HCC HHS/HCC) 1 Bag by Does not apply route 3 (three) times daily before meals. 100 each 2 3 Active Blood Glucose Monitoring Suppl (FREESTYLE LITE) w/Device KitIndications:He moglobin A1C greater than 9%, indicating poor diabetic control,Uncontrol led type 2 diabetes mellitus with hyperglycemia ([facility]/HCC HHS/HCC) 1 each by Does not apply route 3 (three) times daily. 1 kit 3 Active Glucose Blood (FREESTYLE LITE) test stripIndications: Hemoglobin A1C greater than 9%, indicating poor diabetic control,Uncontrol led type 2 diabetes mellitus with hyperglycemia ([facility] HHS/HCC) Use 3 times daily before meals [...] :Smoker,Moderate episode of recurrent major depressive disorder ([facility]) Take 1 tablet (150 mg total) by [...] hyperglycemia, without long-term current use of insulin ([facility]),Dyslipid emia TAKE 1 TABLET BY MOUTH NIGHTLY AT BEDTIME 90 tablet 4 Active metFORMIN (GLUCOPHAGE) 500 MG tabletIndications :Type 2 diabetes mellitus with hyperglycemia, without long-term current use of insulin ([facility]) TAKE 2 TABLETS BY MOUTH TWICE A DAY WITH MEALS 360 tablet 4 Active Active Problems Problem Noted Date Diagnosed Date Adenocarcinoma, lung, left ([facility]) Chronic bilateral low back pain without sciatica 04/28/2024 Hyperlipidemia due to type 2 diabetes mellitus ([facility]) 04/28/2024 Left shoulder pain, unspecified chronicity 02/21 Right knee pain, unspecified chronicity 02/22/20 24 Moderate episode of recurrent major depressive d isorder 02/03/2023 Encounter for smoking cessation counseling 02/03 Smoker 02/03/2023 Callus of heel 02/03/2023 Mixed hyperlipidemia 02/03/2023 Hemoglobin A1C greater than 9%, indicating poor diabetic control 01/03/2023 Uncontrolled type 2 diabetes mellitus with hyperglycemia ([facility]) 01/03/2023 Encounters Date Type Department Care Team Description 01/03/2025 Telephone [place] [address] [address] [address] [address] [place] [address] Winter Terry MD Question 01/02/2025 Scan [facility] [employer] [facility] SRVCS Scanned, Doc Med Group 01/01/2025 Telephone [place] [address] [address] [address] [address] [place] [address] Winter Terry MD Follow Up Call 12/30/2024 Scan [facility] INFO SRVCS Scanned, Doc Med Group Lab (SCAN); CT (SCAN); Image (SCAN) 12/20/2024 10:35 AM CDT - 12/20/2024 11:59 PM CDT Hospital Encounter [facility] Radiation Oncology [address] [place] [address] [place] [address] Chalino Palacios MD Follow Up Discharge Disposition: Home or Self Care (Routine Discharge) 12/20/2024 Telephone [place] [address] [address] Winter Terry MD Referral 12/20/2024 Telephone [place] [address] [place] [address] Winter Terry MD Follow Up Call 12/20/2024 Travel [...] [facility] Multispecialty Care - [address] [place] [address] Winter Terry MD [address] [facility] [address] [place], [place] [id number] 04/09/2025 11:30 AM CDT Appointment [facility] Radiation Oncology [address] [facility] [address] [place], [place] [id number] Chalino Palacios MD [address] [facility] [address] [place] [address] Health Maintenance Due Date Last [...] Panel 2024 2023, 12/31/2022 COVID-19 Vaccine ( season) 2024 02/19/2022, 07/21/2021, 12/16/2020, Additional history exists PHQ-2 (Physician [place]) 10/03/2024 03/30/2023 DTaP, Tdap and Td Vaccines [...] LAB (SCAN ORDER) 12/30/2024 IMAGE GENERIC 12/30/2024 LIPID PANEL Routine 2023 8:40 AM CDT [...] Recently Relevant to Health Maintenance Results * CT GENERIC (12/30/2024) Only the most recent of2 resultswithin the time period is included. Anatomical Region Laterality Modality Other 12/30/2024 Result [facility] Scanned SCANNING Final Resu lt * OUTSIDE LAB (SCAN ORDER) (12/30/2024) Only the most recent of2 resultswithin the time period is included. 12/30/2024 [facility] Scanned SCANNING Final Resu lt * IMAGE GENERIC (12/30/2024) Anatomical Region Laterality Modality Other 12/30/2024 Result [facility] Scanned SCANNING Final Resu lt * (ABNORMAL) HEMOGLOBIN, GLYCOSYLATED (2023 8:40 AM CDT) HGB A1C 6.5(H) 4.5 - 6.2 % 2023 4:07 PM CDT [facility] ESTIMATED AVG GLUCOSE 140(H) 74 - 106 MG/DL 2023 4:07 PM CDT [facility] 2023 8:40 AM CDT Winter Terry MD LABORATORY Final Result [facility] [address] [place] [address], * LIPID PANEL (2023 8:40 AM CDT) CHOLESTEROL 113 <200 MG/DL 2023 3:12 PM CDT [facility] TRIGLYCERIDES 30 <150 MG/DL 2023 3:12 PM CDT [facility] HDL 52 >40 MG/DL 2023 3:12 PM CDT [facility] LDL-C 55 <100 MG/DL 2023 3:12 PM CDT [facility] VLDL CALCULATION 6 5 - 28 MG/DL 2023 3:12 PM T [facility] CHOL/HDL RATIO 2.2 0.0 - 4.0 2023 3:12 PM CDT [facility] LDL/HDL 1.1 0.41 - 2.13 2023 3:12 PM CDT [facility] NON HDL CHOLESTEROL 61 <140 MG/DL 2023 3:12 PM CDT [facility] 2023 8:40 AM CDT Winter Terry MD LABORATORY Final Result [facility] [address] [facility] [address], * HEPATITIS C ANTIBODY (12/31/2022 9:56 AM CDT) HEPATITIS C AB NON-REACTI VE NON-REACT KURTIS 12/31/2022 7:56 PM CDT [facility] Comment: ANTIBODIES TO HCV NOT DETECTED. DOES NOT EXCLUDE THE POSSIBILITY OF EXPOSURE TO HCV. 12/31/2022 9:56 AM CDT Suresh Lynn MD LABORATORY Final Result Performing Organization Address City/[facility]/ZIP Co de Phone Number [facility] [address] [place] [address], [place] [phone] [id number] from Last 3 Months or Most Recently Relevant to Health Maintenance [place] [address] Care Teams Behavioral Health Specialist Relationship Specialty Start Date End Date Winter Terry MD [address] [address] PCP - General INTERNAL MEDICINE 03/07/23 Chalino Palacios MD [address] [address] Consulting Physician RADIATION ONCOLOGY 04/02/24
--- OUTSIDE RECORDS SUMMARY | 2025-01-04 11:30 | XMS_ITS | Encounter Summary ---
Author Organization [facility] Address [address] [place] [address] Phone Care Team Providers Care Content Publisher Name Role Phone Winter Terry MD Primary Care Provider Haroldo Burt MD Unavailable Unavailable Pop Waller MD Unavailable [phone] Encounter Details Date Type Department Care Team (Late st Contact Info) Description 01/04/2025 Telephone [facility] [address] [place] [address] Pop Waller MD [address] [place] [address] Social History Tobacco Use Types Packs/Day [...] encounter Miscellaneous Notes * Telephone Encounter - Kami Vanessa RN - 01/04/2025 10:34 AM CDT is calling with concerned symptoms and neuro is asking for a Stat CT to be ordered. He had a fall and had a brain bleed.He is still having increased headaches with no relief. Leesa called Dr Isai Merino and he is recommending a CT eitherdone at the office or taken to the ER urgently. Returned call to Cynthia, he was discharged with scheduled Tylenol, not touching pain. His headaches have seemed to get worse over last 24 hours. called [facility] Neuro and they recommendER for stat CT scan. Advised that with patient recent history of recent Brain bleed please follow neuro recommendations. We can reschedule OV an infusionfor today. verbalizes understanding and will keep us updated. documented in this encounter Plan of Treatment Upcoming Encounters Date Type Department Care Team (Late st Contact Info) Description 01/04/2025 12:30 PM CDT Office Visit [facility] [address] [phone] Pop Waller MD [address] [place] [phone] 01/04/2025 12:45 PM CDT Clinical Support [facility] [address] [address] Nurse, [facility] 04/09/2025 10:30 AM CDT Ancillary Procedure [facility] [address] [address] documented as of this encounter Visit Diagnoses Not on filedocumented in this encounter Care Teams Content Publisher Relationship Specialty Start Date End Date Winter Terry MD [address] [place] [address] PCP - General Internal Medicine 03/19/24 Haroldo Burt MD [address] [address] Internal Medicine 03/19/24 Pop Waller MD [address] [place] [phone] Consulting Physician Oncology 03/26/24 documented as of this encounter
--- OUTSIDE RECORDS SUMMARY | 2025-01-04 11:30 | XMS_ITS | Encounter Summary ---
Author Organization [facility] Address [facility] [place] [address] Care Team Providers Care Softwood Faller Name Role Phone Winter Terry MD Primary Care Provider Chalino Palacios MD Unavailable Encounter Details Date Type Department Care Team (Late Contact Info) Description 03/19/2024 MyChart [facility] [address] [phone] Winter Terry MD [address] [place] [address] Pain Management Social History Tobacco Use [...] Description 01/23/2025 8:40 AM CDT Office Visit [facility] Multispec[facility] - [address] [place], [place] [phone] Winter Terry MD [address] [address] 04/09/2025 11:30 AM CDT Appointment [facility] Radiation Oncology [address] [facility] [place] [address] Chalino Palacios MD [address] [facility] [address] [place] [address] documented as of this encounter Visit Diagnoses Not on filedocumented in this encounter Additional Health Concerns Assessment Noted Time PHQ-9 Depression Total Score: 0 03/30/20 23 9:33 AM CDT documented as of this encounter Care Teams Softwood Faller Relationship Specialty Start Date End Date Winter Terry MD [address] [address] PCP - General INTERNAL MEDICINE 03/07/23 Chalino Palacios MD [address] [address] Consulting Physician RADIATION ONCOLOGY 04/02/24 documented as of this encounter
--- OUTSIDE RECORDS SUMMARY | 2025-01-04 11:30 | XMS_ITS | Continuity of Care Document ---
Author Name [facility] Organization [facility] Care Team Providers Care Project Intern Name Role Phone [facility] Unavailable Unavailable Encounters [...] ADM Date DC Date Status Disposition Source [facility] Outpatient Encounter [id number] 4 03/27 [facility]
--- OUTSIDE RECORDS SUMMARY | 2025-01-04 11:30 | XMS_ITS ---
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
--- OUTSIDE RECORDS SUMMARY | 2025-01-04 11:30 | XMS_ITS | Encounter Summary ---
Author Organization [facility] Address [address] [place] [address] Care Team Providers Care Telephone Lineworker Name Role Phone Winter Terry MD Primary Care Provider [phone] Encounter Details Date Type Department Care Team (Late st Contact Info) Description 01/03/[address] [address] Shyanne Silva Social History Tobacco Use Types Packs/Day Years Used Date Smoking Tobacco: Every Day Smokeless Tobacco: Never Personal Safety Answer Date Recorded Have you [...] as of this encounter Plan of Treatment Not on file documented as of this encounter Visit Diagnoses Not on filedocumented in this encounter Care Teams Telephone Lineworker Relationship Specialty Start Date End Date Winter Terry MD [address] [place] [address] PCP - General Internal Medicine 12/30/24 documented as of this encounter
--- OUTSIDE RECORDS SUMMARY | 2025-01-04 11:30 | XMS_ITS ---
Author Organization [facility] Address [facility] [place] [address] Care Team Providers Care Financial Coach Name Role Phone Winter Terry MD Primary Care Provider [phone] Chalino Palacios MD Unavailable Active Problems Problem Noted Date Diagnosed Date Adenocarcinoma, lung, left ([facility]) Chronic bilateral low back pain without sciatica 04/28/2024 Hyperlipidemia due to type 2 diabetes mellitus ([facility]) 04/28/2024 Left shoulder pain, unspecified chronicity 02/21 Right knee pain, unspecified chronicity 02/22/20 24 Moderate episode of recurrent major depressive d isorder 02/03/2023 Encounter for smoking cessation counseling 02/03 Smoker 02/03/2023 Callus of heel 02/03/2023 Mixed hyperlipidemia 02/03/2023 Hemoglobin A1C greater than 9%, indicating poor diabetic control 01/03/2023 Uncontrolled type 2 diabetes mellitus with hyperglycemia ([facility]) 01/03/2023 Current Oncology Plans No current plan [...] 05/11/2024 40 Treatment Summaries Adenocarcinoma, lung, left ([facility])* Images from the original note were not included. Survivorship Care Plan Patient Name Elvis Butcher Date of 1965 Plan Completed By CHIQUITA Nails on 06/21/24 Care Team Medical Oncologist Dr. [place] [phone] Burt [phone] Palacios [phone] Primary Care Physician WINTER TERRY MD [phone] Diagnosis Adenocarcinoma, lung, left (CMS/HCC HHS/HCC) Age [...] symptoms from the cancer. According to the [place] [employer], about 20 percent of cancer [...] 07/28/2016 Last Revised: 07/27/2016 Summary of the [place] Cancer Society Guidelines on Nutrition and Physical [...] list of resources: Cancer Support Resources at [facility] https://www.[facility]/Medical-Services/Cancer-Center [facility] offers services for lifestyle management for mind-body health. Services range from yoga, individual and group smoking cessation counseling to mind/body skills instruction and mindfulness classes. Call , ext. [phone] for more information. Clinical Trials are available for adults through [employer], a national cooperative group. Call for more information. Dietary Services are available from registered dietitians who can perform nutritional assessments and give advice on dietary problems. Call , ext. [phone] for more information. Home Health Services are available after a hospital admission. These individuals can provide comfort in the home setting along with support and education. Call , ext. [phone] for more information. Inpatient Data Software Engineer & Case Management Services Inpatient oncology social workers can help with home services, placement of patients, transportation, crisis intervention and communityresources. Care coordination for patients is done through this service, especially in outlying areas. Call , ext [phone] for more information. Nurse Navigator This individual [...] comprehensive. Varying services are offered at seven [facility] outpatient clinicsin [place]. [facility] and [place]. Call for more information. Palliative Care, Pain [...] improve quality of life. Call , ext. [phone] for more information. Spiritual Care Chaplains can provide spiritual comfort for the mind, body and spirit. Call , ext. [phone] for more information. Radiation Therapy and [facility] Radiation Therapy offers state of the art radiation for cancer patients. The Day Hospital offers an outpatient area for chemotherapy, blood infusions, dressing changes and antibiotics. Call [phone] or , ext. [phone] for more information. Regional Wound Center The Wound Center heals chronic, non-healing wounds. Call for more information. Wound, Ostomy, Continence Services Services range from wound care, ostomy appliance teaching and continence service for any patient needing these services. Call , ext. [phone] for more information. Resources for Cancer Support [facility] provides care for those who cannot afford to pay through its Evita Care Program. More information is available at www.[facility].org/ ana/Evita-Care.aspx. [facility] provides financial assistance, to those who qualify, regardless of whether palomo is insured. More information is available at www. [facility].org/Public/FinancialAssistance.aspx. [place] Department of Public Health protects the state's residents and visitors through the prevention and control of disease and injury. Website: http://www.idph.[facility]. pr.us/home.htm. [place] is a national nonprofit organization with programs and services provided through local [employer] offices, as well as its Clinical Navigation program based at [facility] Cancer [facility] at [facility]. Websites: www.cancer.org and www.[facility]/cancer/navigator. html. Government Assistance Programs There are [...] Administration on Aging Benefits for older adults. 819.821.7246 www.eldercare.gov ([facility] Detail Representative finds resources in your community). Social Security Administration 080-624-3666 www.ssa.gov Centers for Medicare & Medicaid Services 678-352-0702 www.cms.gov National Cancer Aurora www.cancer.gov Pharmaceutical Patient Assistance Programs Programs and services offered differ among drug manufacturers but may include: Help with insurance reimbursement. Referrals to co pay relief programs Help with the application process Discounted or free medications for patients who do not qualify for other assistance Partnership for Prescription Assistance (PPA) 038-7-FBN-NOW (709-166-5770) www.pparx.org Insurance Coverage www.getcovered[place].org To see if the drug company that makes your medication has a patient assistance program, check its web site, ask your doctor or check with the PPA. [facility] has a list of pharmaceutical programs and other resources for financial assistance. People with cancer often need assistance with expenses like transportation, home care and child day care center worker. A number of nonprofit organizations have useful programs or referral information that may be able to help. Cancer Organizations CancerCare 758-421-BKOU(0880) www.cancercare.org [place] 407-XBE-4865 www.cancer.org Leukemia & Lymphoma Society 406-280-6283 www.lls.org Lung Cancer Spivey www.lungcanceralliance.org Lymphoma Research Foundation 201-426-1973 www.lymphoma.org National Marrow Donor Program 261-886-2574 www.marrow.org National Ovarian Cancer Coalition www.ovarian.org Pancreatic Cancer Action Network www.pancan.org Patient Advocate Colorectal Careline 044-060-3092 www.colorectalcareline.org Sarcoma Spivey 737-602-8166 www.sarcomaalliance.org General Organizations [employer] www.CircuLite.org Community Organizations Check phonebook under social service agencies Diandra-based Organizations Includes [employer], Inc[employer] Studio, [employer] Services and others. Check phonebook for listings. [employer] Cancer Foundation (Clinical Trial information and support) www.lazarex.org Leukemia Research Foundation www.leukemia-research.org Bladder Cancer Advocacy Network www.bcan.org Support for People with Oral Head and Neck Cancer (SPOHNC) www.spohnc.org [employer] K[employer] Breast Cancer Organization 142-721-8010 5.komen.org/BreastCancer/1877GOKOMEN.html
--- NOTE | 2025-01-04 12:00 | ED.HA ---
HPI - Headache General Chief Complaint: Headache Stated Complaint: fall tuesday worsening DUEÑAS Time Seen by Provider: 01/04/25 11:47 Source: patient and old records reviewed Mode of arrival: ambulatory Limitations: no limitations History of Present Illness HPI Narrative: Patient is a 59-year-old male who presents the ED with report of headache. Patient reports he had a fall on Tuesday. Seen in the ED here at that time, diagnosed with subarachnoid, subdural, intraparenchymal brain hemorrhage. Was flown to [facility] at that time. Was hospitalized and monitored until Tuesday afternoon. States he had been doing well with pain at home with taking Tylenol. Since last night, has had worsening pain, present throughout his right frontal region and extending to his posterior head. Denies new fall or injury. Reports some lightheadedness, fatigue. Denies numbness or weakness, vision changes, confusion, slurred speech, photophobia, phonophobia, nausea, vomiting. He is not on anticoagulation. Taking Keppra 500 mg b.i.d.. Related Data Allergies Allergy/AdvReac Type Severity Reaction Status Date / Time No Known Allergies Allergy Verified 02/23/24 05:44 Review of Systems Review of Systems: All systems reviewed & are unremarkable except as noted in HPI. All systems reviewed & are unremarkable except as noted in HPI and below Exam Narrative: GENERAL: Slightly fatigued appearing, well-nourished, non-toxic, in no acute distress. HEAD: Normocephalic, atraumatic. EYES: PERRL/EOMI, conjunctivae clear bilaterally. No nystagmus. NECK: Supple. No meningeal signs. RESPIRATORY: Airway patent, respirations nonlabored. Clear to auscultation bilaterally, no rales, rhonchi, wheezing. CARDIOVASCULAR: Regular rate and rhythm without murmurs, rubs, or gallops. Radial pulses 2+ and equal bilaterally. MUSCULOSKELETAL: Moves all extremities. No gross deformities. SKIN: Warm, dry, normal color. No rashes. NEURO: A&O X3. Speech clear. Follows commands. CN II-XII intact. Sensation grossly intact. Steady gait. No ataxic movements. Strength 5/5 in upper and lower extremities bilaterally. No pronator drift. Equal teradata architect strength bilaterally. PSYCHIATRIC: Appropriate mood and affect. Normal interaction. Course Vital Signs Vital signs: Vital Signs Temperature 97.8 F 01/04/25 10:53 Pulse Rate 105 H 01/04/25 10:53 Respiratory Rate 16 01/04/25 10:53 Blood Pressure 137/89 01/04/25 10:53 Pulse Oximetry 98 01/04/25 10:53 Oxygen Delivery Room Air 01/04/25 10:53 Temperature 97.9 F 01/04/25 13:46 Pulse Rate 83 01/04/25 13:46 Respiratory Rate 16 01/04/25 13:46 Blood Pressure 135/95 H 01/04/25 13:46 Pulse Oximetry 99 01/04/25 13:46 Oxygen Delivery Room Air 01/04/25 10:53 MDM - Headache MDM Narrative Medical decision making narrative: Patient presented to ED with worsening headache, status post TBI with intracranial hemorrhage. Seen at [facility]. Vital signs are stable upon arrival. Patient is in no acute distress. He is neurologically intact upon my evaluation. Denying any new neurologic complaints. No focal deficits on exam. CT brain today repeated showing residual R frontal intraparenchymal hemorrhage with an additional new foci of hemorrhage. Discussed case with Dr. Mullen, neurosurgery @ [facility], reviewed images himself. In comparison to patient's imaging from hospitalization on 12/31, bleeding is stable. No new areas of bleeding. Advised it is not uncommon for patient to have persistent HAs after TBI. Recommended additional pain control, low stress/activity for next 1 week. No indication for transfer or further neurosurgery intervention at this time. Discussed these recommendations with patient. He is feeling improved w/ oxycodone in the ED. Feel he is safe for discharge home at this time. He is in agreement with plan. Feels comfortable going home. Patient advised to take it easy over the next couple of weeks, have close follow-up with neurosurgery for further evaluation. Patient given strict return precautions. Advised to return for repeat evaluation if headache becomes severe again or he develops any other neurologic symptoms of concern. Patient and family in agreement with plan. Discharged in stable condition. Remained neurologically intact at time of D/C. Medical Records Attestation: I reviewed the patient's medical records. Imaging Data Attestation: I personally reviewed and interpreted this imaging study as follows: Radiologist's impression: ITS Impressions Head CT 01/04/25 11:30 IMPRESSION: 1. Small residual right frontal parenchymal hemorrhage. There is an additional foci of parenchymal hemorrhage in the right frontal lobe along the margin of the falx. Discharge Plan Discharge Clinical Impression: Intraparenchymal hemorrhage of brain Headache Qualifiers: Headache type: unspecified Headache chronicity pattern: acute headache Intractability: not intractable Qualified Code(s): R51.9 - Headache, unspecified Patient Disposition: Home, Self-Care Condition: Stable Instructions: Antibiotic Form, Concussion (ED), Head Injury (ED), Acute Headache (ED) Additional Instructions: Your imaging here was stable from the imaging you received at [facility]. Continue to follow up with Neurosurgery as directed. Continue Tylenol as needed for pain. Oxycodone as needed for more severe pain. Rest and limit stress/activity. Return to ED if you experience worsening or severe pain, confusion, slurred speech, severe dizziness, passing out, recurrent fall or head injury, unable to keep down food or drink, light sensitivity, or any other symptoms of concern. Patient Language: Upper Sorbian Prescriptions: New oxycodone 5 mg tablet 5 mg PO Q6H PRN (Reason: pain) Qty: 15 0RF No Action hydrocodone-acetaminophen 5-325 mg tablet 1 tablet PO Q8H PRN (Reason: pain) Qty: 12 0RF Follow-up/Referrals: Harrison,MD Winter [Primary Care Provider] - Time of Disposition: 14:04
--- OUTSIDE RECORDS SUMMARY | 2025-01-04 12:02 | XMS_ITS | Clinical Summary ---
Author Organization [facility] Address [address], [address] [place] [address] Phone Care Team Providers Care Content Curator Name Role Phone Winter Terry MD Primary Care Provider [phone] Haroldo Burt MD Unavailable Unavailable Pop Waller MD Unavailable [phone] Allergies Active Allergy Reactions Criticality Noted Date [...] Description 01/04/2025 Telephone [facility] [address] [address] Pop Waller MD 01/02/2025 Telephone [facility] [address] [address] Pop Waller MD Canopy Call / BJC admission 12/31/2024 Telephone [facility] [address] [address] Pop Waller MD 12/20/2024 11:00 AM CDT Ancillary Procedure [facility] [address] [address] 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); NSCLC of left lung (HCC) 12/20/2024 Telephone [facility] [address] [address] Chalino Palacios MD 12/19/2024 11:00 AM CDT Office Visit [facility] [address] [address] Johanna Roque, NUCLEAR SCIENTIST, [employer] 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) (Primary Dx); Fatigue, unspecified type 12/19/2024 10:45 AM CDT Clinical Support [facility] [address] [address] 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) (Primary Dx); Encounter for immunotherapy; Hypomagnesemia 12/19/2024 Travel 12/05/2024 10:30 AM CORE CUTTER AND REAMER Office Visit [facility] [address] [address] Shannon Seymour, NUCLEAR SCIENTIST, [employer] 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) (Primary Dx); Encounter for immunotherapy; Hypomagnesemia 12/05/2024 10:15 AM CORE CUTTER AND REAMER Clinical Support [facility] [address] [address] 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) (Primary Dx); Encounter for immunotherapy; Hypomagnesemia 12/05/2024 Travel 11/21/2024 10:15 AM C[employer]TER [employer] REAMER Office Visit [facility] [address] [address] Wen Reyes, NUCLEAR SCIENTIST, [employer] 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) (Primary Dx); Encounter for immunotherapy; Hypomagnesemia 11/21/2024 10:00 AM C[employer] C[employer]TER [employer] REAMER Clinical Support [facility] [address] [address] 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) (Primary Dx) 11/21/2024 Travel 11/07/2024 10:00 AM C[employer] C[employer]TER [employer] REAMER Office Visit [facility] [address] [address] Johanna Roque, NUCLEAR SCIENTIST, [employer] 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) (Primary Dx) 11/07/2024 9:45 AM C[employer] C[employer]TER [employer] REAMER Clinical Support [facility] [address] [address] 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) (Primary Dx); Encounter for immunotherapy; Hypomagnesemia 11/07/2024 Travel 10/24/2024 10:00 AM C[employer]TER [employer] REAMER Office Visit [facility] [address] [address] Shannon Seymuor, NUCLEAR SCIENTIST, [employer] 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) (Primary Dx); Encounter for immunotherapy; Hypomagnesemia 10/24/2024 9:45 AM CORE CUTTER [employer] REAMER Clinical Support [facility] [address] [address] 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) (Primary Dx) 10/24/2024 Travel 10/10/2024 10:15 AM C[employer]TER [employer] REAMER Office Visit [facility] [address] [phone] Wen Reyes APRN, MELANIE 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) (Primary Dx) 10/10/2024 10:00 AM C[employer] RE[employer]ER Clinical Support [facility] [address] [phone] Primary non-small cell carcinoma of upper lobe [...] CDT Office Visit [facility] [address] [phone] Pop Waller MD [address] [place] [phone] 01/04/2025 12:45 PM CDT Clinical Support [facility] [address] [address] Nurse, [facility] 04/09/2025 10:30 AM CDT Ancillary Procedure [facility] [address] [address] Health Maintenance Due Date Last [...] AUTO DIFF [place] Routine 12/05/2024 10:03 AM C[employer] C[employer]TER [employer] RE[employer]ER 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) CMP (COMPREHENSIVE METABOLIC PANEL) Routine 12/05/2024 10:03 AM C[employer]TER [employer] RE[employer]ER 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) Encounter for immunotherapy Hypomagnesemia LACTATE DEHYDROGENASE (LD) Routine 12/05/2024 10:03 AM C[employer]TER [employer] RE[employer]ER 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) Encounter for immunotherapy Hypomagnesemia MAGNESIUM (MG) Routine 12/05/2024 10:03 AM C[employer] REAMER 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) Encounter for immunotherapy Hypomagnesemia CBC WITH AUTO DIFF OH Routine 11/21/2024 9:37 AM C[employer] C[employer]TER [employer] REAMER 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) CMP (COMPREHENSIVE METABOLIC PANEL) Routine 11/21/2024 9:37 AM CORE C[employer]TER AND REAMER 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) LACTATE DEHYDROGENASE (LD) Routine 11/21/2024 9:37 AM C[employer]TER [employer] REAMER 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) MAGNESIUM (MG) Routine 11/21/2024 9:37 AM C[employer]TER [employer] REAMER 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) CBC WITH AUTO DIFF OH Routine 11/07/2024 9:43 AM C[employer]TER [employer] REAMER 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) CMP (COMPREHENSIVE METABOLIC PANEL) Routine 11/07/2024 9:43 AM C[employer] C[employer]TER [employer] REAMER 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) Encounter for immunotherapy Hypomagnesemia THYROXINE (T4) FREE Routine 11/07/2024 9 :43 AM C[employer] C[employer]TER [employer] REAMER 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) Encounter for immunotherapy Hypomagnesemia THYROID STIMULATING HORMONE (TSH) Routine 11/07/2024 9:43 AM C[employer] C[employer]TER [employer] REAMER 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) Encounter for immunotherapy Hypomagnesemia MAGNESIUM (MG) Routine 11/07/2024 9:43 AM C[employer] C[employer]TER [employer] REAMER 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) Encounter for immunotherapy Hypomagnesemia IRON W/ IRON BINDING CAPACITY OH Routine 11/07/2024 9:43 AM C[employer]TER [employer] REAMER 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) Encounter for immunotherapy Hypomagnesemia FERRITIN Routine 11/07/2024 9:43 AM C[employer] C[employer]TER AND REAMER 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) Encounter for immunotherapy Hypomagnesemia MAGNESIUM (MG) Routine 10/24/2024 9:41 AM CORE C[employer]TER AND REAMER 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) CBC WITH AUTO DIFF OH Routine 10/24/2024 9:41 AM C[employer]TER [employer] REAMER 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) CMP (COMPREHENSIVE METABOLIC PANEL) Routine 10/24/2024 9:41 AM CORE C[employer]TER AND REAMER 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) LACTATE DEHYDROGENASE (LD) Routine 10/24/2024 9:41 AM C[employer]TER [employer] REAMER 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) CBC WITH AUTO DIFF OH Routine 10/10/2024 9:55 AM C[employer] C[employer]TER AND REAMER 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) CMP (COMPREHENSIVE METABOLIC PANEL) Routine 10/10/2024 9:55 AM C[employer] C[employer]TER [employer] REAMER 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) Elevated blood pressure reading LACTATE DEHYDROGENASE (LD) Routine 10/10/2024 9:55 AM CORE C[employer]TER AND REAMER Primary non-small cell carcinoma of upper lobe [...] primary malignancy of the left upper lobe. [id number] with left upper lobe lung carcinoma with [...] Magnesium 1.8(L) 1.9 - 2.7 mg/dL [facility] ART THERAPY CERTIFIED SUPERVISOR [facility] Blood 12/19/2024 10:3 2 AM CDT [facility] - 12/19/2024 11:17 AM CDT Release to patient->Immediate Shannon Khan Tomac NUCLEAR SCIENTIST, SUPER[employer] CHEMISTRY ORDERABLES Final Result Performing Organization Address City/[facility]/ZIP Co de Phone Number [facility] [place] [address], [place] [phone] * (ABNORMAL) LACTATE DEHYDROGENASE (LD) (12/19/2024 10:32 AM CDT) Only the most recent of5 resultswithin the time period is included. LDH 82(L) 140 - 271 U/L [facility] Blood 12/19/2024 10:3 2 AM CDT [facility] ART THERAPY CERTIF[facility] - 12/19/2024 11:17 AM CDT Release to patient->Immediate Shannon Seymour NUCLEAR SCIENTIST, SUPER[employer] CHEMISTRY ORDERABLES Final Result [facility] [place] [place] [address], [place] [phone] * (ABNORMAL) CMP (COMPREHENSIVE METABOLIC PANEL) (12/19/2024 10:32 AM CDT) Only the most recent of6 resultswithin the time period is included. Glucose 108(H) 70 - 105 mg/dL [facility] Blood Urea Nitrogen 17 7 - 25 mg/dL [facility] Creatinine 0.6(L) 0.7 - 1.3 mg/dL [facility] Sodium 137 136 - 145 mEq/L [facility] Potassium 4.6 3.5 - 5.1 mEq/L [facility] Chloride 103 98 - 107 mEq/L [facility] Bicarbonate 24 21 - 31 mEq/L [facility] Total Bilirubin 0.5 0.3 - 1.0 mg/dL [facility] Alk. Phosphatase 60 34 - 104 U/L [facility] Aspartate Aminotransferase 13 13 - 39 U/L [facility] Alanine Aminotransferase 12 7 - 52 U/L [facility] Total Protein 6.8 6.4 - 8.9 g/dL [facility] Albumin 4.5 3.5 - 5.7 g/dL [facility] Calcium 9.8 8.6 - 10.3 mg/dL [facility] Anion Gap 14.6 7.0 - 15.0 mEq/L [facility] Globulin 2.3 2.0 - 3.5 g/dL [facility] EGFR 111 >60 ml/min/1. 73m2 [facility] Comment: This eGFR is calculated using 2020 CKD-EPI Creatinine equation without race modifier based on the NKF-ASN task force recommendations Equation: uUFI=794*min(SCr/k,1)a*max(SCr/k,1)-1.200*0.9938Age*1.012 (if female), where SCr is serum creatinine, k is 0.7 for females and 0.9 for males, and a is -0.241 for females and -0.302 for males Blood 12/19/2024 10:3 2 AM CDT Narrative [facility] ART THERAPY CERTIFIED SUPERVISOR [facility] - 12/19/2024 11:17 AM CDT Release to patient->Immediate IS THE PATIENT REQUIRED TO BE FASTING FOR 8 HOURS?->No Shannon Seymour NUCLEAR SCIENTIST, [employer]PER[employer] CHEMISTRY ORDERABLES Final Result [facility] ART THERAPY CERTIFIED SUPERVISOR [facility] [place] [address], * (ABNORMAL) COMPLETE BLOOD COUNT (CBC) WITH DIFF (12/19/2024 10:32 AM CDT) WBC 6.7 4.0 - 10.0 10*3/uL [facility] ART THERAPY CERTIFIED SUPERVISOR [facility] HGB 14.3 13.7 - 17.5 g/dL [facility] ART THERAPY CERTIFIED SUPERVISOR [facility] HCT 42.0 40.1 - 51.0 % [facility] ART THERAPY CERTIFIED SUPERVISOR [facility] PLT 221 163 - 369 10*3/uL [facility] ART THERAPY CERTIFIED SUPERVISOR [facility] MPV 9.6 9.4 - 12.4 fL [facility] ART THERAPY CERTIFIED SUPERVISOR [facility] RBC 4.48(L) 4.63 - 6.08 10*6/uL [facility] ART THERAPY CERTIFIED SUPERVISOR [facility] MCV 94 79 - 95 fL [facility] ART THERAPY CERTIFIED SUPERVISOR [facility] MCH 31.9 25.6 - 32.2 pg [facility] ART THERAPY CERTIFIED SUPERVISOR [facility] MCHC 34.0 32.2 - 36.5 g/dL [facility] ART THERAPY CERTIFIED SUPERVISOR [facility] RDW 12.5 11.6 - 14.4 % [facility] ART THERAPY CERTIFIED SUPERVISOR [facility] Absolute Neutrophil Count 5,128 cells/uL [facility] Absolute Seg Count 5,128 1,440 - 6,600 cells/uL [facility] ART THERAPY CERTIFIED SUPERVISOR [facility] Absolute Lymph Count 932 760 - 4,000 cells/uL [facility] ART THERAPY CERTIFIED SUPERVISOR [facility] Absolute Archer Count 599 160 - 1,200 cells/uL [facility] ART THERAPY CERTIFIED SUPERVISOR [facility] Segmented Neutrophils 77(H) 36 - 66 % [facility] ART THERAPY CERTIFIED SUPERVISOR [facility] Lymphocytes 14(L) 19 - 40 % [facility]TER [facility] Monocytes 9 4 - 12 % [facility] EDDIE TER [facility] WBC Estimate Normal [facility] ART THERAPY CERTIFIED SUPERVISOR [facility] Platelet Estimate Normal [facility] ART THERAPY CERTIFIED SUPERVISOR [facility] RBC Morphology Normal C[facility] R ART THERAPY CERTIFIED SUPERVISOR [facility] Blood 12/19/2024 10:3 2 AM CDT Narrative [facility] ART THERAPY CERTIFIED SUPERVISOR [facility] - 12/19/2024 11:24 AM CDT Release to patient->Immediate Shannon Seymour APRN, [employer] HEMATOLOGY ORDERABLES Final Result [facility] ART THERAPY CERTIFIED SUPERVISOR [facility] [place] [address], * (ABNORMAL) CBC WITH AUTO DIFF [place] (12/05/2024 10:03 AM C[employer]) Only the most recent of5 resultswithin the time period is included. WBC 5.5 4.0 - 10.0 10*3/uL [facility] ART THERAPY CERTIFIED SUPERVISOR [facility] HGB 14.1 13.7 - 17.5 g/dL [facility] ART THERAPY CERTIFIED SUPERVISOR [facility] HCT 41.8 40.1 - 51.0 % [facility] ART THERAPY CERTIFIED SUPERVISOR [facility] PLT 246 163 - 369 10*3/uL [facility] ART THERAPY CERTIFIED SUPERVISOR [facility] MPV 9.4 9.4 - 12.4 fL [facility] ART THERAPY CERTIFIED SUPERVISOR [facility] RBC 4.44(L) 4.63 - 6.08 10*6/uL [facility] ART THERAPY CERTIFIED SUPERVISOR [facility] MCV 94 79 - 95 fL [facility] ART THERAPY CERTIFIED SUPERVISOR [facility] MCH 31.8 25.6 - 32.2 pg [facility] ART THERAPY CERTIFIED SUPERVISOR [facility] MCHC 33.7 32.2 - 36.5 g/dL [facility] ART THERAPY CERTIFIED SUPERVISOR [facility] RDW 12.4 11.6 - 14.4 % [facility] ART THERAPY CERTIFIED SUPERVISOR [facility] Neutrophils % 69.4(H) 36.0 - 66.0 % [facility] ART THERAPY CERTIFIED SUPERVISOR [facility] Lymphocytes % 19.3 19.0 - 40.0 % [facility] ART THERAPY CERTIFIED SUPERVISOR [facility] Monocytes % 9.7 4.1 - 12.1 % [facility] ART THERAPY CERTIFIED SUPERVISOR [facility] Eosinophils % 0.7 0.0 - 3.5 % CAN[facility] ART THERAPY CERTIFIED SUPERVISOR [facility] Basophils % 0.5 0.0 - 1.0 % [facility] ART THERAPY CERTIFIED SUPERVISOR [facility] Absolute Neutrophils 3.8 1.4 - 6.6 10*3/uL [facility] ART THERAPY CERTIFIED SUPERVISOR [facility] Absolute Lymphocytes 1.1 0.8 - 4.0 10*3/uL [facility] ART THERAPY CERTIFIED SUPERVISOR [facility] Absolute Monocytes 0.5 0.2 - 1.2 10*3/uL [facility] ART THERAPY CERTIFIED SUPERVISOR [facility] Absolute Eosinophils 0.0 0.0 - 0.4 10*3/uL [facility] Absolute Basophils 0.0 0.0 - 0.1 10*3/uL [facility] ART THERAPY CERTIFIED SUPERVISOR [facility] 12/05/2024 10:0 3 AM C[employer]TER [employer]ER Wen Reyes NUCLEAR SCIENTIST, [employer] SEND OUTS Fin al Result Performing Organization Address [facility]/ZIP Co de Phone Number [facility] ART [facility]APY [facility]IFIED [facility] [place] [address] [place] [address], * IRON W/ IRON BINDING CAPACITY [place] (11/07/2024 9:43 AM C[employer]TER [employer] RE[employer]ER) IRON 146 50 - 212 ug/dL [facility] UIBC 203 155 - 355 ug/dL [facility] ART [facility]ERAPY [facility] TIBC 349 261 - 478 ug/dl [facility] ART [facility]ERAPY [facility] % Saturation 42 20 - 50 % [facility]AP[facility]IED [facility] 11/07/2024 9:43 AM C[employer]ER Narrative [facility] - 11/07/2024 10:22 AM C[employer]ER Release to patient->Immediate Shannon Seymour NUCLEAR SCIENTIST, SUPER[employer] Final Result Performing Organization Address [facility] de Phone Number [facility] ART [facility]APY [facility] Cancer Care [address] [place] [address], * THYROXINE (T4) FREE (11/07/2024 9:43 AM C[employer]) THYROXINE (T4), FREE, 0.92 0.61 - 1.12 ng/dL [facility] ART THERAPY [facility]ERTIFIED [facility] Comment: Specimens that contain high levels of Biotin >10 ng/mL may cause false high results for this method. Interpret results in light of the total clinical presentation of the patient. To minimize the interference of high levels of Biotin, it is recommended that patients discontinue taking Biotin 72 hours prior to testing. Blood 11/07/2024 9:43 AM C[employer]TER [employer] REAMER [facility] ART THERAPY [facility] - 11/08/2024 2:47 PM C[employer] C[employer]TER [employer] REAMER Is the patient taking Biotin supplement? Not sure Release to patient->Immediate Shannon Hernándezac NUCLEAR SCIENTIST, SUPER[employer] CHEMISTRY ORDERABLES Final Result Performing Organization Address City/[facility]/ZIP Co de Phone Number [facility]ERAPY [facility]IF[facility] [place] [place] [address], [place] [phone] * THYROID STIMULATING HORMONE (TSH) (11/07/2024 9:43 AM C[employer]ER) TSH 1.12 0.45 - 5.33 uIU/mL [facility] Blood 11/07/2024 9:43 AM C[employer] C[employer]TER AND REAMER [facility] - 11/08/2024 2:47 PM C[employer]ER Release to patient->Immediate Shannon Hernándezac NUCLEAR SCIENTIST, SUPER[employer] CHEMISTRY ORDERABLES Final Result Performing Organization Address [facility]/ZIP Co de Phone Number [facility] ART [facility]APY [facility] [place] [place] [address], [place] [phone] * FERRITIN (11/07/2024 9:43 AM C[employer]ER) Ferritin 103 24 - 336 ng/mL [facility] ART [facility]APY [facility] Blood 11/07/2024 9:43 AM C[employer] C[employer]TER AND REAMER [facility] - 11/08/2024 2:47 PM C[employer]TER [employer] REAMER Release to patient->Immediate Shannon Hernándezac NUCLEAR SCIENTIST, SUPER[employer] CHEMISTRY ORDERABLES Final Result Performing Organization Address [facility] Co de Phone Number [facility] ART THERAPY [facility]ERTIFIED [facility] [place] [place] [address], [place] [phone] from Last 3 Months Insurance [facility] Care Teams Content Curator Relationship Specialty Start Date End Date Winter Terry MD [address] [address] PCP - General Internal Medicine 03/19/24 Haroldo Burt MD [address] [address] Internal Medicine 03/19/24 Pop Waller MD [address] [place] [address] Consulting Physician Oncology 03/26/24
--- OUTSIDE RECORDS SUMMARY | 2025-01-04 12:02 | XMS_ITS | Encounter Summary ---
Author Organization [facility] Address [facility] [place] [address] Care Team Providers Care Sales Associate Name Role Phone Winter Terry MD Primary Care Provider [phone] Chalino Palacios MD Unavailable Encounter Details Date Type Department Care Team (Late Contact Info) Description 01/04/[address] [id number] Winter Terry MD [address] [place] [id number] Social History Tobacco Use Types Packs/Day Years [...] Description 01/23/2025 8:40 AM CDT [facility] [place] [address] Winter Terry MD [address] [address] 04/09/2025 11:30 AM CDT Appointment [facility] Radiation Oncology [address] [facility] [place] [address] Chalino Palacios MD [address] [facility] [address] [place] [address] documented as of this encounter Visit Diagnoses Not on filedocumented in this encounter Additional Health Concerns Assessment Noted Time PHQ-9 Depression Total Score: 0 03/30/20 23 9:33 AM CDT documented as of this encounter Care Teams Sales Associate Relationship Specialty Start Date End Date Winter Terry MD [address] [address] PCP - General INTERNAL MEDICINE 03/07/23 Chalino Palacios MD [address] [address] Consulting Physician RADIATION ONCOLOGY 04/02/24 documented as of this encounter
--- OUTSIDE RECORDS SUMMARY | 2025-01-04 12:02 | XMS_ITS | Encounter Summary ---
Author Organization [facility] Address [address] [place] [address] Phone Care Team Providers Care Finance Director Name Role Phone Winter Terry MD Primary Care Provider Haroldo Burt MD Unavailable Unavailable Pop Waller MD Unavailable [phone] Encounter Details Date Type Department Care Team (Late st Contact Info) Description 01/04/2025 Telephone [facility] [address] [place] [address] Pop Waller MD [address] [place] [address] Social History Tobacco Use Types [...] get worse over last 24 hours. called [facility] Neuro and they recommendER for stat CT [...] CDT Office Visit [facility] [address] [phone] Pop Waller MD [address] [place] [phone] 01/04/2025 12:45 PM CDT Clinical Support [facility] [address] [phone] Nurse, [facility] 04/09/2025 10:30 AM CDT Ancillary Procedure [facility] [address] [phone] documented as of this encounter Visit Diagnoses Not on filedocumented in this encounter Care Teams Finance Director Relationship Specialty Start Date End Date Winter Terry MD [address] [place] [address] PCP - General Internal Medicine 03/19/24 Haroldo Burt MD [address] [address] Internal Medicine 03/19/24 Pop Waller MD [address] [place] [phone] Consulting Physician Oncology 03/26/24 documented as of this encounter
--- OUTSIDE RECORDS SUMMARY | 2025-01-04 12:02 | XMS_ITS | Referral Summary ---
Author Organization [facility] [address] Address [address] [place] [phone] Care Team Providers Care Medical Writer Name Role Phone Winter Terry MD Primary Care Provider [phone] Encounters Date Type Department Care Team Description 01/03/[address] [address] Shyanne Silva 12/30/2024 5:10 PM CDT - 01/02/2025 3:45 PM CDT Hospital Encounter [address] [address] Alex Mccullough MD Aubin, Chandra D., MD Odom, Elizabeth Burkhart, MD Snyder, Jason Andrew, MD SAH (subarachnoid hemorrhage) ([facility]) (Primary Dx); Fall, initial encounter; Intraparenchymal hematoma of brain without loss of consciousness, unspecified laterality, initial encounter ([facility]) Discharge Disposition: Discharge to home or self [...] Assessment & Plan (12/31/2024 3:24 PM CDT): [id number] - [place], [place] - [address] [facility] ([place] [address]) & [address] [facility] [address] Patient will use [facility] at discharge. Acute [...] will discuss with team Dr. Waller oncologist [phone] 01/01 Ordered MRI with and without Brain [...] DEVICE Routine 12/30/2024 8 :43 PM CDT [place] CRIT[facility] CARE ILL/INJURED PATIENT INIT 30-74 MIN [...] * POCT glucose (01/02/2025 12:01 PM CDT) [facility] Signature Glucose, POC 127 70 - 199 mg/dL Blood 01/02/2025 12:0 1 PM CDT 01/02/2025 12:01 PM CDT us Flo Light MD LAB POCT ORDERABLES - DEV ICE Final Result [facility] [place] [address] * TRANSTHORACIC ECHO (TTE) COMPLETE W DOPPLER/CF W CONTRAST (01/02/2025 11:04 AM CDT) Anatomical Region Laterality Modality Ultrasound 01/02/2025 10:1 7 AM CDT Narrative 01/02/2025 11:21 AM CDT [facility] [place] [address] Transthoracic Echocardiographic Report Patient Name: KEMAR RAIN WESLEY : 1965 (59y 8m) Gender: M Study Date: 01/02/2025 10:17:54 AM Ht(Inch): 67 Wt(Lb): 143.96 BSA: 1.76 Senior Loss Control Specialist: Chon Car RDCS Location: [id number] Order Provider: ADRIANA BARBA Heart Rate: 76 [...] Note Manuel Lomax MD PhD - 01/02/2025 [facility] [place] [address] Transthoracic Echocardiographic Report Patient Name: KEMAR RAIN WESLEY : 1965 (59y 8m) Gender: M Study Date: 01/02/2025 10:17:54 AM Ht(Inch): 67 Wt(Lb): 143.96 BSA: 1.76 Senior Loss Control Specialist: Chon Car RDCS Location: [id number] Order Provider: ADRIANA BARBA Heart Rate: 76 [...] LA Length 4C 4.46 cm MV Decel Gapb076.40 msec [ 104.00 - 258.00 ] LA [...] 01/02/2025 11:21:38 AM CDT us Adriana Barba FUNERAL HOME LOCATION MANAGER CV ECHO PROCEDURES F inal Result * POCT glucose (01/02/2025 8:09 AM CDT) Glucose, POC 135 70 - 199 mg/dL Blood 01/02/2025 8:09 AM CDT 01/02/2025 8:09 AM CDT Flo Light MD LAB POCT ORDERABLES - DEV ICE Final Result [facility] [place] [address] * MRI Brain W WO Contrast (01/01/2025 [...] by: Geovanny Salazar M.D. us Adriana Barba FUNERAL HOME LOCATION MANAGER IMG MRI PROCEDURES F inal Result * (ABNORMAL) POCT glucose (01/01/2025 7:47 PM CDT) Glucose, POC 228(H) 70 - 199 mg/dL Blood 01/01/2025 7:47 PM CDT 01/01/2025 7:47 PM CDT Flo Light MD LAB POCT ORDERABLES - DEV ICE Final Result Performing Organization Address [facility] de Phone Number [facility] Department [place] [address] * POCT glucose (01/01/2025 5:04 PM CDT) Glucose, POC 142 70 - 199 mg/dL Blood 01/01/2025 5:04 PM CDT 01/01/2025 5:04 PM CDT Flo Light MD LAB POCT ORDERABLES - DEV ICE Final Result Performing Organization Address [facility] de Phone Number [facility] Department [place] [address] * (ABNORMAL) POCT glucose (01/01/2025 12:31 PM CDT) Glucose, POC 231(H) 70 - 199 mg/dL Blood 01/01/2025 12:3 1 PM CDT 01/01/2025 12:31 PM CDT Flo Light MD LAB POCT ORDERABLES - DEV ICE Final Result Performing Organization Address [facility]/ZIP Co de Phone Number [facility] Department [place] [address] * POCT glucose (01/01/2025 8:24 AM CDT) Glucose, POC 134 70 - 199 mg/dL Blood 01/01/2025 8:2 4 AM CDT 01/01/2025 8:24 AM CDT Flo Light MD LAB POCT ORDERABLES - DEV ICE Final Result Performing Organization Address [facility] Co de Phone Number [facility] [place] [address] * eGFR (12/31/2024 9:36 PM CDT) [facility] eGFR >90 >=60 mL/min/1. 73 m2 Comment: [...] LAB BLOOD ORDERABLES Layla l Result [facility] [place] [place] [address] * CBC without differential (12/31/2024 9:36 PM CDT) [facility] WBC 6.3 3.8 - 9.9 K/cumm Hgb 13.9 13.0 - 17.5 g/dL [facility] Hct 40.2 38.9 - 50.3 % [facility] Plt 194 150 - 400 K/cumm [facility] MPV 10.2 9.1 - 12.3 fL [facility] RBC 4.41 4.30 - 5.80 M/cumm [facility] MCV 91.2 81.3 - 96.4 fL [facility] MCH 31.5 27.1 - 33.3 pg [facility] MCHC 34.6 32.3 - 35.7 g/dL [facility] RDW CV 12.4 11.1 - 14.9 % [facility] RDW SD 41.6 35.7 - 48.1 fL [facility] NRBC abs 0.00 0.00 - 0.01 K/cumm [facility] Blood 12/31/2024 9:36 PM CDT 12/31/2024 10:23 PM CDT Flo Light MD LAB BLOOD ORDERABLES Layla l Result Performing Organization Address City/[facility] Co de Phone Number [facility] Department [place] [address] * Phosphorus (12/31/2024 9:36 PM CDT) [facility] Phosphorus, pl 3.4 2.3 - 4.5 mg/dL Blood 12/31/2024 9:36 PM CDT 12/31/2024 10:20 PM CDT Flo Light MD LAB BLOOD ORDERABLES Layla l Result Performing Organization Address City/[facility] Co de Phone Number [facility] Department [place] [address] * Magnesium (12/31/2024 9:36 PM CDT) Pathologist [facility] Magnesium 2.0 1.4 - 2.5 mg/dL Blood 12/31/2024 9:36 PM CDT 12/31/2024 10:20 PM CDT Flo Light MD LAB BLOOD ORDERABLES Layla l Result [facility] [place] [address] * Basic metabolic panel (12/31/2024 9:36 PM CDT) [facility] Sodium 137 135 - 145 mmol/L Potassium, pl 4.3 3.3 - 4.9 mmol/L [facility] Chloride 98 97 - 110 mmol/L [facility] CO2 29 22 - 32 mmol/L [facility] Anion gap 10 2 - 15 mmol/L [facility] BUN 13 6 - 25 mg/dL [facility] Creatinine 0.93 0.80 - 1.30 mg/dL [facility] Glucose 197 70 - 199 mg/dL [facility] Comment: Interpretive Data Fasting glucose >/= [...] Calcium 10.0 8.5 - 10.3 mg/dL [facility] Blood 12/31/2024 9:36 PM CDT 12/31/2024 10:20 PM CDT Flo Light MD LAB BLOOD ORDERABLES Layla l Result Performing Organization Address City/[facility]/ZIP Co de Phone Number [facility] [place] [address] * POCT glucose (12/31/2024 9:13 PM CDT) Glucose, POC 182 70 - 199 mg/dL Blood 12/31/2024 9:13 PM CDT 12/31/2024 9:13 PM CDT lFo Light MD LAB POCT ORDERABLES - DEV ICE Final Result Performing Organization Address [facility] Co de Phone Number [facility] [place] [address] * POCT glucose (12/31/2024 4:13 PM CDT) Glucose, POC 141 70 - 199 mg/dL Blood 12/31/2024 4:13 PM CDT 12/31/2024 4:13 PM CDT Flo Light MD LAB POCT ORDERABLES - DEV ICE Final Result Performing Organization Address [facility] Co de Phone Number [facility] [place] [address] * POCT glucose (12/31/2024 2:21 AM CDT) Glucose, POC 188 70 - 199 mg/dL Blood 12/31/2024 2:21 AM CDT 12/31/2024 2:21 AM CDT Flo Light MD LAB POCT ORDERABLES - DEV ICE Final Result Performing Organization Address City/[facility]/ZIP Co de Phone Number [facility] [place] [address] * CTA Head Neck W WO Contrast [...] the CTA were generated on a dedicated workstation/observer electrical prospecting. Contrast information: 75 mL Optiray-350 IV COMPARISON: [...] carotid arteries. No filling defects identified.. The kwymll-ed-Nucqok is complete. The anterior and middle cerebral [...] the CTA were generated on a dedicated workstation/observer electrical prospecting. Contrast information: 75 mL Optiray-350 IV COMPARISON: [...] carotid arteries. No filling defects identified.. The pctqdv-kt-Gemnke is complete. The anterior and middle cerebral [...] - DEVICE Final Result [facility] [place] [address] * [place] CRITICAL CARE ILL/INJURED PATIENT INIT 30-74 MIN [...] high-sensitivity 2-hour (12/30/2024 8:24 PM CDT) Pathologist [facility] Trop I hs <4 <=35 ng/L Comment: [...] ORDERABLES Fin al Result [facility] Department of Laboratories [place], [place] [id number] * Check Sample (12/30/2024 8:24 PM CDT) Pathologist [facility] ABO Rh O Positive [facility] OTHER 12/30/2024 8:24 PM CDT 12/30/2024 8:33 PM CDT us Darin Moran MD LAB BLOOD ORDERABLES Final R esult [facility] [place] [address] [facility] * Neuro CT Outside Consult [...] images may or may not represent the kiana source data set and thus may contain [...] IMAGING STUDY STUDY INITIALLY PERFORMED: 12/30/2024 at [facility]. TYPE OF STUDY: Multiple CT images of [...] IMAGING STUDY STUDY INITIALLY PERFORMED: 12/30/2024 at [facility]. TYPE OF STUDY: Multiple CT images of [...] images may or may not represent the kiana source data set and thus may contain [...] images may or may not represent the kiana source data set and thus may contain [...] IMAGING STUDY STUDY INITIALLY PERFORMED: 12/30/2024 at [facility]. TYPE OF STUDY: Multiple CT images of [...] IMAGING STUDY STUDY INITIALLY PERFORMED: 12/30/2024 at [facility]. TYPE OF STUDY: Multiple CT images of [...] images may or may not represent the kiana source data set and thus may contain [...] only and have not been reviewed by [facility]iology. There will be no report generated by a [facility] Radiologist. Narrative [id number] - 12/30/2024 6:49 PM [...] * POCT glucose (12/30/2024 6:03 PM CDT) [facility] Glucose, POC 164 70 - 199 mg/dL Blood 12/30/2024 6:03 PM CDT 12/30/2024 6:03 PM CDT Flo Light MD LAB POCT ORDERABLES - DEV ICE Final Result Performing Organization Address [facility] de Phone Number [facility] [place] [address] * Troponin I high-sensitivity series (baseline, 2hr, 4hr, 6hr) (12/30/2024 5:50 PM CDT) [facility] Trop I hs <4 <=35 ng/L Comment: Interpretive Data For further hscTnI resources including the diagnostic algorithm and an aid in interpretation, copy and paste this link: https://bjhlab.testcatalog.org/show/[email or web address] Current Interpretive Data last revised 2020. Blood 12/30/2024 5:50 PM CDT 12/30/2024 6:06 PM CDT us Leno Vargas MD LAB BLOOD ORDERABLES Fin al Result Performing Organization Address [facility] de Phone Number [facility] [place] [address] * eGFR (12/30/2024 5:50 PM CDT) [facility] eGFR >90 >=60 mL/min/1. 73 m2 Comment: [...] LAB BLOOD ORDERABLES Fin al Result [facility] [place] [address] * (ABNORMAL) Differential, auto (12/30/2024 5:50 PM CDT) Neutrophil abs 9.6(H) 1.5 - 6.5 K/cumm Imm gran abs 0.0 0.0 - 0.1 K/cumm [facility] Lymphocyte abs 0.7(L) 0.8 - 3.3 K/cumm [facility] Monocyte abs 0.7 0.2 - 0.8 K/cumm [facility] Eosinophil abs 0.0 0.0 - 0.5 K/cumm [facility] Basophil abs 0.0 0.0 - 0.1 K/cumm [facility] Neutrophil pct 86.6 % [facility] Comment: Interpretive Data Percent cell count reference ranges are not reported, since discordance with absolute values may lead to misinterpretation of CBC data. Current Interpretive Data was last revised on 2018. Imm gran pct 0.3 % [facility] Comment: Interpretive Data Percent cell count reference ranges are not reported, since discordance with absolute values may lead to misinterpretation of CBC data. Current Interpretive Data was last revised on 2018. Lymphocyte pct 6.6 % [facility] Comment: Interpretive Data Percent cell count reference ranges are not reported, since discordance with absolute values may lead to misinterpretation of CBC data. Current Interpretive Data was last revised on 2018. Monocyte pct 6.0 % [facility] Comment: Interpretive Data Percent cell count reference ranges are not reported, since discordance with absolute values may lead to misinterpretation of CBC data. Current Interpretive Data was last revised on 2018. Eosinophil pct 0.2 % [facility] Comment: Interpretive Data Percent cell count reference ranges are not reported, since discordance with absolute values may lead to misinterpretation of CBC data. Current Interpretive Data was last revised on 2018. Basophil pct 0.3 % [facility] Comment: Interpretive Data Percent cell count reference ranges are not reported, since discordance with absolute values may lead to misinterpretation of CBC data. Current Interpretive Data was last revised on 2018. Blood 12/30/2024 5:50 PM CDT 12/30/2024 6:05 PM CDT Leno Vargas MD LAB BLOOD ORDERABLES Fin al Result [facility] [place] [address] * (ABNORMAL) CBC with auto differential (12/30/2024 5:50 PM CDT) WBC 11.1(H) 3.8 - 9.9 K/cumm Hgb 13.7 13.0 - 17.5 g/dL [facility] Hct 39.4 38.9 - 50.3 % [facility] Plt 187 150 - 400 K/cumm [facility] MPV 9.9 9.1 - 12.3 fL [facility] RBC 4.34 4.30 - 5.80 M/cumm [facility] MCV 90.8 81.3 - 96.4 fL [facility] MCH 31.6 27.1 - 33.3 pg [facility] MCHC 34.8 32.3 - 35.7 g/dL [facility] RDW CV 12.1 11.1 - 14.9 % [facility] RDW SD 40.7 35.7 - 48.1 fL [facility] NRBC abs 0.00 0.00 - 0.01 K/cumm [facility] Blood 12/30/2024 5:50 PM CDT 12/30/2024 6:05 PM CDT Leno Vargas MD LAB BLOOD ORDERABLES Fin al Result Performing Organization Address [facility] de Phone Number [facility] [place] [address] * aPTT (12/30/2024 5:50 PM CDT) aPTT 29 28 - 38 sec Comment: Interpretive Data Heparin therapeutic range: 66.0 - 100.0 seconds. Range based on correlation with therapeutic heparin activity range of 0.3 - 0.7 Units/mL. Current interpretive data was last revised on 2023. Blood 12/30/2024 5:50 PM CDT 12/30/2024 6:19 PM CDT Result [facility] Leno Vargas MD LAB BLOOD ORDERABLES Fin al Result Performing Organization Address [facility] de Phone Number [facility] [place] [address] * Protime-INR (12/30/2024 5:50 PM CDT) PT 11.0 9.7 - 13.0 sec INR 1.02 0.90 - 1.20 [facility] Comment: Interpretive data Oral anticoagulant therapeutic ranges: Venous thromboembolism prophylaxis or treatment: 2.0-3.0 CARDIOLOGY Standard range: 2.0-3.0 High-intensity range: 2.5-3.5 Refer to indication-specific guidelines for appropriate target ranges for prosthetic heart valve replacement. Current interpretive data was last revised on 2019. Blood 12/30/2024 5:50 PM CDT 12/30/2024 6:19 PM CDT Leno Vargas MD LAB BLOOD ORDERABLES Fin al Result Performing Organization Address City/[facility]/[place] [address] * Type and screen (12/30/2024 5:50 PM CDT) Mayur, indirect Negative ABO Rh O Positive [facility] Blood 12/30/2024 5:50 PM CDT 12/30/2024 6:32 PM CDT Narrative [facility] - 12/30/2024 7:30 PM CDT Has the patient had Daratumumab or Isatuximab in the past 6 months?->Unknown Leno Vargas MD LAB BLOOD BANK TEST ORDE RABLES Final Result Performing Organization Address [facility] Co de Phone Number [facility] [place] [address] * Comprehensive metabolic panel (12/30/2024 5:50 PM CDT) Pathologist [facility] Sodium 141 135 - 145 mmol/L Potassium, pl 4.1 3.3 - 4.9 mmol/L [facility] Chloride 100 97 - 110 mmol/L [facility] CO2 28 22 - 32 mmol/L [facility] Anion gap 13 2 - 15 mmol/L [facility] BUN 18 6 - 25 mg/dL [facility] Creatinine 0.85 0.80 - 1.30 mg/dL [facility] Glucose 160 70 - 199 mg/dL [facility] Comment: Interpretive Data Fasting glucose >/= [...] Calcium 9.9 8.5 - 10.3 mg/dL [facility] Bilirubin, total 0.2 0.1 - 1.2 mg/dL [facility] Protein, pl 7.3 6.5 - 8.5 g/dL [facility] Albumin 4.4 3.5 - 5.0 g/dL [facility] Alk phos 60 40 - 130 Units/L [facility] ALT 16 7 - 55 Units/L [facility] AST 23 10 - 50 Units/L [facility] Blood 12/30/2024 5:50 PM CDT 12/30/2024 6:05 PM CDT Leno Vargas MD LAB BLOOD ORDERABLES Fin al Result [facility] [place] [address] from Last 3 Months Insurance [facility] ANTHEM ACCESS CHOICE ANTH ACCESS CHOICE Advance Directives For more information, please contact: [phone] * Full Code (Latest Code Status on File) Date Activated Date Inactivated Comments 12/31/2024 5:03 AM 01/02/2025 8:46 PM Care Teams Medical Writer Relationship Specialty Start Date End Date Winter Terry MD [address] [place] [address] PCP - General Internal Medicine 12/30/24
--- OUTSIDE RECORDS SUMMARY | 2025-01-04 12:02 | XMS_ITS ---
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
--- OUTSIDE RECORDS SUMMARY | 2025-01-04 12:02 | XMS_ITS | Encounter Summary ---
Author Organization [facility] Address [address] [place] [address] Phone Care Team Providers Care Folder Stitcher Operator Name Role Phone Winter Terry MD Primary Care Provider Haroldo Burt MD Unavailable Unavailable Pop Waller MD Unavailable [phone] Encounter Details Date Type Department Care Team (Late st Contact Info) Description 06/12/2024 Telephone [facility] [address] [address] Pop Waller MD [address] [place] [phone] Social History Tobacco Use Types Packs/Day [...] PM CDT Office Visit [facility] [address] [address] Pop Waller MD [address] [place] [phone] 01/04/2025 12:45 PM CDT Clinical Support [facility] [address] [address] Nurse, [facility] 04/09/2025 10:30 AM CDT Ancillary Procedure [facility] [address] [address] documented as of this encounter Visit Diagnoses Not on filedocumented in this encounter Care Teams Folder Stitcher Operator Relationship Specialty Start Date End Date Winter Terry MD [address] [address] PCP - General Internal Medicine 03/19/24 Haroldo Burt MD [address] [address] Internal Medicine 03/19/24 Pop Waller MD [address] [place] [phone] Consulting Physician Oncology 03/26/24 documented as of this encounter
--- OUTSIDE RECORDS SUMMARY | 2025-01-04 12:02 | XMS_ITS | Encounter Summary ---
Author Organization [facility] Address [facility] [place] [address] Care Team Providers Care Solid Waste Truck Driver Name Role Phone Winter Terry MD Primary Care Provider [phone] Chalino Palacios MD Unavailable Encounter Details Date Type Department Care Team (Latest Contact Info) Description 06/01/2024 [facility] [address] [address] Winter Terry MD [address] [place] [address] Overdue for physical Social History Tobacco [...] Description 01/23/2025 8:40 AM CDT Office Visit [facility] Mult[facility]ty [address] [place] [address] Winter Terry MD [address] [address] 04/09/2025 11:[address] [facility] Radiation Oncology [address] [facility] [address] [place] [address] Chalino Palacios MD [address] [facility] [address] [place] [address] documented as of this encounter Visit Diagnoses Not on filedocumented in this encounter Additional Health Concerns Assessment Noted Time PHQ-9 Depression Total Score: 0 03/30/20 23 9:33 AM CDT documented as of this encounter Care Teams Solid Waste Truck Driver Relationship Specialty Start Date End Date Winter Terry MD [address] [address] PCP - General INTERNAL MEDICINE 03/07/23 Chalino Palacios MD [address] [address] Consulting Physician RADIATION ONCOLOGY 04/02/24 documented as of this encounter
--- OUTSIDE RECORDS SUMMARY | 2025-01-04 12:02 | XMS_ITS | Encounter Summary ---
Author Organization [facility] Address [facility] [place] [address] Care Team Providers Care Sawing And Assembly Supervisor Name Role Phone Winter Terry MD Primary Care Provider [phone] Chalino Palacios MD Unavailable Encounter Details Date Type Department Care Team (Late Contact Info) Description 02/29/2024 [employer] [facility] [place] [address] [place] [address] Radha Carroll, BATTERY ENGINEER [address] [place] [address] MRI Results Social History Tobacco [...] 8:40 AM CDT Office Visit [facility] Multispecialty [facility] [place] [address] [place] [address] Winter Terry MD [address] [address] 04/09/2025 11:30 AM CDT Appointment [facility] Radiation Oncology [address] [facility] [place] [address] Chalino Palacios MD [address] [facility] [address] [place] [address] documented as of this encounter Visit Diagnoses Not on filedocumented in this encounter Additional Health Concerns Assessment Noted Time PHQ-9 Depression Total Score: 0 03/30/20 23 9:33 AM CDT documented as of this encounter Care Teams Sawing And Assembly Supervisor Relationship Specialty Start Date End Date Winter Terry MD [address] [place] [address] PCP - General INTERNAL MEDICINE 03/07/23 Chalino Palacios MD [address] [address] Consulting Physician RADIATION ONCOLOGY 04/02/24 documented as of this encounter
--- OUTSIDE RECORDS SUMMARY | 2025-01-04 12:02 | XMS_ITS | Encounter Summary ---
Author Organization [facility] Address [address] [place] [address] Care Team Providers Care Ammonia Box Tender Name Role Phone Winter Terry MD Primary Care Provider [phone] Chalino Palacios MD Unavailable Reason for Visit [...] Description 01/23/2025 8:40 AM CDT Office Visit [facility] - [place] [address] [address] [place] [address] Winter Terry MD [address] [place] [address] [place], [place] [id number] 04/09/2025 11:30 AM CDT Appointment [facility] Radiation Oncology [address] [place] [address] Chalino Palacios MD [address] [facility] [address] [place] [address] documented as of this encounter Procedures Procedure Name Priority Date/Time Associated Diagnosis Comments CT GENERIC 12/30/2024 CT GENERIC 12/30/2024 OUTSIDE LAB (SCAN ORDER) 12/30/2024 OUTSIDE LAB (SCAN ORDER) 12/30/2024 IMAGE GENERIC 12/30/2024 documented in this encounter Results * OUTSIDE LAB (SCAN ORDER) (12/30/2024) 12/30/2024 [facility] Scanned SCANNING Final Resu lt * OUTSIDE LAB (SCAN ORDER) (12/30/2024) 12/30/2024 [facility] Scanned SCANNING Final Resu lt * CT GENERIC (12/30/2024) Anatomical Region Laterality Modality Other 12/30/2024 [facility] Scanned SCANNING Final Resu lt * CT GENERIC (12/30/2024) Anatomical Region Laterality Modality Other 12/30/2024 [facility] Scanned SCANNING Final Resu lt * IMAGE GENERIC (12/30/2024) Anatomical Region Laterality Modality Other 12/30/2024 [facility] Scanned SCANNING Final Resu lt documented in this encounter Visit Diagnoses Not on filedocumented in this encounter Additional Health Concerns Assessment Noted Time PHQ-9 Depression Total Score: 0 03/30/20 23 9:33 AM CDT documented as of this encounter Care Teams Ammonia Box Tender Relationship Specialty Start Date End Date Winter Terry MD [address] [address] PCP - General INTERNAL MEDICINE 03/07/23 Chalino Palacios MD [address] [address] Consulting Physician RADIATION ONCOLOGY 04/02/24 documented as of this encounter
--- OUTSIDE RECORDS SUMMARY | 2025-01-04 12:02 | XMS_ITS | Continuity of Care Document ---
Author Name [facility] Organization [facility] Care Team Providers Care Tetryl Dissolver Operator Name Role Phone [facility] Unavailable Unavailable Encounters [...] ADM Date DC Date Status Disposition Source [facility] Outpatient Encounter [id number] 4 03/27 [facility]
--- OUTSIDE RECORDS SUMMARY | 2025-01-04 12:02 | XMS_ITS | Encounter Summary ---
Author Organization [facility] Address [facility] [place] [address] Care Team Providers Care Maintenance Supervisor 2Nd Shift Name Role Phone Winter Terry MD Primary Care Provider [phone] Chalino Palacios MD Unavailable Reason for Visit * Reason Onset Date Comments Question 01/03/2025 Encounter Details Date Type Department Care Team (Late st Contact Info) Description 01/03/2025 Telephone [facility] [place] [address] [place] [address] [address] [place] [address] Winter Terry MD [address] [facility] [address] [place] [address] Question Social History Tobacco Use [...] as of this encounter Progress Notes * Fiona Hdez MA - 01/04/2025 11:28 AM CDT Follow up call to patient post hospitalization Date of hospital discharge: 01/02/25 Patient discharged from: [facility] Discharge diagnosis/diagnoses: Fall, initial encounter Procedures performed while inpatient: none Any follow up services needed: F/U with PCP Education on self management: Yes Does patient have access to care and services (rides, etc)? Yes Appointment scheduled for follow up in the office: LVM for pt to call the office. * Phoebe Alvarado - 01/04/2025 6:52 AM CDT Please see message below from Dr. Terry * Phoebe Alvarado - 01/03/2025 11:57 AM CDT Questions about CT scan results. Please return call when available. documented in this encounter Plan of Treatment Upcoming Encounters Date Type Department Care Team (Late st Contact Info) Description 01/23/2025 8:40 AM CDT Office Visit [facility] Mult[facility]ty Care - [place] [address] [address] [place] [address] Winter Terry MD [address] [place] [address] 04/09/2025 11:30 AM CDT Appointment [facility] Radiation Oncology [address] [place] [address] [place] [address] Chalino Palacios MD [address] [place] [address] [address] [place] [address] documented as of this encounter Visit Diagnoses Not on filedocumented in this encounter Additional Health Concerns Assessment Noted Time PHQ-9 Depression Total Score: 0 03/30/20 9:33 AM CDT documented as of this encounter Care Teams Maintenance Supervisor 2Nd Shift Relationship Specialty Start Date End Date Winter Terry MD 1188 [facility] [address] [place] [address] PCP - General INTERNAL MEDICINE 03/07/23 Chalino Palacios MD [address] [address] Consulting Physician RADIATION ONCOLOGY 04/02/24 documented as of this encounter
--- OUTSIDE RECORDS SUMMARY | 2025-01-04 12:02 | XMS_ITS | Encounter Summary ---
Author Organization [facility] Address [facility] [place] [address] Care Team Providers Care Bed Spring Maker Name Role Phone Winter Terry MD Primary Care Provider [phone] Chalino Palacios MD Unavailable Encounter Details Date [...] [facility] Mult[facility]ty Care - [place] [address] [address] [place] [address] Winter Terry MD [address] [place] [address] [address] [place] [address] 04/09/2025 11:[address] [facility] Radiation Oncology [address] [place] [address] [place] [address] Chalino Palacios MD [address] [facility] [address] [place] [address] documented as of this encounter Visit Diagnoses Not on filedocumented in this encounter Additional Health Concerns Assessment Noted Time PHQ-9 Depression Total Score: 0 03/30/20 23 9:33 AM CDT documented as of this encounter Care Teams Bed Spring Maker Relationship Specialty Start Date End Date Winter Terry MD [address] [address] PCP - General INTERNAL MEDICINE 03/07/23 Chalino Palacios MD 1188 [facility] [address] [place] [address] Consulting Physician RADIATION ONCOLOGY 04/02/24 documented as of this encounter
--- OUTSIDE RECORDS SUMMARY | 2025-01-04 12:02 | XMS_ITS | Encounter Summary ---
Author Organization [facility] Address [facility] [place] [address] Care Team Providers Care Marketing Intelligence Manager Name Role Phone Suresh Lynn MD Primary Care Pr ovider Unavailable Winter Terry MD Primary Care Provider [phone] Chalino Palacios MD Unavailable Encounter Details Date Type Department Care Team (Late Contact Info) Description 12/31/2022 MyChart Message Enc [facility] [address] [facility] [address] [place] [address] Suresh Lynn MD Lab results [...] Visit [facility]ty Care - [place] [address] [address] [place] [address] Winter Trery MD [address] [place] [address] 04/09/2025 11:[address] [facility] Radiation Oncology [address] [place] [address] [place] [address] Chalino Palacios MD 210 [facility] [address] [place] [address] documented as of this encounter Visit Diagnoses Not on filedocumented in this encounter Additional Health Concerns Assessment Noted Time PHQ-9 Depression Total Score: 12 023 5:43 PM CDT documented as of this encounter Care Teams Marketing Intelligence Manager Relationship Specialty Start Date End Date Suresh Lynn MD PCP - General FAMILY PRACTICE 12/31/22 03/06/23 Winter Terry MD [address] [place] [address] PCP - General INTERNAL MEDICINE 03/07/23 Chalino Palacios MD [address] [place] [address] Consulting Physician RADIATION ONCOLOGY 04/02/24 documented as of this encounter
--- OUTSIDE RECORDS SUMMARY | 2025-01-04 12:02 | XMS_ITS | Encounter Summary ---
Author Organization [facility] Address [address] [place] [address] Care Team Providers Care 1St Grade Teacher Name Role Phone Unavailable Primary Care Provider Unavailabl e Reason for Visit * Reason Onset Date Comments Follow-up 01/04/2025 Encounter Details Date Type Department Care Team (Late st Contact Info) Description 01/04/2025 Telephone [facility] - Internal Medicine [address] [address] Isai Merino MD [address] [place] [id number] Follow-up Social History Tobacco Use Types [...] Leesa danielson. States patient was discharged from [place] on 01/02 (subarachnoid hemorrhage) and AVS summary [...] imaging. When looking in discharge summary from [facility], found patient's appt as being with Dr. [...]
--- OUTSIDE RECORDS SUMMARY | 2025-01-04 12:02 | XMS_ITS | Encounter Summary ---
Author Organization [facility] Address [facility] [place] [address] Care Team Providers Care Wind Farm Engineer Name Role Phone Suresh Lynn MD Primary Care Pr ovider Unavailable Winter Terry MD Primary Care Provider Chalino Palacios MD Unavailable Encounter Details Date Type Department Care Team (Late Contact Info) Description 12/31/2022 MyChart Message Enc [facility] [address] [facility] [address] [place] [address] Suresh Lynn MD Lab results [...] Visit [facility] [place] [address] [address] [place] [address] Winter Terry MD [address] [place] [address] 04/09/2025 11:30 AM CDT Appointment [facility] Radiation Oncology [address] [place] [address] [place] [address] Chalino Palacios MD 210 [facility] [address] [place] [address] documented as of this encounter Visit Diagnoses Not on filedocumented in this encounter Additional Health Concerns Assessment Noted Time PHQ-9 Depression Total Score: 12 023 5:43 PM CDT documented as of this encounter Care Teams Wind Farm Engineer Relationship Specialty Start Date End Date Suresh Lynn MD PCP - General FAMILY PRACTICE 12/31/22 03/06/23 Winter Terry MD [address] [place] [address] PCP - General INTERNAL MEDICINE 03/07/23 Chalino Palacios MD [address] [place] [address] Consulting Physician RADIATION ONCOLOGY 04/02/24 documented as of this encounter
--- OUTSIDE RECORDS SUMMARY | 2025-01-04 12:02 | XMS_ITS | Encounter Summary ---
Author Organization [facility] Address [facility] [place] [address] Care Team Providers Care Intermediate Teacher Name Role Phone Winter Terry MD Primary Care Provider [phone] Chalino Palacios MD Unavailable Encounter Details Date Type Department Care Team (Late st Contact Info) Description 06/12/2024 Space Exploration Technologiest Message [facility] [place] [address] [place] [address] Radha Carroll, BILINGUAL SPANISH INB[employer] SALES [address] [place] [address] Covid 19 Social History Tobacco [...] Description 01/23/2025 8:40 AM CDT Office Visit [facility] Multispecialty [facility] [place] [address] [place] [address] Winter Terry MD [address] [address] 04/09/2025 11:30 AM CDT Appointment [facility] Radiation Oncology [address] [facility] [place] [address] Chalino Palacios MD 210 [facility] [address] [place] [address] documented as of this encounter Visit Diagnoses Not on filedocumented in this encounter Additional Health Concerns Assessment Noted Time PHQ-9 Depression Total Score: 0 03/30/20 23 9:33 AM CDT documented as of this encounter Care Teams Intermediate Teacher Relationship Specialty Start Date End Date Winter Terry MD [address] [place] [address] PCP - General INTERNAL MEDICINE 03/07/23 Chalino Palacios MD [address] [address] Consulting Physician RADIATION ONCOLOGY 04/02/24 documented as of this encounter
--- OUTSIDE RECORDS SUMMARY | 2025-01-04 12:02 | XMS_ITS | Clinical Summary ---
Author Organization [facility] [address] Address [address] [place] [id number] Care Team Providers Care Inspector Plug Seam Name Role Phone Winter Terry MD Primary Care Provider [phone] Allergies Active Allergy Reactions Criticality Noted Date [...] Assessment & Plan (12/31/2024 3:24 PM CDT): [id number] [place], [place] - [address] AT [address] & [employer] [address] [facility] [address] Patient will use [facility] at discharge. Acute pain [...] will discuss with team Dr. Waller oncologist [phone] 01/01 Ordered MRI with and without Brain [...] Type Department Care Team Description 01/03/[address] [address] Shyanne Silva 12/30/2024 5:10 PM CDT - 01/02/2025 3:45 PM CDT Hospital Encounter [address] [address] Alex Mccullough MD Aubin, Chandra D., MD [...] DEVICE Routine 12/30/2024 8 :43 PM CDT AR CRITICAL CARE ILL/INJURED PATIENT INIT 30-74 MIN [...] * POCT glucose (01/02/2025 12:01 PM CDT) [facility] Signature Glucose, POC 127 70 - 199 mg/dL Blood 01/02/2025 12:0 1 PM CDT 01/02/2025 12:01 PM CDT us Flo Light MD LAB POCT ORDERABLES - DEV ICE Final Result [facility] [place] [address] * TRANSTHORACIC ECHO (TTE) COMPLETE W DOPPLER/CF W CONTRAST (01/02/2025 11:04 AM CDT) Anatomical Region Laterality Modality Ultrasound 01/02/2025 10:1 7 AM CDT Narrative 01/02/2025 11:21 AM CDT [facility] [place] [address] Transthoracic Echocardiographic Report Patient Name: KEMAR RAIN WESLEY : 1965 (59y 8m) Gender: M Study Date: 01/02/2025 10:17:54 AM Ht(Inch): 67 Wt(Lb): 143.96 BSA: 1.76 Senior Net Architect: Chon Car RDCS Location: [id number] Order Provider: ADRIANA BARBA Heart Rate: 76 [...] Note Manuel Lomax MD PhD - 01/02/2025 [facility] [place] [address] Transthoracic Echocardiographic Report Patient Name: KEMAR RAIN WESLEY : 1965 (59y 8m) Gender: M Study Date: 01/02/2025 10:17:54 AM Ht(Inch): 67 Wt(Lb): 143.96 BSA: 1.76 Senior Net Architect: Chon Car RDCS Location: [id number] Order Provider: ADRIANA BARBA Heart Rate: 76 [...] LA Length 4C 4.46 cm MV Decel Blgp318.40 msec [ 104.00 - 258.00 ] LA [...] Manuel Lomax M.D. 01/02/2025 11:21:38 AM CDT dAriana Barba NP CV ECHO PROCEDURES F inal Result * POCT glucose (01/02/2025 8:09 AM CDT) Glucose, POC 135 70 - 199 mg/dL Blood 01/02/2025 8:09 AM CDT 01/02/2025 8:09 AM CDT us Flo Light MD LAB POCT ORDERABLES - DEV ICE Final Result [facility] [place] [address] * MRI Brain W WO [...] signed by: Geovanny Salazar M.D. Adriana Barba DIRECTOR DENTAL SERVICES IMG MRI PROCEDURES F inal Result * (ABNORMAL) POCT glucose (01/01/2025 7:47 PM CDT) Glucose, POC 228(H) 70 - 199 mg/dL Blood 01/01/2025 7:47 PM CDT 01/01/2025 7:47 PM CDT Flo Light MD LAB POCT ORDERABLES - DEV ICE Final Result [facility] [place] [address] * POCT glucose (01/01/2025 5:04 PM CDT) Glucose, POC 142 70 - 199 mg/dL Blood 01/01/2025 5:04 PM CDT 01/01/2025 5:04 PM CDT Flo Light MD LAB POCT ORDERABLES - DEV ICE Final Result Performing Organization Address [facility] Co de Phone Number [facility] [employer] [place] [address] * (ABNORMAL) POCT glucose (01/01/2025 12:31 PM CDT) Glucose, POC 231(H) 70 - 199 mg/dL Blood 01/01/2025 12:3 1 PM CDT 01/01/2025 12:31 PM CDT Flo Light MD LAB POCT ORDERABLES - DEV ICE Final Result Performing Organization Address [facility] de Phone Number [facility] [employer] [place] [address] * POCT glucose (01/01/2025 8:24 AM CDT) Glucose, POC 134 70 - 199 mg/dL Blood 01/01/2025 8:24 AM CDT 01/01/2025 8:24 AM CDT Flo Light MD LAB POCT ORDERABLES - DEV ICE Final Result Performing Organization Address [facility] de Phone Number [facility] [employer] [place] [address] * eGFR (12/31/2024 9:36 PM CDT) eGFR [...] MD LAB BLOOD ORDERABLES Layla aldana Result [facility] [place] [address] * CBC without differential (12/31/2024 9:36 PM CDT) WBC 6.3 3.8 - 9.9 K/cumm Hgb 13.9 13.0 - 17.5 g/dL [facility] Hct 40.2 38.9 - 50.3 % [facility] Plt 194 150 - 400 K/cumm [facility] MPV 10.2 9.1 - 12.3 fL [facility] RBC 4.41 4.30 - 5.80 M/cumm [facility] MCV 91.2 81.3 - 96.4 fL [facility] MCH 31.5 27.1 - 33.3 pg [facility] MCHC 34.6 32.3 - 35.7 g/dL [facility] RDW CV 12.4 11.1 - 14.9 % [facility] RDW SD 41.6 35.7 - 48.1 fL [facility] NRBC abs 0.00 0.00 - 0.01 K/cumm [facility] Blood 12/31/2024 9:36 PM CDT 12/31/2024 10:23 PM CDT Flo Light MD LAB BLOOD ORDERABLES Layla l Result Performing Organization Address City/[facility]/ZIP Co de Phone Number [facility] [place] [address] * Phosphorus (12/31/2024 9:36 PM CDT) Pathologist [facility] Phosphorus, pl 3.4 2.3 - 4.5 mg/dL Blood 12/31/2024 9:36 PM CDT 12/31/2024 10:20 PM CDT Flo Light MD LAB BLOOD ORDERABLES Layla l Result Performing Organization Address [facility] Co de Phone Number [facility] [employer] [place] [address] * Magnesium (12/31/2024 9:36 PM CDT) [facility] Magnesium 2.0 1.4 - 2.5 mg/dL Blood 12/31/2024 9:36 PM CDT 12/31/2024 10:20 PM CDT Flo Light MD LAB BLOOD ORDERABLES Layla l Result [facility] [employer] [place] [address] * Basic metabolic panel (12/31/2024 9:36 PM CDT) Pathologist [facility] Sodium 137 135 - 145 mmol/L Potassium, pl 4.3 3.3 - 4.9 mmol/L [facility] Chloride 98 97 - 110 mmol/L [facility] CO2 29 22 - 32 mmol/L [facility] Anion gap 10 2 - 15 mmol/L [facility] BUN 13 6 - 25 mg/dL [facility] Creatinine 0.93 0.80 - 1.30 mg/dL [facility] Glucose 197 70 - 199 mg/dL [facility] Comment: Interpretive Data Fasting glucose >/= [...] 2022. Calcium 10.0 8.5 - 10.3 mg/dL [facility] Blood 12/31/2024 9:36 PM CDT 12/31/2024 10:20 PM CDT Flo Light MD LAB BLOOD ORDERABLES Layla l Result Performing Organization Address City/[facility]/ZIP Co de Phone Number [facility] Department of [employer] [place] [address] * POCT glucose (12/31/2024 9:13 PM CDT) Glucose, POC 182 70 - 199 mg/dL Blood 12/31/2024 9:13 PM CDT 12/31/2024 9:13 PM CDT Flo Light MD LAB POCT ORDERABLES - DEV ICE Final Result Performing Organization Address [facility]/ZIP Co de Phone Number [facility] [place] [address] * POCT glucose (12/31/2024 4:13 PM CDT) Glucose, POC 141 70 - 199 mg/dL Blood 12/31/2024 4:13 PM CDT 12/31/2024 4:13 PM CDT Flo Light MD LAB POCT ORDERABLES - DEV ICE Final Result Performing Organization Address [facility] Co de Phone Number [facility] Department [place] [address] * POCT glucose (12/31/2024 2:21 AM CDT) Glucose, POC 188 70 - 199 mg/dL Blood 12/31/2024 2:21 AM CDT 12/31/2024 2:21 AM CDT Flo Light MD LAB POCT ORDERABLES - DEV ICE Final Result Performing Organization Address [facility] de Phone Number [facility] [place] [address] * CTA Head Neck W WO Contrast [...] the CTA were generated on a dedicated workstation/chief service observer. Contrast information: 75 mL Optiray-350 IV COMPARISON: [...] carotid arteries. No filling defects identified.. The aueurs-vm-Yidgbr is complete. The anterior and middle cerebral [...] the CTA were generated on a dedicated workstation/chief service observer. Contrast information: 75 mL Optiray-350 IV COMPARISON: [...] carotid arteries. No filling defects identified.. The uwhqyt-an-Wvtjxn is complete. The anterior and middle cerebral [...] * POCT glucose (12/30/2024 8:43 PM CDT) [facility] Signature Glucose, POC 155 70 - 199 mg/dL Blood 12/30/2024 8:43 PM CDT 12/30/2024 8:43 PM CDT Darin Moran MD LAB POCT ORDERABLES - DEVICE Final Result Performing Organization Address City/State/[facility] Co de Phone Number [facility] [place] [address] * AR CRITICAL CARE ILL/INJURED PATIENT INIT 30-74 MIN [...] 2020. Trop I hs delta 0 ng/L [facility] Trop I hs interp Insignificant [facility] Blood 12/30/2024 8:24 PM CDT 12/30/2024 8:31 PM CDT us Leno Vargas MD LAB BLOOD ORDERABLES Fin al Result Performing Organization Address City/[facility]/ZIP Co de Phone Number [facility] Department [place] [address] * Check Sample (12/30/2024 8:24 PM CDT) Pathologist [facility] ABO Rh O Positive [facility] HCLL OTHER 12/30/2024 8:24 PM CDT 12/30/2024 8:33 PM CDT Darin Moran MD LAB BLOOD ORDERABLES Final R esult Performing Organization Address [facility] Co de Phone Number [facility] Department [place] [address] [facility] * Neuro CT Outside Consult (12/30/2024 [...] images may or may not represent the eek source data set and thus may contain [...] STUDY INITIALLY PERFORMED: 12/30/2024 at [facility]. TYPE OF STUDY: Multiple CT images of [...] STUDY INITIALLY PERFORMED: 12/30/2024 at [facility]. TYPE OF STUDY: Multiple CT images of [...] images may or may not represent the eek source data set and thus may contain [...] images may or may not represent the eek source data set and thus may contain [...] STUDY INITIALLY PERFORMED: 12/30/2024 at [facility]. TYPE OF STUDY: Multiple CT images of [...] STUDY INITIALLY PERFORMED: 12/30/2024 at [facility]. TYPE OF STUDY: Multiple CT images of [...] images may or may not represent the eek source data set and thus may contain [...] Outside Reference (12/30/2024 6:49 PM CDT) Impressions RAD_PACS_[facility] - 12/30/2024 6:49 PM CDT These images are for Reference purposes only and have not been reviewed by [facility]. There will be no report generated by a [facility] Radiologist. Narrative RAD_PACS_[facility] - 12/30/2024 6:49 [...] * POCT glucose (12/30/2024 6:03 PM CDT) [facility] Glucose, POC 164 70 - 199 mg/dL Blood 12/30/2024 6:03 PM CDT 12/30/2024 6:03 PM CDT Flo Light MD LAB POCT ORDERABLES - DEV ICE Final Result [facility] [place] [address] * Troponin I high-sensitivity series (baseline, 2hr, 4hr, 6hr) (12/30/2024 5:50 PM CDT) [facility] Trop I hs <4 <=35 ng/L Comment: Interpretive Data For further hscTnI resources including the diagnostic algorithm and an aid in interpretation, copy and paste this link: https://bjhlab.testcatalog.org/show/hsTrop-1 Current Interpretive Data last revised 2020. Blood 12/30/2024 5:50 PM CDT 12/30/2024 6:06 PM CDT Leno Vargas MD LAB BLOOD ORDERABLES Fin al Result Performing Organization Address City/[facility]/ZIP Co de Phone Number [facility] Department [place] [address] * eGFR (12/30/2024 5:50 PM CDT) eGFR [...] LAB BLOOD ORDERABLES Fin al Result [facility] [place] [address] * (ABNORMAL) Differential, auto (12/30/2024 5:50 PM CDT) Neutrophil abs 9.6(H) 1.5 - 6.5 K/cumm Imm gran abs 0.0 0.0 - 0.1 K/cumm [facility] Lymphocyte abs 0.7(L) 0.8 - 3.3 K/cumm [facility] Monocyte abs 0.7 0.2 - 0.8 K/cumm [facility] Eosinophil abs 0.0 0.0 - 0.5 K/cumm [facility] Basophil abs 0.0 0.0 - 0.1 K/cumm [facility] Neutrophil pct 86.6 % [facility] Comment: Interpretive Data Percent cell count reference ranges are not reported, since discordance with absolute values may lead to misinterpretation of CBC data. Current Interpretive Data was last revised on 2018. Imm gran pct 0.3 % [facility] Comment: Interpretive Data Percent cell count reference ranges are not reported, since discordance with absolute values may lead to misinterpretation of CBC data. Current Interpretive Data was last revised on 2018. Lymphocyte pct 6.6 % [facility] Comment: Interpretive Data Percent cell count reference ranges are not reported, since discordance with absolute values may lead to misinterpretation of CBC data. Current Interpretive Data was last revised on 2018. Monocyte pct 6.0 % [facility] Comment: Interpretive Data Percent cell count reference ranges are not reported, since discordance with absolute values may lead to misinterpretation of CBC data. Current Interpretive Data was last revised on 2018. Eosinophil pct 0.2 % [facility] Comment: Interpretive Data Percent cell count reference ranges are not reported, since discordance with absolute values may lead to misinterpretation of CBC data. Current Interpretive Data was last revised on 2018. Basophil pct 0.3 % [facility] Comment: Interpretive Data Percent cell count reference ranges are not reported, since discordance with absolute values may lead to misinterpretation of CBC data. Current Interpretive Data was last revised on 2018. Blood 12/30/2024 5:50 PM CDT 12/30/2024 6:05 PM CDT Leno Vargas MD LAB BLOOD ORDERABLES Fin al Result Performing Organization Address [facility] de Phone Number [facility] [place] [address] * (ABNORMAL) CBC with auto differential (12/30/2024 5:50 PM CDT) [facility] WBC 11.1(H) 3.8 - 9.9 K/cumm Hgb 13.7 13.0 - 17.5 g/dL [facility] Hct 39.4 38.9 - 50.3 % [facility] Plt 187 150 - 400 K/cumm [facility] MPV 9.9 9.1 - 12.3 fL [facility] RBC 4.34 4.30 - 5.80 M/cumm [facility] MCV 90.8 81.3 - 96.4 fL [facility] MCH 31.6 27.1 - 33.3 pg [facility] MCHC 34.8 32.3 - 35.7 g/dL [facility] RDW CV 12.1 11.1 - 14.9 % [facility] RDW SD 40.7 35.7 - 48.1 fL [facility] NRBC abs 0.00 0.00 - 0.01 K/cumm [facility] Blood 12/30/2024 5:50 PM CDT 12/30/2024 6:05 PM CDT Leno Vargas MD LAB BLOOD ORDERABLES Fin al Result Performing Organization Address [facility] de Phone Number [facility] [place] [address] * aPTT (12/30/2024 5:50 PM CDT) Pathologist [facility] aPTT 29 28 - 38 sec Comment: Interpretive Data Heparin therapeutic range: 66.0 - 100.0 seconds. Range based on correlation with therapeutic heparin activity range of 0.3 - 0.7 Units/mL. Current interpretive data was last revised on 2023. Blood 12/30/2024 5:50 PM CDT 12/30/2024 6:19 PM CDT Leno Vargas MD LAB BLOOD ORDERABLES Fin al Result Performing Organization Address [facility] Co de Phone Number [facility] [employer] [place] [address] * Protime-INR (12/30/2024 5:50 PM CDT) PT 11.0 9.7 - 13.0 sec INR 1.02 0.90 - 1.20 [facility] Comment: Interpretive data Oral anticoagulant therapeutic ranges: Venous thromboembolism prophylaxis or treatment: 2.0-3.0 CARDIOLOGY Standard range: 2.0-3.0 High-intensity range: 2.5-3.5 Refer to indication-specific guidelines for appropriate target ranges for prosthetic heart valve replacement. Current interpretive data was last revised on 2019. Blood 12/30/2024 5:50 PM CDT 12/30/2024 6:19 PM CDT Leno Vargas MD LAB BLOOD ORDERABLES Fin al Result Performing Organization Address [facility] [place] [address] * Type and screen (12/30/2024 5:50 PM CDT) Mayur, indirect Negative ABO Rh O Positive [facility] Blood 12/30/2024 5:50 PM CDT 12/30/2024 6:32 PM CDT Narrative [facility] - 12/30/2024 7:30 PM CDT Has the patient had Daratumumab or Isatuximab in the past 6 months?->Unknown Leno Vargas MD LAB BLOOD BANK TEST ORDE RABLES Final Result Performing Organization Address City/[facility] [place] [address] * Comprehensive metabolic panel (12/30/2024 5:50 PM CDT) Sodium 141 135 - 145 mmol/L Potassium, pl 4.1 3.3 - 4.9 mmol/L [facility] Chloride 100 97 - 110 mmol/L [facility] CO2 28 22 - 32 mmol/L [facility] Anion gap 13 2 - 15 mmol/L [facility] BUN 18 6 - 25 mg/dL [facility] Creatinine 0.85 0.80 - 1.30 mg/dL [facility] Glucose 160 70 - 199 mg/dL [facility] Comment: Interpretive Data Fasting glucose >/= [...] 2022. Calcium 9.9 8.5 - 10.3 mg/dL [facility] Bilirubin, total 0.2 0.1 - 1.2 mg/dL [facility] Protein, pl 7.3 6.5 - 8.5 g/dL [facility] Albumin 4.4 3.5 - 5.0 g/dL [facility] Alk phos 60 40 - 130 Units/L [facility] ALT 16 7 - 55 Units/L [facility] AST 23 10 - 50 Units/L [facility] Blood 12/30/2024 5:50 PM CDT 12/30/2024 6:05 PM CDT us Leno Vargas MD LAB BLOOD ORDERABLES Fin al Result [facility] [place] [address] from Last 3 Months Insurance [employer] Address: [facility] [id number] [place] [address] ANTHEM ACCESS CHOICE ANTHEM ACCESS CHOICE Advance Directives For more information, please contact: [phone] * Full Code (Latest Code Status on File) Date Activated Date Inactivated Comments 12/31/2024 5:03 AM 01/02/2025 8:46 PM Care Teams Inspector Plug Seam Relationship Specialty Start Date End Date Winter Terry MD [address] [place] [address] PCP - General Internal Medicine 12/30/24
--- OUTSIDE RECORDS SUMMARY | 2025-01-04 12:02 | XMS_ITS | Encounter Summary ---
Author Organization [facility] Address [facility] [place] [address] Care Team Providers Care Cigar Making Supervisor Name Role Phone Winter Terry MD Primary Care Provider [phone] Chalino Palacios MD Unavailable Encounter Details Date Type Department Care Team (Late Contact Info) Description 03/19/2024 [facility] [address] [id number] Winter Terry MD [address] [place] [id number] Pain Management Social History Tobacco Use [...] 01/23/2025 8:40 AM CDT Office Visit [facility] - [address] [place], [place] [id number] Winter Terry MD [address] [address] 04/09/2025 11:30 AM CDT Appointment [facility] Radiation Oncology [address] [place] [address] Chalino Palacios MD [address] [facility] [address] [place] [address] documented as of this encounter Visit Diagnoses Not on filedocumented in this encounter Additional Health Concerns Assessment Noted Time PHQ-9 Depression Total Score: 0 03/30/20 23 9:33 AM CDT documented as of this encounter Care Teams Cigar Making Supervisor Relationship Specialty Start Date End Date Winter Terry MD [address] [address] PCP - General INTERNAL MEDICINE 03/07/23 Chalino Palacios MD [address] [address] Consulting Physician RADIATION ONCOLOGY 04/02/24 documented as of this encounter
--- OUTSIDE RECORDS SUMMARY | 2025-01-04 12:02 | XMS_ITS | Encounter Summary ---
Author Organization [facility] Address [facility] [place] [address] Care Team Providers Care Long Line Teamster Name Role Phone Winter Terry MD Primary Care Provider [phone] Chalino Palacios MD Unavailable Encounter Details Date Type Department Care Team (Late Contact Info) Description 02/22/2024 [facility] [address] Winter Terry MD [address] [place] [address] X-Ray Results Social History Tobacco Use [...] Description 01/23/2025 8:40 AM CDT Office Visit [facility] Multispecialty [address] [place] [address] Winter Terry MD [address] [address] 04/09/2025 11:30 AM CDT Appointment [facility] Radiation Oncology [address] [facility] [place] [address] Chalino Palacios MD [address] [facility] [address] [place] [address] documented as of this encounter Visit Diagnoses Not on filedocumented in this encounter Additional Health Concerns Assessment Noted Time PHQ-9 Depression Total Score: 0 03/30/20 23 9:33 AM CDT documented as of this encounter Care Teams Long Line Teamster Relationship Specialty Start Date End Date Winter Terry MD [address] [address] PCP - General INTERNAL MEDICINE 03/07/23 Chalino Palacios MD [address] [address] Consulting Physician RADIATION ONCOLOGY 04/02/24 documented as of this encounter
--- OUTSIDE RECORDS SUMMARY | 2025-01-04 12:02 | XMS_ITS | Encounter Summary ---
Author Organization [facility] Address [facility] [place] [address] Care Team Providers Care Wound Specialist Name Role Phone Winter Terry MD Primary Care Provider [phone] Chalino Palacios MD Unavailable Encounter Details Date Type Department Care Team (Latest Contact Info) Description 04/11/2024 Gummiit Message [facility] [address] [address] Winter Terry MD [address] [place] [address] Update for chemotherapy treatment Social History [...] [facility] Multispecialty [address] [place] [address] Winter Terry MD [address] [address] 04/09/2025 11:30 AM CDT Appointment [facility] Radiation Oncology [address] [facility] [place] [address] Chalino Palacios MD [address] [facility] [address] [place] [address] documented as of this encounter Visit Diagnoses Not on filedocumented in this encounter Additional Health Concerns Assessment Noted Time PHQ-9 Depression Total Score: 0 03/30/20 23 9:33 AM CDT documented as of this encounter Care Teams Wound Specialist Relationship Specialty Start Date End Date Winter Terry MD [address] [address] PCP - General INTERNAL MEDICINE 03/07/23 Chalino Palacios MD [address] [address] Consulting Physician RADIATION ONCOLOGY 04/02/24 documented as of this encounter
--- OUTSIDE RECORDS SUMMARY | 2025-01-04 12:02 | XMS_ITS | Clinical Summary ---
Author Organization [facility] Address [address] [facility] [place] [address] Care Team Providers Care Egg Processing Supervisor Name Role Phone Unavailable Primary Care Provider Unavailabl e Source Comments [facility],non-owned Affiliates and Associated Physician Practices is amultiple site organization consisting of ambulatory clinics and hospital sitesin [place] and [place]. This disclosure is being madepursuant to the Care Everywhere program and may not contain all information available regarding this patient. Last updated 18.[facility] Encounters Date Type Department Care Team Description 01/04/2025 Telephone [facility] - Internal Medicine [address] [place] [address] Isai Merino MD Follow-up from Last 3 [...]
--- OUTSIDE RECORDS SUMMARY | 2025-01-04 12:02 | XMS_ITS ---
Author Organization [facility] [address] [place] [address] Care Team Providers Care Process Equipment Operator Name Role Phone Winter Terry MD Primary Care Provider [phone] Active Problems Problem Noted Date Diagnosed Date [...] Assessment & Plan (12/31/2024 3:24 PM CDT): [id number] [place], [place] - [address] [place] [address]) & [employer] [address] [facility] [phone] Patient will use [facility] at discharge. Acute pain 12/31/2024 [...] will discuss with team Dr. Waller oncologist [phone] 01/01 Ordered MRI with and without Brain [...]
--- OUTSIDE RECORDS SUMMARY | 2025-01-04 12:02 | XMS_ITS | Encounter Summary ---
Author Organization [facility] Address [facility] [place] [address] Care Team Providers Care Ship Washer Name Role Phone Winter Terry MD Primary Care Provider [phone] Chalino Palacios MD Unavailable Encounter Details Date Type Department Care Team (Latest Contact Info) Description 03/02/2024 GameSaladt Message Enc [facility] Medical Group Multispecialty Care - [address] [place] [address] [place] [address] [place] [address] [address] [place] [address] Knee and hip pain Social [...] Description 01/23/2025 8:40 AM CDT Office Visit [facility] Medical Group Multispecialty Care - [place] [address] [address] [place] [address] Winter Terry MD [address] [place] [address] 04/09/2025 11:30 AM CDT Appointment [facility] Radiation Oncology [address] [facility] [place] [address] Chalino Palacios MD [address] [facility] [address] [place] [address] documented as of this encounter Visit Diagnoses Not on filedocumented in this encounter Additional Health Concerns Assessment Noted Time PHQ-9 Depression Total Score: 0 03/30/20 9:33 AM CDT documented as of this encounter Care Teams Ship Washer Relationship Specialty Start Date End Date Winter Terry MD [address] [place] [address] PCP - General INTERNAL MEDICINE 03/07/23 Chalino Palacios MD [address] [place] [address] Consulting Physician RADIATION ONCOLOGY 04/02/24 documented as of this encounter
--- OUTSIDE RECORDS SUMMARY | 2025-01-04 12:02 | XMS_ITS | Encounter Summary ---
Author Organization [facility] Address [facility] [place] [address] Care Team Providers Care Patch Machine Operator Name Role Phone Winter Terry MD Primary Care Provider [phone] Chalino Palacios MD Unavailable Encounter Details Date Type Department Care Team (Latest Contact Info) Description 03/05/2024 Physicians Formulat Message Enc [facility] [address] [place] [address] Radha Carroll, CLINICAL RESEARCH ADMINISTRATOR [address] [place] [address] X ray results for hip, [...] 8:40 AM CDT [facility] [address] [place] [address] Winter Terry MD [address] [facility] [address] [place] [address] 04/09/2025 11:30 AM CDT Appointment [facility] Radiation Oncology [address] [facility] [place] [address] Chalino Palacios MD [address] [facility] [address] [place] [address] documented as of this encounter Visit Diagnoses Not on filedocumented in this encounter Additional Health Concerns Assessment Noted Time PHQ-9 Depression Total Score: 0 03/30/20 23 9:33 AM CDT documented as of this encounter Care Teams Patch Machine Operator Relationship Specialty Start Date End Date Winter Terry MD [address] [address] PCP - General INTERNAL MEDICINE 03/07/23 Chalino Palacios MD [address] [facility] [address] [place] [address] Consulting Physician RADIATION ONCOLOGY 04/02/24 documented as of this encounter
--- OUTSIDE RECORDS SUMMARY | 2025-01-04 12:02 | XMS_ITS | Encounter Summary ---
Author Organization [facility] Address [address] [place] [address] Care Team Providers Care Home Care Attendant Name Role Phone Winter Terry MD Primary Care Provider [phone] Encounter Details Date Type Department Care Team (Late st Contact Info) Description 01/03/[address] [address] Shyanne Silva Social History Tobacco Use Types [...] on filedocumented in this encounter Care Teams Home Care Attendant Relationship Specialty Start Date End Date Winter Terry MD [address] [place] [address] PCP - General Internal Medicine 12/30/24 documented as of this encounter
--- OUTSIDE RECORDS SUMMARY | 2025-01-04 12:02 | XMS_ITS | Encounter Summary ---
Author Organization [facility] Address [facility] [place] [address] Care Team Providers Care Physicist Astrophysics Name Role Phone Winter Terry MD Primary Care Provider [phone] Chalino Palacios MD Unavailable Encounter Details Date Type Department Care Team (Latest Contact Info) Description 03/15/2024 TransferWiset [facility] [place] [address] [address] [place] [address] Winter Terry MD [address] [place] [address] Oncology Referral Social History Tobacco Use [...] 8:40 AM CDT Office Visit [facility] Multispecialty [facility] - [address] [place] [address] Winter Terry MD [address] [address] 04/09/2025 11:30 AM CDT Appointment [facility] Radiation Oncology [address] [facility] [place] [address] Chalino Palacios MD [address] [place] [address] [address] [place] [address] documented as of this encounter Visit Diagnoses Not on filedocumented in this encounter Additional Health Concerns Assessment Noted Time PHQ-9 Depression Total Score: 0 03/30/20 9:33 AM CDT documented as of this encounter Care Teams Physicist Astrophysics Relationship Specialty Start Date End Date Winter Terry MD [address] [address] PCP - General INTERNAL MEDICINE 03/07/23 Chalino Palacios MD [address] [address] Consulting Physician RADIATION ONCOLOGY 04/02/24 documented as of this encounter
--- OUTSIDE RECORDS SUMMARY | 2025-01-04 12:03 | XMS_ITS | Clinical Summary ---
Author Organization [facility] Address [facility] [place] [address] Care Team Providers Care Radiologic Therapist Name Role Phone Winter Terry MD Primary Care Provider [phone] Chalino Palacios MD Unavailable Medications Lancets MiscIndications:U ncontrolled type 2 diabetes mellitus with hyperglycemia ([facility] HHS/HCC) 1 Device by Does not apply route 3 (three) times daily before meals. 100 each 2 3 Active Alcohol Swabs (ALCOHOL PREP) PadsIndications:U ncontrolled type 2 diabetes mellitus with hyperglycemia ([facility]/HCC HHS/HCC) 1 Bag by Does not apply route 3 (three) times daily before meals. 100 each 2 3 Active Blood Glucose Monitoring Suppl (FREESTYLE LITE) w/Device KitIndications:He moglobin A1C greater than 9%, indicating poor diabetic control,Uncontrol led type 2 diabetes mellitus with hyperglycemia ([facility]/HCC HHS/HCC) 1 each by Does not apply route 3 (three) times daily. 1 kit 3 Active Glucose Blood (FREESTYLE LITE) test stripIndications: Hemoglobin A1C greater than 9%, indicating poor diabetic control,Uncontrol led type 2 diabetes mellitus with hyperglycemia ([facility] HHS/HCC) Use 3 times daily before [...] :Smoker,Moderate episode of recurrent major depressive disorder ([facility]) Take 1 tablet (150 mg total) [...] hyperglycemia, without long-term current use of insulin ([facility]),Dyslipid emia TAKE 1 TABLET BY MOUTH NIGHTLY AT BEDTIME 90 tablet 4 Active metFORMIN (GLUCOPHAGE) 500 MG tabletIndications :Type 2 diabetes mellitus with hyperglycemia, without long-term current use of insulin ([facility]) TAKE 2 TABLETS BY MOUTH TWICE A DAY WITH MEALS 360 tablet 4 Active Active Problems Problem Noted Date Diagnosed Date Adenocarcinoma, lung, left ([facility]) Chronic bilateral low back pain without sciatica 04/28/2024 Hyperlipidemia due to type 2 diabetes mellitus ([facility]) 04/28/2024 Left shoulder pain, unspecified chronicity 02/21 Right knee pain, unspecified chronicity 02/22/20 24 Moderate episode of recurrent major depressive d isorder 02/03/2023 Encounter for smoking cessation counseling 02/03 Smoker 02/03/2023 Callus of heel 02/03/2023 Mixed hyperlipidemia 02/03/2023 Hemoglobin A1C greater than 9%, indicating poor diabetic control 01/03/2023 Uncontrolled type 2 diabetes mellitus with hyperglycemia ([facility]) 01/03/2023 Encounters Date Type Department Care Team Description 01/04/2025 Telephone [place] [address] [place] [place] [address] Winter Terry MD 01/03/2025 Telephone [place] [address] [place] [address] [address] [address] [place] [address] Winter Terry MD Question 01/02/2025 [facility] SR[facility]CS Scanned, [facility] 01/01/2025 [place] [address] [place] [address] [address] [address] [place] [address] Winter Terry MD Follow Up Call 12/30/2024 Scan [facility] INFO [facility]VCS Scanned, [facility] Lab (SCAN); CT (SCAN); Image (SCAN) 12/20/2024 10:35 AM CDT - 12/20/2024 11:59 PM CDT Hospital Encounter [facility] Radiation Oncology [address] [facility] [place] [address] Chalino Palacios MD Follow Up Discharge Disposition: Home or Self Care (Routine Discharge) 12/20/2024 [facility]phone [facility] [address] [place] [address] [address] [place] [address] Winter Terry MD Referral 12/20/2024 Telephone [facility] Medical Group Multispecialty Care - [address] [place] [address] Winter Terry MD Follow Up Call 12/20/2024 [...] Description 01/23/2025 8:40 AM CDT Office Visit [facility] Medical Group Multispecialty Care - [place] [address] [address] [place] [address] Winter Terry MD [address] [facility] [address] [place], [place] [address] 04/09/2025 11:30 AM CDT Appointment [facility] Radiation Oncology [address] [facility] [place] [address] Chalino Palacios MD [address] [facility] [address] [place] [address] Health Maintenance Due Date Last [...] 07/21/2021, 12/16/2020, Additional history exists PHQ-2 (Physician [place]) 10/03/2024 03/30/2023 DTaP, Tdap and Td Vaccines [...] included. Anatomical Region Laterality Modality Other 12/30/2024 [facility] Scanned SCANNING Final Resu lt * OUTSIDE LAB (SCAN ORDER) (12/30/2024) Only the most recent of2 resultswithin the time period is included. 12/30/2024 [employer] [facility] Scanned SCANNING Final Resu lt * IMAGE GENERIC (12/30/2024) Anatomical Region Laterality Modality Other 12/30/2024 [facility] Scanned SCANNING Final Resu lt * (ABNORMAL) HEMOGLOBIN, GLYCOSYLATED (2023 8:40 AM CDT) HGB A1C 6.5(H) 4.5 - 6.2 % 2023 4:07 PM CDT [facility] ESTIMATED AVG GLUCOSE 140(H) 74 - 106 MG/DL 2023 4:07 PM CDT [facility] 2023 8:40 AM CDT Winter Terry MD LABORATORY Final Result [facility] [address] [place] [address], * LIPID PANEL (2023 8:40 AM CDT) CHOLESTEROL 113 <200 MG/DL 2023 3:12 PM CDT [facility] TRIGLYCERIDES 30 <150 MG/DL 2023 3:12 PM CDT [facility] HDL 52 >40 MG/DL 2023 3:12 PM CDT [facility] LDL-C 55 <100 MG/DL 2023 3:12 PM CDT [facility] VLDL CALCULATION 6 5 - 28 MG/DL 2023 3:12 PM CDT [facility] CHOL/HDL RATIO 2.2 0.0 - 4.0 2023 3:12 PM CDT [facility] LDL/HDL 1.1 0.41 - 2.13 2023 3:12 PM CDT [facility] NON HDL CHOLESTEROL 61 <140 MG/DL 2023 3:12 PM CDT [facility] 2023 8:40 AM CDT Winter Terry MD LABORATORY Final Result Performing Organization Address City/[facility] Co de Phone Number [facility] [address] [place] [address], [place] [phone] * HEPATITIS C ANTIBODY (12/31/2022 9:56 AM CDT) HEPATITIS C AB NON-REACTI VE NON-REACT KURTIS 12/31/2022 7:56 PM CDT [facility] Comment: ANTIBODIES TO HCV NOT DETECTED. DOES NOT EXCLUDE THE POSSIBILITY OF EXPOSURE TO HCV. 12/31/2022 9:56 AM CDT Suresh Lynn MD LABORATORY Final Result Performing Organization Address City/[facility] Co de Phone Number [facility] [address] [place] [address], [place] [phone] from Last 3 Months or Most Recently Relevant to Health Maintenance Insurance [facility] Care Teams Radiologic Therapist Relationship Specialty Start Date End Date Winter Terry MD [address] [facility] [address] [place] [address] PCP - General INTERNAL MEDICINE 03/07/23 Chalino Palacios MD [address] [address] Consulting Physician RADIATION ONCOLOGY 04/02/24
--- OUTSIDE RECORDS SUMMARY | 2025-01-04 12:03 | XMS_ITS ---
Author Organization [facility] Address [facility] [place] [address] Care Team Providers Care Handkerchief Folder Name Role Phone Winter Terry MD Primary Care Provider [phone] Chalino Palacios MD Unavailable Active Problems Problem Noted Date Diagnosed Date Adenocarcinoma, lung, left ([facility]) Chronic bilateral low back pain without sciatica 04/28/2024 Hyperlipidemia due to type 2 diabetes mellitus ([facility]) 04/28/2024 Left shoulder pain, unspecified chronicity 02/21 Right knee pain, unspecified chronicity 02/22/20 24 Moderate episode of recurrent major depressive d isorder 02/03/2023 Encounter for smoking cessation counseling 02/03 Smoker 02/03/2023 Callus of heel 02/03/2023 Mixed hyperlipidemia 02/03/2023 Hemoglobin A1C greater than 9%, indicating poor diabetic control 01/03/2023 Uncontrolled type 2 diabetes mellitus with hyperglycemia ([facility]) 01/03/2023 Current Oncology Plans No [...] 05/11/2024 40 Treatment Summaries Adenocarcinoma, lung, left ([facility])* Images from the original note were not included. Survivorship Care Plan Patient Name Elvis Butcher Date of 1965 Plan Completed By CHIQUITA Nails on 06/21/24 Care Team Medical Oncologist Dr. Waller [phone] Burt [phone] Palacios [phone] Primary Care Physician WINTER TERRY MD [phone] Diagnosis Adenocarcinoma, lung, left (CMS/HCC HHS/HCC) Age [...] symptoms from the cancer. According to the [place] [employer] Society, about 20 percent of cancer [...] 07/28/2016 Last Revised: 07/27/2016 Summary of the [place] Cancer Society Guidelines on Nutrition and Physical [...] list of resources: Cancer Support Resources at [facility] https://www.[facility]/Medical-Services/Cancer-Center [facility] offers services for lifestyle management for mind-body health. Services range from yoga, individual and group smoking cessation counseling to mind/body skills instruction and mindfulness classes. Call , ext. 38817 for more information. Clinical Trials are available for adults through [employer], a national cooperative group. Call for more information. Dietary Services are available from registered dietitians who can perform nutritional assessments and give advice on dietary problems. Call , ext. 64729 for more information. Home Health Services are available after a hospital admission. These individuals can provide comfort in the home setting along with support and education. Call , ext. [phone] for more information. Inpatient Sanitary Landfill Operator & Case Management Services Inpatient oncology social workers can help with home services, placement of patients, transportation, crisis intervention and communityresources. Care coordination for patients is done through this service, especially in outlying areas. Call , ext [phone] for more information. Nurse Navigator This individual [...] comprehensive. Varying services are offered at seven [facility] outpatient clinicsin [place]. [facility] [place]. Call for more information. Palliative Care, Pain [...] improve quality of life. Call , ext. [phone] for more information. Spiritual Care Chaplains can provide spiritual comfort for the mind, body and spirit. Call , ext. [phone] for more information. Radiation Therapy and [facility] Radiation Therapy offers state of the art radiation for cancer patients. The Day Hospital offers an outpatient area for chemotherapy, blood infusions, dressing changes and antibiotics. Call or , ext. 52432 for more information. Regional Wound Center The Wound Center heals chronic, non-healing wounds. Call for more information. Wound, Ostomy, Continence Services Services range from wound care, ostomy appliance teaching and continence service for any patient needing these services. Call , ext. 24786 for more information. Resources for Cancer Support [facility] provides care for those who cannot afford to pay through its Evita Care Program. More information is available at www.[facility].org/ ana/Eivta-Care.aspx. [facility] provides financial assistance, to those who qualify, regardless of whether palomo is insured. More information is available at www. [facility].org/Public/FinancialAssistance.aspx. [place] Department of Public Health protects the state's residents and visitors through the prevention and control of disease and injury. Website: http://www.idph.[facility]. n[place].us/home.htm. [employer] Cancer Society is a national nonprofit organization with programs and services provided through local [employer] Society offices, as well as its Clinical Navigation program based at [facility] Cancer [place] at [facility]. Websites: www.cancer.org and www.[facility]/cancer/navigator. html. Government Assistance Programs There are [...] Administration on Aging Benefits for older adults. 179.301.5882 www.eldercare.gov ([employer] Water Attendant finds resources in your community). Social Security Administration 414-044-6738 www.ssa.gov Centers for Medicare & Medicaid Services 291-467-2716 www.cms.gov National Cancer [place] www.cancer.gov Pharmaceutical Patient Assistance Programs Programs and services offered differ among drug manufacturers but may include: Help with insurance reimbursement. Referrals to co pay relief programs Help with the application process Discounted or free medications for patients who do not qualify for other assistance Partnership for Prescription Assistance (PPA) 246-4-CKS-NOW (083-634-0505) www.pparx.org Insurance Coverage www.getcovered[place].org To see if the drug company that makes your medication has a patient assistance program, check its web site, ask your doctor or check with the PPA. [facility] has a list of pharmaceutical programs and other resources for financial assistance. People with cancer often need assistance with expenses like transportation, home care and children's service worker. A number of nonprofit organizations have useful programs or referral information that may be able to help. Cancer Organizations CancerCare 020-154-ZEHE(9133) www.cancercare.org [employer] Cancer Society 258-NKC-9273 www.cancer.org Leukemia & Lymphoma Society 970-509-0652 www.lls.org Lung Cancer [place] www.lungcanceralliance.org Lymphoma Research Foundation 204-985-0502 www.lymphoma.org National Marrow Donor Program 584-209-5152 www.marrow.org National Ovarian Cancer Coalition www.ovarian.org Pancreatic Cancer Action Network www.pancan.org Patient Advocate Colorectal Careline 356-584-6956 www.colorectalcareline.org Sarcoma [place] 387-011-7681 www.sarcomaalliance.org General Organizations [employer] www.[employer].org Community Organizations Check phonebook under social service agencies Diandra-based Organizations Includes [employer], [employer], [employer] and others. Check phonebook for listings. Lazarex Cancer Foundation (Clinical Trial information and support) www.lazarex.org Leukemia Research Foundation www.leukemia-research.org Bladder Cancer Advocacy Network www.bcan.org Support for People with Oral Head and Neck Cancer (SPOHNC) www.spohnc.org [employer] K[employer] Breast Cancer Organization 006-617-3488 5.komen.org/BreastCancer/1877GOKOMEN.html
[2025-01-04] MEDS: oxyCODONE HCL (*CRX) 5 MG TAB IR PO (12:18)
== END 2025-01-04 14:23 | disposition home or self-care (01) ==
PROVIDERS: Emergency Provider Physician Assistant; PCP Internal Medicine
DX: S06.30AD Unspecified focal traumatic brain injury with loss of consciousness status unknown, subsequent encounter (principal); R51.9 Headache, unspecified; W19.XXXD Unspecified fall, subsequent encounter
CPT/HCPCS: 70450; 99284; A9270

== ENCOUNTER 2025-01-05 17:13 | Emergency (ER) | payer BC, SELFPAY ==
[2025-01-05] VITALS (10 sets, daily range): BP systolic 129–144; BP diastolic 78–104; PULSE 75–90; RESP 12–21; TEMP 36.6–36.7; O2SAT 98–100
--- NOTE | ~2025-01-05 | CT_ITS ---
EXAMINATION: CT brain wo con DATE: 01/05/2025 18:27 INDICATION: PERSISTENT DUEÑAS N,V AFTER ICB . TECHNIQUE: Computed tomography (CT) of the head was performed without intravenous contrast. The mA wa s adjusted according to patient size. Iterative reconstruction technique was employed. The dose-lengt h product was 605.33 mGy-cm. COMPARISON: 01/04/2025, 12/30/2024. FINDINGS: Stable small hyperdense foci of peripheral intraparenchymal hemorrhage in the right inferior frontal lobe. Resolution of the previously described subarachnoid hemorrhage and medial cranial fossa hemorrh age. No new acute intracranial hemorrhage or extra-axial fluid collection. No hydrocephalus, mass, or herniation. No acute ischemic infarct. Unremarkable dural venous sinus attenuation. No acute osseous abnormality. The aerated spaces are clear. IMPRESSION: No new acute intracranial process. Stable right inferior frontal lobe intraparenchymal hemorrhage Reviewed, dictated and finalized at location K. IMPRESSION: No new acute intracranial process. Stable right inferior frontal lobe intrapare nchymal hemorrhage
--- OUTSIDE RECORDS SUMMARY | 2025-01-05 17:16 | XMS_ITS | Encounter Summary ---
Author Organization [facility] Address [facility] [place] [address] Care Team Providers Care Supervisor Precision Optical Elements Name Role Phone Winter Terry MD Primary Care Provider [phone] Chalino Palacios MD Unavailable Encounter Details Date Type Department Care Team (Latest Contact Info) Description 03/02/2024 ESKYt Message Enc [facility] Medical Group Multispecialty Care - [address] [place] [address] [place] [address] [place] [address] [address] [place] [address] Knee and hip pain Social [...] Care Team (Late st Contact Info) Description 01/08/2025 9:40 AM CDT Office Visit [facility] Medical [facility] Multispecialty [facility] [place] [address] [address] [place] [address] Winter Terry MD [address] [place] [address] 01/23/2025 8:40 AM CDT [facility] [address] [place] [address] Winter Terry MD [address] [place] [address] 04/09/2025 11:30 AM CDT Appointment [facility] Radiation Oncology [address] [place] [address] [place] [address] Chalino Palacios MD [address] [place] [address] [address] [place] [address] documented as of this encounter Visit Diagnoses Not on filedocumented in this encounter Additional Health Concerns Assessment Noted Time PHQ-9 Depression Total Score: 0 03/30/20 9:33 AM CDT documented as of this encounter Care Teams Supervisor Precision Optical Elements Relationship Specialty Start Date End Date Winter Terry MD [address] [place] [address] PCP - General INTERNAL MEDICINE 03/07/23 Chalino Palacios MD [address] [place] [address] Consulting Physician RADIATION ONCOLOGY 04/02/24 documented as of this encounter
--- OUTSIDE RECORDS SUMMARY | 2025-01-05 17:16 | XMS_ITS | Encounter Summary ---
Author Organization [facility] Address [address] [place] [address] Phone Care Team Providers Care Tire Layer Name Role Phone Winter Terry MD Primary Care Provider [phone] Haroldo Burt MD Unavailable Unavailable Pop Waller MD Unavailable [phone] Encounter Details Date Type Department Care Team (Late st Contact Info) Description 06/12/2024 Telephone [facility] [address] [address] Pop Waller MD [address] [place] [phone] Social History Tobacco Use Types Packs/Day [...] Department Care Team (Late Contact Info) Description 01/16/2025 1:00 PM CDT Office Visit [facility] [address] [phone] Pop Waller MD [address] [place] [phone] 01/16/2025 1:15 PM CDT Clinical Support [facility] [address] [phone] Nurse, [facility] 04/09/2025 10:30 AM CDT Ancillary Procedure [facility] [address] [phone] documented as of this encounter Visit Diagnoses Not on filedocumented in this encounter Care Teams Tire Layer Relationship Specialty Start Date End Date Winter Terry MD [address] [address] PCP - General Internal Medicine 03/19/24 Haroldo Burt MD [address] [address] Internal Medicine 03/19/24 Pop Waller MD [address] [place] [phone] Consulting Physician Oncology 03/26/24 documented as of this encounter
--- OUTSIDE RECORDS SUMMARY | 2025-01-05 17:16 | XMS_ITS | Encounter Summary ---
Author Organization [facility] Address [facility] [place] [address] Care Team Providers Care Special Procedures Tech Name Role Phone Winter Terry MD Primary Care Provider [phone] Chalino Palacios MD Unavailable Encounter Details Date Type Department Care Team (Latest Contact Info) Description 03/05/2024 Empower2adaptt Message Enc [facility] [address] [place] [address] Radha Carroll, SHOW DOG TRAINER [address] [place] [address] X ray results for hip, [...] Description 01/08/2025 9:40 AM CDT [facility] [address] [place] [address] Winter Terry MD [address] [place] [address] 01/23/2025 8:40 AM CDT Office Visit [facility] Medical Group Multispecialty Care - [place] [address] [address] [place] [address] Winter Terry MD [address] [place] [address] 04/09/2025 11:30 AM CDT Appointment [facility] Radiation Oncology [address] [place] [address] [place] [address] Chalino Palacios MD [address] [place] [address] [address] [place] [address] documented as of this encounter Visit Diagnoses Not on filedocumented in this encounter Additional Health Concerns Assessment Noted Time PHQ-9 Depression Total Score: 0 03/30/20 9:33 AM CDT documented as of this encounter Care Teams Special Procedures Tech Relationship Specialty Start Date End Date Winter Terry MD [address] [place] [address] PCP - General INTERNAL MEDICINE 03/07/23 Chalino Palacios MD [address] [place] [address] Consulting Physician RADIATION ONCOLOGY 04/02/24 documented as of this encounter
--- OUTSIDE RECORDS SUMMARY | 2025-01-05 17:16 | XMS_ITS | Encounter Summary ---
Author Organization [facility] Address [facility] [place] [address] Care Team Providers Care Handle Finisher Name Role Phone Winter Terry MD Primary Care Provider [phone] Chalino Palacios MD Unavailable Encounter Details Date Type Department Care Team (Latest Contact Info) Description 03/15/2024 Seguricelt Message [facility] [place] [address] [address] [place] [address] Winter Terry MD [address] [place] [address] Oncology Referral Social History Tobacco Use [...] Description 01/08/2025 9:40 AM CDT Office Visit [facility] - [address] [place] [address] Winter Terry MD [address] [place] [address] 01/23/2025 8:40 AM CDT Office Visit [facility] Medical Group Multispecialty Care - [place] [address] [address] [place] [address] Winter Terry MD [address] [place] [address] 04/09/2025 11:30 AM CDT Appointment [facility] Radiation Oncology [address] [place] [address] [place] [address] Chalino Palacios MD [address] [facility] [address] [place] [address] documented as of this encounter Visit Diagnoses Not on filedocumented in this encounter Additional Health Concerns Assessment Noted Time PHQ-9 Depression Total Score: 0 03/30/20 23 9:33 AM CDT documented as of this encounter Care Teams Handle Finisher Relationship Specialty Start Date End Date Winter Terry MD [address] [place] [address] PCP - General INTERNAL MEDICINE 03/07/23 Chalino Palacios MD [address] [place] [address] Consulting Physician RADIATION ONCOLOGY 04/02/24 documented as of this encounter
--- OUTSIDE RECORDS SUMMARY | 2025-01-05 17:16 | XMS_ITS | Encounter Summary ---
Author Organization [facility] Address [address] [place] [address] Phone Care Team Providers Care Assistant Printer Floor Covering Name Role Phone Winter Terry MD Primary Care Provider Haroldo Burt MD Unavailable Unavailable Pop Waller MD Unavailable [phone] Reason for Visit * Reason Onset Date Comments Canopy Call / Er 01/04/2025 Encounter Details Date Type Department Care Team (Late st Contact Info) Description 01/04/2025 Telephone [facility] [address] [place] [address] Pop Waller MD [address] [place] [address] Canopy Call / Er Social History Tobacco Use Types Packs/Day Years [...] Encounter - Kami Vanessa RN - 01/04/2025 3:11 PM CDT Received return call from Cynthia, they went to [facility]. They repeated CT scans and contacted Neuro at [facility]. D/C back home. They gave patient some pain medication, advised if symptoms worsen or change take patient to [facility] ER. She verbalizes understanding will keep us updated if things change. She is also asking about follow up OV and infusions. OV rescheduled for first available on 01/16, would youlike to see patient sooner? Please advise * Telephone Encounter - Kami Vanessa RN [...] to the ER urgently. Returned call to [facility], he was discharged with scheduled Tylenol, not touching pain. His headaches have seemed to get worse over last 24 hours. called [facility] Neuro and they recommendER for stat CT scan. Advised that with patient recent history of recent Brain bleed please follow neuro recommendations. We can reschedule OV an infusionfor today. verbalizes understanding and will keep us updated. documented in this encounter Plan of Treatment Upcoming Encounters Date Type Department Care Team (Late st Contact Info) Description 01/16/2025 1:00 PM CDT Office Visit [facility] [address] [phone] Pop Waller MD [address] [place] [phone] 01/16/2025 1:15 PM CDT Clinical Support [facility] [address] [phone] [facility] 04/09/2025 10:30 AM CDT Ancillary Procedure [facility] [address] [phone] documented as of this encounter Visit Diagnoses Not on filedocumented in this encounter Care Teams Assistant Printer Floor Covering Relationship Specialty Start Date End Date Winter Terry MD [address] [address] PCP - General Internal Medicine 03/19/24 Haroldo Burt MD [address] [address] Internal Medicine 03/19/24 Pop Waller MD [address] [place] [address] Consulting Physician Oncology 03/26/24 documented as of this encounter
--- OUTSIDE RECORDS SUMMARY | 2025-01-05 17:16 | XMS_ITS | Encounter Summary ---
Author Organization [facility] Address [facility] [place] [address] Care Team Providers Care Quality Nurse Name Role Phone Winter Terry MD Primary Care Provider [phone] Chalino Palacios MD Unavailable Encounter Details Date Type Department Care Team (Late st Contact Info) Description 06/12/2024 Precision Venturest [facility] [place] [address] [place] [address] Radha Carroll, NUCLEAR MEDICINE MEDICAL DIRECTOR [address] [place] [address] Covid 19 Social History Tobacco [...] Description 01/08/2025 9:40 AM CDT Office Visit [facility] Mult[facility]pecialty [facility] [place] [address] [place] [address] Winter Terry MD [address] [place] [address] 01/23/2025 8:40 AM CDT Office Visit [facility] Medical Group Multispecialty Care - [place] [address] [address] [place] [address] Winter Terry MD [address] [place] [address] 04/09/2025 11:30 AM CDT Appointment [facility] Radiation Oncology [address] [place] [address] [place] [address] Chalino Palacios MD [address] [place] [address] [address] [place] [address] documented as of this encounter Visit Diagnoses Not on filedocumented in this encounter Additional Health Concerns Assessment Noted Time PHQ-9 Depression Total Score: 0 03/30/20 23 9:33 AM CDT documented as of this encounter Care Teams Quality Nurse Relationship Specialty Start Date End Date Winter Terry MD [address] [place] [address] PCP - General INTERNAL MEDICINE 03/07/23 Chalino Palacios MD [address] [place] [address] Consulting Physician RADIATION ONCOLOGY 04/02/24 documented as of this encounter
--- OUTSIDE RECORDS SUMMARY | 2025-01-05 17:16 | XMS_ITS | Encounter Summary ---
Author Organization [facility] Address [facility] [place] [address] Care Team Providers Care World Geography Teacher Name Role Phone Suresh Lynn MD Primary Care Pr ovider Unavailable Winter Terry MD Primary Care Provider [phone] Chalino Palacios MD Unavailable Encounter Details Date Type Department Care Team (Late Contact Info) Description 12/31/2022 MyChart Message Enc [facility] [address] [facility] [address] [place] [address] Suresh Lynn MD Lab results [...] Description 01/08/2025 9:40 AM CDT Office Visit [facility]ty Care - [place] [address] [address] [place] [address] Winter Terry MD [facility] [address] [address] 01/23/2025 8:40 AM CDT Office Visit [facility] Multispecialty Care - [place] [address] [address] [place] [address] Winter Terry MD [facility] [address] [address] 04/09/2025 11:[address] [facility] Radiation Oncology [address] [place] [address] [place] [address] Chalino Palacios MD [address] [place] [address] [address] [place] [address] documented as of this encounter Visit Diagnoses Not on filedocumented in this encounter Additional Health Concerns Assessment Noted Time PHQ-9 Depression Total Score: 12 023 5:43 PM CDT documented as of this encounter Care Teams World Geography Teacher Relationship Specialty Start Date End Date Suresh Lynn MD PCP - General FAMILY PRACTICE 12/31/22 03/06/23 Winter Terry MD [address] [place] [address] PCP - General INTERNAL MEDICINE 03/07/23 Chalino Palacios MD [address] [place] [phone] Consulting Physician RADIATION ONCOLOGY 04/02/24 documented as of this encounter
--- OUTSIDE RECORDS SUMMARY | 2025-01-05 17:16 | XMS_ITS | Encounter Summary ---
Author Organization [facility] Address [facility] [place] [address] Care Team Providers Care Welfare Specialist Name Role Phone Winter Terry MD Primary Care Provider [phone] Chalino Palacios MD Unavailable Encounter Details Date Type Department Care Team (Latest Contact Info) Description 04/11/2024 Buzzwirehart [facility] [address] [address] Winter Terry MD [address] [place] [address] Update for chemotherapy treatment Social History [...] Description 01/08/2025 9:40 AM CDT Office Visit [facility] Multispecialty [address] [place] [address] Winter Terry MD [address] [place] [address] 01/23/2025 8:40 AM CDT Office Visit [facility] Multispecialty Care [place] [address] [address] [place] [address] Winter Terry MD [address] [place] [address] 04/09/2025 11:30 AM CDT Appointment [facility] Radiation Oncology [address] [place] [address] [place] [address] Chalino Palacios MD [address] [facility] [address] [place] [address] documented as of this encounter Visit Diagnoses Not on filedocumented in this encounter Additional Health Concerns Assessment Noted Time PHQ-9 Depression Total Score: 0 03/30/20 23 9:33 AM CDT documented as of this encounter Care Teams Welfare Specialist Relationship Specialty Start Date End Date Winter Terry MD [address] [place] [phone] PCP - General INTERNAL MEDICINE 03/07/23 Chalino Palacios MD [address] [place] [address] Consulting Physician RADIATION ONCOLOGY 04/02/24 documented as of this encounter
--- OUTSIDE RECORDS SUMMARY | 2025-01-05 17:16 | XMS_ITS | Encounter Summary ---
Author Organization [facility] Address [facility] [place] [address] Care Team Providers Care [employer] Redevelopment Specialist Name Role Phone Winter Terry MD Primary Care Provider [phone] Chalino Palacios MD Unavailable Encounter Details Date Type Department Care Team (Late Contact Info) Description 02/22/2024 MyChart [facility] [address] Winter Terry MD [address] [place] [address] X-Ray Results Social History Tobacco Use [...] Description 01/08/2025 9:40 AM CDT Office Visit [facility] Multispecialty [address] [place] [address] Winter Terry MD [address] [place] [address] 01/23/2025 8:40 AM CDT Office Visit [facility] Medical Group Multispecialty Care - [place] [address] [address] [place] [address] Winter Terry MD [address] [place] [address] 04/09/2025 11:30 AM CDT Appointment [facility] Radiation Oncology [address] [place] [address] [place] [address] Chalino Palacios MD [address] [place] [address] [address] [place] [address] documented as of this encounter Visit Diagnoses Not on filedocumented in this encounter Additional Health Concerns Assessment Noted Time PHQ-9 Depression Total Score: 0 03/30/20 9:33 AM CDT documented as of this encounter Care Teams [employer] Redevelopment Specialist Relationship Specialty Start Date End Date Winter Terry MD [address] [place] [phone] PCP - General INTERNAL MEDICINE 03/07/23 Chalino aPlacios MD [address] [place] [address] Consulting Physician RADIATION ONCOLOGY 04/02/24 documented as of this encounter
--- OUTSIDE RECORDS SUMMARY | 2025-01-05 17:16 | XMS_ITS | Encounter Summary ---
Author Organization [facility] Address [facility] [place] [address] Care Team Providers Care Imaging Aide Name Role Phone Winter Terry MD Primary Care Provider [phone] Chalino Palacios MD Unavailable Encounter Details Date [...] Description 01/08/2025 9:40 AM CDT Office Visit [facility] Medical Group Multispecialty Care - [place] [address] [address] [place] [address] Winter Terry MD [address] [place] [address] 01/23/2025 8:40 AM CDT Office Visit [facility] Medical Group Multispecialty [facility] - [place] [address] [address] [place] [address] Winter Terry MD [address] [place] [address] 04/09/2025 11:30 AM CDT Appointment [facility] Radiation Oncology [address] [facility] [place] [address] Chalino Palacios MD [address] [facility] [address] [place] [address] documented as of this encounter Visit Diagnoses Not on filedocumented in this encounter Additional Health Concerns Assessment Noted Time PHQ-9 Depression Total Score: 0 03/30/20 23 9:33 AM CDT documented as of this encounter Care Teams Imaging Aide Relationship Specialty Start Date End Date Winter Terry MD [address] [place] [address] PCP - General INTERNAL MEDICINE 03/07/23 Chalino Palacios MD [address] [place] [address] Consulting Physician RADIATION ONCOLOGY 04/02/24 documented as of this encounter
--- OUTSIDE RECORDS SUMMARY | 2025-01-05 17:16 | XMS_ITS | Encounter Summary ---
Author Organization [facility] Address [facility] [place] [address] Care Team Providers Care Industrial X Ray Operator Name Role Phone Winter Terry MD Primary Care Provider [phone] Chalino Palacios MD Unavailable Reason for Visit * Reason Onset Date Comments Question 01/03/2025 Encounter Details Date Type Department Care Team (Late st Contact Info) Description 01/03/2025 Telephone [facility] Medical Group Multispecialty Care [place] [address] [place] [address] [address] [place] [address] Winter Terry MD [address] [facility] [address] [place] [address] Question Social History Tobacco Use [...] scheduled for follow up in the office: 01/08/25 * Phoebe Alvarado - 01/04/2025 6:52 AM CDT Please see message below from Dr. Terry * Phoebe Alvarado - 01/03/2025 11:57 AM CDT Questions about CT scan results. Please return call when available. documented in this encounter Plan of Treatment Upcoming Encounters Date Type Department Care Team (Late st Contact Info) Description 01/08/2025 9:40 AM CDT [facility] [address] [address] Winter Terry MD [address] [place] [address] 01/23/2025 8:40 AM CDT [facility] [address] [address] Winter Terry MD [address] [place] [address] 04/09/2025 11:30 AM CDT Appointment [facility] Radiation Oncology [address] [place] [address] [place] [address] Chalino Palacios MD [address] [facility] [address] [place] [address] documented as of this encounter Visit Diagnoses Not on filedocumented in this encounter Additional Health Concerns Assessment Noted Time PHQ-9 Depression Total Score: 0 03/30/20 23 9:33 AM CDT documented as of this encounter Care Teams Industrial X Ray Operator Relationship Specialty Start Date End Date Winter Terry MD [address] [address] PCP - General INTERNAL MEDICINE 03/07/23 Chalino Palacios MD [address] [address] Consulting Physician RADIATION ONCOLOGY 04/02/24 documented as of this encounter
--- OUTSIDE RECORDS SUMMARY | 2025-01-05 17:16 | XMS_ITS | Encounter Summary ---
Author Organization [facility] Address [facility] [place] [address] Care Team Providers Care Corporate Law Assistant Name Role Phone Winter Terry MD Primary Care Provider [phone] Chalino Palacios MD Unavailable Encounter Details Date Type Department Care Team (Latest Contact Info) Description 06/01/2024 Rodin Therapeuticst [facility] [address] [address] Winter Terry MD [address] [place] [address] Overdue for physical Social History Tobacco [...] Description 01/08/2025 9:40 AM CDT Office Visit [facility] Multispecialty [address] [place] [address] Winter Terry MD [address] [place] [address] 01/23/2025 8:40 AM CDT Office Visit [facility] Medical Group Multispecialty Care - [place] [address] [address] [place] [address] Winter Terry MD [address] [place] [address] 04/09/2025 11:30 AM CDT Appointment [facility] Radiation Oncology [address] [place] [address] [place] [address] Chalino Palacios MD [address] [facility] [address] [place] [address] documented as of this encounter Visit Diagnoses Not on filedocumented in this encounter Additional Health Concerns Assessment Noted Time PHQ-9 Depression Total Score: 0 03/30/20 23 9:33 AM CDT documented as of this encounter Care Teams Corporate Law Assistant Relationship Specialty Start Date End Date Winter Terry MD [address] [place] [address] PCP - General INTERNAL MEDICINE 03/07/23 Chalino Palacios MD [address] [place] [address] Consulting Physician RADIATION ONCOLOGY 04/02/24 documented as of this encounter
--- OUTSIDE RECORDS SUMMARY | 2025-01-05 17:16 | XMS_ITS | Encounter Summary ---
Author Organization [facility] Address [facility] [place] [address] Care Team Providers Care Puff Iron Operator Name Role Phone Winter Terry MD Primary Care Provider [phone] Chalino Palacios MD Unavailable Encounter Details Date Type Department Care Team (Late st Contact Info) Description 02/29/2024 IdeaForestt [facility] - [place] [address] [place] [address] Radha Carroll, STUMP BLOWER [address] [place] [address] MRI Results Social History Tobacco [...] Description 01/08/2025 9:40 AM CDT Office Visit [facility] Multispecialty [facility] - [place] [address] [place] [address] Winter Terry MD [address] [place] [address] 01/23/2025 8:40 AM CDT Office Visit [facility] Medical Group Multispecialty Care - [place] [address] [address] [place] [address] Winter Terry MD [address] [place] [address] 04/09/2025 11:30 AM CDT Appointment [facility] Radiation Oncology [address] [place] [address] [place] [address] Chalino Palacios MD [address] [place] [address] [address] [place] [address] documented as of this encounter Visit Diagnoses Not on filedocumented in this encounter Additional Health Concerns Assessment Noted Time PHQ-9 Depression Total Score: 0 03/30/20 23 9:33 AM CDT documented as of this encounter Care Teams Puff Iron Operator Relationship Specialty Start Date End Date Winter Terry MD [address] [place] [address] PCP - General INTERNAL MEDICINE 03/07/23 Chalino Palacios MD [address] [place] [address] Consulting Physician RADIATION ONCOLOGY 04/02/24 documented as of this encounter
--- OUTSIDE RECORDS SUMMARY | 2025-01-05 17:16 | XMS_ITS | Clinical Summary ---
Author Organization [facility] [address] Address [address] [place] [id number] Care Team Providers Care Signal Maintainer Name Role Phone Winter Terry MD Primary Care Provider [phone] Allergies Active Allergy Reactions Criticality Noted Date [...] Assessment & Plan (12/31/2024 3:24 PM CDT): [id number] [place], [place] - [address] AT [address] & [employer] [address] [facility] [phone] Patient will use [facility] at discharge. Acute pain [...] will discuss with team Dr. Waller oncologist [phone] 01/01 Ordered MRI with and without Brain [...] Type Department Care Team Description 01/03/[address] [address] Shyanne Silva 12/30/2024 5:10 PM CDT - 01/02/2025 3:45 PM CDT Hospital Encounter [address] [address] Alex Mccullough MD Aubin, Chandra D., MD [...] * POCT glucose (01/02/2025 12:01 PM CDT) [facility] Signature Glucose, POC 127 70 - 199 mg/dL Blood 01/02/2025 12:0 1 PM CDT 01/02/2025 12:01 PM CDT us Flo Light MD LAB POCT ORDERABLES - DEV ICE Final Result [facility] Department [place] [address] * TRANSTHORACIC ECHO (TTE) COMPLETE W DOPPLER/CF W CONTRAST (01/02/2025 11:04 AM CDT) Anatomical Region Laterality Modality Ultrasound 01/02/2025 10:1 7 AM CDT Narrative 01/02/2025 11:21 AM CDT [facility] [place] [address] Transthoracic Echocardiographic Report Patient Name: KEMAR RAIN WESLEY : 1965 (59y 8m) Gender: M Study Date: 01/02/2025 10:17:54 AM Ht(Inch): 67 Wt(Lb): 143.96 BSA: 1.76 Prop Drawer: Chon Car RDCS Location: [id number] Order Provider: ADRIANA BARBA Heart Rate: 76 [...] Note Manuel Lomax MD PhD - 01/02/2025 [facility] [place] [address] Transthoracic Echocardiographic Report Patient Name: KEMAR RAIN WESLEY : 1965 (59y 8m) Gender: M Study Date: 01/02/2025 10:17:54 AM Ht(Inch): 67 Wt(Lb): 143.96 BSA: 1.76 Prop Drawer: Chon Car RDCS Location: [id number] Order Provider: ADRIANA BARBA Heart Rate: 76 [...] LA Length 4C 4.46 cm MV Decel Qbxy213.40 msec [ 104.00 - 258.00 ] LA [...] POCT ORDERABLES - DEV ICE Final Result [facility] [place] [address] * MRI Brain W WO [...] signed by: Geovanny Salazar M.D. Adriana Barba FILLER SHREDDER IMG MRI PROCEDURES F inal Result * (ABNORMAL) POCT glucose (01/01/2025 7:47 PM CDT) Glucose, POC 228(H) 70 - 199 mg/dL Blood 01/01/2025 7:47 PM CDT 01/01/2025 7:47 PM CDT Flo Light MD LAB POCT ORDERABLES - DEV ICE Final Result [facility] Department [place] [address] * POCT glucose (01/01/2025 5:04 PM CDT) Glucose, POC 142 70 - 199 mg/dL Blood 01/01/2025 5:04 PM CDT 01/01/2025 5:04 PM CDT Flo Light MD LAB POCT ORDERABLES - DEV ICE Final Result Performing Organization Address [facility] Co de Phone Number [facility] [place] [address] * (ABNORMAL) POCT glucose (01/01/2025 12:31 PM CDT) Glucose, POC 231(H) 70 - 199 mg/dL Blood 01/01/2025 12:3 1 PM CDT 01/01/2025 12:31 PM CDT Flo Light MD LAB POCT ORDERABLES - DEV ICE Final Result Performing Organization Address [facility] de Phone Number [facility] [place] [address] * POCT glucose (01/01/2025 8:24 AM CDT) Glucose, POC 134 70 - 199 mg/dL Blood 01/01/2025 8:24 AM CDT 01/01/2025 8:24 AM CDT Flo Light MD LAB POCT ORDERABLES - DEV ICE Final Result Performing Organization Address [facility] de Phone Number [facility] [place] [address] * eGFR (12/31/2024 9:36 PM CDT) eGFR [...] MD LAB BLOOD ORDERABLES Layla aldana Result [facility] [place] [address] * CBC without differential (12/31/2024 9:36 PM CDT) WBC 6.3 3.8 - 9.9 K/cumm Hgb 13.9 13.0 - 17.5 g/dL [facility] Hct 40.2 38.9 - 50.3 % [facility] Plt 194 150 - 400 K/cumm [facility] MPV 10.2 9.1 - 12.3 fL [facility] RBC 4.41 4.30 - 5.80 M/cumm [facility] MCV 91.2 81.3 - 96.4 fL [facility] MCH 31.5 27.1 - 33.3 pg [facility] MCHC 34.6 32.3 - 35.7 g/dL [facility] RDW CV 12.4 11.1 - 14.9 % [facility] RDW SD 41.6 35.7 - 48.1 fL [facility] NRBC abs 0.00 0.00 - 0.01 K/cumm [facility] Blood 12/31/2024 9:36 PM CDT 12/31/2024 10:23 PM CDT Flo Light MD LAB BLOOD ORDERABLES Layla l Result Performing Organization Address City/[facility]/ZIP Co de Phone Number [facility] [place] [address] * Phosphorus (12/31/2024 9:36 PM CDT) Pathologist [facility] Phosphorus, pl 3.4 2.3 - 4.5 mg/dL Blood 12/31/2024 9:36 PM CDT 12/31/2024 10:20 PM CDT Flo Light MD LAB BLOOD ORDERABLES Layla l Result Performing Organization Address [facility] Co de Phone Number [facility] [place] [address] * Magnesium (12/31/2024 9:36 PM CDT) [facility] Magnesium 2.0 1.4 - 2.5 mg/dL Blood 12/31/2024 9:36 PM CDT 12/31/2024 10:20 PM CDT Flo Light MD LAB BLOOD ORDERABLES Layla l Result [facility] [place] [address] * Basic metabolic panel (12/31/2024 9:36 PM CDT) Pathologist [facility] Sodium 137 135 - 145 mmol/L Potassium, pl 4.3 3.3 - 4.9 mmol/L [facility] Chloride 98 97 - 110 mmol/L [facility] CO2 29 22 - 32 mmol/L [facility] Anion gap 10 2 - 15 mmol/L [facility] BUN 13 6 - 25 mg/dL [facility] Creatinine 0.93 0.80 - 1.30 mg/dL [facility] Glucose 197 70 - 199 mg/dL [facility] Comment: Interpretive Data Fasting glucose >/= 126 [...] 2022. Calcium 10.0 8.5 - 10.3 mg/dL [facility] Blood 12/31/2024 9:36 PM CDT 12/31/2024 10:20 PM CDT Flo Light MD LAB BLOOD ORDERABLES Layla l Result Performing Organization Address City/[facility]/ZIP Co de Phone Number [facility] [place] [address] * POCT glucose (12/31/2024 9:13 PM CDT) Glucose, POC 182 70 - 199 mg/dL Blood 12/31/2024 9:13 PM CDT 12/31/2024 9:13 PM CDT Flo Light MD LAB POCT ORDERABLES - DEV ICE Final Result Performing Organization Address [facility]/ZIP Co de Phone Number [facility] [place] [address] * POCT glucose (12/31/2024 4:13 PM CDT) Glucose, POC 141 70 - 199 mg/dL Blood 12/31/2024 4:13 PM CDT 12/31/2024 4:13 PM CDT Flo Light MD LAB POCT ORDERABLES - DEV ICE Final Result Performing Organization Address [facility] Co de Phone Number [facility] Department [place] [address] * POCT glucose (12/31/2024 2:21 AM CDT) Glucose, POC 188 70 - 199 mg/dL Blood 12/31/2024 2:21 AM CDT 12/31/2024 2:21 AM CDT Flo Light MD LAB POCT ORDERABLES - DEV ICE Final Result Performing Organization Address [facility] de Phone Number [facility] [place] [address] * CTA Head Neck W WO Contrast [...] the CTA were generated on a dedicated workstation/seismograph observer. Contrast information: 75 mL Optiray-350 IV [...] carotid arteries. No filling defects identified.. The dxodjv-ie-Ftuahl is complete. The anterior and middle cerebral [...] the CTA were generated on a dedicated workstation/seismograph observer. Contrast information: 75 mL Optiray-350 IV [...] carotid arteries. No filling defects identified.. The ltycos-io-Vjpgtc is complete. The anterior and middle cerebral [...] * POCT glucose (12/30/2024 8:43 PM CDT) [facility] Signature Glucose, POC 155 70 - 199 mg/dL Blood 12/30/2024 8:43 PM CDT 12/30/2024 8:43 PM CDT Darin Moran MD LAB POCT ORDERABLES - DEVICE Final Result Performing Organization Address City/State/[facility] Co de Phone Number [facility] [place] [address] * DC CRITICAL CARE ILL/INJURED PATIENT INIT [...] 2020. [facility]rop I hs delta 0 ng/L [facility] T[facility] hs interp Insignificant [facility] Blood 12/30/2024 8:24 PM CDT 12/30/2024 8:31 PM CDT us Leno Vargas MD LAB BLOOD ORDERABLES Fin al Result Performing Organization Address City/[facility]/ZIP Co de Phone Number [facility] Department [place] [address] * Check Sample (12/30/2024 8:24 PM CDT) Pathologist [facility] ABO Rh O Positive [facility] HCLL OTHER 12/30/2024 8:24 PM CDT 12/30/2024 8:33 PM CDT Darin Moran MD LAB BLOOD ORDERABLES Final R esult Performing Organization Address [facility] Co de Phone Number [facility] Department [place] [address] [facility] * Neuro CT Outside Consult (12/30/2024 [...] images may or may not represent the [place] source data set and thus may contain [...] IMAGING STUDY STUDY INITIALLY PERFORMED: 12/30/2024 at [facility]. TYPE OF STUDY: Multiple CT images of [...] IMAGING STUDY STUDY INITIALLY PERFORMED: 12/30/2024 at [facility]. TYPE OF STUDY: Multiple CT images of [...] images may or may not represent the [place] source data set and thus may contain [...] images may or may not represent the [place] source data set and thus may contain changes that may lower the accuracy of this second-opinion interpretation. Dictated by: Deann Marroquin MD The radiology attending physician has personally reviewed this study, and had reviewed and/or edited this written report and agrees with it. Electronically signed by: Geoavnny Salazar M.D. Narrative 12/30/2024 10:48 PM CDT EXAMINATION: RADIOLOGY CONSULTATION ON OUTSIDE IMAGING STUDY STUDY INITIALLY PERFORMED: 12/30/2024 at [facility]. TYPE OF STUDY: Multiple CT images of [...] IMAGING STUDY STUDY INITIALLY PERFORMED: 12/30/2024 at [facility]. TYPE OF STUDY: Multiple CT images of [...] images may or may not represent the [place] source data set and thus may contain [...] Outside Reference (12/30/2024 6:49 PM CDT) Impressions RAD_PACS_[facility] - 12/30/2024 6:49 PM CDT These images are for Reference purposes only and have not been reviewed by [facility] Radiology. There will be no report generated by a [facility] Radiologist. Narrative RAD_PACS_[facility] - 12/30/2024 [...] 1 view chest radiograph Procedure Note Hermilo oH MD PhD - 12/30/2024 EXAMINATION: 1 view [...] * POCT glucose (12/30/2024 6:03 PM CDT) [facility] Glucose, POC 164 70 - 199 mg/dL Blood 12/30/2024 6:03 PM CDT 12/30/2024 6:03 PM CDT Flo Light MD LAB POCT ORDERABLES - DEV ICE Final Result [facility] [place] [address] * Troponin I high-sensitivity series (baseline, 2hr, 4hr, 6hr) (12/30/2024 5:50 PM CDT) [facility] Trop I hs <4 <=35 ng/L Comment: Interpretive Data For further hscTnI resources including the diagnostic algorithm and an aid in interpretation, copy and paste this link: https://bjhlab.testcatalog.org/show/[email or web address] Current Interpretive Data last revised 2020. Blood 12/30/2024 5:50 PM CDT 12/30/2024 6:06 PM CDT Leno Vargas MD LAB BLOOD ORDERABLES Fin al Result Performing Organization Address City/[facility]/ZIP Co de Phone Number [facility] Department [place] [address] * eGFR (12/30/2024 5:50 PM CDT) eGFR [...] LAB BLOOD ORDERABLES Fin al Result [facility] [place] [address] * (ABNORMAL) Differential, auto (12/30/2024 5:50 PM CDT) Neutrophil abs 9.6(H) 1.5 - 6.5 K/cumm Imm gran abs 0.0 0.0 - 0.1 K/cumm [facility] Lymphocyte abs 0.7(L) 0.8 - 3.3 K/cumm [facility] Monocyte abs 0.7 0.2 - 0.8 K/cumm [facility] Eosinophil abs 0.0 0.0 - 0.5 K/cumm [facility] Basophil abs 0.0 0.0 - 0.1 K/cumm [facility] Neutrophil pct 86.6 % [facility] Comment: Interpretive Data Percent cell count reference ranges are not reported, since discordance with absolute values may lead to misinterpretation of CBC data. Current Interpretive Data was last revised on 2018. Imm gran pct 0.3 % [facility] Comment: Interpretive Data Percent cell count reference ranges are not reported, since discordance with absolute values may lead to misinterpretation of CBC data. Current Interpretive Data was last revised on 2018. Lymphocyte pct 6.6 % [facility] Comment: Interpretive Data Percent cell count reference ranges are not reported, since discordance with absolute values may lead to misinterpretation of CBC data. Current Interpretive Data was last revised on 2018. Monocyte pct 6.0 % [facility] Comment: Interpretive Data Percent cell count reference ranges are not reported, since discordance with absolute values may lead to misinterpretation of CBC data. Current Interpretive Data was last revised on 2018. Eosinophil pct 0.2 % [facility] Comment: Interpretive Data Percent cell count reference ranges are not reported, since discordance with absolute values may lead to misinterpretation of CBC data. Current Interpretive Data was last revised on 2018. Basophil pct 0.3 % [facility] Comment: Interpretive Data Percent cell count reference ranges are not reported, since discordance with absolute values may lead to misinterpretation of CBC data. Current Interpretive Data was last revised on 2018. Blood 12/30/2024 5:50 PM CDT 12/30/2024 6:05 PM CDT Leno Vargas MD LAB BLOOD ORDERABLES Fin al Result Performing Organization Address [facility] de Phone Number [facility] [place] [address] * (ABNORMAL) CBC with auto differential (12/30/2024 5:50 PM CDT) [facility] WBC 11.1(H) 3.8 - 9.9 K/cumm Hgb 13.7 13.0 - 17.5 g/dL [facility] Hct 39.4 38.9 - 50.3 % [facility] Plt 187 150 - 400 K/cumm [facility] MPV 9.9 9.1 - 12.3 fL [facility] RBC 4.34 4.30 - 5.80 M/cumm [facility] MCV 90.8 81.3 - 96.4 fL [facility] MCH 31.6 27.1 - 33.3 pg [facility] MCHC 34.8 32.3 - 35.7 g/dL [facility] RDW CV 12.1 11.1 - 14.9 % [facility] RDW SD 40.7 35.7 - 48.1 fL [facility] NRBC abs 0.00 0.00 - 0.01 K/cumm [facility] Blood 12/30/2024 5:50 PM CDT 12/30/2024 6:05 PM CDT Leno Vargas MD LAB BLOOD ORDERABLES Fin al Result Performing Organization Address [facility] de Phone Number [facility] [place] [address] * aPTT (12/30/2024 5:50 PM CDT) Pathologist [facility] aPTT 29 28 - 38 sec Comment: Interpretive Data Heparin therapeutic range: 66.0 - 100.0 seconds. Range based on correlation with therapeutic heparin activity range of 0.3 - 0.7 Units/mL. Current interpretive data was last revised on 2023. Blood 12/30/2024 5:50 PM CDT 12/30/2024 6:19 PM CDT Leno Vargas MD LAB BLOOD ORDERABLES Fin al Result Performing Organization Address [facility] Co de Phone Number [facility] [place] [address] * Protime-INR (12/30/2024 5:50 PM CDT) PT 11.0 9.7 - 13.0 sec INR 1.02 0.90 - 1.20 [facility] Comment: Interpretive data Oral anticoagulant therapeutic ranges: Venous thromboembolism prophylaxis or treatment: 2.0-3.0 CARDIOLOGY Standard range: 2.0-3.0 High-intensity range: 2.5-3.5 Refer to indication-specific guidelines for appropriate target ranges for prosthetic heart valve replacement. Current interpretive data was last revised on 2019. Blood 12/30/2024 5:50 PM CDT 12/30/2024 6:19 PM CDT Leno Vargas MD LAB BLOOD ORDERABLES Fin al Result Performing Organization Address [facility] [place] [address] * Type and screen (12/30/2024 5:50 PM CDT) Mayur, indirect Negative ABO Rh O Positive [facility] Blood 12/30/2024 5:50 PM CDT 12/30/2024 6:32 PM CDT Narrative [facility] - 12/30/2024 7:30 PM CDT Has the patient had Daratumumab or Isatuximab in the past 6 months?->Unknown Leno Vargas MD LAB BLOOD BANK TEST ORDE RABLES Final Result Performing Organization Address City/[facility] [place] [address] * Comprehensive metabolic panel (12/30/2024 5:50 PM CDT) Sodium 141 135 - 145 mmol/L Potassium, pl 4.1 3.3 - 4.9 mmol/L [facility] Chloride 100 97 - 110 mmol/L [facility] CO2 28 22 - 32 mmol/L [facility] Anion gap 13 2 - 15 mmol/L [facility] BUN 18 6 - 25 mg/dL [facility] Creatinine 0.85 0.80 - 1.30 mg/dL [facility] Glucose 160 70 - 199 mg/dL [facility] Comment: Interpretive Data Fasting glucose >/= 126 [...] 2022. Calcium 9.9 8.5 - 10.3 mg/dL [facility] Bilirubin, total 0.2 0.1 - 1.2 mg/dL [facility] Protein, pl 7.3 6.5 - 8.5 g/dL [facility] Albumin 4.4 3.5 - 5.0 g/dL [facility] Alk phos 60 40 - 130 Units/L [facility] ALT 16 7 - 55 Units/L [facility] AST 23 10 - 50 Units/L [facility] Blood 12/30/2024 5:50 PM CDT 12/30/2024 6:05 PM CDT us Leno Vargas MD LAB BLOOD ORDERABLES Fin al Result [facility] [place] [address] from Last 3 Months Insurance [employer] Address: [facility] [address] [place] [address] ANTHEM ACCESS CHOICE ANTHEM ACCESS CHOICE Advance Directives For more information, please contact: [phone] * Full Code (Latest Code Status on File) Date Activated Date Inactivated Comments 12/31/2024 5:03 AM 01/02/2025 8:46 PM Care Teams Signal Maintainer Relationship Specialty Start Date End Date Winter Terry MD [address] [place] [address] PCP - General Internal Medicine 12/30/24
--- OUTSIDE RECORDS SUMMARY | 2025-01-05 17:16 | XMS_ITS | Referral Summary ---
Author Organization [facility] [address] Address [address] [place] [id number] Care Team Providers Care Hot Mill Supervisor Name Role Phone Winter Terry MD Primary Care Provider [phone] Encounters Date Type Department Care Team Description 01/03/[address] [address] Shyanne Silva 12/30/2024 5:10 PM CDT - 01/02/2025 3:45 PM CDT Hospital Encounter [address] [address] Alex Mccullough MD Aubin, Chandra D., MD Odom, Elizabeth Burkhart, MD Snyder, Jason Andrew, MD SAH (subarachnoid hemorrhage) ([facility]) (Primary Dx); Fall, initial encounter; Intraparenchymal hematoma of brain without loss of consciousness, unspecified laterality, initial encounter ([facility]) Discharge Disposition: Discharge to home or self [...] Assessment & Plan (12/31/2024 3:24 PM CDT): [id number] - [place], [place] - [address] AT [facility] ([place] [address]) & [address] [facility] [address] Patient will use [facility] at discharge. Acute pain [...] will discuss with team Dr. Waller oncologist [phone] 01/01 Ordered MRI with and without Brain [...] DEVICE Routine 12/30/2024 8 :43 PM CDT DE CRITICAL CARE ILL/INJURED PATIENT INIT 30-74 MIN [...] * POCT glucose (01/02/2025 12:01 PM CDT) [facility] Signature Glucose, POC 127 70 - 199 mg/dL Blood 01/02/2025 12:0 1 PM CDT 01/02/2025 12:01 PM CDT us Flo Light MD LAB POCT ORDERABLES - DEV ICE Final Result [facility] Department [place] [address] * TRANSTHORACIC ECHO (TTE) COMPLETE W DOPPLER/CF W CONTRAST (01/02/2025 11:04 AM CDT) Anatomical Region Laterality Modality Ultrasound 01/02/2025 10:1 7 AM CDT Narrative 01/02/2025 11:21 AM CDT [facility] [place] [address] Transthoracic Echocardiographic Report Patient Name: KEMAR RAIN WESLEY : 1965 (59y 8m) Gender: M Study Date: 01/02/2025 10:17:54 AM Ht(Inch): 67 Wt(Lb): 143.96 BSA: 1.76 Machinist Helper Marine: Chon Car RDCS Location: [id number] Order Provider: ADRIANA BARBA Heart Rate: 76 [...] Note Manuel Lomax MD PhD - 01/02/2025 [facility] Card[facility] [place] [address] Transthoracic Echocardiographic Report Patient Name: KEMAR RAIN WESLEY : 1965 (59y 8m) Gender: M Study Date: 01/02/2025 10:17:54 AM Ht(Inch): 67 Wt(Lb): 143.96 BSA: 1.76 Machinist Helper Marine: [employer]on Car RDCS Location: [id number] Order Provider: ADRIANA BARBA Heart Rate: 76 [...] LA Length 4C 4.46 cm MV Decel [id number] msec [ 104.00 - 258.00 ] LA [...] 01/02/2025 11:21:38 AM CDT us Adriana Barba COMBER OPERATOR CV ECHO PROCEDURES F inal Result * POCT glucose (01/02/2025 8:09 AM CDT) Glucose, POC 135 70 - 199 mg/dL Blood 01/02/2025 8:09 AM CDT 01/02/2025 8:09 AM CDT Flo Light MD LAB POCT ORDERABLES - DEV ICE Final Result [facility] Department [place] [address] * MRI Brain W WO Contrast (01/01/2025 [...] by: Geovanny Salazar M.D. us Adriana Barba COMBER OPERATOR IMG MRI PROCEDURES F inal Result * (ABNORMAL) POCT glucose (01/01/2025 7:47 PM CDT) Glucose, POC 228(H) 70 - 199 mg/dL Blood 01/01/2025 7:47 PM CDT 01/01/2025 7:47 PM CDT Flo Light MD LAB POCT ORDERABLES - DEV ICE Final Result Performing Organization Address [facility] de Phone Number [facility] Department [place] [address] * POCT glucose (01/01/2025 5:04 PM CDT) Glucose, POC 142 70 - 199 mg/dL Blood 01/01/2025 5:04 PM CDT 01/01/2025 5:04 PM CDT Flo Light MD LAB POCT ORDERABLES - DEV ICE Final Result Performing Organization Address [facility] de Phone Number [facility] Department [place] [address] * (ABNORMAL) POCT glucose (01/01/2025 12:31 PM CDT) Glucose, POC 231(H) 70 - 199 mg/dL Blood 01/01/2025 12:3 1 PM CDT 01/01/2025 12:31 PM CDT Flo Light MD LAB POCT ORDERABLES - DEV ICE Final Result Performing Organization Address [facility]/ZIP Co de Phone Number [facility] [place] [address] * POCT glucose (01/01/2025 8:24 AM CDT) Glucose, POC 134 70 - 199 mg/dL Blood 01/01/2025 8:24 AM CDT 01/01/2025 8:24 AM CDT Flo Light MD LAB POCT ORDERABLES - DEV ICE Final Result Performing Organization Address City/[facility] Co de Phone Number [facility] [place] [address] * eGFR (12/31/2024 9:36 PM CDT) [facility] eGFR >90 >=60 mL/min/1. 73 m2 Comment: [...] ORDERABLES Layla l Result Performing Organization Address City/[facility]/ZIP Co de Phone Number [facility] [place] [address] * CBC without differential (12/31/2024 9:36 PM CDT) [facility] WBC 6.3 3.8 - 9.9 K/cumm Hgb 13.9 13.0 - 17.5 g/dL [facility] Hct 40.2 38.9 - 50.3 % [facility] Plt 194 150 - 400 K/cumm [facility] MPV 10.2 9.1 - 12.3 fL [facility] RBC 4.41 4.30 - 5.80 M/cumm [facility] MCV 91.2 81.3 - 96.4 fL [facility] MCH 31.5 27.1 - 33.3 pg [facility] MCHC 34.6 32.3 - 35.7 g/dL [facility] RDW CV 12.4 11.1 - 14.9 % [facility] RDW SD 41.6 35.7 - 48.1 fL [facility] NRBC abs 0.00 0.00 - 0.01 K/cumm [facility] Blood 12/31/2024 9:36 PM CDT 12/31/2024 10:23 PM CDT Flo Light MD LAB BLOOD ORDERABLES Layla l Result Performing Organization Address [facility] Co de Phone Number [facility] Department [place] [address] * Phosphorus (12/31/2024 9:36 PM CDT) [facility] Phosphorus, pl 3.4 2.3 - 4.5 mg/dL Blood 12/31/2024 9:36 PM CDT 12/31/2024 10:20 PM CDT Flo Light MD LAB BLOOD ORDERABLES Layla l Result Performing Organization Address [facility] Co de Phone Number [facility] Department [place] [address] * Magnesium (12/31/2024 9:36 PM CDT) Pathologist [facility] Magnesium 2.0 1.4 - 2.5 mg/dL Blood 12/31/2024 9:36 PM CDT 12/31/2024 10:20 PM CDT Flo Light MD LAB BLOOD ORDERABLES Layla l Result [facility] Department [place] [address] * Basic metabolic panel (12/31/2024 9:36 PM CDT) Pathologist [facility] Sodium 137 135 - 145 mmol/L Potassium, pl 4.3 3.3 - 4.9 mmol/L [facility] Chloride 98 97 - 110 mmol/L [facility] CO2 29 22 - 32 mmol/L [facility] Anion gap 10 2 - 15 mmol/L [facility] BUN 13 6 - 25 mg/dL [facility] Creatinine 0.93 0.80 - 1.30 mg/dL [facility] Glucose 197 70 - 199 mg/dL [facility] Comment: Interpretive Data Fasting glucose >/= [...] 2022. Calcium 10.0 8.5 - 10.3 mg/dL [facility] Blood 12/31/2024 9:36 PM CDT 12/31/2024 10:20 PM CDT us Flo Light MD LAB BLOOD ORDERABLES Layla l Result Performing Organization Address [facility] Co de Phone Number [facility] [place] [address] * POCT glucose (12/31/2024 9:13 PM CDT) Glucose, POC 182 70 - 199 mg/dL Blood 12/31/2024 9:13 PM CDT 12/31/2024 9:13 PM CDT Flo Light MD LAB POCT ORDERABLES - DEV ICE Final Result Performing Organization Address [facility] Co de Phone Number [facility] [place] [address] * POCT glucose (12/31/2024 4:13 PM CDT) Glucose, POC 141 70 - 199 mg/dL Blood 12/31/2024 4:13 PM CDT 12/31/2024 4:13 PM CDT Flo Light MD LAB POCT ORDERABLES - DEV ICE Final Result Performing Organization Address [facility] Co de Phone Number [facility] [place] [address] * POCT glucose (12/31/2024 2:21 AM CDT) Glucose, POC 188 70 - 199 mg/dL Blood 12/31/2024 2:21 AM CDT 12/31/2024 2:21 AM CDT Flo Light MD LAB POCT ORDERABLES - DEV ICE Final Result Performing Organization Address City/[facility]/ZIP Co de Phone Number [facility] [place] [address] * CTA Head Neck W WO Contrast [...] the CTA were generated on a dedicated workstation/fast food server. Contrast information: 75 mL Optiray-350 IV [...] carotid arteries. No filling defects identified.. The [id number] is complete. The anterior and middle cerebral [...] the CTA were generated on a dedicated workstation/fast food server. Contrast information: 75 mL Optiray-350 IV [...] carotid arteries. No filling defects identified.. The [id number] is complete. The anterior and middle cerebral [...] - DEVICE Final Result [facility] [place] [address] * DE CRITICAL CARE ILL/INJURED PATIENT INIT 30-74 MIN [...] ORDERABLES Fin al Result [facility] Department of Laboratories [place], [place] [id number] * Check Sample (12/30/2024 8:24 PM CDT) ABO Rh O Positive [facility] HCLL OTHER 12/30/2024 8:24 PM CDT 12/30/2024 8:33 PM CDT us Darin Moran MD LAB BLOOD ORDERABLES Final R esult MARIBEL [facility] [place] [address] [facility] * Neuro CT Outside Consult (12/30/2024 [...] images may or may not represent the [place] source data set and thus may contain [...] STUDY INITIALLY PERFORMED: 12/30/2024 at [facility]. TYPE OF STUDY: Multiple CT images of [...] STUDY INITIALLY PERFORMED: 12/30/2024 at [facility]. TYPE OF STUDY: Multiple CT images of [...] images may or may not represent the [place] source data set and thus may contain [...] images may or may not represent the [place] source data set and thus may contain [...] STUDY INITIALLY PERFORMED: 12/30/2024 at [facility]. TYPE OF STUDY: Multiple CT images of [...] STUDY INITIALLY PERFORMED: 12/30/2024 at [facility]. TYPE OF STUDY: Multiple CT images of [...] images may or may not represent the [place] source data set and thus may contain [...] Outside Reference (12/30/2024 6:49 PM CDT) Impressions [id number] - 12/30/2024 6:49 PM CDT These images [...] * POCT glucose (12/30/2024 6:03 PM CDT) [facility] Glucose, POC 164 70 - 199 mg/dL Blood 12/30/2024 6:03 PM CDT 12/30/2024 6:03 PM CDT Flo Light MD LAB POCT ORDERABLES - DEV ICE Final Result Performing Organization Address [facility] de Phone Number [facility] [place] [address] * Troponin I high-sensitivity series (baseline, 2hr, 4hr, 6hr) (12/30/2024 5:50 PM CDT) [facility] Trop I hs <4 <=35 ng/L Comment: Interpretive Data For further hscTnI resources including the diagnostic algorithm and an aid in interpretation, copy and paste this link: https://bjhlab.testcatalog.org/show/hsTrop-1 Current Interpretive Data last revised 2020. Blood 12/30/2024 5:50 PM CDT 12/30/2024 6:06 PM CDT us Leno Vargas MD LAB BLOOD ORDERABLES Fin al Result Performing Organization Address [facility] de Phone Number [facility] [place] [address] * eGFR (12/30/2024 5:50 PM CDT) [facility] eGFR >90 >=60 mL/min/1. 73 m2 Comment: [...] MD LAB BLOOD ORDERABLES Fin al Result [facility] [place] [address] * (ABNORMAL) Differential, auto (12/30/2024 5:50 PM CDT) Neutrophil abs 9.6(H) 1.5 - 6.5 K/cumm Imm gran abs 0.0 0.0 - 0.1 K/cumm [facility] Lymphocyte abs 0.7(L) 0.8 - 3.3 K/cumm [facility] Monocyte abs 0.7 0.2 - 0.8 K/cumm [facility] Eosinophil abs 0.0 0.0 - 0.5 K/cumm [facility] Basophil abs 0.0 0.0 - 0.1 K/cumm [facility] Neutrophil pct 86.6 % [facility] Comment: Interpretive Data Percent cell count reference ranges are not reported, since discordance with absolute values may lead to misinterpretation of CBC data. Current Interpretive Data was last revised on 2018. Imm gran pct 0.3 % [facility] Comment: Interpretive Data Percent cell count reference ranges are not reported, since discordance with absolute values may lead to misinterpretation of CBC data. Current Interpretive Data was last revised on 2018. Lymphocyte pct 6.6 % [facility] Comment: Interpretive Data Percent cell count reference ranges are not reported, since discordance with absolute values may lead to misinterpretation of CBC data. Current Interpretive Data was last revised on 2018. Monocyte pct 6.0 % [facility] Comment: Interpretive Data Percent cell count reference ranges are not reported, since discordance with absolute values may lead to misinterpretation of CBC data. Current Interpretive Data was last revised on 2018. Eosinophil pct 0.2 % [facility] Comment: Interpretive Data Percent cell count reference ranges are not reported, since discordance with absolute values may lead to misinterpretation of CBC data. Current Interpretive Data was last revised on 2018. Basophil pct 0.3 % [facility] Comment: Interpretive Data Percent cell count reference ranges are not reported, since discordance with absolute values may lead to misinterpretation of CBC data. Current Interpretive Data was last revised on 2018. Blood 12/30/2024 5:50 PM CDT 12/30/2024 6:05 PM CDT Leno Vargas MD LAB BLOOD ORDERABLES Fin al Result [facility] [place] [address] * (ABNORMAL) CBC with auto differential (12/30/2024 5:50 PM CDT) WBC 11.1(H) 3.8 - 9.9 K/cumm Hgb 13.7 13.0 - 17.5 g/dL [facility] Hct 39.4 38.9 - 50.3 % [facility] Plt 187 150 - 400 K/cumm [facility] MPV 9.9 9.1 - 12.3 fL [facility] RBC 4.34 4.30 - 5.80 M/cumm [facility] MCV 90.8 81.3 - 96.4 fL [facility] MCH 31.6 27.1 - 33.3 pg [facility] MCHC 34.8 32.3 - 35.7 g/dL [facility] RDW CV 12.1 11.1 - 14.9 % [facility] RDW SD 40.7 35.7 - 48.1 fL [facility] NRBC abs 0.00 0.00 - 0.01 K/cumm [facility] Blood 12/30/2024 5:50 PM CDT 12/30/2024 6:05 PM CDT Leno Vargas MD LAB BLOOD ORDERABLES Fin al Result Performing Organization Address [facility] de Phone Number [facility] [place] [address] * aPTT (12/30/2024 5:50 PM CDT) aPTT 29 28 - 38 sec Comment: Interpretive Data Heparin therapeutic range: 66.0 - 100.0 seconds. Range based on correlation with therapeutic heparin activity range of 0.3 - 0.7 Units/mL. Current interpretive data was last revised on 2023. Blood 12/30/2024 5:50 PM CDT 12/30/2024 6:[address] [facility] Leno Vargas MD LAB BLOOD ORDERABLES Fin al Result Performing Organization Address [facility] de Phone Number [facility] [place] [address] * Protime-INR (12/30/2024 5:50 PM CDT) PT 11.0 9.7 - 13.0 sec INR 1.02 0.90 - 1.20 [facility] Comment: Interpretive data Oral anticoagulant therapeutic ranges: Venous thromboembolism prophylaxis or treatment: 2.0-3.0 CARDIOLOGY Standard range: 2.0-3.0 High-intensity range: 2.5-3.5 Refer to indication-specific guidelines for appropriate target ranges for prosthetic heart valve replacement. Current interpretive data was last revised on 2019. Blood 12/30/2024 5:50 PM CDT 12/30/2024 6:[address] [facility] Leno Vargas MD LAB BLOOD ORDERABLES Fin al Result Performing Organization Address City/[facility] [place] [address] * Type and screen (12/30/2024 5:50 PM CDT) Pathologist [facility] Mayur, indirect Negative ABO Rh O Positive [facility] Blood 12/30/2024 5:50 PM CDT 12/30/2024 6:32 PM CDT Narrative [facility] - 12/30/2024 7:30 PM CDT Has the patient had Daratumumab or Isatuximab in the past 6 months?->Unknown Leno Vargas MD LAB BLOOD BANK TEST ORDE RABLES Final Result Performing Organization Address [facility] Co de Phone Number [facility] [place] [address] * Comprehensive metabolic panel (12/30/2024 5:50 PM CDT) Pathologist [facility] Sodium 141 135 - 145 mmol/L Potassium, pl 4.1 3.3 - 4.9 mmol/L [facility] Chloride 100 97 - 110 mmol/L [facility] CO2 28 22 - 32 mmol/L [facility] Anion gap 13 2 - 15 mmol/L [facility] BUN 18 6 - 25 mg/dL [facility] Creatinine 0.85 0.80 - 1.30 mg/dL [facility] Glucose 160 70 - 199 mg/dL [facility] Comment: Interpretive Data Fasting glucose >/= [...] Calcium 9.9 8.5 - 10.3 mg/dL [facility] Bilirubin, total 0.2 0.1 - 1.2 mg/dL [facility] Protein, pl 7.3 6.5 - 8.5 g/dL [facility] Albumin 4.4 3.5 - 5.0 g/dL [facility] Alk phos 60 40 - 130 Units/L [facility] ALT 16 7 - 55 Units/L [facility] AST 23 10 - 50 Units/L [facility] Blood 12/30/2024 5:50 PM CDT 12/30/2024 6:05 PM CDT Leno Vargas MD LAB BLOOD ORDERABLES Fin al Result [facility] [place] [address] from Last 3 Months Insurance [facility] ACCESS CHOICE ANTH ACCESS CHOICE Advance Directives For more information, please contact: [phone] * Full Code (Latest Code Status on File) Date Activated Date Inactivated Comments 12/31/2024 5:03 AM 01/02/2025 8:46 PM Care Teams Hot Mill Supervisor Relationship Specialty Start Date End Date Winter Terry MD [address] [place] [address] PCP - General Internal Medicine 12/30/24
--- OUTSIDE RECORDS SUMMARY | 2025-01-05 17:16 | XMS_ITS | Encounter Summary ---
Author Organization [facility] Address On license of [facility] [place] [address] Care Team Providers Care Advisory Services Associate Name Role Phone Suresh Lynn MD Primary Care Pr ovider Unavailable Winter Terry MD Primary Care Provider [phone] Chalino Palacios MD Unavailable Encounter Details Date Type Department Care Team (Late Contact Info) Description 12/31/2022 MyChart Message Enc [facility] [address] [place] [address] Suresh Lynn MD Lab results [...] Visit [facility] [place] [address] [address] [place] [address] Winter Terry MD [facility] [address] [address] 01/23/2025 8:40 AM CDT Office Visit [facility] [place] [address] [address] [place] [address] Winter Terry MD [facility] [address] [address] 04/09/2025 11:30 AM CDT Appointment [facility] Radiation Oncology [address] [place] [address] [place] [address] Chalino Palacios MD [address] [place] [address] [address] [place] [address] documented as of this encounter Visit Diagnoses Not on filedocumented in this encounter Additional Health Concerns Assessment Noted Time PHQ-9 Depression Total Score: 12 023 5:43 PM CDT documented as of this encounter Care Teams Advisory Services Associate Relationship Specialty Start Date End Date Suresh Lynn MD PCP - General FAMILY PRACTICE 12/31/22 03/06/23 Winter Terry MD [address] [place] [address] PCP - General INTERNAL MEDICINE 03/07/23 Chalino Palacios MD [address] [place] [phone] Consulting Physician RADIATION ONCOLOGY 04/02/24 documented as of this encounter
--- OUTSIDE RECORDS SUMMARY | 2025-01-05 17:16 | XMS_ITS | Encounter Summary ---
Author Organization [facility] Healthcare Address [address] [place] [address] Care Team Providers Care Transport Technician Name Role Phone Winter Terry MD Primary Care Provider [phone] Encounter Details Date Type Department Care Team (Late st Contact Info) Description 01/03/[address] [address] Shyanne Silva Social History Tobacco Use Types [...] on filedocumented in this encounter Care Teams Transport Technician Relationship Specialty Start Date End Date Winter Terry MD [address] [place] [address] PCP - General Internal Medicine 12/30/24 documented as of this encounter
--- OUTSIDE RECORDS SUMMARY | 2025-01-05 17:16 | XMS_ITS | Encounter Summary ---
Author Organization [facility] Address [address] [place] [address] Care Team Providers Care Embroidery Designer Name Role Phone Winter Terry MD Primary Care Provider [phone] Chalino Palacios MD Unavailable Reason for Visit [...] Department Care Team (Late Contact Info) Description 01/08/2025 9:40 AM CDT Office Visit [facility] [place] [address] [address] [address] [place], [place] [id number] Winter Terry MD [address] [place] [address] [address] [place], [place] [id number] 01/23/2025 8:40 AM CDT Office Visit [facility] [place] [address] [address] [address] [place] [address] Winter Terry MD [address] [facility] [address] [place] [address] 04/09/2025 11:[address] [facility] Radiation Oncology [address] [place] [address] [place] [address] Chalino Palacios MD [address] [facility] [address] [place] [address] documented as of this encounter Procedures Procedure Name Priority Date/Time Associated Diagnosis Comments CT GENERIC 12/30/2024 CT GENERIC 12/30/2024 OUTSIDE LAB (SCAN ORDER) 12/30/2024 OUTSIDE LAB (SCAN ORDER) 12/30/2024 IMAGE GENERIC 12/30/2024 documented in this encounter Results * OUTSIDE LAB (SCAN ORDER) (12/30/2024) 12/30/2024 [facility] Scanned SCANNING Final Resu lt * OUTSIDE LAB (SCAN ORDER) (12/30/2024) 12/30/2024 [facility] Scanned SCANNING Final Resu lt * CT GENERIC (12/30/2024) Anatomical Region Laterality Modality Other 12/30/2024 [facility] Scanned SCANNING Final Resu lt * CT GENERIC (12/30/2024) Anatomical Region Laterality Modality Other 12/30/2024 [facility] Scanned SCANNING Final Resu lt * IMAGE GENERIC (12/30/2024) Anatomical Region Laterality Modality Other 12/30/2024 [facility] Scanned SCANNING Final Resu lt documented in this encounter Visit Diagnoses Not on filedocumented in this encounter Additional Health Concerns Assessment Noted Time PHQ-9 Depression Total Score: 0 03/30/20 23 9:33 AM CDT documented as of this encounter Care Teams Embroidery Designer Relationship Specialty Start Date End Date Winter Terry MD [address] [facility] [address] [place] [address] PCP - General INTERNAL MEDICINE 03/07/23 Chalino Palacios MD [address] [facility] [address] [place] [address] Consulting Physician RADIATION ONCOLOGY 04/02/24 documented as of this encounter
--- OUTSIDE RECORDS SUMMARY | 2025-01-05 17:17 | XMS_ITS ---
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
--- OUTSIDE RECORDS SUMMARY | 2025-01-05 17:17 | XMS_ITS | Continuity of Care Document ---
Author Name [facility] Organization [facility] Care Team Providers Care Steward/Stewardess Second Name Role Phone [facility] Unavailable Unavailable Encounters [...] ADM Date DC Date Status Disposition Source [facility] Outpatient Encounter [id number] 4 03/27 [facility]
--- OUTSIDE RECORDS SUMMARY | 2025-01-05 17:17 | XMS_ITS | Encounter Summary ---
Author Organization [facility] Address [facility] [place] [address] Care Team Providers Care Residential Insurance Inspector Name Role Phone Winter Terry MD Primary Care Provider [phone] Chalino Palacios MD Unavailable Encounter Details Date Type Department Care Team (Late Contact Info) Description 03/19/2024 MyChart Message [facility] [address] [place] [phone] Winter Terry MD [address] [place] [address] Pain Management Social History Tobacco Use [...] 9:40 AM CDT Office Visit [facility] - [address] [place], [place] [id number] Winter Terry MD [address] [place] [address] 01/23/2025 8:40 AM CDT Office Visit [facility] - [place] [address] [address] [address] [place] [address] Winter Terry MD [address] [place] [address] 04/09/2025 11:30 AM CDT Appointment [facility] Radiation Oncology [address] [place] [address] [place] [address] Chalino Palacios MD [address] [facility] [address] [place] [address] documented as of this encounter Visit Diagnoses Not on filedocumented in this encounter Additional Health Concerns Assessment Noted Time PHQ-9 Depression Total Score: 0 03/30/20 23 9:33 AM CDT documented as of this encounter Care Teams Residential Insurance Inspector Relationship Specialty Start Date End Date Winter Terry MD [address] [place] [address] PCP - General INTERNAL MEDICINE 03/07/23 Chalino Palacios MD [address] [place] [address] Consulting Physician RADIATION ONCOLOGY 04/02/24 documented as of this encounter
--- OUTSIDE RECORDS SUMMARY | 2025-01-05 17:17 | XMS_ITS | Clinical Summary ---
Author Organization [facility] Address [address], [address] [place] [address] Phone Care Team Providers Care Spot Facer Name Role Phone Winter Terry MD Primary Care Provider [phone] Haroldo Burt MD Unavailable Unavailable Pop Waller MD Unavailable [phone] Allergies Active Allergy Reactions Criticality Noted Date [...] Description 01/04/2025 Telephone [facility] [address] [address] Pop Waller MD [place] Call / Er 01/02/2025 Telephone [facility] [address] [address] Pop Waller MD [place]opy Call / [facility] admission 12/31/2024 Telephone [facility] [address] [address] Pop Waller MD 12/20/2024 11:00 AM CDT Ancillary Procedure [facility] [address] [address] 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); NSCLC of left lung (HCC) 12/20/2024 Telephone [facility] [address] [address] Chalino Palacios MD 12/19/2024 11:00 AM CDT Office Visit [facility] [address] [phone] Johanna Roque, CLINICAL PHARMACOLOGIST, HEEL CASER 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) (Primary Dx); Fatigue, unspecified type 12/19/2024 10:45 AM CDT Clinical Support [facility] [address] [address] 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) (Primary Dx); Encounter for immunotherapy; Hypomagnesemia 12/19/2024 Travel 12/05/2024 10:30 AM SUBSTATION MECHANIC Office Visit [facility] [address] [phone] Shannon Seymour, CLINICAL PHARMACOLOGIST, HEEL CASER 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) (Primary Dx); Encounter for immunotherapy; Hypomagnesemia 12/05/2024 10:15 AM SUBSTATION MECHANIC Clinical Support [facility] [address] [address] 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) (Primary Dx); Encounter for immunotherapy; Hypomagnesemia 12/05/2024 Travel 11/21/2024 10:15 AM SUBSTATION MECHANIC Office Visit [facility] [address] [address] Wen Reyes, CLINICAL PHARMACOLOGIST, HEEL CASER 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) (Primary Dx); Encounter for immunotherapy; Hypomagnesemia 11/21/2024 10:00 AM SUBSTATION MECHANIC Clinical Support [facility] [address] [address] 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) (Primary Dx) 11/21/2024 Travel 11/07/2024 10:00 AM SUBSTATION MECHANIC Office Visit [facility] [address] [address] Johanna Roque, CLINICAL PHARMACOLOGIST, HEEL CASER 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) (Primary Dx) 11/07/2024 9:45 AM SUBSTATION MECHANIC Clinical Support [facility] [address] [address] 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) (Primary Dx); Encounter for immunotherapy; Hypomagnesemia 11/07/2024 Travel 10/24/2024 10:00 AM SUBSTATION MECHANIC Office Visit [facility] [address] [address] Shannon Seymour, CLINICAL PHARMACOLOGIST, HEEL CASER 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) (Primary Dx); Encounter for immunotherapy; Hypomagnesemia 10/24/2024 9:45 AM SUBSTATION MECHANIC Clinical Support [facility] [address] [address] 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) (Primary Dx) 10/24/2024 Travel 10/10/2024 10:15 AM SUBSTATION MECHANIC Office Visit [facility] [address] [phone] Wen Reyes APRN, MELANIE 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) (Primary Dx) 10/10/2024 10:00 AM SUBSTATION MECHANIC Clinical Support [facility] [address] [phone] Primary non-small cell carcinoma of upper lobe [...] CDT Office Visit [facility] [address] [phone] Pop Waller MD [address] [place] [phone] 01/16/2025 1:15 PM CDT Clinical Support [facility] [address] [address] Nurse, Alina [facility] 04/09/2025 10:30 AM CDT Ancillary Procedure [facility] [address] [address] Health Maintenance Due Date Last [...] AUTO DIFF [place] Routine 12/05/2024 10:03 AM SUBSTATION MECHANIC 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) CMP (COMPREHENSIVE METABOLIC PANEL) Routine 12/05/2024 10:03 AM SUBSTATION MECHANIC 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) Encounter for immunotherapy Hypomagnesemia LACTATE DEHYDROGENASE (LD) Routine 12/05/2024 10:03 AM SUBSTATION MECHANIC 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) Encounter for immunotherapy Hypomagnesemia MAGNESIUM (MG) Routine 12/05/2024 10:03 AM SUBSTATION MECHANIC 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) Encounter for immunotherapy Hypomagnesemia CBC WITH AUTO DIFF OH Routine 11/21/2024 9:37 AM SUBSTATION MECHANIC 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) CMP (COMPREHENSIVE METABOLIC PANEL) Routine 11/21/2024 9:37 AM SUBSTATION MECHANIC 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) LACTATE DEHYDROGENASE (LD) Routine 11/21/2024 9:37 AM SUBSTATION MECHANIC 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) MAGNESIUM (MG) Routine 11/21/2024 9:37 AM SUBSTATION MECHANIC 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) CBC WITH AUTO DIFF OH Routine 11/07/2024 9:43 AM SUBSTATION MECHANIC 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) CMP (COMPREHENSIVE METABOLIC PANEL) Routine 11/07/2024 9:43 AM SUBSTATION MECHANIC 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) Encounter for immunotherapy Hypomagnesemia THYROXINE (T4) FREE Routine 11/07/2024 9 :43 AM SUBSTATION MECHANIC 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) Encounter for immunotherapy Hypomagnesemia THYROID STIMULATING HORMONE (TSH) Routine 11/07/2024 9:43 AM SUBSTATION MECHANIC 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) Encounter for immunotherapy Hypomagnesemia MAGNESIUM (MG) Routine 11/07/2024 9:43 AM SUBSTATION MECHANIC 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) Encounter for immunotherapy Hypomagnesemia IRON W/ IRON BINDING CAPACITY OH Routine 11/07/2024 9:43 AM SUBSTATION MECHANIC 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) Encounter for immunotherapy Hypomagnesemia FERRITIN Routine 11/07/2024 9:43 AM SUBSTATION MECHANIC 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) Encounter for immunotherapy Hypomagnesemia MAGNESIUM (MG) Routine 10/24/2024 9:41 AM SUBSTATION MECHANIC 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) CBC WITH AUTO DIFF OH Routine 10/24/2024 9:41 AM SUBSTATION MECHANIC 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) CMP (COMPREHENSIVE METABOLIC PANEL) Routine 10/24/2024 9:41 AM SUBSTATION MECHANIC 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) LACTATE DEHYDROGENASE (LD) Routine 10/24/2024 9:41 AM SUBSTATION MECHANIC 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) CBC WITH AUTO DIFF OH Routine 10/10/2024 9:55 AM SUBSTATION MECHANIC 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) CMP (COMPREHENSIVE METABOLIC PANEL) Routine 10/10/2024 9:55 AM SUBSTATION MECHANIC 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) Elevated blood pressure reading LACTATE DEHYDROGENASE (LD) Routine 10/10/2024 9:55 AM SUBSTATION MECHANIC Primary non-small cell carcinoma of upper lobe [...] primary malignancy of the left upper lobe. [id number] with left upper lobe lung carcinoma with [...] included. Magnesium 1.8(L) 1.9 - 2.7 mg/dL [facility] COMPUTER GRAPHIC [facility]I [facility] Blood 12/19/2024 10:3 2 AM CDT [facility] COMPUTER [facility]APHIC [facility] - 12/19/2024 11:17 AM CDT Release to patient->Immediate Shannon Khan Tomac CLINICAL PHARMACOLOGIST, HEEL CASER CHEMISTRY ORDERABLES Final Result Performing Organization Address City/[facility] Co de Phone Number [facility] [place] [address], * (ABNORMAL) LACTATE DEHYDROGENASE (LD) (12/19/2024 10:32 AM CDT) Only the most recent of5 resultswithin the time period is included. LDH 82(L) 140 - 271 U/L [facility] Blood 12/19/2024 10:3 2 AM CDT [facility] - 12/19/2024 11:17 AM CDT Release to patient->Immediate Shannon Hernándezac CLINICAL PHARMACOLOGIST, HEEL CASER CHEMISTRY ORDERABLES Final Result Performing Organization Address City/[facility]/ZIP Co de Phone Number [facility] COMPUTER GRAPHIC DESIGNERCHI [facility] [place] [place] [address], * (ABNORMAL) CMP (COMPREHENSIVE METABOLIC PANEL) (12/19/2024 10:32 AM CDT) Only the most recent of6 resultswithin the time period is included. Glucose 108(H) 70 - 105 mg/dL [facility] Blood Urea Nitrogen 17 7 - 25 mg/dL [facility] Creatinine 0.6(L) 0.7 - 1.3 mg/dL [facility] Sodium 137 136 - 145 mEq/L [facility] Potassium 4.6 3.5 - 5.1 mEq/L [facility] Chloride 103 98 - 107 mEq/L [facility] Bicarbonate 24 21 - 31 mEq/L [facility] Total Bilirubin 0.5 0.3 - 1.0 mg/dL [facility] Alk. Phosphatase 60 34 - 104 U/L [facility] Aspartate Aminotransferase 13 13 - 39 U/L [facility] Alanine Aminotransferase 12 7 - 52 U/L [facility] Total Protein 6.8 6.4 - 8.9 g/dL [facility] Albumin 4.5 3.5 - 5.7 g/dL [facility] Calcium 9.8 8.6 - 10.3 mg/dL [facility] Anion Gap 14.6 7.0 - 15.0 mEq/L [facility] Globulin 2.3 2.0 - 3.5 g/dL [facility] EGFR 111 >60 ml/min/1. 73m2 [facility] Comment: This eGFR is calculated using 2020 CKD-EPI Creatinine equation without race modifier based on the NKF-ASN task force recommendations Equation: eLZM=322*min(SCr/k,1)a*max(SCr/k,1)-1.200*0.9938Age*1.012 (if female), where SCr is serum creatinine, k is 0.7 for females and 0.9 for males, and a is -0.241 for females and -0.302 for males Blood 12/19/2024 10:3 2 AM CDT Narrative [facility] COMPUTER GRAPHIC DESIGNER [facility] - 12/19/2024 11:17 AM CDT Release to patient->Immediate IS THE PATIENT REQUIRED TO BE FASTING FOR 8 HOURS?->No Shannon Seymour CLINICAL PHARMACOLOGIST, HEEL CASER CHEMISTRY ORDERABLES Final Result [facility] GRAPHIC DESIGNER [facility] [place] [address], * (ABNORMAL) COMPLETE BLOOD COUNT (CBC) WITH DIFF (12/19/2024 10:32 AM CDT) WBC 6.7 4.0 - 10.0 10*3/uL [facility] COMPUTER GRAPHIC DESIGNER [facility] HGB 14.3 13.7 - 17.5 g/dL [facility] COMPUTER GRAPHIC DESIGNER [facility] HCT 42.0 40.1 - 51.0 % [facility] COMPUTER GRAPHIC DESIGNER [facility] PLT 221 163 - 369 10*3/uL [facility] COMPUTER GRAPHIC DESIGNER [facility] MPV 9.6 9.4 - 12.4 fL [facility] COMPUTER GRAPHIC DESIGNER [facility] RBC 4.48(L) 4.63 - 6.08 10*6/uL [facility] COMPUTER GRAPHIC DESIGNER [facility] MCV 94 79 - 95 fL [facility] COMPUTER GRAPHIC DESIGNER [facility] MCH 31.9 25.6 - 32.2 pg [facility]ER COMPUTER GRAPHIC DESIGNER [facility] MCHC 34.0 32.2 - 36.5 g/dL [facility] COMPUTER GRAPHIC DESIGNER [facility] RDW 12.5 11.6 - 14.4 % [facility] COMPUTER GRAPHIC DESIGNER [facility] Absolute Neutrophil Count 5,128 cells/uL [facility] Absolute Seg Count 5,128 1,440 - 6,600 cells/uL [facility]ER COMPUTER GRAPHIC DESIGNER [facility] Absolute Lymph Count 932 760 - 4,000 cells/uL [facility]ER COMPUTER GRAPHIC DESIGNER [facility] Absolute [place] Count 599 160 - 1,200 cells/uL [facility] COMPUTER GRAPHIC DESIGNER [facility] Segmented Neutrophils 77(H) 36 - 66 % [facility] COMPUTER GRAPHIC DESIGNER [facility] Lymphocytes 14(L) 19 - 40 % [facility] Monocytes 9 4 - 12 % [facility] WBC Estimate Normal [facility]CER COMPUTER GRAPHIC DESIGNER [facility] Platelet Estimate Normal [facility]ER COMPUTER GRAPHIC DESIGNER [facility] RBC Morphology Normal C[facility] R COMPUTER GRAPHIC DESIGNER [facility] Blood 12/19/2024 10:3 2 AM CDT Narrative [facility] GRAPHIC DESIGNER [facility] - 12/19/2024 11:24 AM CDT Release to patient->Immediate Shannon Seymour CLINICAL PHARMACOLOGIST, HEEL CASER HEMATOLOGY ORDERABLES Final Result [facility] COMPUTER GRAPHIC DESIGNER [facility] [place] [address], * (ABNORMAL) CBC WITH AUTO DIFF [place] (12/05/2024 10:03 AM SUBSTATION MECHANIC) Only the most recent of5 resultswithin the time period is included. WBC 5.5 4.0 - 10.0 10*3/uL [facility] COMPUTER GRAPHIC DESIGNER [facility] HGB 14.1 13.7 - 17.5 g/dL [facility] COMPUTER GRAPHIC DESIGNER [facility] HCT 41.8 40.1 - 51.0 % CANCER COMPUTER GRAPHIC DESIGNER [facility] PLT 246 163 - 369 10*3/uL [facility]ER COMPUTER GRAPHIC DESIGNER [facility] MPV 9.4 9.4 - 12.4 fL [facility]ER COMPUTER GRAPHIC DESIGNER [facility] RBC 4.44(L) 4.63 - 6.08 10*6/uL [facility] COMPUTER GRAPHIC DESIGNER [facility] MCV 94 79 - 95 fL [facility] COMPUTER GRAPHIC DESIGNER [facility] MCH 31.8 25.6 - 32.2 pg [facility]ER COMPUTER GRAPHIC DESIGNER [facility] MCHC 33.7 32.2 - 36.5 g/dL [facility] COMPUTER GRAPHIC DESIGNER [facility] RDW 12.4 11.6 - 14.4 % [facility]ER COMPUTER GRAPHIC DESIGNER [facility] Neutrophils % 69.4(H) 36.0 - 66.0 % [facility] COMPUTER GRAPHIC DESIGNER [facility] Lymphocytes % 19.3 19.0 - 40.0 % [facility]ER COMPUTER GRAPHIC DESIGNER [facility] Monocytes % 9.7 4.1 - 12.1 % [facility]ER COMPUTER GRAPHIC DESIGNER [facility] Eosinophils % 0.7 0.0 - 3.5 % [facility]ER COMPUTER GRAPHIC DESIGNER [facility] Basophils % 0.5 0.0 - 1.0 % [facility] COMPUTER GRAPHIC DESIGNER [facility] Absolute Neutrophils 3.8 1.4 - 6.6 10*3/uL [facility] COMPUTER GRAPHIC DESIGNER [facility] Absolute Lymphocytes 1.1 0.8 - 4.0 10*3/uL [facility] COMPUTER GRAPHIC DESIGNER [facility] [place] Absolute Monocytes 0.5 0.2 - 1.2 10*3/uL [facility] COMPUTER GRAPHIC DESIGNER [facility] Absolute Eosinophils 0.0 0.0 - 0.4 10*3/uL [facility] COMPUTER GRAPHIC DESIGNER [facility] Absolute Basophils 0.0 0.0 - 0.1 10*3/uL [facility]APHIC DESIGNER [facility] 12/05/2024 10:0 3 AM SUBSTATION MECHANIC Wen Reyes CLINICAL PHARMACOLOGIST, HEEL CASER LAB SEND OUTS Fin al Result Performing Organization Address [facility] Co de Phone Number [facility]CER COMPUTER [facility]APHIC [facility]ER[facility]I [facility] [place] [place] [address], * IRON W/ IRON BINDING CAPACITY [place] (11/07/2024 9:43 AM SUBSTATION MECHANIC) IRON 146 50 - 212 ug/dL [facility] UIBC 203 155 - 355 ug/dL [facility] COMPUTER GRAPHIC DESIGNER[facility]I [facility] TIBC 349 261 - 478 ug/dl [facility] COMPUTER [facility]APHIC [facility] % Saturation 42 20 - 50 % [facility]PUTER [facility] 11/07/2024 9:43 AM SUBSTATION MECHANIC Narrative [facility] - 11/07/2024 10:22 AM SUBSTATION MECHANIC Release to patient->Immediate Shannon Seymour CLINICAL PHARMACOLOGIST, HEEL CASER LAB SEND OUTS Final Result Performing Organization Address [facility] de Phone Number [facility] COMPUTER GRAPHIC DESIGNERCHI [facility] [place] [address], [place] [phone] * THYROXINE (T4) FREE (11/07/2024 9:43 AM SUBSTATION MECHANIC) THYROXINE (T4), FREE, 0.92 0.61 - 1.12 ng/dL [facility] COMPUTER GRAPHIC [facility]ERCHI [facility] Comment: Specimens that contain high levels of Biotin >10 ng/mL may cause false high results for this method. Interpret results in light of the total clinical presentation of the patient. To minimize the interference of high levels of Biotin, it is recommended that patients discontinue taking Biotin 72 hours prior to testing. Blood 11/07/2024 9:43 AM SUBSTATION MECHANIC [facility] CANCER COMPUTER [facility]APHIC [facility] - 11/08/2024 2:47 PM SUBSTATION MECHANIC Is the patient taking Biotin supplement? Not sure Release to patient->Immediate Shannon Hernándezac CLINICAL PHARMACOLOGIST, HEEL CASER CHEMISTRY ORDERABLES Final Result Performing Organization Address City/[facility]/ZIP Co de Phone Number [facility] COMPUTER GRAPHIC [facility] [place] [place] [address], [place] [phone] * THYROID STIMULATING HORMONE (TSH) (11/07/2024 9:43 AM SUBSTATION MECHANIC) TSH 1.12 0.45 - 5.33 uIU/mL [facility] Blood 11/07/2024 9:43 AM SUBSTATION MECHANIC [facility] CANCER COMPUTER [facility]IC [facility] - 11/08/2024 2:47 PM SUBSTATION MECHANIC Release to patient->Immediate Shannon Hernándezac CLINICAL PHARMACOLOGIST, HEEL CASER CHEMISTRY ORDERABLES Final Result Performing Organization Address [facility]/ZIP Co de Phone Number CANCER COMPUTER GRAPHIC [facility]ER[facility] [place] [address], [place] [phone] * FERRITIN (11/07/2024 9:43 AM SUBSTATION MECHANIC) Ferritin 103 24 - 336 ng/mL [facility]PUTER [facility] Blood 11/07/2024 9:43 AM SUBSTATION MECHANIC [facility] - 11/08/2024 2:47 PM SUBSTATION MECHANIC Release to patient->Immediate Shannon Seymour CLINICAL PHARMACOLOGIST, HEEL CASER CHEMISTRY ORDERABLES Final Result Performing Organization Address City/[facility]/ZIP Co de Phone Number CANCER COMPUTER GRAPHIC DESIGNERCHI [facility] [place] [place] [address], [place] [phone] from Last 3 Months Insurance [facility] [place] Care Teams Spot Facer Relationship Specialty Start Date End Date Winter Terry MD [address] [address] PCP - General Internal Medicine 03/19/24 Haroldo Burt MD [address] [address] Internal Medicine 03/19/24 Pop Waller MD [address] [place] [address] Consulting Physician Oncology 03/26/24
--- OUTSIDE RECORDS SUMMARY | 2025-01-05 17:17 | XMS_ITS ---
Author Organization [facility] [address] Address [address] [place] [address] Care Team Providers Care Gallery Intern Name Role Phone Winter Terry MD Primary Care Provider [phone] Active Problems Problem Noted Date Diagnosed Date Syncopal episodes 01/02/2025 Assessment & Plan (01/02/2025 2:22 PM CDT): Resultant in fall, imaging noted right ICH see work up tab. Echocardiogram 01/02 noted below Normal left ventricular size based on volume index. The Ejection Fraction (Cdeeno's) is measured at 53 %. Grade I [...] Assessment & Plan (12/31/2024 3:24 PM CDT): [id number] [place], [place] - [address] [place] [address]) & [employer] [address] [facility] [address] Patient will use [facility] at discharge. Acute pain [...] will discuss with team Dr. Waller oncologist [phone] 01/01 Ordered MRI with and without Brain [...]
--- OUTSIDE RECORDS SUMMARY | 2025-01-05 17:17 | XMS_ITS | Clinical Summary ---
Author Organization [facility] Address [address] [facility] [place] [address] Care Team Providers Care Scrap Baler Name Role Phone Unavailable Primary Care Provider Unavailabl e Source Comments [facility],non-owned Affiliates and Associated Physician Practices is amultiple site organization consisting of ambulatory clinics and hospital sitesin [place], [place], [place] and [place]. This disclosure is being madepursuant to the Care Everywhere program and may not contain all information available regarding this patient. Last updated 18.[facility] Encounters Date Type Department Care Team Description 01/04/2025 Telephone [facility] - Internal Medicine [address] [place] [phone] Isai Merino MD Follow-up from Last 3 [...]
--- OUTSIDE RECORDS SUMMARY | 2025-01-05 17:17 | XMS_ITS | Clinical Summary ---
Author Organization [facility] Address [facility] [place] [address] Care Team Providers Care Polymer Tester Name Role Phone Winter Terry MD Primary Care Provider [phone] Chalino Palacios MD Unavailable Medications Lancets MiscIndications:U ncontrolled type 2 diabetes mellitus with hyperglycemia ([facility] HHS/HCC) 1 Device by Does not apply route 3 (three) times daily before meals. 100 each 2 3 Active Alcohol Swabs (ALCOHOL PREP) PadsIndications:U ncontrolled type 2 diabetes mellitus with hyperglycemia ([facility]/HCC HHS/HCC) 1 Bag by Does not apply route 3 (three) times daily before meals. 100 each 2 3 Active Blood Glucose Monitoring Suppl (FREESTYLE LITE) w/Device KitIndications:He moglobin A1C greater than 9%, indicating poor diabetic control,Uncontrol led type 2 diabetes mellitus with hyperglycemia ([facility]/HCC HHS/HCC) 1 each by Does not apply route 3 (three) times daily. 1 kit 3 Active Glucose Blood (FREESTYLE LITE) test stripIndications: Hemoglobin A1C greater than 9%, indicating poor diabetic control,Uncontrol led type 2 diabetes mellitus with hyperglycemia ([facility] HHS/HCC) Use 3 times daily before meals [...] :Smoker,Moderate episode of recurrent major depressive disorder ([facility]) Take 1 tablet (150 mg total) by [...] hyperglycemia, without long-term current use of insulin ([facility]),Dyslipid emia TAKE 1 TABLET BY MOUTH NIGHTLY AT BEDTIME 90 tablet 4 Active metFORMIN (GLUCOPHAGE) 500 MG tabletIndications :Type 2 diabetes mellitus with hyperglycemia, without long-term current use of insulin ([facility]) TAKE 2 TABLETS BY MOUTH TWICE A DAY WITH MEALS 360 tablet 4 Active Active Problems Problem Noted Date Diagnosed Date Adenocarcinoma, lung, left ([facility]) Chronic bilateral low back pain without sciatica 04/28/2024 Hyperlipidemia due to type 2 diabetes mellitus ([facility]) 04/28/2024 Left shoulder pain, unspecified chronicity 02/21 Right knee pain, unspecified chronicity 02/22/20 24 Moderate episode of recurrent major depressive d isorder 02/03/2023 Encounter for smoking cessation counseling 02/03 Smoker 02/03/2023 Callus of heel 02/03/2023 Mixed hyperlipidemia 02/03/2023 Hemoglobin A1C greater than 9%, indicating poor diabetic control 01/03/2023 Uncontrolled type 2 diabetes mellitus with hyperglycemia ([facility]) 01/03/2023 Encounters Date Type Department Care Team Description 01/04/2025 Telephone [place] [address] [place] [address] Winter Terry MD Error 01/03/2025 Telephone [place] [address] [address] [address] [address] [place] [address] Winter Terry MD Question 01/02/2025 Scan [facility] SRVCS Scanned, [facility] 01/01/2025 [place] [address] [address] [place] [address] Winter Terry MD Follow Up Call 12/30/2024 Scan [facility] INFO SRVCS Scanned, Doc [facility] Lab (SCAN); CT (SCAN); Image (SCAN) 12/20/2024 10:35 AM CDT - 12/20/2024 11:59 PM CDT Hospital Encounter [facility] Radiation Oncology [address] [place] [address] Chalino Palacios MD Follow Up Discharge Disposition: Home or Self Care (Routine Discharge) 12/20/2024 [facility] [address] [address] [place] [address] Winter Terry MD Referral 12/20/2024 Telephone [facility] Medical Group Multispecialty Care - [address] [place] [address] Winter Terry MD Follow Up Call 12/20/2024 [...] Description 01/08/2025 9:40 AM CDT Office Visit [facility] Medical [facility] Multispecialty Care - [place] [address] [address] [place] [address] Winter Terry MD [address] [place] [address] 01/23/2025 8:40 AM CDT [facility] [address] [place] [address] Winter Terry MD [address] [place] [address] 04/09/2025 11:30 AM CDT Appointment [facility] Radiation Oncology [address] [place] [address] [place] [address] Chalino Palacios MD [address] [place] [address] [address] [place] [address] Health Maintenance Due Date Last Done Comments Colorectal Cancer Screening Colonoscopy (10 Years) 1966 Kidney Health Evaluation 1966 Diabetes: Retinopathy Eye Exam 1984 Hepatitis B Vaccines (1 of 3 - 19+ 3-dose series) 1985 Zoster Vaccines (1 of 2) 2016 Hemoglobin A1C 10/07/2023 2023, 0310/2022, 12/31/2022 Annual Physical 03/30/2024 03/30/2023 Pneumococcal Vaccine: Pediatrics (0 to 5 Years) and At-Risk Patients (6 to 64 Years) (2 of 2 - PCV) 03/30/2024 03/30/2023 Lipid Panel 2024 2023, 12/31/2022 COVID-19 Vaccine ( season) 2024 02/19/2022, 07/21/2021, 12/16/2020, Additional history exists PHQ-2 (Physician [place] [facility] [place]) 10/03/2024 03/30/2023 DTaP, Tdap and Td Vaccines [...] included. Anatomical Region Laterality Modality Other 12/30/2024 [facility] Scanned SCANNING Final Resu lt * OUTSIDE LAB (SCAN ORDER) (12/30/2024) Only the most recent of2 resultswithin the time period is included. 12/30/2024 [facility] Scanned SCANNING Final Resu lt * IMAGE GENERIC (12/30/2024) Anatomical Region Laterality Modality Other 12/30/2024 [facility] Scanned SCANNING Final Resu lt * (ABNORMAL) HEMOGLOBIN, GLYCOSYLATED (2023 8:40 AM CDT) HGB A1C 6.5(H) 4.5 - 6.2 % 2023 4:07 PM CDT [facility] ESTIMATED AVG GLUCOSE 140(H) 74 - 106 MG/DL 2023 4:07 PM CDT [facility] 2023 8:40 AM CDT Winter Terry MD LABORATORY Final Result [facility] [address] [place] [address], * LIPID PANEL (2023 8:40 AM CDT) CHOLESTEROL 113 <200 MG/DL 2023 3:12 PM CDT [facility] TRIGLYCERIDES 30 <150 MG/DL 2023 3:12 PM CDT [facility] HDL 52 >40 MG/DL 2023 3:12 PM CDT [facility] LDL-C 55 <100 MG/DL 2023 3:12 PM CDT [facility] VLDL CALCULATION 6 5 - 28 MG/DL 2023 3:12 PM CDT [facility] CHOL/HDL RATIO 2.2 0.0 - 4.0 2023 3:12 PM CDT [facility] LDL/HDL 1.1 0.41 - 2.13 2023 3:12 PM CDT [facility] NON HDL CHOLESTEROL 61 <140 MG/DL 2023 3:12 PM CDT [facility] 2023 8:40 AM CDT Winter Terry MD LABORATORY Final Result Performing Organization Address City/[facility]/ZIP Co de Phone Number [facility] [address] [place] [address], [place] [phone] * HEPATITIS C ANTIBODY (12/31/2022 9:56 AM CDT) HEPATITIS C AB NON-REACTI VE NON-REACT KURTIS 12/31/2022 7:56 PM CDT [facility] Comment: ANTIBODIES TO HCV NOT DETECTED. DOES NOT EXCLUDE THE POSSIBILITY OF EXPOSURE TO HCV. 12/31/2022 9:56 AM CDT Suresh Lynn MD LABORATORY Final Result [facility] [address] [place] [address], [place] [phone] [id number] from Last 3 Months or Most Recently Relevant to Health Maintenance Insurance [facility] Care Teams Polymer Tester Relationship Specialty Start Date End Date Winter Terry MD [address] [address] PCP - General INTERNAL MEDICINE 03/07/23 Chalino Palacios MD [address] [address] Consulting Physician RADIATION ONCOLOGY 04/02/24
--- OUTSIDE RECORDS SUMMARY | 2025-01-05 17:17 | XMS_ITS | Encounter Summary ---
Author Organization [facility] Address [facility] [place] [address] Care Team Providers Care Aquatics Lifeguard Name Role Phone Winter Terry MD Primary Care Provider [phone] Chalino Palacios MD Unavailable Reason for Visit * Reason Onset Date Comments Error 01/04/2025 Encounter Details Date Type Department Care Team (Late Contact Info) Description 01/04/[address] [address] Winter Terry MD [address] [place] [address] Error Social History Tobacco Use Types Packs/Day Years [...] Description 01/08/2025 9:40 AM CDT [facility] [place] [address] Winter Terry MD [address] [place] [address] 01/23/2025 8:40 AM CDT Office Visit [facility] Medical Group Multispecialty Care - [place] [address] [address] [place] [address] Winter Terry MD [address] [place] [address] 04/09/2025 11:30 AM CDT Appointment [facility] Radiation Oncology [address] [place] [address] [place] [address] Chalino Palacios MD [address] [place] [address] [address] [place] [address] documented as of this encounter Visit Diagnoses Not on filedocumented in this encounter Additional Health Concerns Assessment Noted Time PHQ-9 Depression Total Score: 0 03/30/20 9:33 AM CDT documented as of this encounter Care Teams Aquatics Lifeguard Relationship Specialty Start Date End Date Winter Terry MD [address] [place] [id number] PCP - General INTERNAL MEDICINE 03/07/23 Chalino Palacios MD [address] [place] [address] Consulting Physician RADIATION ONCOLOGY 04/02/24 documented as of this encounter
--- OUTSIDE RECORDS SUMMARY | 2025-01-05 17:17 | XMS_ITS ---
Author Organization [facility] Address [facility] [place] [address] Care Team Providers Care Filling Station Attendant Name Role Phone Winter Terry MD Primary Care Provider [phone] Chalino Palacios MD Unavailable Active Problems Problem Noted Date Diagnosed Date Adenocarcinoma, lung, left ([facility]) Chronic bilateral low back pain without sciatica 04/28/2024 Hyperlipidemia due to type 2 diabetes mellitus ([facility]) 04/28/2024 Left shoulder pain, unspecified chronicity 02/21 Right knee pain, unspecified chronicity 02/22/20 24 Moderate episode of recurrent major depressive d isorder 02/03/2023 Encounter for smoking cessation counseling 02/03 Smoker 02/03/2023 Callus of heel 02/03/2023 Mixed hyperlipidemia 02/03/2023 Hemoglobin A1C greater than 9%, indicating poor diabetic control 01/03/2023 Uncontrolled type 2 diabetes mellitus with hyperglycemia ([facility]) 01/03/2023 Current Oncology Plans No current plan [...] 05/11/2024 40 Treatment Summaries Adenocarcinoma, lung, left ([facility])* Images from the original note were not included. Survivorship Care Plan Patient Name Elvis Butcher Date of 1965 Plan Completed By CHIQUITA Nails on 06/21/24 Care Team Medical Oncologist Dr. Waller [phone] Burt [phone] Palacios [phone] Primary Care Physician WINTER TERRY MD [phone] Diagnosis Adenocarcinoma, lung, left (CMS/HCC HHS/HCC) Age [...] symptoms from the cancer. According to the [place] [employer], about 20 percent of cancer [...] 07/28/2016 Last Revised: 07/27/2016 Summary of the [place] Cancer Society Guidelines on Nutrition and Physical [...] list of resources: Cancer Support Resources at [facility] https://www.[facility]/Medical-Services/Cancer-Center [facility] offers services for lifestyle management for mind-body health. Services range from yoga, individual and group smoking cessation counseling to mind/body skills instruction and mindfulness classes. Call , ext. [phone] for more information. Clinical Trials are available for adults through [employer], a national cooperative group. Call for more information. Dietary Services are available from registered dietitians who can perform nutritional assessments and give advice on dietary problems. Call [phone], ext. [phone] for more information. Home Health Services are available after a hospital admission. These individuals can provide comfort in the home setting along with support and education. Call , ext. [phone] for more information. Inpatient Blacksmith Assistant & Case Management Services Inpatient oncology social workers can help with home services, placement of patients, transportation, crisis intervention and communityresources. Care coordination for patients is done through this service, especially in outlying areas. Call , ext [phone] for more information. Nurse Navigator This individual [...] comprehensive. Varying services are offered at seven [facility] outpatient clinicsin [place]. [facility] and [place]. Call for more information. Palliative Care, Pain [...] improve quality of life. Call , ext. [phone] for more information. Spiritual Care Chaplains can provide spiritual comfort for the mind, body and spirit. Call , ext. [phone] for more information. Radiation Therapy and [facility] Radiation Therapy offers state of the art radiation for cancer patients. The Day Hospital offers an outpatient area for chemotherapy, blood infusions, dressing changes and antibiotics. Call or , ext. [phone] for more information. Regional Wound Center The Wound Center heals chronic, non-healing wounds. Call for more information. Wound, Ostomy, Continence Services Services range from wound care, ostomy appliance teaching and continence service for any patient needing these services. Call , ext. [phone] for more information. Resources for Cancer Support [facility] provides care for those who cannot afford to pay through its Evita Care Program. More information is available at www.[facility].org/ ana/Evita-Care.aspx. [place] [facility] provides financial assistance, to those who qualify, regardless of whether palomo is insured. More information is available at www. [facility].org/Public/FinancialAssistance.aspx. [place] Department of Public Health protects the state's residents and visitors through the prevention and control of disease and injury. Website: http://www.idph.[facility]. mi.us/home.htm. [place] [employer] is a national nonprofit organization with programs and services provided through local [place] [employer] offices, as well as its Clinical Navigation program based at [facility] [place] [facility] [place] [facility]. Websites: www.cancer.org and www.[facility]/cancer/navigator. html. Government Assistance Programs There are [...] Administration on Aging Benefits for older adults. 345.166.3598 www.eldercare.gov ([facility] finds resources in your community). Social Security Administration 913-935-8044 www.ssa.gov Centers for Medicare & Medicaid Services 535-282-6583 www.cms.gov National Cancer [place] www.cancer.gov Pharmaceutical Patient Assistance Programs Programs and services offered differ among drug manufacturers but may include: Help with insurance reimbursement. Referrals to co pay relief programs Help with the application process Discounted or free medications for patients who do not qualify for other assistance Partnership for Prescription Assistance (PPA) 604-1-LAS-NOW (583-799-4312) www.pparx.org Insurance Coverage www.getcovered[place].org To see if the drug company that makes your medication has a patient assistance program, check its web site, ask your doctor or check with the PPA. [facility] has a list of pharmaceutical programs and other resources for financial assistance. People with cancer often need assistance with expenses like transportation, home care and children librarian. A number of nonprofit organizations have useful programs or referral information that may be able to help. Cancer Organizations CancerCare 370-654-ADFK(0203) www.cancercare.org [place] [employer] 303-DZS-0528 www.cancer.org Leukemia & Lymphoma Society 013-952-9079 www.lls.org Lung Cancer [place] www.lungcanceralliance.org Lymphoma Research Foundation 889-197-9681 www.lymphoma.org National Marrow Donor Program 399-659-6252 www.marrow.org National Ovarian Cancer Coalition www.ovarian.org Pancreatic Cancer Action Network www.pancan.org Patient Advocate Colorectal Careline 544-432-8720 www.colorectalcareline.org Sarcoma [place] 965-005-8389 www.sarcomaalliance.org General Organizations [employer] www.ozuke.org Community Organizations Check phonebook under social service agencies Diandra-based Organizations Includes [employer], [employer], [employer] and others. Check phonebook for listings. [employer] Cancer Foundation (Clinical Trial information and support) www.lazarex.org Leukemia Research Foundation www.leukemia-research.org Bladder Cancer Advocacy Network www.bcan.org Support for People with Oral Head and Neck Cancer (SPOHNC) www.spohnc.org [employer] Breast Cancer Organization 525-899-3649 5.komen.org/BreastCancer/1877GOKOMEN.html
--- OUTSIDE RECORDS SUMMARY | 2025-01-05 17:17 | XMS_ITS | Encounter Summary ---
Author Organization [facility] Address [address] [facility] [place] [address] Care Team Providers Care Explosive Technician Name Role Phone Unavailable Primary Care Provider Unavailabl e Reason for Visit * Reason Onset Date Comments Follow-up 01/04/2025 Encounter Details Date Type Department Care Team (Late st Contact Info) Description 01/04/2025 Telephone [facility] Medical Group - Internal Medicine [address] [address] Isai Merino MD [address] [place] [phone] Follow-up Social History Tobacco Use Types [...] Leesa danielson. States patient was discharged from [facility] on 01/02 (subarachnoid hemorrhage) and AVS summary [...] imaging. When looking in discharge summary from [facility], found patient's appt as being [...]
--- OUTSIDE RECORDS SUMMARY | 2025-01-05 19:58 | XMS_ITS | Referral Summary ---
Author Organization [facility] [place] [address] Address [address] [place] [id number] Care Team Providers Care Voip Engineer Name Role Phone Winter Terry MD Primary Care Provider [phone] Encounters Date Type Department Care Team Description 01/03/[address] [phone] Shyanne Silva 12/30/2024 5:10 PM CDT - 01/02/2025 3:45 PM CDT Hospital Encounter [address] [phone] Alex Mccullough MD Aubin, Chandra D., MD Odom, Elizabeth Burkhart, MD Snyder, Jason Andrew, MD SAH (subarachnoid hemorrhage) ([facility]) (Primary Dx); Fall, initial encounter; Intraparenchymal hematoma of brain without loss of consciousness, unspecified laterality, initial encounter ([facility]) Discharge Disposition: Discharge to home or self [...] Assessment & Plan (12/31/2024 3:24 PM CDT): [id number] - [place], [place] - [address] AT [facility] ([place] [address]) & [address] [facility] [phone] Patient will use [facility] at discharge. Acute pain [...] will discuss with team Dr. Waller oncologist [phone] 01/01 Ordered MRI with and without Brain [...] DEVICE Routine 12/30/2024 8 :43 PM CDT MD CRITICAL CARE ILL/INJURED PATIENT INIT 30-74 MIN [...] * POCT glucose (01/02/2025 12:01 PM CDT) [facility] Signature Glucose, POC 127 70 - 199 mg/dL Blood 01/02/2025 12:0 1 PM CDT 01/02/2025 12:01 PM CDT us Flo Light MD LAB POCT ORDERABLES - DEV ICE Final Result [facility] [place] [address] * TRANSTHORACIC ECHO (TTE) COMPLETE W DOPPLER/CF W CONTRAST (01/02/2025 11:04 AM CDT) Anatomical Region Laterality Modality Ultrasound 01/02/2025 10:1 7 AM CDT Narrative 01/02/2025 11:21 AM CDT [facility] Cardiac [place] [address] Transthoracic Echocardiographic Report Patient Name: KEMAR RAIN WESLEY : 1965 (59y 8m) Gender: M Study Date: 01/02/2025 10:17:54 AM Ht(Inch): 67 Wt(Lb): 143.96 BSA: 1.76 Mines Inspector: Chon Car RDCS Location: [id number] Order Provider: ADRIANA BARBA Heart Rate: 76 [...] Note Manuel Lomax MD PhD - 01/02/2025 [facility] [place] [address] Transthoracic Echocardiographic Report Patient Name: KEMAR RAIN WESLEY : 1965 (59y 8m) Gender: M Study Date: 01/02/2025 10:17:54 AM Ht(Inch): 67 Wt(Lb): 143.96 BSA: 1.76 Mines Inspector: Chon Car RDCS Location: [id number] Order Provider: ADRIANA BARBA Heart Rate: 76 [...] LA Length 4C 4.46 cm MV Decel Fqhb469.40 msec [ 104.00 - 258.00 ] LA [...] 01/02/2025 11:21:38 AM CDT us Adriana Barba EQUIPMENT OPERAT0R CV ECHO PROCEDURES F inal Result * POCT glucose (01/02/2025 8:09 AM CDT) Glucose, POC 135 70 - 199 mg/dL Blood 01/02/2025 8:09 AM CDT 01/02/2025 8:09 AM CDT Flo Light MD LAB POCT ORDERABLES - DEV ICE Final Result [facility] [place] [address] * MRI Brain W WO Contrast (01/01/2025 [...] by: Geovanny Salazar M.D. us Adriana Barba EQUIPMENT OPERAT0R IMG MRI PROCEDURES F inal Result * (ABNORMAL) POCT glucose (01/01/2025 7:47 PM CDT) Glucose, POC 228(H) 70 - 199 mg/dL Blood 01/01/2025 7:47 PM CDT 01/01/2025 7:47 PM CDT Flo Light MD LAB POCT ORDERABLES - DEV ICE Final Result Performing Organization Address [facility] de Phone Number [facility] Department [place] [address] * POCT glucose (01/01/2025 5:04 PM CDT) Glucose, POC 142 70 - 199 mg/dL Blood 01/01/2025 5:04 PM CDT 01/01/2025 5:04 PM CDT Flo Light MD LAB POCT ORDERABLES - DEV ICE Final Result Performing Organization Address [facility] de Phone Number [facility] Department [place] [address] * (ABNORMAL) POCT glucose (01/01/2025 12:31 PM CDT) Glucose, POC 231(H) 70 - 199 mg/dL Blood 01/01/2025 12:3 1 PM CDT 01/01/2025 12:31 PM CDT Flo Light MD LAB POCT ORDERABLES - DEV ICE Final Result Performing Organization Address [facility]/ZIP Co de Phone Number [facility] [place] [address] * POCT glucose (01/01/2025 8:24 AM CDT) Glucose, POC 134 70 - 199 mg/dL Blood 01/01/2025 8:24 AM CDT 01/01/2025 8:24 AM CDT Flo Light MD LAB POCT ORDERABLES - DEV ICE Final Result Performing Organization Address City/[facility] Co de Phone Number [facility] [place] [address] * eGFR (12/31/2024 9:36 PM CDT) [facility] eGFR >90 >=60 mL/min/1. 73 m2 Comment: [...] ORDERABLES Layla l Result Performing Organization Address City/[facility]/ZIP Co de Phone Number [facility] [place] [place] [address] * CBC without differential (12/31/2024 9:36 PM CDT) [facility] WBC 6.3 3.8 - 9.9 K/cumm Hgb [...] ORDERABLES Layla l Result Performing Organization Address [facility] Co de Phone Number [facility] Department [place] [address] * Phosphorus (12/31/2024 9:36 PM CDT) [facility] Phosphorus, pl 3.4 2.3 - 4.5 mg/dL Blood 12/31/2024 9:36 PM CDT 12/31/2024 10:20 PM CDT Flo Light MD LAB BLOOD ORDERABLES Layla l Result Performing Organization Address [facility] Co de Phone Number [facility] Department [place] [address] * Magnesium (12/31/2024 9:36 PM CDT) Pathologist [facility] Magnesium 2.0 1.4 - 2.5 mg/dL Blood 12/31/2024 9:36 PM CDT 12/31/2024 10:20 PM CDT Flo Light MD LAB BLOOD ORDERABLES Layla l Result [facility] [place] [address] * Basic metabolic panel (12/31/2024 9:36 PM CDT) Pathologist [facility] Sodium 137 135 - 145 mmol/L Potassium, [...] ORDERABLES Layla l Result Performing Organization Address [facility] Co de Phone Number [facility] [place] [address] * POCT glucose (12/31/2024 9:13 PM CDT) Glucose, POC 182 70 - 199 mg/dL Blood 12/31/2024 9:13 PM CDT 12/31/2024 9:13 PM CDT Flo Light MD LAB POCT ORDERABLES - DEV ICE Final Result Performing Organization Address [facility] Co de Phone Number [facility] [place] [address] * POCT glucose (12/31/2024 4:13 PM CDT) Glucose, POC 141 70 - 199 mg/dL Blood 12/31/2024 4:13 PM CDT 12/31/2024 4:13 PM CDT Flo Light MD LAB POCT ORDERABLES - DEV ICE Final Result Performing Organization Address [facility] Co de Phone Number [facility] [place] [address] * POCT glucose (12/31/2024 2:21 AM CDT) Glucose, POC 188 70 - 199 mg/dL Blood 12/31/2024 2:21 AM CDT 12/31/2024 2:21 AM CDT Flo Light MD LAB POCT ORDERABLES - DEV ICE Final Result Performing Organization Address City/[facility]/ZIP Co de Phone Number [facility] [place] [address] * CTA Head Neck W WO Contrast [...] the CTA were generated on a dedicated workstation/server cashier. Contrast information: 75 mL Optiray-350 IV COMPARISON: [...] carotid arteries. No filling defects identified.. The dzefgg-rl-Gwjyts is complete. The anterior and middle cerebral [...] the CTA were generated on a dedicated workstation/server cashier. Contrast information: 75 mL Optiray-350 IV COMPARISON: [...] carotid arteries. No filling defects identified.. The uqkpbg-[id number] is complete. The anterior and middle cerebral [...] - DEVICE Final Result [facility] [place] [address] * MD CRITICAL CARE ILL/INJURED PATIENT INIT 30-74 MIN [...] high-sensitivity 2-hour (12/30/2024 8:24 PM CDT) Pathologist [facility] Trop I hs <4 <=35 ng/L Comment: [...] ORDERABLES Fin al Result [facility] Department of Laboratories [place], [place] [id number] * Check Sample (12/30/2024 8:24 PM CDT) ABO Rh O Positive [facility] HCLL OTHER 12/30/2024 8:24 PM CDT 12/30/2024 8:33 PM CDT us Darin Moran MD LAB BLOOD ORDERABLES Final R esult MARIBEL [facility] [place] [address] [facility] * Neuro CT Outside Consult (12/30/2024 [...] images may or may not represent the squaxin source data set and thus may contain [...] IMAGING STUDY STUDY INITIALLY PERFORMED: 12/30/2024 at [facility]. TYPE OF STUDY: Multiple CT images of [...] IMAGING STUDY STUDY INITIALLY PERFORMED: 12/30/2024 at [facility]. TYPE OF STUDY: Multiple CT images of [...] images may or may not represent the squaxin source data set and thus may contain [...] images may or may not represent the squaxin source data set and thus may contain [...] IMAGING STUDY STUDY INITIALLY PERFORMED: 12/30/2024 at [facility]. TYPE OF STUDY: Multiple CT images of [...] IMAGING STUDY STUDY INITIALLY PERFORMED: 12/30/2024 at [facility]. TYPE OF STUDY: Multiple CT images of [...] images may or may not represent the squaxin source data set and thus may contain [...] only and have not been reviewed by [facility] Radiology. There will be no report generated by a [facility] Radiologist. Narrative [id number] - 12/30/2024 6:49 PM [...] * POCT glucose (12/30/2024 6:03 PM CDT) [facility] Glucose, POC 164 70 - 199 mg/dL Blood 12/30/2024 6:03 PM CDT 12/30/2024 6:03 PM CDT Flo Light MD LAB POCT ORDERABLES - DEV ICE Final Result Performing Organization Address [facility] de Phone Number [facility] [place] [address] * Troponin I high-sensitivity series (baseline, 2hr, 4hr, 6hr) (12/30/2024 5:50 PM CDT) [facility] Trop I hs <4 <=35 ng/L Comment: Interpretive Data For further hscTnI resources including the diagnostic algorithm and an aid in interpretation, copy and paste this link: https://bjhlab.testcatalog.org/show/hsTrop-1 Current Interpretive Data last revised 2020. Blood 12/30/2024 5:50 PM CDT 12/30/2024 6:06 PM CDT us Leno Vargas MD LAB BLOOD ORDERABLES Fin al Result Performing Organization Address [facility] de Phone Number [facility] [place] [address] * eGFR (12/30/2024 5:50 PM CDT) [facility] eGFR >90 >=60 mL/min/1. 73 m2 Comment: [...] al Result [facility] [place] [address] * (ABNORMAL) Differential, auto (12/30/2024 5:50 PM [...] al Result [facility] [place] [address] * (ABNORMAL) CBC with auto differential (12/30/2024 [...] ORDERABLES Fin al Result Performing Organization Address [facility] de Phone Number [facility] [place] [address] * aPTT (12/30/2024 5:50 PM CDT) aPTT 29 28 - 38 sec Comment: Interpretive Data Heparin therapeutic range: 66.0 - 100.0 seconds. Range based on correlation with therapeutic heparin activity range of 0.3 - 0.7 Units/mL. Current interpretive data was last revised on 2023. Blood 12/30/2024 5:50 PM CDT 12/30/2024 6:19 PM CDT Result [facility] Leno Vargas MD LAB BLOOD ORDERABLES Fin al Result Performing Organization Address [facility] de Phone Number [facility] [place] [address] * Protime-INR (12/30/2024 5:50 PM CDT) PT [...] PM CDT 12/30/2024 6:19 PM CDT Result [facility] Leno Vargas MD LAB BLOOD ORDERABLES Fin al Result Performing Organization Address City/[facility] [place] [address] * Type and screen (12/30/2024 5:50 PM CDT) Pathologist [facility] Mayur, indirect Negative ABO Rh O Positive [facility] Blood 12/30/2024 5:50 PM CDT 12/30/2024 6:32 PM CDT Narrative [facility] - 12/30/2024 7:30 PM CDT Has the patient had Daratumumab or Isatuximab in the past 6 months?->Unknown Leno Vargas MD LAB BLOOD BANK TEST ORDE RABLES Final Result Performing Organization Address [facility] Co de Phone Number [facility] [place] [address] * Comprehensive metabolic panel (12/30/2024 5:50 PM CDT) Pathologist [facility] Sodium 141 135 - 145 mmol/L Potassium, [...] Calcium 9.9 8.5 - 10.3 mg/dL [facility] Bilirubin, total 0.2 0.1 - 1.2 mg/dL [facility] Protein, pl 7.3 6.5 - 8.5 g/dL [facility] Albumin 4.4 3.5 - 5.0 g/dL [facility] Alk phos 60 40 - 130 Units/L [facility] ALT 16 7 - 55 Units/L [facility] AST 23 10 - 50 Units/L [facility] Blood 12/30/2024 5:50 PM CDT 12/30/2024 6:05 PM CDT Leno Vargas MD LAB BLOOD ORDERABLES Fin al Result [facility] [place] [address] from Last 3 Months Insurance [facility] [employer] Address: [id number] [place] [address] ANTHEM ACCESS CHOICE ANTH ACCESS CHOICE Advance Directives For more information, please contact: [phone] * Full Code (Latest Code Status on File) Date Activated Date Inactivated Comments 12/31/2024 5:03 AM 01/02/2025 8:46 PM Care Teams Voip Engineer Relationship Specialty Start Date End Date Winter Terry MD [address] [place] [address] PCP - General Internal Medicine 12/30/24
--- OUTSIDE RECORDS SUMMARY | 2025-01-05 19:58 | XMS_ITS | Clinical Summary ---
Author Organization [facility] [address] Address [address] [place] [address] Care Team Providers Care Engineer Process Name Role Phone Winter Terry MD Primary Care Provider [phone] Allergies Active Allergy Reactions Criticality Noted Date [...] Assessment & Plan (12/31/2024 3:24 PM CDT): [id number] [place], [place] - [address] AT [address] & [employer] [address] [facility] [address] Patient will use [facility] Mobile [...] will discuss with team Dr. Waller oncologist [phone] 01/01 Ordered MRI with and without Brain [...] Type Department Care Team Description 01/03/[address] [address] Shyanne Silva 12/30/2024 5:10 PM CDT - 01/02/2025 3:45 PM CDT Hospital Encounter [address] [phone] Alex Mccullough MD Aubin, Chandra D., MD [...] DEVICE Routine 12/30/2024 8 :43 PM CDT [place] CRITICAL CARE ILL/INJURED PATIENT INIT 30-74 MIN [...] * POCT glucose (01/02/2025 12:01 PM CDT) [facility] Signature Glucose, POC 127 70 - 199 mg/dL Blood 01/02/2025 12:0 1 PM CDT 01/02/2025 12:01 PM CDT us Flo Light MD LAB POCT ORDERABLES - DEV ICE Final Result [facility] [place] [address] * TRANSTHORACIC ECHO (TTE) COMPLETE W DOPPLER/CF W CONTRAST (01/02/2025 11:04 AM CDT) Anatomical Region Laterality Modality Ultrasound 01/02/2025 10:1 7 AM CDT Narrative 01/02/2025 11:21 AM CDT [facility] [place] [address] Transthoracic Echocardiographic Report Patient Name: KEMAR RAIN WESLEY : 1965 (59y 8m) Gender: M Study Date: 01/02/2025 10:17:54 AM Ht(Inch): 67 Wt(Lb): 143.96 BSA: 1.76 Clinical Research Associate: Chon Car RDCS Location: [id number] Order Provider: ADRIANA BARBA Heart Rate: 76 [...] 01/02/2025 [facility] [place] [address] Transthoracic Echocardiographic Report Patient Name: KEMAR RAIN WESLEY : 1965 (59y 8m) Gender: M Study Date: 01/02/2025 10:17:54 AM Ht(Inch): 67 Wt(Lb): 143.96 BSA: 1.76 Clinical Research Associate: Chon Car RDCS Location: [id number] Order Provider: ADRIANA BARBA Heart Rate: 76 [...] LA Length 4C 4.46 cm MV Decel Edra402.40 msec [ 104.00 - 258.00 ] LA [...] POCT ORDERABLES - DEV ICE Final Result [facility] [place] [address] * MRI Brain W WO [...] signed by: Geovanny Salazar M.D. Adriana Barba INSIDE SALES PROFESSIONAL IMG MRI PROCEDURES F inal Result * (ABNORMAL) POCT glucose (01/01/2025 7:47 PM CDT) Glucose, POC 228(H) 70 - 199 mg/dL Blood 01/01/2025 7:47 PM CDT 01/01/2025 7:47 PM CDT Flo Light MD LAB POCT ORDERABLES - DEV ICE Final Result [facility] [place] [address] * POCT glucose (01/01/2025 5:04 PM CDT) Glucose, POC 142 70 - 199 mg/dL Blood 01/01/2025 5:04 PM CDT 01/01/2025 5:04 PM CDT Flo Light MD LAB POCT ORDERABLES - DEV ICE Final Result Performing Organization Address [facility] Co de Phone Number [facility] [place] [address] * (ABNORMAL) POCT glucose (01/01/2025 12:31 PM CDT) Glucose, POC 231(H) 70 - 199 mg/dL Blood 01/01/2025 12:3 1 PM CDT 01/01/2025 12:31 PM CDT Flo Light MD LAB POCT ORDERABLES - DEV ICE Final Result Performing Organization Address [facility] de Phone Number [facility] [place] [address] * POCT glucose (01/01/2025 8:24 AM CDT) Glucose, POC 134 70 - 199 mg/dL Blood 01/01/2025 8:24 AM CDT 01/01/2025 8:24 AM CDT Flo Light MD LAB POCT ORDERABLES - DEV ICE Final Result Performing Organization Address [facility] de Phone Number [facility] [place] [address] * eGFR (12/31/2024 9:36 PM CDT) eGFR [...] MD LAB BLOOD ORDERABLES Layla aldana Result [facility] [place] [address] * CBC without differential (12/31/2024 9:36 PM CDT) WBC 6.3 3.8 - 9.9 K/cumm Hgb 13.9 13.0 - 17.5 g/dL [facility] Hct 40.2 38.9 - 50.3 % [facility] Plt 194 150 - 400 K/cumm [facility] MPV 10.2 9.1 - 12.3 fL [facility] RBC 4.41 4.30 - 5.80 M/cumm [facility] MCV 91.2 81.3 - 96.4 fL [facility] MCH 31.5 27.1 - 33.3 pg [facility] MCHC 34.6 32.3 - 35.7 g/dL [facility] RDW CV 12.4 11.1 - 14.9 % [facility] RDW SD 41.6 35.7 - 48.1 fL [facility] NRBC abs 0.00 0.00 - 0.01 K/cumm [facility] Blood 12/31/2024 9:36 PM CDT 12/31/2024 10:23 PM CDT Flo Light MD LAB BLOOD ORDERABLES Layla l Result Performing Organization Address City/[facility]/ZIP Co de Phone Number [facility] [place] [address] * Phosphorus (12/31/2024 9:36 PM CDT) Pathologist [facility] Phosphorus, pl 3.4 2.3 - 4.5 mg/dL Blood 12/31/2024 9:36 PM CDT 12/31/2024 10:20 PM CDT Flo Light MD LAB BLOOD ORDERABLES Layla l Result Performing Organization Address [facility] Co de Phone Number [facility] [place] [address] * Magnesium (12/31/2024 9:36 PM CDT) [facility] Magnesium 2.0 1.4 - 2.5 mg/dL Blood 12/31/2024 9:36 PM CDT 12/31/2024 10:20 PM CDT Flo Light MD LAB BLOOD ORDERABLES Layla l Result [facility] [place] [address] * Basic metabolic panel (12/31/2024 9:36 PM CDT) Pathologist [facility] Sodium 137 135 - 145 mmol/L Potassium, pl 4.3 3.3 - 4.9 mmol/L [facility] Chloride 98 97 - 110 mmol/L [facility] CO2 29 22 - 32 mmol/L [facility] Anion gap 10 2 - 15 mmol/L [facility] BUN 13 6 - 25 mg/dL [facility] Creatinine 0.93 0.80 - 1.30 mg/dL [facility] Glucose 197 70 - 199 mg/dL [facility] Comment: Interpretive Data Fasting glucose >/= 126 [...] 2022. Calcium 10.0 8.5 - 10.3 mg/dL [facility] Blood 12/31/2024 9:36 PM CDT 12/31/2024 10:20 PM CDT Flo Light MD LAB BLOOD ORDERABLES Layla l Result Performing Organization Address City/[facility]/ZIP Co de Phone Number [facility] [place] [place] [address] * POCT glucose (12/31/2024 9:13 PM CDT) Glucose, POC 182 70 - 199 mg/dL Blood 12/31/2024 9:13 PM CDT 12/31/2024 9:13 PM CDT Flo Light MD LAB POCT ORDERABLES - DEV ICE Final Result Performing Organization Address [facility]/ZIP Co de Phone Number [facility] [place] [address] * POCT glucose (12/31/2024 4:13 PM CDT) Glucose, POC 141 70 - 199 mg/dL Blood 12/31/2024 4:13 PM CDT 12/31/2024 4:13 PM CDT Flo Light MD LAB POCT ORDERABLES - DEV ICE Final Result Performing Organization Address [facility] Co de Phone Number [facility] Department [place] [address] * POCT glucose (12/31/2024 2:21 AM CDT) Glucose, POC 188 70 - 199 mg/dL Blood 12/31/2024 2:21 AM CDT 12/31/2024 2:21 AM CDT Flo Light MD LAB POCT ORDERABLES - DEV ICE Final Result Performing Organization Address [facility] de Phone Number [facility] Department [place] [address] * CTA Head Neck W WO Contrast [...] the CTA were generated on a dedicated workstation/room service server. Contrast information: 75 mL Optiray-350 IV [...] carotid arteries. No filling defects identified.. The [id number] is complete. The anterior and middle cerebral [...] the CTA were generated on a dedicated workstation/room service server. Contrast information: 75 mL Optiray-350 IV [...] carotid arteries. No filling defects identified.. The kucrxn-hb-Vsjrcr is complete. The anterior and middle cerebral [...] * POCT glucose (12/30/2024 8:43 PM CDT) [facility] Signature Glucose, POC 155 70 - 199 mg/dL Blood 12/30/2024 8:43 PM CDT 12/30/2024 8:43 PM CDT Darin Moran MD LAB POCT ORDERABLES - DEVICE Final Result Performing Organization Address City/State/[facility] Co de Phone Number [facility] [place] [address] * [place] CRITICAL CARE ILL/INJURED PATIENT INIT 30-74 MIN [...] 2020. Trop I hs delta 0 ng/L [facility] Trop I hs interp Insignificant [facility] Blood 12/30/2024 8:24 PM CDT 12/30/2024 8:31 PM CDT us Leno Vargas MD LAB BLOOD ORDERABLES Fin al Result Performing Organization Address City/[facility]/ZIP Co de Phone Number [facility] Department [place] [address] * Check Sample (12/30/2024 8:24 PM CDT) Pathologist [facility] ABO Rh O Positive [facility] HCLL OTHER 12/30/2024 8:24 PM CDT 12/30/2024 8:33 PM CDT Darin Moran MD LAB BLOOD ORDERABLES Final R esult Performing Organization Address [facility] Co de Phone Number [facility] [place] [address] [facility] * Neuro CT Outside [...] images may or may not represent the kalispel source data set and thus may contain [...] IMAGING STUDY STUDY INITIALLY PERFORMED: 12/30/2024 at [facility]. TYPE OF STUDY: Multiple CT images [...] IMAGING STUDY STUDY INITIALLY PERFORMED: 12/30/2024 at [facility]. TYPE OF STUDY: Multiple CT images [...] images may or may not represent the [place]alispel source data set and thus may contain [...] images may or may not represent the kalispel source data set and thus may contain [...] IMAGING STUDY STUDY INITIALLY PERFORMED: 12/30/2024 at [facility]. TYPE OF STUDY: Multiple CT images [...] IMAGING STUDY STUDY INITIALLY PERFORMED: 12/30/[address] [facility]. TYPE OF STUDY: Multiple CT images [...] images may or may not represent the kalispel source data set and thus may contain [...] Outside Reference (12/30/2024 6:49 PM CDT) Impressions [facility] - 12/30/2024 6:49 PM CDT These images are for Reference purposes only and have not been reviewed by [facility] Radiology. There will be no report generated by a [facility] Radiologist. Narrative RAD_PACS_[facility] - 12/30/2024 [...] and agrees with it. Electronically signed by: Hermiol Ho MD, PHD Narrative 12/30/2024 6:32 PM [...] * POCT glucose (12/30/2024 6:03 PM CDT) [facility] Glucose, POC 164 70 - 199 mg/dL Blood 12/30/2024 6:03 PM CDT 12/30/2024 6:03 PM CDT Flo Light MD LAB POCT ORDERABLES - DEV ICE Final Result [facility] Department [place] [address] * Troponin I high-sensitivity series (baseline, 2hr, 4hr, 6hr) (12/30/2024 5:50 PM CDT) [facility] Trop I hs <4 <=35 ng/L Comment: Interpretive Data For further hscTnI resources including the diagnostic algorithm and an aid in interpretation, copy and paste this link: https://bjhlab.testcatalog.org/show/hsTrop-1 Current Interpretive Data last revised 2020. Blood 12/30/2024 5:50 PM CDT 12/30/2024 6:06 PM CDT Leno Vargas MD LAB BLOOD ORDERABLES Fin al Result Performing Organization Address City/[facility]/ZIP Co de Phone Number [facility] Department [place] [address] * eGFR (12/30/2024 5:50 PM CDT) eGFR [...] LAB BLOOD ORDERABLES Fin al Result [facility] [place] [address] * (ABNORMAL) Differential, auto (12/30/2024 5:50 PM CDT) Neutrophil abs 9.6(H) 1.5 - 6.5 K/cumm Imm gran abs 0.0 0.0 - 0.1 K/cumm [facility] Lymphocyte abs 0.7(L) 0.8 - 3.3 K/cumm [facility] Monocyte abs 0.7 0.2 - 0.8 K/cumm [facility] Eosinophil abs 0.0 0.0 - 0.5 K/cumm [facility] Basophil abs 0.0 0.0 - 0.1 K/cumm [facility] Neutrophil pct 86.6 % [facility] Comment: Interpretive Data Percent cell count reference ranges are not reported, since discordance with absolute values may lead to misinterpretation of CBC data. Current Interpretive Data was last revised on 2018. Imm gran pct 0.3 % [facility] Comment: Interpretive Data Percent cell count reference ranges are not reported, since discordance with absolute values may lead to misinterpretation of CBC data. Current Interpretive Data was last revised on 2018. Lymphocyte pct 6.6 % [facility] Comment: Interpretive Data Percent cell count reference ranges are not reported, since discordance with absolute values may lead to misinterpretation of CBC data. Current Interpretive Data was last revised on 2018. Monocyte pct 6.0 % [facility] Comment: Interpretive Data Percent cell count reference ranges are not reported, since discordance with absolute values may lead to misinterpretation of CBC data. Current Interpretive Data was last revised on 2018. Eosinophil pct 0.2 % [facility] Comment: Interpretive Data Percent cell count reference ranges are not reported, since discordance with absolute values may lead to misinterpretation of CBC data. Current Interpretive Data was last revised on 2018. Basophil pct 0.3 % [facility] Comment: Interpretive Data Percent cell count reference ranges are not reported, since discordance with absolute values may lead to misinterpretation of CBC data. Current Interpretive Data was last revised on 2018. Blood 12/30/2024 5:50 PM CDT 12/30/2024 6:05 PM CDT Leno Vargas MD LAB BLOOD ORDERABLES Fin al Result Performing Organization Address [facility] de Phone Number [facility] [place] [address] * (ABNORMAL) CBC with auto differential (12/30/2024 5:50 PM CDT) [facility] WBC 11.1(H) 3.8 - 9.9 K/cumm Hgb 13.7 13.0 - 17.5 g/dL [facility] Hct 39.4 38.9 - 50.3 % [facility] Plt 187 150 - 400 K/cumm [facility] MPV 9.9 9.1 - 12.3 fL [facility] RBC 4.34 4.30 - 5.80 M/cumm [facility] MCV 90.8 81.3 - 96.4 fL [facility] MCH 31.6 27.1 - 33.3 pg [facility] MCHC 34.8 32.3 - 35.7 g/dL [facility] RDW CV 12.1 11.1 - 14.9 % [facility] RDW SD 40.7 35.7 - 48.1 fL [facility] NRBC abs 0.00 0.00 - 0.01 K/cumm [facility] Blood 12/30/2024 5:50 PM CDT 12/30/2024 6:05 PM CDT Leno Vargas MD LAB BLOOD ORDERABLES Fin al Result Performing Organization Address [facility] de Phone Number [facility] [place] [address] * aPTT (12/30/2024 5:50 PM CDT) Pathologist [facility] aPTT 29 28 - 38 sec Comment: Interpretive Data Heparin therapeutic range: 66.0 - 100.0 seconds. Range based on correlation with therapeutic heparin activity range of 0.3 - 0.7 Units/mL. Current interpretive data was last revised on 2023. Blood 12/30/2024 5:50 PM CDT 12/30/2024 6:19 PM CDT Leno Vargas MD LAB BLOOD ORDERABLES Fin al Result Performing Organization Address [facility] Co de Phone Number [facility] [place] [address] * Protime-INR (12/30/2024 5:50 PM CDT) PT 11.0 9.7 - 13.0 sec INR 1.02 0.90 - 1.20 [facility] Comment: Interpretive data Oral anticoagulant therapeutic ranges: Venous thromboembolism prophylaxis or treatment: 2.0-3.0 CARDIOLOGY Standard range: 2.0-3.0 High-intensity range: 2.5-3.5 Refer to indication-specific guidelines for appropriate target ranges for prosthetic heart valve replacement. Current interpretive data was last revised on 2019. Blood 12/30/2024 5:50 PM CDT 12/30/2024 6:19 PM CDT Leno Vargas MD LAB BLOOD ORDERABLES Fin al Result Performing Organization Address [facility] [place] [address] * Type and screen (12/30/2024 5:50 PM CDT) Mayur, indirect Negative ABO Rh O Positive [facility] Blood 12/30/2024 5:50 PM CDT 12/30/2024 6:32 PM CDT Narrative [facility] - 12/30/2024 7:30 PM CDT Has the patient had Daratumumab or Isatuximab in the past 6 months?->Unknown Leno Vargas MD LAB BLOOD BANK TEST ORDE RABLES Final Result Performing Organization Address City/[facility] [place] [address] * Comprehensive metabolic panel (12/30/2024 5:50 PM CDT) Sodium 141 135 - 145 mmol/L Potassium, pl 4.1 3.3 - 4.9 mmol/L [facility] Chloride 100 97 - 110 mmol/L [facility] CO2 28 22 - 32 mmol/L [facility] Anion gap 13 2 - 15 mmol/L [facility] BUN 18 6 - 25 mg/dL [facility] Creatinine 0.85 0.80 - 1.30 mg/dL [facility] Glucose 160 70 - 199 mg/dL [facility] Comment: Interpretive Data Fasting glucose >/= 126 [...] 2022. Calcium 9.9 8.5 - 10.3 mg/dL [facility] Bilirubin, total 0.2 0.1 - 1.2 mg/dL [facility] Protein, pl 7.3 6.5 - 8.5 g/dL [facility] Albumin 4.4 3.5 - 5.0 g/dL [facility] Alk phos 60 40 - 130 Units/L [facility] ALT 16 7 - 55 Units/L [facility] AST 23 10 - 50 Units/L [facility] Blood 12/30/2024 5:50 PM CDT 12/30/2024 6:05 PM CDT us Leno Vargas MD LAB BLOOD ORDERABLES Fin al Result [facility] [place] [address] from Last 3 Months Insurance [employer] Address: [facility] [address] [place] [address] ANTHEM ACCESS CHOICE ANTHEM ACCESS CHOICE Advance Directives For more information, please contact: [phone] * Full Code (Latest Code Status on File) Date Activated Date Inactivated Comments 12/31/2024 5:03 AM 01/02/2025 8:46 PM Care Teams Engineer Process Relationship Specialty Start Date End Date Winter Terry MD [address] [place] [id number] PCP - General Internal Medicine 12/30/24
--- OUTSIDE RECORDS SUMMARY | 2025-01-05 19:58 | XMS_ITS | Encounter Summary ---
Author Organization [facility] Address [facility] [place] [address] Care Team Providers Care Body Maker Name Role Phone Winter Terry MD Primary Care Provider [phone] Chalino Palacios MD Unavailable Encounter Details Date Type Department Care Team (Late st Contact Info) Description 02/29/2024 bookjamt Message Enc [facility] [place] [address] [place] [address] Radha Carroll, DIRECTOR FINANCIAL PLANNING [address] [place] [address] MRI Results Social History Tobacco [...] 9:40 AM CDT Office Visit [facility] [place] [address] [place] [address] Winter Terry MD [address] [place] [phone] 01/23/2025 8:40 AM CDT Office Visit [facility] Mult[facility]ialty Care - [place] [address] [address] [place] [address] Winter Terry MD [address] [place] [address] 04/09/2025 11:30 AM CDT Appointment [facility] Radiation Oncology [address] [place] [address] [place] [address] Chalino Palacios MD [address] [place] [address] [address] [place] [address] documented as of this encounter Visit Diagnoses Not on filedocumented in this encounter Additional Health Concerns Assessment Noted Time PHQ-9 Depression Total Score: 0 03/30/20 23 9:33 AM CDT documented as of this encounter Care Teams Body Maker Relationship Specialty Start Date End Date Winter Terry MD [address] [place] [phone] PCP - General INTERNAL MEDICINE 03/07/23 Chalino Palacios MD [address] [place] [phone] Consulting Physician RADIATION ONCOLOGY 04/02/24 documented as of this encounter
--- OUTSIDE RECORDS SUMMARY | 2025-01-05 19:59 | XMS_ITS | Clinical Summary ---
Author Organization [facility] Address [address] [facility] [place] [address] Care Team Providers Care Airborne Weapons Technical Manager Name Role Phone Unavailable Primary Care Provider Unavailabl e Source Comments [facility],non-owned Affiliates and Associated Physician Practices is amultiple site organization consisting of ambulatory clinics and hospital sitesin [place], [place], [place] and [place]. This disclosure is being madepursuant to the Care Everywhere program and may not contain all information available regarding this patient. Last updated 18.[facility] Encounters Date Type Department Care Team Description 01/04/2025 Telephone [facility] Medical Group - Internal Medicine [address] [place] [phone] Isai Merino MD Follow-up from Last 3 [...]
--- OUTSIDE RECORDS SUMMARY | 2025-01-05 19:59 | XMS_ITS | Encounter Summary ---
Author Organization [facility] Address [facility] [place] [address] Care Team Providers Care Associate Loan Officer Name Role Phone Winter Terry MD Primary Care Provider [phone] Chalino Palacios MD Unavailable Encounter Details Date Type Department Care Team (Latest Contact Info) Description 06/01/2024 [employer] [facility] [address] [address] Winter Terry MD [address] [place] [phone] Overdue for physical Social History Tobacco [...] CDT Office Visit [facility] Multispecialty [address] [place] [address] Winter Terry MD [address] [place] [phone] 01/23/2025 8:40 AM CDT Office Visit [facility] Multispecialty Care - [place] [address] [address] [place] [address] Winter Terry MD [address] [place] [phone] 04/09/2025 11:30 AM CDT Appointment [facility] Radiation Oncology [address] [place] [address] [place] [address] Chalino Palacios MD [address] [facility] [address] [place] [address] documented as of this encounter Visit Diagnoses Not on filedocumented in this encounter Additional Health Concerns Assessment Noted Time PHQ-9 Depression Total Score: 0 03/30/20 23 9:33 AM CDT documented as of this encounter Care Teams Associate Loan Officer Relationship Specialty Start Date End Date Winter Terry MD [address] [place] [phone] PCP - General INTERNAL MEDICINE 03/07/23 Chalino Palacios MD [address] [place] [phone] Consulting Physician RADIATION ONCOLOGY 04/02/24 documented as of this encounter
--- OUTSIDE RECORDS SUMMARY | 2025-01-05 19:59 | XMS_ITS | Encounter Summary ---
Author Organization [facility] Address [facility] [place] [address] Care Team Providers Care Beach Lifeguard Name Role Phone Winter Terry MD Primary Care Provider [phone] Chalino Palacios MD Unavailable Encounter Details Date Type Department Care Team (Late st Contact Info) Description 06/12/2024 Guidekickt Message [facility] [place] [address] [place] [address] Radha Carroll, MILL OILER [address] [place] [address] Covid 19 Social History Tobacco [...] CDT Office Visit [facility] Multispecialty [facility] [place] [address] [place] [address] Winter Terry MD [address] [place] [address] 01/23/2025 8:40 AM CDT Office Visit [facility] Multispecialty Care - [place] [address] [address] [place] [address] Winter Terry MD [address] [place] [address] 04/09/2025 11:30 AM CDT Appointment [facility] Radiation Oncology [address] [place] [address] [place] [address] Chalino Palacios MD [address] [place] [address] [address] [place] [address] documented as of this encounter Visit Diagnoses Not on filedocumented in this encounter Additional Health Concerns Assessment Noted Time PHQ-9 Depression Total Score: 0 03/30/20 23 9:33 AM CDT documented as of this encounter Care Teams Beach Lifeguard Relationship Specialty Start Date End Date Winter Terry MD [address] [place] [address] PCP - General INTERNAL MEDICINE 03/07/23 Chalino Palacios MD [address] [place] [address] Consulting Physician RADIATION ONCOLOGY 04/02/24 documented as of this encounter
--- OUTSIDE RECORDS SUMMARY | 2025-01-05 19:59 | XMS_ITS | Continuity of Care Document ---
Author Name [facility] Organization [facility] Care Team Providers Care Irrigation Flume Layer Name Role Phone [facility] Unavailable Unavailable Encounters [...] ADM Date DC Date Status Disposition Source [facility] Outpatient Encounter [id number] 4 03[facility]27 [facility]
--- OUTSIDE RECORDS SUMMARY | 2025-01-05 19:59 | XMS_ITS | Encounter Summary ---
Author Organization [facility] Address [facility] [place] [address] Care Team Providers Care Social Economist Name Role Phone Winter Terry MD Primary Care Provider [phone] Chalino Palacios MD Unavailable Reason for Visit * Reason Onset Date Comments Error 01/04/2025 Encounter Details Date Type Department Care Team (Late Contact Info) Description 01/04/[address] [address] Winter Terry MD [address] [place] [address] Error Social History Tobacco Use Types [...] Description 01/08/2025 9:40 AM CDT [facility] [address] [place] [address] Winter Terry MD [address] [place] [address] 01/23/2025 8:40 AM CDT Office Visit [facility] Multispecialty Care - [place] [address] [address] [place] [address] Winter Terry MD [address] [place] [address] 04/09/2025 11:30 AM CDT Appointment [facility] Radiation Oncology [address] [place] [address] [place] [address] Chalino Palacios MD [address] [place] [address] [address] [place] [address] documented as of this encounter Visit Diagnoses Not on filedocumented in this encounter Additional Health Concerns Assessment Noted Time PHQ-9 Depression Total Score: 0 03/30/20 9:33 AM CDT documented as of this encounter Care Teams Social Economist Relationship Specialty Start Date End Date Winter Terry MD [address] [place] [address] PCP - General INTERNAL MEDICINE 03/07/23 Chalino Palacios MD [address] [place] [address] Consulting Physician RADIATION ONCOLOGY 04/02/24 documented as of this encounter
--- OUTSIDE RECORDS SUMMARY | 2025-01-05 19:59 | XMS_ITS ---
Author Organization [facility] [place] [address] [place] [address] Care Team Providers Care Rn Integrity Name Role Phone Winter Terry MD Primary Care Provider [phone] Active Problems Problem Noted Date Diagnosed Date [...] Assessment & Plan (12/31/2024 3:24 PM CDT): [id number] [place], [place] - [address] [place] [address]) & [facility] [address] [facility] [phone] Patient will use [facility] Mobile [...] will discuss with team Dr. Waller oncologist [phone] 01/01 Ordered MRI with and without Brain [...]
--- OUTSIDE RECORDS SUMMARY | 2025-01-05 19:59 | XMS_ITS | Encounter Summary ---
Author Organization [facility] Address [address] [place] [address] Care Team Providers Care Cistern Room Operator Name Role Phone Winter Terry MD Primary Care Provider [phone] Encounter Details Date Type Department Care Team (Late st Contact Info) Description 01/03/[address] [address] Shyanne Silva Social History Tobacco Use Types [...] on filedocumented in this encounter Care Teams Cistern Room Operator Relationship Specialty Start Date End Date Winter Terry MD [address] [place] [address] PCP - General Internal Medicine 12/30/24 documented as of this encounter
--- OUTSIDE RECORDS SUMMARY | 2025-01-05 19:59 | XMS_ITS | Encounter Summary ---
Author Organization [facility] Address [facility] [place] [address] Care Team Providers Care Labor Relations Analyst Name Role Phone Winter Terry MD Primary Care Provider [phone] Chalino Palacios MD Unavailable Encounter Details Date [...] Description 01/08/2025 9:40 AM CDT Office Visit [facility] Multispecialty Care - [place] [address] [address] [place] [address] Winter Terry MD [address] [place] [address] 01/23/2025 8:40 AM CDT Office Visit [facility] Multispecialty [facility] [place] [facility] [place] [address] [address] [place] [address] Winter Terry MD [address] [place] [address] 04/09/2025 11:30 AM CDT Appointment [facility] Radiation Oncology [address] [facility] [place] [address] Chalino Palacios MD [address] [facility] [address] [place] [address] documented as of this encounter Visit Diagnoses Not on filedocumented in this encounter Additional Health Concerns Assessment Noted Time PHQ-9 Depression Total Score: 0 03/30/20 23 9:33 AM CDT documented as of this encounter Care Teams Labor Relations Analyst Relationship Specialty Start Date End Date Winter Terry MD [address] [place] [address] PCP - General INTERNAL MEDICINE 03/07/23 Chalino Palacios MD [address] [place] [address] Consulting Physician RADIATION ONCOLOGY 04/02/24 documented as of this encounter
--- OUTSIDE RECORDS SUMMARY | 2025-01-05 19:59 | XMS_ITS | Encounter Summary ---
Author Organization [facility] Address [facility]6 [place] [address] Care Team Providers Care Case Management Associate Name Role Phone Winter Terry MD Primary Care Provider [phone] Chalino Palacios MD Unavailable Encounter Details Date Type Department Care Team (Latest Contact Info) Description 03/15/2024 Visionary Mobilet Message [facility] [place] [facility] [place] [address] [address] [place] [address] Winter Terry MD [address] [place] [address] Oncology Referral Social History Tobacco Use [...] AM CDT Office Visit [facility] - [address] [place] [address] Winter Terry MD [address] [place] [address] 01/23/2025 8:40 AM CDT Office Visit [facility] Medical Group Multispecialty Care - [place] [address] [address] [place] [address] Winter Terry MD [address] [place] [address] 04/09/2025 11:30 AM CDT Appointment [facility] Radiation Oncology [address] [place] [address] [place] [address] Chalino Palacios MD [address] [facility] [address] [place] [address] documented as of this encounter Visit Diagnoses Not on filedocumented in this encounter Additional Health Concerns Assessment Noted Time PHQ-9 Depression Total Score: 0 03/30/20 23 9:33 AM CDT documented as of this encounter Care Teams Case Management Associate Relationship Specialty Start Date End Date Winter Terry MD [address] [place] [address] PCP - General INTERNAL MEDICINE 03/07/23 Chalino Palacios MD [address] [place] [address] Consulting Physician RADIATION ONCOLOGY 04/02/24 documented as of this encounter
--- OUTSIDE RECORDS SUMMARY | 2025-01-05 19:59 | XMS_ITS | Clinical Summary ---
Author Organization [facility] Address [facility]6 [place] [address] Care Team Providers Care Wrap Yarn Sorter Name Role Phone Winter Terry MD Primary Care Provider Chalino Palacios MD Unavailable Medications Lancets MiscIndications:U ncontrolled type 2 diabetes mellitus with hyperglycemia ([facility]HS/HCC) 1 Device by Does not apply route 3 (three) times daily before meals. 100 each 2 3 Active Alcohol Swabs (ALCOHOL PREP) PadsIndications:U ncontrolled type 2 diabetes mellitus with hyperglycemia ([facility]CC HHS/HCC) 1 Bag by Does not apply route 3 (three) times daily before meals. 100 each 2 3 Active Blood Glucose Monitoring Suppl (FREESTYLE LITE) w/Device KitIndications:He moglobin A1C greater than 9%, indicating poor diabetic control,Uncontrol led type 2 diabetes mellitus with hyperglycemia ([facility]CC HHS/HCC) 1 each by Does not apply route 3 (three) times daily. 1 kit 3 Active Glucose Blood (FREESTYLE LITE) test stripIndications: Hemoglobin A1C greater than 9%, indicating poor diabetic control,Uncontrol led type 2 diabetes mellitus with hyperglycemia ([facility] HHS/HCC) Use 3 times daily before meals [...] :Smoker,Moderate episode of recurrent major depressive disorder ([facility]) Take 1 tablet (150 mg total) by [...] hyperglycemia, without long-term current use of insulin ([facility]),Dyslipid emia TAKE 1 TABLET BY MOUTH NIGHTLY AT BEDTIME 90 tablet 4 Active metFORMIN (GLUCOPHAGE) 500 MG tabletIndications :Type 2 diabetes mellitus with hyperglycemia, without long-term current use of insulin ([facility]) TAKE 2 TABLETS BY MOUTH TWICE A DAY WITH MEALS 360 tablet 4 Active Active Problems Problem Noted Date Diagnosed Date Adenocarcinoma, lung, left ([facility]) Chronic bilateral low back pain without sciatica 04/28/2024 Hyperlipidemia due to type 2 diabetes mellitus ([facility]) 04/28/2024 Left shoulder pain, unspecified chronicity 02/21 Right knee pain, unspecified chronicity 02/22/20 24 Moderate episode of recurrent major depressive d isorder 02/03/2023 Encounter for smoking cessation counseling 02/03 Smoker 02/03/2023 Callus of heel 02/03/2023 Mixed hyperlipidemia 02/03/2023 Hemoglobin A1C greater than 9%, indicating poor diabetic control 01/03/2023 Uncontrolled type 2 diabetes mellitus with hyperglycemia ([facility]) 01/03/2023 Encounters Date Type Department Care Team Description 01/04/2025 Telephone [place] [address] [place] [address] Winter Terry MD Error 01/03/2025 Telephone [place] [address] [place] [address] [address] [place] [address] Winter Terry MD Question 01/02/2025 Scan HEALTH Authorly SRVCS Scanned, Doc [facility] 01/01/2025 [place] [address] [place] [address] [address] [place] [address] Winter Terry MD Follow Up Call 12/30/2024 Scan [facility] INFO SRVCS Scanned, Doc [facility] Lab (SCAN); CT (SCAN); Image (SCAN) 12/20/2024 10:35 AM CDT - 12/20/2024 11:59 PM CDT Hospital Encounter [facility] Radiation Oncology [address] [facility] [place] [address] Chalino Palacios MD Follow Up Discharge Disposition: Home or Self Care (Routine Discharge) 12/20/2024 [facility]phone [facility] [address] [place] [address] [address] [place] [address] Winter Terry MD Referral 12/20/2024 Telephone [facility] Multispecialty Care - [address] [place] [address] Winter Terry MD Follow Up Call 12/20/2024 [...] Description 01/08/2025 9:40 AM CDT Office Visit [facility] Medical [facility] Multispecialty Care - [place] [address] [address] [place] [address] Winter Terry MD [address] [place] [address] 01/23/2025 8:40 AM CDT [facility] - [address] [place] [address] Winter Terry MD [address] [place] [address] 04/09/2025 11:30 AM CDT Appointment [facility] Radiation Oncology [address] [place] [address] [place] [address] Chalino Palacios MD [address] [place] [address] [address] [place] [address] Health Maintenance Due Date Last [...] 07/21/2021, 12/16/2020, Additional history exists PHQ-2 (Physician [place]) 10/03/2024 03/30/2023 DTaP, Tdap and Td Vaccines [...] resultswithin the time period is included. 12/30/2024 [facility] Scanned SCANNING Final Resu lt * IMAGE GENERIC (12/30/2024) Anatomical Region Laterality Modality Other 12/30/2024 [facility] Scanned SCANNING Final Resu lt * (ABNORMAL) HEMOGLOBIN, GLYCOSYLATED (2023 8:40 AM CDT) HGB A1C 6.5(H) 4.5 - 6.2 % 2023 4:07 PM CDT [facility] ESTIMATED AVG GLUCOSE 140(H) 74 - 106 MG/DL 2023 4:07 PM CDT [facility] 2023 8:40 AM CDT Winter Terry MD LABORATORY Final Result [facility] [address] [place] [address], * LIPID PANEL (2023 8:40 AM CDT) CHOLESTEROL 113 <200 MG/DL 2023 3:12 PM CDT [facility] TRIGLYCERIDES 30 <150 MG/DL 2023 3:12 PM CDT [facility] HDL 52 >40 MG/DL 2023 3:12 PM CDT [facility] LDL-C 55 <100 MG/DL 2023 3:12 PM CDT [facility] VLDL CALCULATION 6 5 - 28 MG/DL 2023 3:12 PM CDT [facility] CHOL/HDL RATIO 2.2 0.0 - 4.0 2023 3:12 PM CDT [facility] LDL/HDL 1.1 0.41 - 2.13 2023 3:12 PM CDT [facility] NON HDL CHOLESTEROL 61 <140 MG/DL 2023 3:12 PM CDT [facility] 2023 8:40 AM CDT Winter Terry MD LABORATORY Final Result Performing Organization Address City/[facility]/ZIP Co de Phone Number [facility] [address] [place] [address], [place] [phone] * HEPATITIS C ANTIBODY (12/31/2022 9:56 AM CDT) HEPATITIS C AB NON-REACTI VE NON-REACT KURTIS 12/31/2022 7:56 PM CDT [facility] Comment: ANTIBODIES TO HCV NOT DETECTED. DOES NOT EXCLUDE THE POSSIBILITY OF EXPOSURE TO HCV. 12/31/2022 9:56 AM CDT Suresh Lynn MD LABORATORY Final Result [facility] [address] [place] [address], [place] [phone] from Last 3 Months or Most Recently Relevant to Health Maintenance Insurance [facility] Care Teams Wrap Yarn Sorter Relationship Specialty Start Date End Date Winter Terry MD [address] [address] PCP - General INTERNAL MEDICINE 03/07/23 Chalino Palacios MD [address] [address] Consulting Physician RADIATION ONCOLOGY 04/02/24
--- OUTSIDE RECORDS SUMMARY | 2025-01-05 19:59 | XMS_ITS | Encounter Summary ---
Author Organization [facility] Address [facility]6 [place] [address] Care Team Providers Care Veterans Adviser Name Role Phone Winter Terry MD Primary Care Provider [phone] Chalino Palacios MD Unavailable Encounter Details Date Type Department Care Team (Latest Contact Info) Description 04/11/2024 Bar Sainthart Message [facility] [address] [address] Winter Terry MD [address] [place] [address] Update for chemotherapy treatment Social History [...] Description 01/08/2025 9:40 AM CDT Office Visit [facility] Multispecialty [address] [place] [address] Winter Terry MD [address] [place] [address] 01/23/2025 8:40 AM CDT Office Visit [facility] Multispecialty Care - [place] [address] [address] [place] [address] Winter Terry MD [address] [place] [address] 04/09/2025 11:30 AM CDT Appointment [facility] Radiation Oncology [address] [place] [address] [place] [address] Chalino Palacios MD [address] [facility] [address] [place] [address] documented as of this encounter Visit Diagnoses Not on filedocumented in this encounter Additional Health Concerns Assessment Noted Time PHQ-9 Depression Total Score: 0 03/30/20 23 9:33 AM CDT documented as of this encounter Care Teams Veterans Adviser Relationship Specialty Start Date End Date Winter Terry MD [address] [place] [address] PCP - General INTERNAL MEDICINE 03/07/23 Chalino Palacios MD [address] [place] [address] Consulting Physician RADIATION ONCOLOGY 04/02/24 documented as of this encounter
--- OUTSIDE RECORDS SUMMARY | 2025-01-05 19:59 | XMS_ITS | Encounter Summary ---
Author Organization [facility] Address [facility] [place] [address] Care Team Providers Care Director Center Name Role Phone Winter Terry MD Primary Care Provider [phone] Chalino Palacios MD Unavailable Encounter Details Date Type Department Care Team (Latest Contact Info) Description 03/05/2024 [employer] Message Enc [facility] [address] [place] [address] Radha Carroll, WASTEWATER PROJECT MANAGER [address] [place] [address] X ray results for hip, [...] 9:40 AM CDT [facility] [address] [place] [address] Winter Terry MD [address] [place] [address] 01/23/2025 8:40 AM CDT Office Visit [facility] Multispecialty Care - [place] [address] [address] [place] [address] Winter Terry MD [address] [place] [address] 04/09/2025 11:30 AM CDT Appointment [facility] Radiation Oncology [address] [place] [address] [place] [address] Chalino Palacios MD [address] [place] [address] [address] [place] [address] documented as of this encounter Visit Diagnoses Not on filedocumented in this encounter Additional Health Concerns Assessment Noted Time PHQ-9 Depression Total Score: 0 03/30/20 9:33 AM CDT documented as of this encounter Care Teams Director Center Relationship Specialty Start Date End Date Winter Terry MD [address] [place] [address] PCP - General INTERNAL MEDICINE 03/07/23 Chalino Palacios MD [address] [place] [address] Consulting Physician RADIATION ONCOLOGY 04/02/24 documented as of this encounter
--- OUTSIDE RECORDS SUMMARY | 2025-01-05 19:59 | XMS_ITS | Encounter Summary ---
Author Organization [facility] Address [facility] [place] [address] Care Team Providers Care Professor Of Nursing Name Role Phone Winter Terry MD Primary Care Provider [phone] Chalino Palacios MD Unavailable Encounter Details Date Type Department Care Team (Late Contact Info) Description 02/22/2024 MyChart Message [facility] [address] Winter Terry MD [address] [place] [address] X-Ray Results Social History Tobacco Use [...] 9:40 AM CDT Office Visit [facility] Multispecialty [address] [place] [address] Winter Terry MD [address] [place] [address] 01/23/2025 8:40 AM CDT Office Visit [facility] Medical Group Multispecialty Care - [place] [address] [address] [place] [address] Winter Terry MD [address] [place] [address] 04/09/2025 11:30 AM CDT Appointment [facility] Radiation Oncology [address] [place] [address] [place] [address] Chalino Palacios MD [address] [place] [address] [address] [place] [address] documented as of this encounter Visit Diagnoses Not on filedocumented in this encounter Additional Health Concerns Assessment Noted Time PHQ-9 Depression Total Score: 0 03/30/20 9:33 AM CDT documented as of this encounter Care Teams Professor Of Nursing Relationship Specialty Start Date End Date Winetr Terry MD [address] [place] [address] PCP - General INTERNAL MEDICINE 03/07/23 Chalino Palacios MD [address] [place] [address] Consulting Physician RADIATION ONCOLOGY 04/02/24 documented as of this encounter
--- OUTSIDE RECORDS SUMMARY | 2025-01-05 19:59 | XMS_ITS | Encounter Summary ---
Author Organization [facility] Address [facility] [place] [address] Care Team Providers Care Automobile Mechanic Supervisor Name Role Phone Winter Terry MD Primary Care Provider [phone] Chalino Palacios MD Unavailable Reason for Visit * Reason Onset Date Comments Question 01/03/2025 Encounter Details Date Type Department Care Team (Late st Contact Info) Description 01/03/2025 Telephone [facility] Medical Group Multispecialty Care - [place] [address] [place] [address] [address] [place] [address] Winter Terry MD [address] [facility] [address] [place] [address] Question Social History Tobacco Use [...] as of this encounter Progress Notes * Foina Hdez MA - 01/04/2025 11:28 AM CDT [...] Description 01/08/2025 9:40 AM CDT [facility] [address] [address] Winter Terry MD [address] [place] [address] 01/23/2025 8:40 AM CDT [facility] [address] [address] Winter Terry MD [address] [place] [address] 04/09/2025 11:30 AM CDT Appointment [facility] Radiation Oncology [address] [place] [address] [place] [address] Chalino Palacios MD [address] [facility] [address] [place] [address] documented as of this encounter Visit Diagnoses Not on filedocumented in this encounter Additional Health Concerns Assessment Noted Time PHQ-9 Depression Total Score: 0 03/30/20 23 9:33 AM CDT documented as of this encounter Care Teams Automobile Mechanic Supervisor Relationship Specialty Start Date End Date Winter Terry MD [address] [address] PCP - General INTERNAL MEDICINE 03/07/23 Chalino Palacios MD [address] [address] Consulting Physician RADIATION ONCOLOGY 04/02/24 documented as of this encounter
--- OUTSIDE RECORDS SUMMARY | 2025-01-05 19:59 | XMS_ITS | Encounter Summary ---
Author Organization [facility] Address [facility] [place] [address] Care Team Providers Care Airline Operations Agent Name Role Phone Suresh Lynn MD Primary Care Pr ovider Unavailable Winter Terry MD Primary Care Provider [phone] Chalino Palacios MD Unavailable Encounter Details Date Type Department Care Team (Late Contact Info) Description 12/31/2022 MyChart Message Enc [facility] [address] [facility] [address] [place] [address] Suresh Lynn MD Lab results [...] Visit [facility] Care - [address] [address] [address] [place] [address] Winter Terry MD [facility] [address] 01/23/2025 8:40 AM CDT Office Visit [facility] Multispecialty Care - [address] [address] [address] [place] [address] Winter Terry MD [facility] [address] 04/09/2025 11:30 AM CDT Appointment [facility] Radiation Oncology [address] [place] [address] [place] [address] Chalino Palacios MD [address] [place] [address] [address] [place] [address] documented as of this encounter Visit Diagnoses Not on filedocumented in this encounter Additional Health Concerns Assessment Noted Time PHQ-9 Depression Total Score: 12 023 5:43 PM CDT documented as of this encounter Care Teams Airline Operations Agent Relationship Specialty Start Date End Date Suresh Lynn MD PCP - General FAMILY PRACTICE 12/31/22 03/06/23 Winter Terry MD [address] [place] [address] PCP - General INTERNAL MEDICINE 03/07/23 Chalino Palacios MD [address] [place] [address] [phone] Consulting Physician RADIATION ONCOLOGY 04/02/24 documented as of this encounter
--- OUTSIDE RECORDS SUMMARY | 2025-01-05 19:59 | XMS_ITS | Encounter Summary ---
Author Organization [facility] Address [address] [place] [address] Phone Care Team Providers Care Physiatrist Name Role Phone Winter Terry MD Primary Care Provider [phone] Haroldo Burt MD Unavailable Unavailable Pop Waller MD Unavailable [phone] Encounter Details Date Type Department Care Team (Late st Contact Info) Description 06/12/2024 Telephone [facility] [address] [address] Pop Waller MD [address] [place] [phone] Social History Tobacco Use Types Packs/Day [...] PM CDT Office Visit [facility] [address] [address] Pop Waller MD [address] [place] [phone] 01/16/2025 1:15 PM CDT Clinical Support [facility] [address] [address] Nurse, [facility] 04/09/2025 10:30 AM CDT Ancillary Procedure [facility] [address] [phone] documented as of this encounter Visit Diagnoses Not on filedocumented in this encounter Care Teams Physiatrist Relationship Specialty Start Date End Date Winter Terry MD [address] [address] PCP - General Internal Medicine 03/19/24 Haroldo Burt MD [address] [address] Internal Medicine 03/19/24 oPp Waller MD [address] [place] [phone] Consulting Physician Oncology 03/26/24 documented as of this encounter
--- OUTSIDE RECORDS SUMMARY | 2025-01-05 19:59 | XMS_ITS | Encounter Summary ---
Author Organization [facility] Address [address] [place] [address] Care Team Providers Care Tax Collection Coordinator Name Role Phone Winter Terry MD Primary Care Provider [phone] Chalino Palacios MD Unavailable Reason for Visit [...] Description 01/08/2025 9:40 AM CDT Office Visit [facility] Care - [place] [address] [address] [place], [place] [address] Winter Terry MD [address] [place] [address] 157 [place], [place] [address] 01/23/2025 8:40 AM CDT Office Visit [facility] - [place] [address] [address] [address] [place] [address] Winter Terry MD 1188 [facility] 157 [place] [address] 04/09/2025 11:30 AM CDT Appointment [facility] Radiation Oncology [address] [place] [address] [place] [address] Chalino Palacios MD [address] [facility] [address] [place] [address] documented as of this encounter Procedures Procedure Name Priority Date/Time Associated Diagnosis Comments CT GENERIC 12/30/2024 CT GENERIC 12/30/2024 OUTSIDE LAB (SCAN ORDER) 12/30/2024 OUTSIDE LAB (SCAN ORDER) 12/30/2024 IMAGE GENERIC 12/30/2024 documented in this encounter Results * OUTSIDE LAB (SCAN ORDER) (12/30/2024) 12/30/2024 [facility] Scanned SCANNING Final Resu lt * OUTSIDE LAB (SCAN ORDER) (12/30/2024) 12/30/2024 [facility] Scanned SCANNING Final Resu lt * CT GENERIC (12/30/2024) Anatomical Region Laterality Modality Other 12/30/2024 [facility] Scanned SCANNING Final Resu lt * CT GENERIC (12/30/2024) Anatomical Region Laterality Modality Other 12/30/2024 [facility] Scanned SCANNING Final Resu lt * IMAGE GENERIC (12/30/2024) Anatomical Region Laterality Modality Other 12/30/2024 [facility] Scanned SCANNING Final Resu lt documented in this encounter Visit Diagnoses Not on filedocumented in this encounter Additional Health Concerns Assessment Noted Time PHQ-9 Depression Total Score: 0 03/30/20 23 9:33 AM CDT documented as of this encounter Care Teams Tax Collection Coordinator Relationship Specialty Start Date End Date Winter Terry MD [address] [facility] [address] [place] [address] PCP - General INTERNAL MEDICINE 03/07/23 Chalino Palacios MD [address] [facility] [address] [place] [address] Consulting Physician RADIATION ONCOLOGY 04/02/24 documented as of this encounter
--- OUTSIDE RECORDS SUMMARY | 2025-01-05 19:59 | XMS_ITS | Encounter Summary ---
Author Organization [facility] Address [address] [place] [address] Care Team Providers Care Circuitry Negative Inspector Name Role Phone Unavailable Primary Care Provider Unavailabl e Reason for Visit * Reason Onset Date Comments Follow-up 01/04/2025 Encounter Details Date Type Department Care Team (Late st Contact Info) Description 01/04/2025 Telephone [facility] - Internal Medicine [address] [address] Isai Merino MD [address] [place] [phone] Follow-up Social History Tobacco Use Types [...] Leesa danielson. States patient was discharged from [place] on 01/02 (subarachnoid hemorrhage) and AVS summary [...] imaging. When looking in discharge summary from [facility], found patient's appt as being with Dr. [...]
--- OUTSIDE RECORDS SUMMARY | 2025-01-05 19:59 | XMS_ITS | Encounter Summary ---
Author Organization [facility] Address Replaced by [facility] [place] [address] Care Team Providers Care Cobbler Sole Name Role Phone Suresh Lynn MD Primary Care Pr ovider Unavailable Winter Terry MD Primary Care Provider [phone] Chalino Palacios MD Unavailable Encounter Details Date Type Department Care Team (Late Contact Info) Description 12/31/2022 MyChart Message Enc [facility] [address] [place] [address] Suresh Lynn MD Lab results [...] Visit [facility] - [place] [address] [address] [address] [place] [address] Winter Terry MD [facility] [address] 01/23/2025 8:40 AM CDT Office Visit [facility] Multispecialty Care - [place] [address] [address] [place] [address] Winter Terry MD [facility] [address] [address] 04/09/2025 11:30 AM CDT Appointment [facility] Radiation Oncology [address] [place] [address] [place] [address] Chalino Palacios MD [address] [place] [address] [address] [place] [address] documented as of this encounter Visit Diagnoses Not on filedocumented in this encounter Additional Health Concerns Assessment Noted Time PHQ-9 Depression Total Score: 12 023 5:43 PM CDT documented as of this encounter Care Teams Cobbler Sole Relationship Specialty Start Date End Date Suresh Lynn MD PCP - General FAMILY PRACTICE 12/31/22 03/06/23 Winter Terry MD [address] [place] [address] PCP - General INTERNAL MEDICINE 03/07/23 Chalino Palacios MD [address] [place] [phone] Consulting Physician RADIATION ONCOLOGY 04/02/24 documented as of this encounter
--- OUTSIDE RECORDS SUMMARY | 2025-01-05 19:59 | XMS_ITS ---
Author Organization [facility] Address [facility] [place] [address] Care Team Providers Care Cell Inspector Name Role Phone Winter Terry MD Primary Care Provider [phone] Chalino Palacios MD Unavailable Active Problems Problem Noted Date Diagnosed Date Adenocarcinoma, lung, left ([facility]) Chronic bilateral low back pain without sciatica 04/28/2024 Hyperlipidemia due to type 2 diabetes mellitus ([facility]) 04/28/2024 Left shoulder pain, unspecified chronicity 02/21 Right knee pain, unspecified chronicity 02/22/20 24 Moderate episode of recurrent major depressive d isorder 02/03/2023 Encounter for smoking cessation counseling 02/03 Smoker 02/03/2023 Callus of heel 02/03/2023 Mixed hyperlipidemia 02/03/2023 Hemoglobin A1C greater than 9%, indicating poor diabetic control 01/03/2023 Uncontrolled type 2 diabetes mellitus with hyperglycemia ([facility]) 01/03/2023 Current Oncology Plans No current plan [...] 05/11/2024 40 Treatment Summaries Adenocarcinoma, lung, left ([facility])* Images from the original note were not included. Survivorship Care Plan Patient Name Elvis Butcher Date of 1965 Plan Completed By CHIQUITA Nails on 06/21/24 Care Team Medical Oncologist Dr. Waller [phone] Burt [phone] Palacios [phone] Primary Care Physician WINTER TERRY MD [phone] Diagnosis Adenocarcinoma, lung, left (CMS/HCC HHS/HCC) Age [...] symptoms from the cancer. According to the [place] Cancer Society, about 20 percent of cancer [...] 07/28/2016 Last Revised: 07/27/2016 Summary of the [place] Cancer Society Guidelines on Nutrition and Physical [...] resources: Cancer Support Resources at [facility] https://www.[facility]/Medical-Services/Cancer-Center [facility] offers services for lifestyle management for mind-body health. Services range from yoga, individual and group smoking cessation counseling to mind/body skills instruction and mindfulness classes. Call , ext. [phone] for more information. Clinical Trials are available for adults through [employer], a national cooperative group. Call for more information. Dietary Services are available from registered dietitians who can perform nutritional assessments and give advice on dietary problems. Call , ext. [phone] for more information. Home Health Services are available after a hospital admission. These individuals can provide comfort in the home setting along with support and education. Call , ext. [phone] for more information. Inpatient Tower Control Operator & Case Management Services Inpatient oncology social workers can help with home services, placement of patients, transportation, crisis intervention and communityresources. Care coordination for patients is done through this service, especially in outlying areas. Call , ext [phone] for more information. Nurse Navigator This individual [...] offered at seven [facility] outpatient clinicsin [place]. [facility] and [place]. Call for more information. Palliative Care, Pain [...] improve quality of life. Call , ext. [phone] for more information. Spiritual Care Chaplains can provide spiritual comfort for the mind, body and spirit. Call , ext. [phone] for more information. Radiation Therapy and Day [facility] Radiation Therapy offers state of the art radiation for cancer patients. The Day Hospital offers an outpatient area for chemotherapy, blood infusions, dressing changes and antibiotics. Call [phone] or , ext. [phone] for more information. Regional Wound Center The Wound Center heals chronic, non-healing wounds. Call for more information. Wound, Ostomy, Continence Services Services range from wound care, ostomy appliance teaching and continence service for any patient needing these services. Call , ext. [phone] for more information. Resources for Cancer Support [facility] provides care for those who cannot afford to pay through its Evita Care Program. More information is available at www.[facility].org/ ana/Evita-Care.aspx. [facility] provides financial assistance, to those who qualify, regardless of whether palomo is insured. More information is available at www. [facility].org/Public/FinancialAssistance.aspx. [place] Department of Public Health protects the state's residents and visitors through the prevention and control of disease and injury. Website: http://www.idph.replaced by [facility]. sc.us/home.htm. [place] Cancer Society is a national nonprofit organization with programs and services provided through local [place] Cancer Society offices, as well as its Clinical Navigation program based at [facility] Cancer Cal[place] at [facility]. Websites: www.cancer.org and www.[facility]/cancer/navigator. html. Government Assistance Programs There are several [...] Administration on Aging Benefits for older adults. 860.869.4254 www.eldercare.gov ([employer] Esl Professor finds resources in your community). Social Security Administration 856-599-3789 www.ssa.gov Centers for Medicare & Medicaid Services 009-711-7927 www.cms.gov National Cancer Cal[place]oun www.cancer.gov Pharmaceutical Patient Assistance Programs Programs and services offered differ among drug manufacturers but may include: Help with insurance reimbursement. Referrals to co pay relief programs Help with the application process Discounted or free medications for patients who do not qualify for other assistance Partnership for Prescription Assistance (PPA) 487-7-RAY-NOW (707-700-1253) www.pparx.org Insurance Coverage www.getcovered[place].org To see if the drug company that makes your medication has a patient assistance program, check its web site, ask your doctor or check with the PPA. [facility] has a list of pharmaceutical programs and other resources for financial assistance. People with cancer often need assistance with expenses like transportation, home care and children's institution attendant. A number of nonprofit organizations have useful programs or referral information that may be able to help. Cancer Organizations CancerCare 727-759-LGRV(2114) www.cancercare.org [place] Cancer Society 683-NXA-1093 www.cancer.org Leukemia & Lymphoma Society 779-993-9532 www.lls.org Lung Cancer [place] www.lungcanceralliance.org Lymphoma Research Foundation 534-805-0238 www.lymphoma.org National Marrow Donor Program 733-622-1346 www.marrow.org National Ovarian Cancer Coalition www.ovarian.org Pancreatic Cancer Action Network www.pancan.org Patient Advocate Colorectal Careline 362-807-1568 www.colorectalcareline.org Sarcoma [place] 560-142-0179 www.sarcomaalliance.org General Organizations CloudCover www.Peerform.org Community Organizations Check phonebook under social service agencies Diandra-based Organizations Includes HealthFusion, Behavioral Recognition Systems, Cloud Direct Services and others. Check phonebook for listings. Lazarex Cancer Foundation (Clinical Trial information and support) www.lazarex.org Leukemia Research Foundation www.leukemia-research.org Bladder Cancer Advocacy Network www.bcan.org Support for People with Oral Head and Neck Cancer (SPOHNC) www.spohnc.org Jaymie G. Komen Breast Cancer Organization 789-990-0582 5.komen.org/BreastCancer/1877GOKOMEN.html
--- OUTSIDE RECORDS SUMMARY | 2025-01-05 19:59 | XMS_ITS | Encounter Summary ---
Author Organization [facility] Address [facility] [place] [address] Care Team Providers Care Online Communications Manager Name Role Phone Winter Terry MD Primary Care Provider [phone] Chalino Palacios MD Unavailable Encounter Details Date Type Department Care Team (Late Contact Info) Description 03/19/2024 MyChart Message [facility] [place] [address] [address] [place] [phone] Winter Terry MD [address] [place] [address] Pain Management Social History Tobacco Use [...] Description 01/08/2025 9:40 AM CDT Office Visit [facility] Multispecialty [facility] - [address] [place], [place] [phone] Winter Terry MD [address] [place] [address] 01/23/2025 8:40 AM CDT Office Visit [facility] Multispecialty Care - [place] [address] [address] [address] [place] [address] Winter Terry MD [address] [place] [address] 04/09/2025 11:30 AM CDT Appointment [facility] Radiation Oncology [address] [place] [address] [place] [address] Chalino Palacios MD [address] [facility] [address] [place] [address] documented as of this encounter Visit Diagnoses Not on filedocumented in this encounter Additional Health Concerns Assessment Noted Time PHQ-9 Depression Total Score: 0 03/30/20 23 9:33 AM CDT documented as of this encounter Care Teams Online Communications Manager Relationship Specialty Start Date End Date Winter Terry MD [address] [place] [address] PCP - General INTERNAL MEDICINE 03/07/23 Chalino Palacios MD [address] [place] [address] Consulting Physician RADIATION ONCOLOGY 04/02/24 documented as of this encounter
--- OUTSIDE RECORDS SUMMARY | 2025-01-05 19:59 | XMS_ITS ---
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
--- OUTSIDE RECORDS SUMMARY | 2025-01-05 19:59 | XMS_ITS | Encounter Summary ---
Author Organization [facility] Address [facility] [place] [address] Care Team Providers Care Account Management Specialist Name Role Phone Winter Terry MD Primary Care Provider [phone] Chalino Palacios MD Unavailable Encounter Details Date Type Department Care Team (Latest Contact Info) Description 03/02/2024 Anchor Intelligencet Message Enc [facility] Multispecialty Care - [address] [place] [address] [place] [address] [place] [address] 157 [place] [address] Knee and hip pain Social [...] Description 01/08/2025 9:40 AM CDT Office Visit [facility] Medical [facility] Multispecialty [facility] - [place] [address] [address] [address] [place] [address] Winter Terry MD [address] [place] [address] 01/23/2025 8:40 AM CDT [facility] [address] [place] [address] Winter Terry MD [address] [place] [address] 04/09/2025 11:30 AM CDT Appointment [facility] Radiation Oncology [address] [place] [address] [place] [address] Chalino Palacios MD [address] [place] [address] [address] [place] [address] documented as of this encounter Visit Diagnoses Not on filedocumented in this encounter Additional Health Concerns Assessment Noted Time PHQ-9 Depression Total Score: 0 03/30/20 9:33 AM CDT documented as of this encounter Care Teams Account Management Specialist Relationship Specialty Start Date End Date Winter Terry MD [address] [place] [address] PCP - General INTERNAL MEDICINE 03/07/23 Chalino Palacios MD [address] [place] [address] Consulting Physician RADIATION ONCOLOGY 04/02/24 documented as of this encounter
--- OUTSIDE RECORDS SUMMARY | 2025-01-05 19:59 | XMS_ITS | Encounter Summary ---
Author Organization [facility] Address [address] [place] [address] Phone Care Team Providers Care Lead Assembler Name Role Phone Winter Terry MD Primary Care Provider Haroldo Burt MD Unavailable Unavailable Pop Waller MD Unavailable [phone] Reason for Visit * Reason Onset Date Comments Canopy Call / Er 01/04/2025 Encounter Details Date Type Department Care Team (Late st Contact Info) Description 01/04/2025 Telephone [facility] [address] [place] [address] Pop Waller MD [address] [place] [address] Canopy Call / Er Social [...] return call from Cynthia, they went to [facility]. They repeated CT scans and contacted Neuro at [facility]. D/C back home. They gave patient some pain medication, advised if symptoms worsen or change take patient to [facility] ER. She verbalizes understanding will keep us [...] get worse over last 24 hours. called [facility] Neuro and they recommendER for stat CT [...] CDT Office Visit [facility] [address] [phone] Pop Waller MD [address] [place] [phone] 01/16/2025 1:15 PM CDT Clinical Support [facility] [address] [phone] [facility] 04/09/[facility] 10:30 AM CDT Ancillary Procedure [facility] [address] [phone] documented as of this encounter Visit Diagnoses Not on filedocumented in this encounter Care Teams Lead Assembler Relationship Specialty Start Date End Date Winter Terry MD [address] [address] PCP - General Internal Medicine 03/19/24 Haroldo Burt MD [address] [address] Internal Medicine 03/19/24 Pop Waller MD [address] [place] [address] Consulting Physician Oncology 03/26/24 documented as of this encounter
--- OUTSIDE RECORDS SUMMARY | 2025-01-05 19:59 | XMS_ITS | Clinical Summary ---
Author Organization [facility] Address [address], [address] [place] [address] Phone Care Team Providers Care Hospice Consultant Name Role Phone Winter Terry MD Primary Care Provider [phone] Haroldo Burt MD Unavailable Unavailable Pop Waller MD Unavailable Allergies Active Allergy Reactions Criticality Noted Date [...] Description 01/04/2025 Telephone [facility] [address] [address] Pop Waller MD [place] Call / Er 01/02/2025 Telephone [facility] [address] [address] Pop Waller MD [place] Call / B[facility] admission 12/31/2024 Telephone [facility] [address] [address] Pop Waller MD 12/20/2024 11:00 AM CDT Ancillary Procedure [facility] [address] [address] 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); NSCLC of left lung (HCC) 12/20/2024 Telephone [facility] [address] [phone] Chalino Palacios MD 12/19/2024 11:00 AM CDT Office Visit [facility] [address] [phone] Johanna Roque, ASSISTANT PROFESSOR OF PHYSICS, AIR CONDITIONING MECHANIC 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) (Primary Dx); Fatigue, unspecified type 12/19/2024 10:45 AM CDT Clinical Support [facility] [address] [address] 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) (Primary Dx); Encounter for immunotherapy; Hypomagnesemia 12/19/2024 Travel 12/05/2024 10:30 AM BUNDLE SORTER Office Visit [facility] [address] [phone] Shannon Seymour, ASSISTANT PROFESSOR OF PHYSICS, AIR CONDITIONING MECHANIC 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) (Primary Dx); Encounter for immunotherapy; Hypomagnesemia 12/05/2024 10:15 AM BUNDLE SORTER Clinical Support [facility] [address] [phone] 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) (Primary Dx); Encounter for immunotherapy; Hypomagnesemia 12/05/2024 Travel 11/21/2024 10:15 AM BUNDLE SORTER Office Visit [facility] [address] [address] Wen Reyes, ASSISTANT PROFESSOR OF PHYSICS, AIR CONDITIONING MECHANIC 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) (Primary Dx); Encounter for immunotherapy; Hypomagnesemia 11/21/2024 10:00 AM BUNDLE SORTER Clinical Support [facility] [address] [address] 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) (Primary Dx) 11/21/2024 Travel 11/07/2024 10:00 AM BUNDLE SORTER Office Visit [facility] [address] [phone] Johanna Roque, ASSISTANT PROFESSOR OF PHYSICS, AIR CONDITIONING MECHANIC 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) (Primary Dx) 11/07/2024 9:45 AM BUNDLE SORTER Clinical Support [facility] [address] [address] 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) (Primary Dx); Encounter for immunotherapy; Hypomagnesemia 11/07/2024 Travel 10/24/2024 10:00 AM BUNDLE SORTER Office Visit [facility] [address] [phone] Shannon Seymour, ASSISTANT PROFESSOR OF PHYSICS, AIR CONDITIONING MECHANIC 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) (Primary Dx); Encounter for immunotherapy; Hypomagnesemia 10/24/2024 9:45 AM BUNDLE SORTER Clinical Support [facility] [address] [phone] 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) (Primary Dx) 10/24/2024 Travel 10/10/2024 10:15 AM BUNDLE SORTER Office Visit [facility] [address] [phone] Wen Reyes APRN, MELANIE 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) (Primary Dx) 10/10/2024 10:00 AM BUNDLE SORTER Clinical Support [facility] [address] [phone] Primary non-small cell carcinoma of upper lobe [...] CDT Office Visit [facility] [address] [phone] Pop Waller MD [address] [place] [phone] 01/16/2025 1:15 PM CDT Clinical Support [facility] [address] [phone] Nurse, [facility] 04/09/2025 10:30 AM CDT Ancillary Procedure [facility] [address] [phone] Health Maintenance Due Date Last [...] AUTO DIFF [place] Routine 12/05/2024 10:03 AM BUNDLE SORTER 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) CMP (COMPREHENSIVE METABOLIC PANEL) Routine 12/05/2024 10:03 AM BUNDLE SORTER 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) Encounter for immunotherapy Hypomagnesemia LACTATE DEHYDROGENASE (LD) Routine 12/05/2024 10:03 AM BUNDLE SORTER 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) Encounter for immunotherapy Hypomagnesemia MAGNESIUM (MG) Routine 12/05/2024 10:03 AM BUNDLE SORTER 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) Encounter for immunotherapy Hypomagnesemia CBC WITH AUTO DIFF OH Routine 11/21/2024 9:37 AM BUNDLE SORTER 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) CMP (COMPREHENSIVE METABOLIC PANEL) Routine 11/21/2024 9:37 AM BUNDLE SORTER 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) LACTATE DEHYDROGENASE (LD) Routine 11/21/2024 9:37 AM BUNDLE SORTER 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) MAGNESIUM (MG) Routine 11/21/2024 9:37 AM BUNDLE SORTER 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) CBC WITH AUTO DIFF OH Routine 11/07/2024 9:43 AM BUNDLE SORTER 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) CMP (COMPREHENSIVE METABOLIC PANEL) Routine 11/07/2024 9:43 AM BUNDLE SORTER 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) Encounter for immunotherapy Hypomagnesemia THYROXINE (T4) FREE Routine 11/07/2024 9 :43 AM BUNDLE SORTER 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) Encounter for immunotherapy Hypomagnesemia THYROID STIMULATING HORMONE (TSH) Routine 11/07/2024 9:43 AM BUNDLE SORTER 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) Encounter for immunotherapy Hypomagnesemia MAGNESIUM (MG) Routine 11/07/2024 9:43 AM BUNDLE SORTER 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) Encounter for immunotherapy Hypomagnesemia IRON W/ IRON BINDING CAPACITY [place] Routine 11/07/2024 9:43 AM BUNDLE SORTER 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) Encounter for immunotherapy Hypomagnesemia FERRITIN Routine 11/07/2024 9:43 AM BUNDLE SORTER 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) Encounter for immunotherapy Hypomagnesemia MAGNESIUM (MG) Routine 10/24/2024 9:41 AM BUNDLE SORTER 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) CBC WITH AUTO DIFF OH Routine 10/24/2024 9:41 AM BUNDLE SORTER 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) CMP (COMPREHENSIVE METABOLIC PANEL) Routine 10/24/2024 9:41 AM BUNDLE SORTER 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) LACTATE DEHYDROGENASE (LD) Routine 10/24/2024 9:41 AM BUNDLE SORTER 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) CBC WITH AUTO DIFF OH Routine 10/10/2024 9:55 AM BUNDLE SORTER 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) CMP (COMPREHENSIVE METABOLIC PANEL) Routine 10/10/2024 9:55 AM BUNDLE SORTER 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) Elevated blood pressure reading LACTATE DEHYDROGENASE (LD) Routine 10/10/2024 9:55 AM BUNDLE SORTER Primary non-small cell carcinoma of upper lobe [...] primary malignancy of the left upper lobe. [id number] with left upper lobe lung carcinoma with [...] included. Magnesium 1.8(L) 1.9 - 2.7 mg/dL [facility] Blood 12/19/2024 10:3 2 AM CDT [facility] - 12/19/2024 11:17 AM CDT Release to patient->Immediate Shannon Khan Tomac ASSISTANT PROFESSOR OF PHYSICS, AIR CONDITIONING MECHANIC CHEMISTRY ORDERABLES Final Result Performing Organization Address City/[facility] Co de Phone Number [facility] [place] [address], * (ABNORMAL) LACTATE DEHYDROGENASE (LD) (12/19/2024 10:32 AM CDT) Only the most recent of5 resultswithin the time period is included. LDH 82(L) 140 - 271 U/L [facility] Blood 12/19/2024 10:3 2 AM CDT [facility] - 12/19/2024 11:17 AM CDT Release to patient->Immediate Shannon Hernándezac ASSISTANT PROFESSOR OF PHYSICS, AIR CONDITIONING MECHANIC CHEMISTRY ORDERABLES Final Result Performing Organization Address City/[facility]/ZIP Co de Phone Number [facility] [place] [address], * (ABNORMAL) CMP (COMPREHENSIVE METABOLIC PANEL) (12/19/2024 10:32 AM CDT) Only the most recent of6 resultswithin the time period is included. Glucose 108(H) 70 - 105 mg/dL [facility] Blood Urea Nitrogen 17 7 - 25 mg/dL [facility] Creatinine 0.6(L) 0.7 - 1.3 mg/dL [facility] Sodium 137 136 - 145 mEq/L [facility] Potassium 4.6 3.5 - 5.1 mEq/L [facility] Chloride 103 98 - 107 mEq/L [facility] Bicarbonate 24 21 - 31 mEq/L [facility] Total Bilirubin 0.5 0.3 - 1.0 mg/dL [facility] Alk. Phosphatase 60 34 - 104 U/L [facility] Aspartate Aminotransferase 13 13 - 39 U/L [facility] Alanine Aminotransferase 12 7 - 52 U/L [facility] Total Protein 6.8 6.4 - 8.9 g/dL [facility] Albumin 4.5 3.5 - 5.7 g/dL [facility] Calcium 9.8 8.6 - 10.3 mg/dL [facility] Anion Gap 14.6 7.0 - 15.0 mEq/L [facility] Globulin 2.3 2.0 - 3.5 g/dL [facility] EGFR 111 >60 ml/min/1. 73m2 [facility] Comment: This eGFR is calculated using 2020 CKD-EPI Creatinine equation without race modifier based on the NKF-ASN task force recommendations Equation: bADY=351*min(SCr/k,1)a*max(SCr/k,1)-1.200*0.9938Age*1.012 (if female), where SCr is serum creatinine, k is 0.7 for females and 0.9 for males, and a is -0.241 for females and -0.302 for males Blood 12/19/2024 10:3 2 AM CDT Narrative [facility] - 12/19/2024 11:17 AM CDT Release to patient->Immediate IS THE PATIENT REQUIRED TO BE FASTING FOR 8 HOURS?->No Shannon Seymour ASSISTANT PROFESSOR OF PHYSICS, AIR CONDITIONING MECHANIC CHEMISTRY ORDERABLES Final Result [facility] [place] [address], * (ABNORMAL) COMPLETE BLOOD COUNT (CBC) WITH DIFF (12/19/2024 10:32 AM CDT) WBC 6.7 4.0 - 10.0 10*3/uL [facility] HGB 14.3 13.7 - 17.5 g/dL [facility] HCT 42.0 40.1 - 51.0 % [facility] PLT 221 163 - 369 10*3/uL [facility] MPV 9.6 9.4 - 12.4 fL [facility] RBC 4.48(L) 4.63 - 6.08 10*6/uL [facility] MCV 94 79 - 95 fL [facility] MCH 31.9 25.6 - 32.2 pg [facility] MCHC 34.0 32.2 - 36.5 g/dL [facility] RDW 12.5 11.6 - 14.4 % [facility] Absolute Neutrophil Count 5,128 cells/uL [facility] Absolute Seg Count 5,128 1,440 - 6,600 cells/uL [facility] Absolute Lymph Count 932 760 - 4,000 cells/uL [facility] Absolute [place] Count 599 160 - 1,200 cells/uL [facility] Segmented Neutrophils 77(H) 36 - 66 % [facility] Lymphocytes 14(L) 19 - 40 % [facility] Monocytes 9 4 - 12 % [facility] WBC Estimate Normal [facility] Platelet Estimate Normal [facility] RBC Morphology Normal [facility] R [facility] Blood 12/19/2024 10:3 2 AM CDT Narrative [facility] - 12/19/2024 11:24 AM CDT Release to patient->Immediate Shannon Seymour ASSISTANT PROFESSOR OF PHYSICS, AIR CONDITIONING MECHANIC HEMATOLOGY ORDERABLES Final Result [facility] [place] [address], * (ABNORMAL) CBC WITH AUTO DIFF [place] (12/05/2024 10:03 AM BUNDLE SORTER) Only the most recent of5 resultswithin the time period is included. WBC 5.5 4.0 - 10.0 10*3/uL [facility] HGB 14.1 13.7 - 17.5 g/dL [facility] HCT 41.8 40.1 - 51.0 % [facility] PLT 246 163 - 369 10*3/uL [facility] MPV 9.4 9.4 - 12.4 fL [facility] RBC 4.44(L) 4.63 - 6.08 10*6/uL [facility] MCV 94 79 - 95 fL [facility] MCH 31.8 25.6 - 32.2 pg [facility] MCHC 33.7 32.2 - 36.5 g/dL [facility] RDW 12.4 11.6 - 14.4 % [facility] Neutrophils % 69.4(H) 36.0 - 66.0 % [facility] Lymphocytes % 19.3 19.0 - 40.0 % [facility] Monocytes % 9.7 4.1 - 12.1 % [facility] Eosinophils % 0.7 0.0 - 3.5 % [facility] Basophils % 0.5 0.0 - 1.0 % [facility] Absolute Neutrophils 3.8 1.4 - 6.6 10*3/uL [facility] Absolute Lymphocytes 1.1 0.8 - 4.0 10*3/uL [facility] [place] Absolute Monocytes 0.5 0.2 - 1.2 10*3/uL [facility] Absolute Eosinophils 0.0 0.0 - 0.4 10*3/uL [facility] Absolute Basophils 0.0 0.0 - 0.1 10*3/uL [facility] 12/05/2024 10:0 3 AM BUNDLE SORTER Wen Reyes ASSISTANT PROFESSOR OF PHYSICS, AIR CONDITIONING MECHANIC LAB SEND OUTS Fin al Result Performing Organization Address [facility] Co de Phone Number [facility] [place] [address], * IRON W/ IRON BINDING CAPACITY [place] (11/07/2024 9:43 AM BUNDLE SORTER) IRON 146 50 - 212 ug/dL [facility] UIBC 203 155 - 355 ug/dL [facility] TIBC 349 261 - 478 ug/dl [facility] % Saturation 42 20 - 50 % [facility] 11/07/2024 9:43 AM BUNDLE SORTER Narrative [facility] - 11/07/2024 10:22 AM BUNDLE SORTER Release to patient->Immediate Shannon Seymour ASSISTANT PROFESSOR OF PHYSICS, AIR CONDITIONING MECHANIC LAB SEND OUTS Final Result Performing Organization Address [facility] de Phone Number [facility] [place] [address], [place] [phone] * THYROXINE (T4) FREE (11/07/2024 9:43 AM BUNDLE SORTER) THYROXINE (T4), FREE, 0.92 0.61 - 1.12 ng/dL [facility] Comment: Specimens that contain high levels of Biotin >10 ng/mL may cause false high results for this method. Interpret results in light of the total clinical presentation of the patient. To minimize the interference of high levels of Biotin, it is recommended that patients discontinue taking Biotin 72 hours prior to testing. Blood 11/07/2024 9:43 AM BUNDLE SORTER [facility] - 11/08/2024 2:47 PM BUNDLE SORTER Is the patient taking Biotin supplement? Not sure Release to patient->Immediate Shannon Hernándezac ASSISTANT PROFESSOR OF PHYSICS, AIR CONDITIONING MECHANIC CHEMISTRY ORDERABLES Final Result Performing Organization Address City/[facility]/ZIP Co de Phone Number [facility] [place] [address], [place] [phone] * THYROID STIMULATING HORMONE (TSH) (11/07/2024 9:43 AM BUNDLE SORTER) TSH 1.12 0.45 - 5.33 uIU/mL [facility] Blood 11/07/2024 9:43 AM BUNDLE SORTER [facility] - 11/08/2024 2:47 PM BUNDLE SORTER Release to patient->Immediate Shannon Hernándezac ASSISTANT PROFESSOR OF PHYSICS, AIR CONDITIONING MECHANIC CHEMISTRY ORDERABLES Final Result Performing Organization Address [facility]/ZIP Co de Phone Number [facility] [place] [address], [place] [phone] * FERRITIN (11/07/2024 9:43 AM BUNDLE SORTER) Ferritin 103 24 - 336 ng/mL [facility] Blood 11/07/2024 9:43 AM BUNDLE SORTER [facility] - 11/08/2024 2:47 PM BUNDLE SORTER Release to patient->Immediate Shannon Seymour ASSISTANT PROFESSOR OF PHYSICS, AIR CONDITIONING MECHANIC CHEMISTRY ORDERABLES Final Result Performing Organization Address City/[facility]/ZIP Co de Phone Number [facility] [place] [address], [place] [phone] from Last 3 Months Insurance [facility] Care Teams Hospice Consultant Relationship Specialty Start Date End Date Winter Terry MD [address] [id number] PCP - General Internal Medicine 03/19/24 Haroldo Burt MD [address] [id number] Internal Medicine 03/19/24 Pop Waller MD [address] [place] [address] Consulting Physician Oncology 03/26/24
--- NOTE | 2025-01-05 20:22 | ED_ITS ---
HPI - Head Injury General Chief complaint: Head Injury Stated complaint: DUEÑAS S/P SUBDURAL,SUBARACNOID,EPIDURAL BLEED 1WK AGO Time Seen by Provider: 01/05/25 19:40 Source: patient Mode of arrival: ambulatory Limitations: no limitations History of Present Illness HPI Narrative: This is a 59-year-old male who presents to the ED for chief complaint of headache with nausea, vomiting onset today. Patient reports that he was seen last week for traumatic head injury with multiple areas of bleeding on the brain. He was transferred to [facility] at that time. He was seen here yesterday for complaint of continued headaches. States that today the headaches are similar in nature, however he started to have vomiting which he had not had since the initial injury. Endorses generalized weakness and fatigue. Denies extremity numbness, weakness, vision change, altered mental status, slurred speech, photophobia. Related Data Allergies Allergy/AdvReac Type Severity Reaction Status Date / Time No Known Allergies Allergy Verified 01/05/25 17:15 Review of Systems 2 Review of Systems: All systems as dictated in HPI Exam 2 Narrative: GENERAL: Well-appearing, well-nourished, and in no acute distress. HEAD: Normocephalic, atraumatic. EYES: PERRLA and EOMI. ENT: Nares clear, no rhinorrhea or epistaxis. Mucous membranes moist. Oropharynx without tonsillar hypertrophy exudate or other lesions. NECK: Supple. No adenopathy or masses. CHEST: No respiratory distress. Clear to auscultation. No wheezes rales or rhonchi HEART: Regular rate and rhythm. No murmur heard. Normal peripheral pulses. ABDOMEN: Soft, nontender, nondistended, normal active bowel sounds. MSK: Normal range of motion. No edema. SKIN: Warm, dry, no rash. NEURO: Alert and oriented x4. No focal deficits. PSYCH: Normal mood and affect. Course Vital Signs Vital signs: Vital Signs Temperature 98.1 F 01/05/25 17:31 Pulse Rate 90 01/05/25 17:31 Respiratory Rate 16 01/05/25 17:31 Blood Pressure 144/78 H 01/05/25 17:31 Pulse Oximetry 98 01/05/25 17:31 Temperature 97.8 F 01/05/25 23:23 Pulse Rate 75 01/05/25 22:32 Respiratory Rate 12 01/05/25 22:32 Blood Pressure 136/101 H 01/05/25 21:21 Pulse Oximetry 99 01/05/25 22:32 MDM - Head Injury MDM Narrative Medical decision making narrative: This is a 59-year-old male with recent history of multiple brain bleeds who presents to the ED for chief complaint of headache and episode of vomiting today. He was seen yesterday for episode of headache as well. He was seen last week for traumatic head injury with brain bleed. Vitals on arrival are normal. Exam is unremarkable. He does not have any vomiting in the ER and does not have any neurologic deficits. He was given Zofran and Dilaudid on arrival with good relief of symptoms. CT imaging of the brain is unchanged from previous CT yesterday. CT brain: IMPRESSION: No new acute intracranial process. Stable right inferior frontal lobe intraparenchymal hemorrhage During yesterday's visit, the provider was able to contact neurologist who did explain that persistent headaches are not a common. Due to the patient's head scan looking same from yesterday, feel reassured that there is no acute process going on. Patient was re-evaluated multiple times here and has complete resolution of symptoms. He is ambulating normally. No neurologic deficits. He is comfortable with going home and will continue to try his prescribed pain medications. He was given Zofran prescription as well for nausea. Patient will be discharged in stable condition. Supportive measures discussed and return precautions given. Patient is understanding and agreeable with plan for discharge with neurosurgery follow-up. Lab Data 01/05/25 20:59 01/05/25 20:59 Labs: Lab Results 01/05/25 Range/Units 20:59 WBC 7.9 (4.5-10.0) K/mm3 RBC 5.08 (4.6-6.20) M/mm3 Hgb 16.2 (14.0-18.0) g/dL Hct 45.9 (42.0-52.0) % MCV 90.4 (80-100) fl MCH 31.9 (26-34) pg MCHC 35.3 (32-36) g/dl RDW 11.6 (11.5-14.5) % Plt Count 222 (150-375) k/mm3 MPV 9.4 (7.4-10.4) fl Immature Gran % (Auto) 0.4 (0-0.5) % Neut % (Auto) 82.8 H (45.5-73.1) % Lymph % (Auto) 9.7 L (18.3-44.2) % Bartholomew % (Auto) 6.7 (2.6-8.5) % Eos % (Auto) 0.1 (0-4.4) % Baso % (Auto) 0.3 (0.2-1.2) % Lymph # (Auto) 0.76 L (0.9-3.2) K/mm3 Bartholomew # (Auto) 0.5 (0.1-0.6) K/mm3 Eos # (Auto) 0.0 (0-0.3) K/mm3 Baso # (Auto) 0.0 (0.0-0.1) K/mm3 Abs Immat Gran (auto) 0.03 (0.00-0.031) K/mm3 Absolute Neuts (auto) 6.5 (1.3-6.7) K/mm3 Absolute Nucleated RBC 0.000 (0.0-0.012) K/mm3 Nucleated RBC % 0.0 (0.0-0.2) % Sodium 133 L (137-145) mmol/L Potassium 4.8 (3.4-5.0) mmol/L Chloride 93 L (98-107) mmol/L Carbon Dioxide 29 (22-30) mmol/L Anion Gap 11 (4-12) mmol/L BUN 25 H (9-20) mg/dL Creatinine 0.73 (0.7-1.3) mg/dL Estim Creat Clear Calc 89 ml/min Estimated GFR > 60 (59 - ) Glucose 139 H (65-110) mg/dL Calcium 9.8 (8.4-10.2) mg/dL Total Bilirubin 0.9 (0.2-1.3) mg/dL AST 23 (17-59) U/L ALT 17 (6-50) U/L Alkaline Phosphatase 64 (38-126) U/L Total Protein 8.0 (6.3-8.2) g/dL Albumin 4.9 (3.5-5.1) g/dL Discharge Plan Discharge Clinical Impression: Headache, Nausea & vomiting Patient Disposition: Home, Self-Care Condition: Stable Instructions: Antibiotic Form Additional Instructions: Exam and imaging today are reassuring overall. Please follow-up closely with Neurosurgery as scheduled and continue with pain medications as prescribed. Use Zofran as needed for any nausea that arises. If you have any new or worsening symptoms please return to the ER for further evaluation. Patient Language: Citizen Of [place] Prescriptions: New ondansetron 4 mg tablet,disintegrating 4 mg PO Q8H PRN (Reason: nausea and vomiting) Qty: 10 0RF No Action hydrocodone-acetaminophen 5-325 mg tablet 1 tablet PO Q8H PRN (Reason: pain) Qty: 12 0RF oxycodone 5 mg tablet 5 mg PO Q6H PRN (Reason: pain) Qty: 15 0RF Follow-up/Referrals: Harrison,MD Winter [Primary Care Provider] - Time of Disposition: 23:01
[2025-01-05] MEDS: ONDANSETRON INJ 4 MG/2 ML VIAL IV PUSH (20:58)
[2025-01-05] MEDS: HYDROmorphone HCL INJ (*CRX) 1 MG/ML SYR 0.5 MG IV PUSH (21:00)
[2025-01-05 21:06] LABS: Basophils Percent Auto 0.3 % (0.2-1.2); Eosinophils Percent Auto 0.1 % (0-4.4); Hematocrit 45.9 % (42.0-52.0); Hemoglobin 16.2 g/dL (14.0-18.0); Immature Granulocyte Absolute 0.03 K/mm3 (0.00-0.031); Immature Granulocyte Percent A 0.4 % (0-0.5); Lymphocytes Absolute Auto 0.76 K/mm3 (0.9-3.2); Lymphocytes Percent Auto 9.7 % (18.3-44.2); Mean Corpuscular HGB Conc 35.3 g/dl (32-36); Mean Corpuscular Hemoglobin 31.9 pg (26-34); Mean Corpuscular Volume 90.4 fl (80-100); Mean Platelet Volume 9.4 fl (7.4-10.4); Monocytes Absolute Auto 0.5 K/mm3 (0.1-0.6); Monocytes Percent Auto 6.7 % (2.6-8.5); Neutrophils Absolute Auto 6.5 K/mm3 (1.3-6.7); Neutrophils Percent Auto 82.8 % (45.5-73.1); Platelet Count Result 222 k/mm3 (150-375); Red Blood Count 5.08 M/mm3 (4.6-6.20); Red Cell Distribution Width 11.6 % (11.5-14.5); White Blood Count 7.9 K/mm3 (4.5-10.0)
[2025-01-05 21:18] LABS: Alanine Aminotransferase 17 U/L (6-50); Albumin Level 4.9 g/dL (3.5-5.1); Alkaline Phosphatase 64 U/L (38-126); Anion Gap 11 mmol/L (4-12); Aspartate Amino Transferase 23 U/L (17-59); Bilirubin,Total 0.9 mg/dL (0.2-1.3); Blood Urea Nitrogen 25 mg/dL (9-20); Calcium 9.8 mg/dL (8.4-10.2); Carbon Dioxide 29 mmol/L (22-30); Chloride 93 mmol/L (98-107); Estimated CRCL calculation 89 ml/min; Estimated Glomerular Filt Rate > 60; Glucose 139 mg/dL (65-110); Potassium 4.8 mmol/L (3.4-5.0); Sodium 133 mmol/L (137-145)
== END 2025-01-05 23:30 | disposition home or self-care (01) ==
PROVIDERS: Emergency Provider Physician Assistant; PCP Internal Medicine
DX: R11.2 Nausea with vomiting, unspecified (principal); R51.9 Headache, unspecified; S06.5XAD Traumatic subdural hemorrhage with loss of consciousness status unknown, subsequent encounter; S06.6XAD Traumatic subarachnoid hemorrhage with loss of consciousness status unknown, subsequent encounter; S06.4XAD Epidural hemorrhage with loss of consciousness status unknown, subsequent encounter; X58.XXXD Exposure to other specified factors, subsequent encounter
CPT/HCPCS: 36415; 70450; 80053; 85025; 96374; 96375; 99284; J1171; J2405